=== PATIENT | female | born 1995 | race Caucasian/White ===

== ENCOUNTER 2016-02-29 08:28 | Emergency (ER) | payer OTHER ==
--- NOTE | 2016-02-29 08:56 | UC ---
Respiratory Complaint HPI - HPI Summary HPI Summary: cough and cold sx, nasal and chest congestion no fevers that she is aware of - History of Current Complaint Chief Complaint: UCRespiratory Stated Complaint: RESP COMPLAINT Time Seen by Provider: 02/29/16 08:44 Hx Obtained From: Patient Hx Last Menstrual Period: "it's been a while, Im not regular." ?: No Onset/Duration: Gradual Onset, Lasting Days - 7, Still Present Timing: Constant Severity Initially: Mild Severity Currently: Mild Character: Cough: Nonproductive Aggravating Factors: Nothing Alleviating Factors: Nothing Associated Signs And Symptoms: Positive: Chills, URI, Nasal Congestion, Sinus Discomfort - Allergies/Home Medications Allergies/Adverse Reactions: Allergies Allergy/AdvReac Type Severity Reaction Status Date / Time No Known Allergies Allergy Verified 02/29/16 09:00 PMH/Surg Hx/FS Hx/Imm Hx Previously Healthy: No Endocrine History Of: Denies: Diabetes, Thyroid Disease Cardiovascular History Of: Denies: Cardiac Disorders, Hypertension, Pacemaker/ICD, Congestive Heart Failure Respiratory History Of: Reports: Asthma - ACUTE ASTHMA SINCE AGE 12, Bronchitis Denies: COPD GI/ History Of: Denies: Ulcer, Renal Disease Neurological History Of: Reports: Migraine - HX OF 2 MONTHS AGO Psychological History Of: Reports: Anxiety, Depression - Surgical History Surgical History: Yes Surgery Procedure, Year, and Place: wisdom teeth extraction, tonsillectomy, LT THUMB LIGAMENT REPAIR 06/23/15-OK'D WITH DR CHEUNG TO SCAN BEFORE 6 WEEKS - Family History Known Family History: Positive: Cardiac Disease, Hypertension - Social History 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 Lives: With Family Alcohol Use: Occasionally Alcohol Amount: 1 DRINK 2 WEEKS Substance Use Type: None Smoking Status (MU): Light Every Day Tobacco Smoker Type: Cigarettes Amount Used/How Often: 10 PER DAY Length of Time of Smoking/Using Tobacco: 8 YRS Have You Smoked in the Last Year: Yes Household Exposure Type: Cigarettes Review of Systems Constitutional: Chills, Fatigue Skin: Negative Eyes: Negative ENT: Negative, Nasal Discharge Respiratory: Cough Cardiovascular: Negative Gastrointestinal: Negative Genitourinary: Negative Motor: Negative Neurovascular: Negative Musculoskeletal: Negative Neurological: Negative Psychological: Negative All Other Systems Reviewed And Are Negative: Yes Physical Exam Triage Information Reviewed: Yes Appearance: Well-Nourished, Ill-Appearing, Pain Distress Vital Signs Reviewed: Yes Eye Exam: Normal Eyes: Positive: Conjunctiva Clear ENT Exam: Normal ENT: Positive: Normal ENT inspection, Hearing grossly normal, Pharynx normal, Nasal congestion, Nasal drainage, TMs normal. Negative: Tonsillar swelling, Tonsillar exudate, Trismus, Muffled/hoarse voice Dental Exam: Normal Neck exam: Normal Neck: Positive: Supple, Nontender Respiratory Exam: Normal Respiratory: Positive: Chest non-tender, Lungs clear, Normal breath sounds, No respiratory distress, No accessory muscle use Cardiovascular Exam: Normal Cardiovascular: Positive: RRR, No Murmur, Brisk Capillary Refill Musculoskeletal Exam: Normal Musculoskeletal: Positive: Strength Intact, ROM Intact Neurological Exam: Normal Neurological: Positive: Alert, Muscle Tone Normal Psychological Exam: Normal Skin Exam: Normal Re-Evaluation - Re-Evaluation First Eval Change: Unchanged - u preg (-) Respiratory Course/Dx - Course Course Of Treatment: flonase, albuterol, increase fluids, start antibiodics is not improving in 5 days or significantly worsens - Differential Dx/Diagnosis Differential Diagnosis/HQI/PQRI: Asthma, Bronchitis, Lower Resp Infection, Sinusitis Provider Diagnoses: Rhinosinusitis Discharge - Discharge Plan Condition: Stable Disposition: HOME Prescriptions: Albuterol HFA INHALER* [Ventolin HFA Inhaler*] 2 puff INH Q6H PRN #1 mdi PRN Reason: cough Amoxicillin (*) 875 mg PO BID #20 tab Fluticasone NASAL SPRAY 50MCG* [Flonase NASAL SPRAY 50MCG*] 2 spray BOTH NARES DAILY #1 btl Patient Education Materials: How to Use a Metered-Dose Inhaler (ED), Upper Respiratory Infection (ED), How to Use Nasal [place] (ED) Referrals: Angeles Stevens MD [Primary Care Provider] - If Needed
[2016-02-29 09:00] VITALS: BP 117/69
== END 2016-02-29 09:50 | disposition home or self-care (01) ==
LOC: UCEAST 08:28
DX: J01.90 Acute sinusitis, unspecified (principal); B96.89 Other specified bacterial agents as the cause of diseases classified elsewhere; F17.210 Nicotine dependence, cigarettes, uncomplicated; J45.909 Unspecified asthma, uncomplicated; Z32.02 Encounter for pregnancy test, result negative
CPT/HCPCS: 81025; 99212; G0463

== ENCOUNTER 2016-10-08 12:32 | Emergency (ER) | payer OTHER ==
[2016-10-08 14:52] LABS: Add Diff/Slide Review? Slide Review Added; Comments Flag Yes; Hematocrit 41 % (35-47); Mean Corpuscular HGB Conc 34 g/dl (31-36); Mean Corpuscular Hemoglobin 32 pg (27-31); Mean Corpuscular Volume 93 fL (80-97); Mean Platelet Volume 9 um3 (7.4-10.4); Red Blood Count 4.41 10^6/ul (4.0-5.4); Red Cell Distribution Width 14 % (10.5-15); White Blood Count 14.8 10^3/ul (3.5-10.8)
[2016-10-08] MEDS ORDERED: HYDROmorphone* 1 MG/ML 1 ML SYR IV ONE ×2 (15:01→17:22)
[2016-10-08] MEDS ORDERED: Ondansetron INJ* 2 MG/ML VIAL IV ONE ×2 (15:01→17:22)
[2016-10-08] MEDS ORDERED: NS 0.9% 1000 ML* 1,000 ML IV ONE ×2 (15:01→17:22)
[2016-10-08 15:08] LABS: ALT 13 U/L (7-52); AST 16 U/L (13-39); Albumin 4.4 g/dL (3.2-5.2); Alkaline Phosphatase 61 U/L (34-104); Anion Gap 6 mmol/L (2-11); BUN/Creatinine Ratio 14.9 (8-20); Blood Urea Nitrogen 11 mg/dL (6-24); C Reactive Protein 4.38 mg/L (< 5.00); CO2 Carbon Dioxide 27 mmol/L (22-32); Calcium 9.3 mg/dL (8.6-10.3); Chloride 103 mmol/L (101-111); EGFR African American 125.1 (>60); EGFR Non-African American 97.3 (>60); Globulin 2.6 g/dL (2-4); Glucose 81 mg/dL (70-100); Lipase < 10 U/L (11.0-82.0); Potassium 4.1 mmol/L (3.5-5.0); Sodium 136 mmol/L (133-145)
[2016-10-08 15:14] LABS: Urine Bacteria Absent (Absent); Urine Bilirubin Negative (Negative); Urine Glucose Negative (Negative); Urine Nitrite Negative (Negative)
--- NOTE | 2016-10-08 15:19 | RAD ---
HISTORY: Right lower quadrant pain COMPARISONS: None TECHNIQUE: Multiple transverse and longitudinal ultrasound images were obtained of the right lower quadrant using grayscale and color Doppler imaging. FINDINGS: The appendix is visualized. The caliber 0.6 cm. The wall thickness is 0.2 cm. The appendix is compressible. There is trace amount of free fluid. The tip is not well visualized. IMPRESSION: THE APPENDIX IS VISUALIZED. THE VISUALIZED PORTION OF THE APPENDIX IS COMPRESSIBLE AND IS NORMAL IN CALIBER IN THICKNESS. THERE IS TRACE AMOUNT OF FREE FLUID. WHILE THERE IS NO DEFINITE EVIDENCE OF ACUTE APPENDICITIS, EARLY APPENDICITIS IS WITHIN THE DIFFERENTIAL. RECOMMEND ATTENTION ON FOLLOW-UP IMAGING
--- NOTE | 2016-10-08 18:41 | RAD ---
CLINICAL HISTORY: Right flank pain COMPARISON: Ultrasound dated October 08, 2016, CT dated October 29, 2015 TECHNIQUE: Multiple contiguous axial CT scans were obtained of the abdomen and pelvis, without intravenous contrast enhancement. Coronal and sagittal multiplanar reformations are submitted for review. Oral contrast was not administered. FINDINGS: The study is limited by the lack of intravenous contrast. This limits evaluation of the solid organs and vasculature. LUNG BASES: The lung bases are clear. LIVER: The liver is normal in shape, size, contour, and attenuation. BILE DUCTS: There is no intrahepatic or extrahepatic biliary dilatation. GALLBLADDER: The gallbladder is normal, without pericholecystic inflammatory change. PANCREAS: The pancreas is normal, without mass or ductal dilatation. SPLEEN: Normal in size and appearance. UPPER GI TRACT: Evaluation of the gastrointestinal tract is limited by incomplete gastric distention. The upper GI tract is unremarkable. SMALL BOWEL AND MESENTERY: The small bowel is normal in contour, course, and caliber. There is no obstruction or dilatation. COLON: The colon is normal in contour, course, caliber. There is no pericolonic inflammatory change. There is a tubular, vermiform, hollow viscus that is blind ending, and originates from the cecum, consistent with a normal appendix. There is no periappendiceal inflammatory change. ADRENALS: Normal bilaterally. KIDNEYS: The kidneys are normal in shape, size, contour, and axis. There is no hydronephrosis or nephrolithiasis. BLADDER: The bladder is smooth in contour. PELVIC ORGANS: The uterus and adnexa are grossly normal for technique. AORTA: The aorta is normal. IVC: Unremarkable LYMPH NODES: There is no lymphadenopathy by size criteria. ABDOMINAL WALL: There is no evidence for abdominal wall hernia. BONES AND SOFT TISSUES: Unremarkable OTHER: None IMPRESSION: SIMPLE FLUID NOTED WITHIN THE PELVIS. THIS MAY BE PHYSIOLOGIC WITHIN A REPRODUCTIVE AGE FEMALE.
[2016-10-08] MEDS ORDERED: Phenazopyridine TAB* 100 MG PO ONE ×2 (18:58→19:02)
[2016-10-08] MEDS ORDERED: Ciprofloxacin TAB* 500 MG PO ONE ×2 (18:58→19:02)
[2016-10-08 20:31] VITALS: BP 123/61
--- NOTE | 2016-10-08 20:48 | ED ---
Meredith Ordoñez Thomas, scribed for Alexei Em MD on 10/08/16 at 1445 . Abdominal Pain/Female - HPI Summary HPI Summary: The pt is a 21 y/o F presenting to the ED c/o RLQ abd pain that began yesterday at 20:00. The pain is rated 8/10. The pain is aggravated and alleviated by nothing. 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 Pt additionally c/o nausea, vomiting (this AM), and dysuria. Pt denies hematuria, diarrhea, and constipation. She last ate a sandwich at 15:00 yesterday and has not eaten since. PMHx: ovarian cysts, anxiety. PSHx: tonsillectomy. SHx: smoking , occasional alcohol use, no illicit drug use. LNMP 6 weeks ago, which is somewhat typical for her. - History of Current Complaint Chief Complaint: EDAbdPain Stated Complaint: ABD PAIN-RT SIDE Time Seen by Provider: 10/08/16 14:00 Hx Obtained From: Patient, Family/Editor [employer] - family in room Hx Last Menstrual Period: "it's been a while, Im not regular." Onset/Duration: Sudden Onset, Lasting Days - onset yesterday at 20:00, Still Present Timing: Constant Pain Intensity: 8 Pain Scale Used: 0-10 Numeric Location: Discrete At: RLQ Aggravating Factor(s): Nothing Alleviating Factor(s): Nothing Associated Signs and Symptoms: Positive: Nausea, Vomiting, Other: - POS: dysuria ; NEG: hematuria. Negative: Constipation, Diarrhea Allergies/Adverse Reactions: Allergies Allergy/AdvReac Type Severity Reaction Status Date / Time No Known Allergies Allergy Verified 10/08/16 14:19 PMH/Surg Hx/FS Hx/Imm Hx Previously Healthy: No Endocrine/Hematology History: Denies: Hx Diabetes, Hx Thyroid Disease Cardiovascular History: Denies: Hx Congestive Heart Failure, Hx Hypertension, Hx Pacemaker/ICD Respiratory History: Reports: Hx Asthma - ACUTE ASTHMA SINCE AGE 12, Other Respiratory Problems/Disorders - TONSILLITIS Denies: Hx Chronic Obstructive Pulmonary Disease (COPD) GI History: Denies: Hx Ulcer History: Denies: Hx Dialysis, Hx Renal Disease Sensory History: Denies: Hx Contacts or Glasses, Hx Hearing Aid Opthamlomology History: Denies: Hx Contacts or Glasses Neurological History: Reports: Hx Migraine - HX OF 2 MONTHS AGO Denies: Other Neuro Impairments/Disorders Psychiatric History: Reports: Hx Anxiety, Hx Depression Denies: Hx Panic Disorder - Surgical History Surgery Procedure, Year, and Place: wisdom teeth extraction, tonsillectomy, LT THUMB LIGAMENT REPAIR 06/23/15-OK'D WITH DR CHEUNG TO SCAN BEFORE 6 WEEKS Hx Anesthesia Reactions: No Infectious Disease History: No Infectious Disease History: Denies: Hx Clostridium Difficile, Hx Hepatitis, Hx Human Immunodeficiency Virus (HIV), Hx of Known/Suspected MRSA, Hx Shingles, Hx Tuberculosis, History Other Infectious Disease, Traveled Outside the [place] in Last 30 Days - Family History Known Family History: Positive: Cardiac Disease, Hypertension - Social History Alcohol Use: Occasionally Alcohol Amount: 1 DRINK 2 WEEKS Substance Use Type: Reports: None Smoking Status (MU): Heavy Every Day Tobacco Smoker Type: Cigarettes Amount Used/How Often: 10 PER DAY Length of Time of Smoking/Using Tobacco: 8 YRS Have You Smoked in the Last Year: Yes Review of Systems Negative: Fever Positive: Abdominal Pain - RLQ, onset yesterday at 20:00, Vomiting - this AM, Nausea. Negative: Diarrhea, Other - NEG: constipation Positive: dysuria. Negative: hematuria All Other Systems Reviewed And Are Negative: Yes Physical Exam Triage Information Reviewed: Yes Vital Signs On Initial Exam: Initial Vitals Temp Pulse Resp BP Pulse Ox 98.5 F 80 18 121/56 97 10/08/16 12:45 10/08/16 12:45 10/08/16 12:45 10/08/16 12:45 10/08/16 12:45 Vital Signs Reviewed: Yes Appearance: Positive: Well-Appearing, Well-Nourished, Pain Distress Skin: Positive: Warm, Skin Color Reflects Adequate Perfusion, Dry Head/Face: Positive: Normal Head/Face Inspection Eyes: Positive: Normal ENT: Positive: Normal ENT inspection Neck: Positive: Supple, Nontender Respiratory/Lung Sounds: Positive: Clear to Auscultation, Breath Sounds Present Cardiovascular: Positive: RRR Abdomen Description: Positive: Soft, Other: - She is tender to the RLQ. She is mildly tender to the RUQ. Bowel Sounds: Positive: Present Musculoskeletal: Positive: Normal Neurological: Positive: Normal Psychiatric: Positive: Normal, Affect/Mood Appropriate - [place] Coma Scale Coma Scale Total: 15 Diagnostics - Vital Signs Vital Signs Temp Pulse Resp BP Pulse Ox 10/08/16 14:15 98.4 F 67 16 131/64 97 10/08/16 12:45 98.5 F 80 18 121/56 97 - Laboratory Lab Results: Lab Results 10/08/16 10/08/16 10/08/16 Range/Units 14:43 14:43 14:43 WBC 14.8 H (3.5-10.8) 10^3/ul RBC 4.41 (4.0-5.4) 10^6/ul Hgb 14.0 (12.0-16.0) g/dl Hct 41 (35-47) % MCV 93 (80-97) fL MCH 32 H (27-31) pg MCHC 34 (31-36) g/dl RDW 14 (10.5-15) % Plt Count 232 (150-450) 10^3/ul MPV 9 (7.4-10.4) um3 Neut % (Auto) 78.0 (38-83) % Lymph % (Auto) 16.6 L (25-47) % [place] % (Auto) 3.9 (1-9) % Eos % (Auto) 0.6 (0-6) % Baso % (Auto) 0.9 (0-2) % Absolute Neuts (auto) 11.5 H (1.5-7.7) 10^3/ul Absolute Lymphs (auto) 2.5 (1.0-4.8) 10^3/ul Absolute Monos (auto) 0.6 (0-0.8) 10^3/ul Absolute Eos (auto) 0.1 (0-0.6) 10^3/ul Absolute Basos (auto) 0.1 (0-0.2) 10^3/ul Absolute Nucleated RBC 0.01 10^3/ul Nucleated RBC % 0 Sodium 136 (133-145) mmol/L Potassium 4.1 (3.5-5.0) mmol/L Chloride 103 (101-111) mmol/L Carbon Dioxide 27 (22-32) mmol/L Anion Gap 6 (2-11) mmol/L BUN 11 (6-24) mg/dL Creatinine 0.74 (0.51-0.95) mg/dL Est GFR ( Amer) 125.1 (>60) Est GFR (Non-Af Amer) 97.3 (>60) BUN/Creatinine Ratio 14.9 (8-20) Glucose 81 (70-100) mg/dL Lactic Acid 0.7 (0.5-2.0) mmol/L Calcium 9.3 (8.6-10.3) mg/dL Total Bilirubin 0.50 (0.2-1.0) mg/dL AST 16 (13-39) U/L ALT 13 (7-52) U/L Alkaline Phosphatase 61 (34-104) U/L C-Reactive Protein 4.38 (< 5.00) mg/L Total Protein 7.0 (6.4-8.9) g/dL Albumin 4.4 (3.2-5.2) g/dL Globulin 2.6 (2-4) g/dL Albumin/Globulin Ratio 1.7 (1-3) Lipase < 10 L (11.0-82.0) U/L Beta HCG, Quant < 0.60 mIU/mL Urine Color Urine Appearance Urine pH (5-9) Ur Specific [place] (1.010-1.030) Urine Protein (Negative) Urine Ketones (Negative) Urine Blood (Negative) Urine Nitrate (Negative) Urine Bilirubin (Negative) Urine Urobilinogen (Negative) Ur Leukocyte Esterase (Negative) Urine WBC (Auto) (Absent) Urine RBC (Auto) (Absent) Ur Squamous Epith Cells (Absent) Urine Bacteria (Absent) Urine Glucose (Negative) 10/08/16 Range/Units 15:02 WBC (3.5-10.8) 10^3/ul RBC (4.0-5.4) 10^6/ul Hgb (12.0-16.0) g/dl Hct (35-47) % MCV (80-97) fL MCH (27-31) pg MCHC (31-36) g/dl RDW (10.5-15) % Plt Count (150-450) 10^3/ul MPV (7.4-10.4) um3 Neut % (Auto) (38-83) % Lymph % (Auto) (25-47) % [place] % (Auto) (1-9) % Eos % (Auto) (0-6) % Baso % (Auto) (0-2) % Absolute Neuts (auto) (1.5-7.7) 10^3/ul Absolute Lymphs (auto) (1.0-4.8) 10^3/ul Absolute Monos (auto) (0-0.8) 10^3/ul Absolute Eos (auto) (0-0.6) 10^3/ul Absolute Basos (auto) (0-0.2) 10^3/ul Absolute Nucleated RBC 10^3/ul Nucleated RBC % Sodium (133-145) mmol/L Potassium (3.5-5.0) mmol/L Chloride (101-111) mmol/L Carbon Dioxide (22-32) mmol/L Anion Gap (2-11) mmol/L BUN (6-24) mg/dL Creatinine (0.51-0.95) mg/dL Est GFR ( Amer) (>60) Est GFR (Non-Af Amer) (>60) BUN/Creatinine Ratio (8-20) Glucose (70-100) mg/dL Lactic Acid (0.5-2.0) mmol/L Calcium (8.6-10.3) mg/dL Total Bilirubin (0.2-1.0) mg/dL AST (13-39) U/L ALT (7-52) U/L Alkaline Phosphatase (34-104) U/L C-Reactive Protein (< 5.00) mg/L Total Protein (6.4-8.9) g/dL Albumin (3.2-5.2) g/dL Globulin (2-4) g/dL Albumin/Globulin Ratio (1-3) Lipase (11.0-82.0) U/L Beta HCG, Quant mIU/mL Urine Color Yellow Urine Appearance Cloudy Urine pH 5.0 (5-9) Ur Specific [place] 1.023 (1.010-1.030) Urine Protein 1+(30 mg/dl) H (Negative) Urine Ketones 1+ H (Negative) Urine Blood 2+ H (Negative) Urine Nitrate Negative (Negative) Urine Bilirubin Negative (Negative) Urine Urobilinogen Negative (Negative) Ur Leukocyte Esterase 2+ H (Negative) Urine WBC (Auto) 3+(>20/hpf) H (Absent) Urine RBC (Auto) 3+(>10/hpf) H (Absent) Ur Squamous Epith Cells Present H (Absent) Urine Bacteria Absent (Absent) Urine Glucose Negative (Negative) Result Diagrams: 10/08/16 14:43 10/08/16 14:43 Lab Statement: Any lab studies that have been ordered have been reviewed, and results considered in the medical decision making process. - CT CT Abd/Pel CT Interpretation: No Acute Changes - SIMPLE FLUID NOTED WITHIN THE PELVIS. THIS MAY BE PHYSIOLOGIC WITHIN A REPRODUCTIVE AGE FEMALE. CT Interpretation Completed By: Radiologist - Additional Comments Diagnostic Additional Comments: US Abdomen. Interpreted by radiologist. Impression: THE APPENDIX IS VISUALIZED. THE VISUALIZED PORTION OF THE APPENDIX IS COMPRESSIBLE AND IS NORMAL IN CALIBER IN THICKNESS. THERE IS TRACE AMOUNT OF FREE FLUID. WHILE THERE IS NO DEFINITE EVIDENCE OF ACUTE APPENDICITIS, EARLY APPENDICITIS IS WITHIN THE DIFFERENTIAL. RECOMMEND ATTENTION ON FOLLOW-UP IMAGING Abdominal Pain Fem Course/Dx - Course Course Of Treatment: presented with RLQ pain for about a day accompanied by dysuria. Her U/A was suggestive of an infection and she had a mild leukocytosis. Her pain worsened while she was here and I was concerned she may have a stone so I obtained a noncontrast CT which was negative. - Diagnoses Provider Diagnoses: Pyelonephritis Discharge - Discharge Plan Condition: Stable Disposition: HOME Prescriptions: Ciprofloxacin TAB* [Cipro Tab*] 500 mg PO BID #20 tab Phenazopyridine 200 mg (NF) [Pyridium 200 MG tab *] 200 mg PO TID #6 tab Patient Education Materials: Kidney Infection (ED) Referrals: Doris Briceño NP [Primary Care Provider] - 3 Days The documentation as recorded by the Meredith lomeli Thomas accurately reflects the service I personally performed and the decisions made by me, Alexei Em MD.
== END 2016-10-08 19:45 | disposition home or self-care (01) ==
LOC: ED 12:32
DX: N10 Acute pyelonephritis (principal); R11.2 Nausea with vomiting, unspecified; Z32.02 Encounter for pregnancy test, result negative; J45.909 Unspecified asthma, uncomplicated; F41.9 Anxiety disorder, unspecified; F32.9 Major depressive disorder, single episode, unspecified; F17.210 Nicotine dependence, cigarettes, uncomplicated
CPT/HCPCS: 36415; 74176; 76705; 80053; 81003; 81015; 83605; 83690; 84702; 85025; 86140; 87086; 96361; 96374; 96375; 96376; 99285; A9270-GY; J1170; J2405

== ENCOUNTER 2016-10-15 20:07 | Emergency (ER) | payer OTHER ==
[2016-10-15] MEDS ORDERED: NS 0.9% 1000 ML* 1,000 ML IV ONE (20:47)
[2016-10-15] MEDS ORDERED: Ketorolac INJ* 30 MG/ML 1 ML VIAL IV ONE (20:47)
[2016-10-15 21:06] LABS: Urine Bacteria Absent (Absent); Urine Bilirubin Negative (Negative); Urine Glucose Negative (Negative); Urine Nitrite Positive (Negative)
[2016-10-15 21:20] LABS: Hematocrit 38 % (35-47); Hemoglobin 13.3 g/dl (12.0-16.0); Mean Corpuscular HGB Conc 35 g/dl (31-36); Mean Corpuscular Hemoglobin 32 pg (27-31); Mean Corpuscular Volume 93 fL (80-97); Mean Platelet Volume 9 um3 (7.4-10.4); Red Blood Count 4.15 10^6/ul (4.0-5.4); Red Cell Distribution Width 14 % (10.5-15); White Blood Count 10.8 10^3/ul (3.5-10.8)
[2016-10-15 21:33] LABS: Albumin 4.3 g/dL (3.2-5.2); C Reactive Protein 1.98 mg/L (< 5.00); Calcium 9.1 mg/dL (8.6-10.3); EGFR African American 125.1 (>60); EGFR Non-African American 97.3 (>60); Globulin 2.1 g/dL (2-4); Magnesium 2.1 mg/dL (1.9-2.7); Total Bilirubin 0.3 mg/dL (0.2-1.0); Total Protein 6.4 g/dL (6.4-8.9)
--- NOTE | 2016-10-15 21:35 | ED ---
Emeka Ordoñez Rebecca, scribed for Kit Rodriguez MD on 10/15/16 at 205 . Abdominal Pain/Female - HPI Summary HPI Summary: Pt is a 21 y/o F who presents to ED c/o abdominal pain for 1 week, worse last night. Pain radiates to the flank, bilaterally and is currently severe, ranked 8 /10. Sx aggravated and alleviated by nothing. Additionally c/o subjective fever. Pt was evaluated by [facility] ED 1 week ago (10/08) for similar sx where she had a CT Abd/pel done and was D/C to home with a Dx of pyelonephritis and Rx for Cipro and Pyridium. Pt reports the medications are not improving sx. She has not followed up with her PCP. - History of Current Complaint Chief Complaint: EDFlankPain Stated Complaint: DX KIDNEY INFECTION, MEDS NOT WORKING Time Seen by Provider: 10/15/16 20:41 Hx Obtained From: Patient Hx Last Menstrual Period: "it's been a while, Im not regular." Onset/Duration: Lasting Weeks - 1 week, Still Present, Worse Since - Last night Severity Currently: Severe Pain Intensity: 8 Pain Scale Used: 0-10 Numeric Radiates: Yes Radiates to: Back - Bilateral Aggravating Factor(s): Nothing Alleviating Factor(s): Nothing Associated Signs and Symptoms: Positive: Fever Simlar Episode/Dx as:: Evaluated 1 week ago by [facility] ED for similar sx Allergies/Adverse Reactions: Allergies Allergy/AdvReac Type Severity Reaction Status Date / Time No Known Allergies Allergy Verified 10/15/16 20:12 PMH/Surg Hx/FS Hx/Imm Hx Endocrine/Hematology History: Denies: Hx Diabetes, Hx Thyroid Disease Cardiovascular History: Denies: Hx Congestive Heart Failure, Hx Hypertension, Hx Pacemaker/ICD Respiratory History: Reports: Hx Asthma - ACUTE ASTHMA SINCE AGE 12, Other Respiratory Problems/Disorders - TONSILLITIS Denies: Hx Chronic Obstructive Pulmonary Disease (COPD) GI History: Denies: Hx Ulcer History: Denies: Hx Dialysis, Hx Renal Disease Sensory History: Denies: Hx Contacts or Glasses, Hx Hearing Aid Opthamlomology History: Denies: Hx Contacts or Glasses Neurological History: Reports: Hx Migraine - HX OF 2 MONTHS AGO Denies: Other Neuro Impairments/Disorders Psychiatric History: Reports: Hx Anxiety, Hx Depression Denies: Hx Panic Disorder - Surgical History Surgery Procedure, Year, and Place: wisdom teeth extraction, tonsillectomy, LT THUMB LIGAMENT REPAIR 06/23/15-OK'D WITH DR CHEUNG TO SCAN BEFORE 6 WEEKS Hx Anesthesia Reactions: No Infectious Disease History: No Infectious Disease History: Denies: Hx Clostridium Difficile, Hx Hepatitis, Hx Human Immunodeficiency Virus (HIV), Hx of Known/Suspected MRSA, Hx Shingles, Hx Tuberculosis, History Other Infectious Disease, Traveled Outside the [place] in Last 30 Days - Family History Known Family History: Positive: Cardiac Disease, Hypertension - Social History Alcohol Use: Occasionally Alcohol Amount: 1 DRINK 2 WEEKS Substance Use Type: Reports: None Smoking Status (MU): Heavy Every Day Tobacco Smoker Type: Cigarettes Amount Used/How Often: 10 PER DAY Length of Time of Smoking/Using Tobacco: 8 YRS Have You Smoked in the Last Year: Yes Review of Systems Positive: Fever Positive: Abdominal Pain - Abdominal pain with bilateral flank radiation All Other Systems Reviewed And Are Negative: Yes Physical Exam Triage Information Reviewed: Yes Vital Signs On Initial Exam: Initial Vitals Temp Pulse Resp BP Pulse Ox 98.3 F 100 16 133/72 98 10/15/16 20:09 10/15/16 20:09 10/15/16 20:09 10/15/16 20:09 10/15/16 20:09 Vital Signs Reviewed: Yes Appearance: Positive: Well-Appearing, Pain Distress - mild discomfort Skin: Positive: Warm Head/Face: Positive: Normal Head/Face Inspection Eyes: Positive: THERESA ENT: Positive: Hearing grossly normal Neck: Positive: Supple, Nontender Respiratory/Lung Sounds: Positive: Clear to Auscultation, Breath Sounds Present Cardiovascular: Positive: RRR Abdomen Description: Positive: Nontender, No Organomegaly, Soft. Negative: CVA Tenderness (R), CVA Tenderness (L) Bowel Sounds: Positive: Present Musculoskeletal: Positive: Strength/ROM Intact Neurological: Positive: Alert, Oriented to Person Place, Time Psychiatric: Positive: Affect/Mood Appropriate - [place] Coma Scale Coma Scale Total: 15 Diagnostics - Vital Signs Vital Signs Temp Pulse Resp BP Pulse Ox 10/15/16 20:12 98.3 F 100 16 133/72 98 10/15/16 20:09 98.3 F 100 16 133/72 98 - Laboratory Result Diagrams: 10/15/16 21:10 10/15/16 21:10 Lab Statement: Any lab studies that have been ordered have been reviewed, and results considered in the medical decision making process. Re-Evaluation - Re-Evaluation First Eval Re-Evaluation Time: 22:40 Change: Improved - results d/w pt Abdominal Pain Fem Course/Dx - Course Course Of Treatment: Pt is a 21 y/o F who presents to ED c/o abdominal pain for 1 week, worse last night. Pain radiates to the flank, bilaterally and is currently severe, ranked 8/10. Sx aggravated and alleviated by nothing. Additionally c/o subjective fever. Pt was evaluated by [facility] ED 1 week ago (10/08) for similar sx where she had a CT Abd/Pel done and was D/C to home with a Dx of pyelonephritis and Rx for Cipro and Pyridium. Pt reports the medications are not improving sx. UA reveals: urine color: [place], appearance: clear, nitrate: positive, WBC: trace, RBC: 1+, squamous epithelial cells: present and negative for: protein, blood, ketones, bacteria and glucose. In the ED course, the pt was administered Toradol, Morphine and fluids. She will be D/C to home with Dx of flank pain, Rx for Flexeril and Motrin and a follow up with her PCP. She understands and agrees. Elevated BP noted and advised to f/u with PCP. - Diagnoses Provider Diagnoses: Flank pain Discharge - Discharge Plan Condition: Improved Disposition: HOME Prescriptions: Cyclobenzaprine TAB* [Flexeril 10 MG TAB*] 10 mg PO TID #20 tab Ibuprofen TAB* [Motrin TAB* 800 MG] 800 mg PO TID #30 tab Patient Education Materials: Flank Pain (ED) Referrals: Doris Briceño [employer] [Primary Care Provider] - 3 Days Additional Instructions: Return to the ED for any returning or worsening symptoms. The documentation as recorded by the Emeka lomeli Rebecca accurately reflects the service I personally performed and the decisions made by , Kit Rodriguez MD.
[2016-10-15] MEDS ORDERED: Morphine INJ* 2 MG/ML 1 ML SYRINGE IV ONE (22:48)
[2016-10-15 23:56] VITALS: BP 122/63
== END 2016-10-15 23:40 | disposition home or self-care (01) ==
LOC: ED 20:07
DX: R10.9 Unspecified abdominal pain (principal); J45.909 Unspecified asthma, uncomplicated; F41.8 Other specified anxiety disorders; N12 Tubulo-interstitial nephritis, not specified as acute or chronic; F17.210 Nicotine dependence, cigarettes, uncomplicated
CPT/HCPCS: 36415; 80053; 81003; 81015; 83605; 83690; 83735; 85025; 86140; 87086; 96360; 96374; 96375; 99283; J1885; J2270

== ENCOUNTER → 2016-11-25 07:52 | Emergency (ER) | payer OTHER ==
[~2016-11-25 07:52] MED LIST: Ketorolac INJ* 30 MG/ML 1 ML VIAL IV ONE; Morphine INJ* 2 MG/ML 1 ML CARPUJECT ONE; Morphine INJ* 2 MG/ML 1 ML SYRINGE (TWO MG - NEW SYRINGE VERSION) IV ONE; NS 0.9% 1000 ML* 1,000 ML IV ONE; Ondansetron INJ* 2 MG/ML VIAL IV ONE
--- NOTE | 2016-11-25 09:22 | ED ---
GI/ HPI - HPI Summary HPI Summary: 21 female presents to ED with complaints of lower abdominal cramping and pain that began last night and has worsened since. Patient states she was unable to sleep due to the pain. She tried taking an old hydrocodone without relief. Patient states she usually gets painful cramps with menstrual cycle however this feel like the last time she had a miscarriage because they are so painful. Denies taking any medication today. Admits to menstrual bleeding that began yesterday shortly before the cramps. Is passing clots. Denies any concern for STDs. Is sexually active, took two tests in the past week and they were negative. Does not take control. Menstrual cycle is not regular and comes randomly, per patient. Admits to nausea when the pain is at its worst. Denies fever/chills, vomiting, urinary symptoms and abnormal bowel movements. Described pain to be cramping and increases in intensity at times, over suprapubic abdomen. PMHx significant for asthma and tension headaches. No other complaints at this time. - History of Current Complaint Chief Complaint: EDAbdPain Time Seen by Provider: 11/25/16 09:03 Stated Complaint: VAG BLEEDING/CRAMPS Hx Obtained From: Patient Hx Last Menstrual Period: "it's been a while, Im not regular." Onset/Duration: Started Hours Ago, Still Present, Worse Since Timing: Constant Severity: Severe Current Severity: Severe Vaginal Bleeding Description: Bright Red, Dark Red Pain Intensity: 9 Location of Pain: Suprapubic Additional Location for Females: Ovaries Pain Characteristics: Cramping, Aching Additional Signs & Symptoms: Positive: Vaginal Bleeding, Menses Irregular Aggravating Factor(s): Nothing Alleviating Factor(s): Position - - Allergy/Home Medications Allergies/Adverse Reactions: Allergies Allergy/AdvReac Type Severity Reaction Status Date / Time No Known Allergies Allergy Verified 11/25/16 07:58 PMH/Surg Hx/FS Hx/Imm Hx Endocrine/Hematology History: Denies: Hx Diabetes, Hx Thyroid Disease Cardiovascular History: Denies: Hx Congestive Heart Failure, Hx Hypertension, Hx Pacemaker/ICD Respiratory History: Reports: Hx Asthma - ACUTE ASTHMA SINCE AGE 12, Other Respiratory Problems/Disorders - TONSILLITIS Denies: Hx Chronic Obstructive Pulmonary Disease (COPD) GI History: Denies: Hx Ulcer History: Denies: Hx Dialysis, Hx Renal Disease Sensory History: Denies: Hx Contacts or Glasses, Hx Hearing Aid Opthamlomology History: Denies: Hx Contacts or Glasses Neurological History: Reports: Hx Migraine - HX OF 2 MONTHS AGO Denies: Other Neuro Impairments/Disorders Psychiatric History: Reports: Hx Anxiety, Hx Depression Denies: Hx Panic Disorder - Surgical History Surgery Procedure, Year, and Place: wisdom teeth extraction, tonsillectomy, LT THUMB LIGAMENT REPAIR 06/23/15-[facility] WITH DR CHEUNG TO SCAN BEFORE 6 WEEKS Hx Anesthesia Reactions: No - Immunization History Immunizations Up to Date: Yes Infectious Disease History: No Infectious Disease History: Denies: Hx Clostridium Difficile, Hx Hepatitis, Hx Human Immunodeficiency Virus (HIV), Hx of Known/Suspected MRSA, Hx Shingles, Hx Tuberculosis, History Other Infectious Disease, Traveled Outside the [place] in Last 30 Days - Family History Known Family History: Positive: Cardiac Disease, Hypertension - Social History Alcohol Use: Occasionally Alcohol Amount: 1 DRINK 2 WEEKS Substance Use Type: Reports: None Smoking Status (MU): Heavy Every Day Tobacco Smoker Type: Cigarettes Amount Used/How Often: 10 PER DAY Length of Time of Smoking/Using Tobacco: 8 YRS Have You Smoked in the Last Year: Yes Review of Systems Constitutional: Negative Cardiovascular: Negative Respiratory: Negative Positive: Abdominal Pain Positive: other - vaginal bleeding Skin: Negative All Other Systems Reviewed And Are Negative: Yes Physical Exam Triage Information Reviewed: Yes Vital Signs On Initial Exam: Initial Vitals Temp Pulse Resp BP Pulse Ox 97.9 F 90 18 130/74 100 11/25/16 07:55 11/25/16 07:55 11/25/16 07:55 11/25/16 07:55 11/25/16 07:55 Vital Signs Reviewed: Yes Appearance: Positive: Well-Appearing, Well-Nourished, Pain Distress - moderate Skin: Positive: Warm, Skin Color Reflects Adequate Perfusion, Dry. Negative: Cold, Cyanosis @, Jaundiced, Pale Head/Face: Positive: Normal Head/Face Inspection Eyes: Positive: Conjunctiva Clear ENT: Positive: Hearing grossly normal, Pharynx normal Neck: Positive: Supple, Nontender Respiratory/Lung Sounds: Positive: Clear to Auscultation, Breath Sounds Present. Negative: Rales, Rhonchi, Wheezes Cardiovascular: Positive: Normal, RRR, Pulses are Symmetrical in both Upper and Lower Extremities. Negative: Murmur, Rub Abdomen Description: Positive: No Organomegaly, Soft, Guarding, Other: - discomfort with palpating lower abdomen, suprapubic area. Negative: Bruit, CVA Tenderness (R), CVA Tenderness (L), Distended, McBurney's Point Tenderness, Peritoneal Signs Bowel Sounds: Positive: Present Pelvic Exam: Positive: external exam normal - per patient, deferred exam due to menstrual cycle and discomfort Musculoskeletal: Positive: Normal, Strength/ROM Intact Neurological: Positive: Normal, Sensory/Motor Intact, Alert, Oriented to Person Place, Time - [place] Coma Scale Coma Scale Total: 15 Diagnostics - Vital Signs Vital Signs Temp Pulse Resp BP Pulse Ox 11/25/16 07:55 97.9 F 90 18 130/74 100 - Laboratory Result Diagrams: 11/25/16 09:24 11/25/16 09:24 Lab Statement: Any lab studies that have been ordered have been reviewed, and results considered in the medical decision making process. Re-Evaluation - Re-Evaluation First Eval Re-Evaluation Time: 10:15 Change: Improved - had some relief, still in some pain Second Eval Re-Evaluation Time: 10:40 Change: Unchanged - still in some pain however, feels better than when she first came in, heating pad and tylenol. deferred pelvic. ready to be d/c. requested work note GIGU Course/Dx - Course Course Of Treatment: labs obtained. fluids and toradol given. did not have relief, given 1mg of morphine and tylenol. had some relief. given zofran for nausea, which helped. appears to be suffering from menstrual cramps, no concern for other etiology. Labs unremarkable. HCG negative. pending STD results, no concern at this time. deferred pelvic exam, as asymptomatic other than menstrual cycle. no additional vaginal symptoms. no further imaging or evaluation required at this time. patient aware of worsening signs and symptoms to watch out for. continue pain management at home with ibuprofen for anti- inflammatory starting tomorrow and midol. educated on proper dosing. increase fluid intake. hot baths, rest. follow up and return if symptoms persist, worsen or new symptoms develop. recommended heating pad. - Diagnoses Differential Diagnoses - Female: Urinary Tract Infection, Vaginitis, Other - dysmenorrhea, miscarriage Provider Diagnoses: Dysmenorrhea Discharge - Discharge Plan Condition: Stable Disposition: HOME Patient Education Materials: Dysmenorrhea (ED) Forms: *Work Release Referrals: Doris Briceño NP [Primary Care Provider] - Additional Instructions: Take your already prescribed hydrocodone for pain. supplement with ibuprofen beginning tomorrow. you may also want to try midol. laying with knees to chest and applying heating pad may also give you some relief. take hot baths. rest. drink plenty of fluids. make an appointment with OBGYN to discuss option for painful menstrual cycles. any new or worsening symptoms please seek medical attention.
[2016-11-25 09:35] LABS: Hematocrit 40 % (35-47); Hemoglobin 13.8 g/dl (12.0-16.0); Mean Corpuscular HGB Conc 34 g/dl (31-36); Mean Corpuscular Hemoglobin 32 pg (27-31); Mean Corpuscular Volume 93 fL (80-97); Mean Platelet Volume 8 um3 (7.4-10.4); Red Blood Count 4.32 10^6/ul (4.0-5.4); Red Cell Distribution Width 14 % (10.5-15); White Blood Count 7.7 10^3/ul (3.5-10.8)
[2016-11-25 09:51] LABS: ALT 18 U/L (7-52); AST 18 U/L (13-39); Alkaline Phosphatase 59 U/L (34-104); Anion Gap 5 mmol/L (2-11); BUN/Creatinine Ratio 8.8 (8-20); Blood Urea Nitrogen 6 mg/dL (6-24); C Reactive Protein 1.51 mg/L (< 5.00); CO2 Carbon Dioxide 27 mmol/L (22-32); Calcium 8.8 mg/dL (8.6-10.3); Chloride 105 mmol/L (101-111); EGFR African American 137.9 (>60); EGFR Non-African American 107.2 (>60); Globulin 2.4 g/dL (2-4); Glucose 90 mg/dL (70-100); Potassium 4.2 mmol/L (3.5-5.0); Sodium 137 mmol/L (133-145); Total Protein 6.4 g/dL (6.4-8.9)
[2016-11-25 10:51] LABS: Urine Bacteria Absent (Absent); Urine Bilirubin Negative (Negative); Urine Glucose Negative (Negative); Urine Nitrite Negative (Negative)
[2016-11-25] MEDS: Acetaminophen TAB* 325 MG PO ONE ×2 (11:01→11:02)
[2016-11-25 11:17] VITALS: BP 123/79
== END | disposition home or self-care (01) ==
LOC: ED 07:52
DX: N94.6 Dysmenorrhea, unspecified (principal); R10.30 Lower abdominal pain, unspecified; F17.210 Nicotine dependence, cigarettes, uncomplicated
CPT/HCPCS: 36415; 80053; 81003; 81015; 83605; 84702; 85025; 86140; 87491; 87591; 99283; A9270-GY; J1885; J2270; J2405

== ENCOUNTER → 2017-01-15 23:25 | Emergency (ER) | payer OTHER ==
[2017-01-15 23:30] VITALS: BP 148/84
== END | disposition home or self-care (01) ==
LOC: ED 23:25
DX: R07.9 Chest pain, unspecified (principal)
CPT/HCPCS: 93005

== ENCOUNTER 2017-03-24 18:05 | Emergency (ER) | payer OTHER ==
[2017-03-24 21:21] LABS: ABS Basophils 0 10^3/ul (0-0.2); ABS Eosinophils 0 10^3/ul (0-0.6); ABS Lymphocytes 2.4 10^3/ul (1.0-4.8); ABS Monocytes 0.5 10^3/ul (0-0.8); ABS Neutrophils 1.5 10^3/ul (1.5-7.7); ABS Nucleated RBC 0 10^3/ul; Eosinophil % 0.6 % (0-6); Hematocrit 42 % (35-47); Hemoglobin 14.2 g/dl (12.0-16.0); Lymphocyte % 53.5 % (25-47); Mean Corpuscular HGB Conc 34 g/dl (31-36); Mean Corpuscular Hemoglobin 32 pg (27-31); Mean Corpuscular Volume 93 fL (80-97); Mean Platelet Volume 9 um3 (7.4-10.4); Nucleated Red Blood Cells % 0.1; Platelet Count 221 10^3/ul (150-450); Red Cell Distribution Width 13 % (10.5-15); White Blood Count 4.4 10^3/ul (3.5-10.8)
[2017-03-24 21:37] LABS: EGFR Non-African American 102.8 (>60)
[2017-03-24] MEDS ORDERED: Morphine INJ* 4 MG/ML 1 ML CARPUJECT IV ONE (21:49)
[2017-03-24] MEDS ORDERED: Ondansetron INJ* 2 MG/ML VIAL IV ONE (21:49)
[2017-03-24] MEDS ORDERED: Iohexol 300* (CONTRAST) 10 ML SDV IV ONE (22:42)
[2017-03-25 00:29] LABS: Urine Appearance Cloudy; Urine Blood Negative (Negative); Urine Color Yellow; Urine Ketones 2+ (Negative); Urine Protein Negative (Negative); Urine Specific Gravity 1.017 (1.010-1.030); Urine Urobilinogen Negative (Negative)
[2017-03-25] MEDS ORDERED: Ketorolac INJ* 30 MG/ML 1 ML VIAL IV PUSH ONE (00:45)
--- NOTE | 2017-03-25 00:50 | ED ---
Red Ordoñez Tecjoon, scribed for Felix Dale MD on 03/25/17 at 0043 . Progress - Progress Note Progress Note: US Pelvic reveals, per radiologist, IMPRESSION: No adnexal masses visualized. ED physician has reviewed this radiology report. CT Abd/Pel reveals, per radiologist, IMPRESSION: impression: No abnormalities found. ED physician has reviewed this radiology report. Course/Dx - Course Course Of Treatment: pt flu +. ct abd and us negative, given 1 dose of pain medication, instructed to fu with gi physician and procurement director. agrees to and udnerstands dc isntructions. - Diagnoses Provider Diagnoses: Abdominal pain The documentation as recorded by the Red lomeli Tecjoon accurately reflects the service I personally performed and the decisions made by Chito solomon Dong, MD.
[2017-03-25 01:52] VITALS: BP 143/100
--- NOTE | 2017-03-25 08:33 | RAD ---
INDICATION: Right adnexal pain COMPARISON: Similar examination October 20, 2016 TECHNIQUE: Real-time transabdominal only ultrasound examination of the female pelvis including grayscale and Doppler color flow imaging. FINDINGS: Uterus: The uterus is normal in size and echogenicity measuring 8.1 x 3.3 x 4.4 cm. The endometrial stripe is smooth and uniform measuring 5 mm in thickness. Ovaries: The right and left ovary measure 3.4 x 1.9 x 3.1 cm and 2.4 x 2.6 x 2.9 cm, respectively. Normal arterial and venous waveforms are identified. Appearance is within normal limits for the patient's age. There is no free fluid in the cul-de-sac. IMPRESSION: Normal and age-appropriate transabdominal only pelvic ultrasound.
--- NOTE | 2017-03-25 08:57 | RAD ---
CLINICAL HISTORY: Right lower quadrant pain COMPARISON: Most recent CT examination is dated October 29, 2015 TECHNIQUE: Contrast enhanced CT examination of the abdomen and pelvis from the lung bases through the initial tuberosities. The patient received 88 mL Omnipaque 300 intravenously prior to imaging.The patient received oral contrast as well prior to imaging. FINDINGS: VISUALIZED LUNG BASES: The visualized lung bases are grossly clear. There is no pleural effusion. ABDOMEN AND PELVIS: The liver is homogenously hypodense relative to the spleen. The spleen, pancreas and adrenal glands are grossly normal in appearance. The gallbladder is normal. The kidneys are normal in appearance without focal mass, calcification or signs of hydronephrosis. The oral contrast has progressed as far as the base of the cecum. The small and large bowel are not distended. The patient's normal appendix is identified in the right lower quadrant measuring 6 mm in diameter (coronal image 34). There is no gross retroperitoneal or mesenteric lymphadenopathy. The pelvic viscera is normal in appearance. The abdominal aorta and iliac arteries are normal in course and diameter. There are no sinister bone lesions. IMPRESSION: Possible hepatic steatosis in this otherwise normal CT of the abdomen and pelvis.
--- NOTE | 2017-03-26 12:37 | ED ---
Wen Ordoñez Julia, scribed for Can Robertson MD on 03/24/17 at 2203 . Abdominal Pain/Female - HPI Summary HPI Summary: This patient is a 22 year old F presenting to [facility] with a chief complaint of constant RLQ abdominal since last night. Patient reports n/v/d, sweats, chills, fatigue, pain with urination. Patient denies vaginal bleeding, and cough. The patient rates the pain 8/10 in severity. She states she has been unable to eat for a week. Pt has hx of ovarian cysts. - History of Current Complaint Chief Complaint: EDAbdPain Stated Complaint: ABD PAIN Time Seen by Provider: 03/24/17 21:00 Hx Obtained From: Patient Hx Last Menstrual Period: "it's been a while, Im not regular." Onset/Duration: Lasting Days Timing: Constant Pain Intensity: 8 Pain Scale Used: 0-10 Numeric Location: Discrete At: RLQ Aggravating Factor(s): Food Associated Signs and Symptoms: Positive: Other: - reports n/v/d, sweats, chills , fatigue, pain with urination Allergies/Adverse Reactions: Allergies Allergy/AdvReac Type Severity Reaction Status Date / Time No Known Allergies Allergy Verified 03/24/17 20:53 PMH/Surg Hx/FS Hx/Imm Hx Endocrine/Hematology History: Denies: Hx Diabetes, Hx Thyroid Disease Cardiovascular History: Denies: Hx Congestive Heart Failure, Hx Hypertension, Hx Pacemaker/ICD Respiratory History: Reports: Hx Asthma - ACUTE ASTHMA SINCE AGE 12, Other Respiratory Problems/Disorders - TONSILLITIS Denies: Hx Chronic Obstructive Pulmonary Disease (COPD) GI History: Denies: Hx Ulcer History: Reports: Other Problems/Disorders - ovarian cysts Denies: Hx Dialysis, Hx Renal Disease Musculoskeletal History: Reports: Hx Back Problems - Chronic low back pain with luis hip pain Sensory History: Denies: Hx Contacts or Glasses, Hx Hearing Aid Opthamlomology History: Denies: Hx Contacts or Glasses Neurological History: Reports: Hx Migraine - HX OF 2 MONTHS AGO, Other Neuro Impairments/Disorders - dizziness Psychiatric History: Reports: Hx Anxiety, Hx Depression Denies: Hx Panic Disorder - Surgical History Surgery Procedure, Year, and Place: wisdom teeth extraction, tonsillectomy, LT THUMB LIGAMENT REPAIR 06/23/15 Hx Anesthesia Reactions: No - Immunization History Date of Tetanus Vaccine: unk Date of Influenza Vaccine: none Infectious Disease History: No Infectious Disease History: Denies: Hx Clostridium Difficile, Hx Hepatitis, Hx Human Immunodeficiency Virus (HIV), Hx of Known/Suspected MRSA, Hx Shingles, Hx Tuberculosis, History Other Infectious Disease, Traveled Outside the [place] in Last 30 Days - Family History Known Family History: Positive: Cardiac Disease, Hypertension - Social History Alcohol Use: Occasionally Alcohol Amount: 1 DRINK 2 WEEKS Substance Use Type: Reports: None, Prescribed Smoking Status (MU): Light Every Day Tobacco Smoker Type: Cigarettes Amount Used/How Often: 10 PER DAY Length of Time of Smoking/Using Tobacco: 8 YRS Have You Smoked in the Last Year: Yes Review of Systems Positive: Chills, Fatigue, Skin Diaphoresis Negative: Erythema Negative: Sore Throat Negative: Chest Pain Negative: Shortness Of Breath, Cough Gastrointestinal: Other - decreased PO intake Positive: Abdominal Pain, Vomiting, Diarrhea, Nausea Genitourinary: Negative - vaginal bleeding Positive: pain Negative: Myalgia, Edema Negative: Rash Neurological: Negative - dizziness All Other Systems Reviewed And Are Negative: Yes Physical Exam - Summary Physical Exam Summary: Constitutional: Well-developed, Well-nourished, Alert. (-) Distressed Skin: Warm, Dry HENT: Normocephalic; Atraumatic Eyes: Conjunctiva normal Neck: Musculoskeletal ROM normal neck. (-) JVD, (-) Stridor, (-) Tracheal deviation Cardio: Rhythm regular, rate normal, Heart sounds normal; Intact distal pulses; The pedal pulses are 2+ and symmetric. Radial pulses are 2+ and symmetric. (-) Murmur Pulmonary/Chest wall: Effort normal. (-) Respiratory distress, (-) Wheezes, (-) Rales Abd: Soft, (+) Mild RLQ Tenderness, (-) Distension, (-) Guarding, (-) Rebound Musculoskeletal: (-) Edema Lymph: (-) Cervical adenopathy Neuro: Alert, Oriented x3 Psych: Mood and affect Normal Triage Information Reviewed: Yes Vital Signs On Initial Exam: Initial Vitals Temp Pulse Resp BP Pulse Ox 98.1 F 77 18 131/78 99 03/24/17 18:24 03/24/17 18:24 03/24/17 18:24 03/24/17 18:24 03/24/17 18:24 Vital Signs Reviewed: Yes Diagnostics - Vital Signs Vital Signs Temp Pulse Resp BP Pulse Ox 03/24/17 19:52 98 F 66 14 161/85 98 03/24/17 18:24 98.1 F 77 18 131/78 99 - Laboratory Lab Results: Lab Results 03/24/17 03/24/17 03/24/17 Range/Units 21:10 21:10 21:10 WBC 4.4 (3.5-10.8) 10^3/ul RBC 4.50 (4.0-5.4) 10^6/ul Hgb 14.2 (12.0-16.0) g/dl Hct 42 (35-47) % MCV 93 (80-97) fL MCH 32 H (27-31) pg MCHC 34 (31-36) g/dl RDW 13 (10.5-15) % Plt Count 221 (150-450) 10^3/ul MPV 9 (7.4-10.4) um3 Neut % (Auto) 33.7 L (38-83) % Lymph % (Auto) 53.5 H (25-47) % Whitman % (Auto) 11.3 H (1-9) % Eos % (Auto) 0.6 (0-6) % Baso % (Auto) 0.9 (0-2) % Absolute Neuts (auto) 1.5 (1.5-7.7) 10^3/ul Absolute Lymphs (auto) 2.4 (1.0-4.8) 10^3/ul Absolute Monos (auto) 0.5 (0-0.8) 10^3/ul Absolute Eos (auto) 0 (0-0.6) 10^3/ul Absolute Basos (auto) 0 (0-0.2) 10^3/ul Absolute Nucleated RBC 0 10^3/ul Nucleated RBC % 0.1 Sodium 137 (133-145) mmol/L Potassium 3.7 (3.5-5.0) mmol/L Chloride 104 (101-111) mmol/L Carbon Dioxide 25 (22-32) mmol/L Anion Gap 8 (2-11) mmol/L BUN 12 (6-24) mg/dL Creatinine 0.70 (0.51-0.95) mg/dL Est GFR ( Amer) 132.2 (>60) Est GFR (Non-Af Amer) 102.8 (>60) BUN/Creatinine Ratio 17.1 (8-20) Glucose 76 (70-100) mg/dL Lactic Acid 0.6 (0.5-2.0) mmol/L Calcium 9.2 (8.6-10.3) mg/dL Total Bilirubin 0.30 (0.2-1.0) mg/dL AST 21 (13-39) U/L ALT 17 (7-52) U/L Alkaline Phosphatase 57 (34-104) U/L C-Reactive Protein 3.36 (< 5.00) mg/L Total Protein 7.2 (6.4-8.9) g/dL Albumin 4.5 (3.2-5.2) g/dL Globulin 2.7 (2-4) g/dL Albumin/Globulin Ratio 1.7 (1-3) Lipase 15 (11.0-82.0) U/L Beta HCG, Quant < 0.60 mIU/mL Urine Color Urine Appearance Urine pH (5-9) Ur Specific [place] (1.010-1.030) Urine Protein (Negative) Urine Ketones (Negative) Urine Blood (Negative) Urine Nitrate (Negative) Urine Bilirubin (Negative) Urine Urobilinogen (Negative) Ur Leukocyte Esterase (Negative) Urine Glucose (Negative) Influenza A (Rapid) (Negative) Influenza B (Rapid) (Negative) 03/24/17 03/25/17 Range/Units 23:25 00:12 WBC (3.5-10.8) 10^3/ul RBC (4.0-5.4) 10^6/ul Hgb (12.0-16.0) g/dl Hct (35-47) % MCV (80-97) fL MCH (27-31) pg MCHC (31-36) g/dl RDW (10.5-15) % Plt Count (150-450) 10^3/ul MPV (7.4-10.4) um3 Neut % (Auto) (38-83) % Lymph % (Auto) (25-47) % Whitman % (Auto) (1-9) % Eos % (Auto) (0-6) % Baso % (Auto) (0-2) % Absolute Neuts (auto) (1.5-7.7) 10^3/ul Absolute Lymphs (auto) (1.0-4.8) 10^3/ul Absolute Monos (auto) (0-0.8) 10^3/ul Absolute Eos (auto) (0-0.6) 10^3/ul Absolute Basos (auto) (0-0.2) 10^3/ul Absolute Nucleated RBC 10^3/ul Nucleated RBC % Sodium (133-145) mmol/L Potassium (3.5-5.0) mmol/L Chloride (101-111) mmol/L Carbon Dioxide (22-32) mmol/L Anion Gap (2-11) mmol/L BUN (6-24) mg/dL Creatinine (0.51-0.95) mg/dL Est GFR ( Amer) (>60) Est GFR (Non-Af Amer) (>60) BUN/Creatinine Ratio (8-20) Glucose (70-100) mg/dL Lactic Acid (0.5-2.0) mmol/L Calcium (8.6-10.3) mg/dL Total Bilirubin (0.2-1.0) mg/dL AST (13-39) U/L ALT (7-52) U/L Alkaline Phosphatase (34-104) U/L C-Reactive Protein (< 5.00) mg/L Total Protein (6.4-8.9) g/dL Albumin (3.2-5.2) g/dL Globulin (2-4) g/dL Albumin/Globulin Ratio (1-3) Lipase (11.0-82.0) U/L Beta HCG, Quant mIU/mL Urine Color Yellow Urine Appearance Cloudy Urine pH 5.0 (5-9) Ur Specific [place] 1.017 (1.010-1.030) Urine Protein Negative (Negative) Urine Ketones 2+ H (Negative) Urine Blood Negative (Negative) Urine Nitrate Negative (Negative) Urine Bilirubin Negative (Negative) Urine Urobilinogen Negative (Negative) Ur Leukocyte Esterase Negative (Negative) Urine Glucose Negative (Negative) Influenza A (Rapid) Positive H (Negative) Influenza B (Rapid) Negative (Negative) Result Diagrams: 03/24/17 21:10 03/24/17 21:10 Lab Statement: Any lab studies that have been ordered have been reviewed, and results considered in the medical decision making process. Abdominal Pain Fem Course/Dx - Course Course Of Treatment: Pt presents with onstant RLQ abdominal since last night. Patient reports n/v/d, sweats, chills, fatigue, pain with urination. Patient denies vaginal bleeding, and cough. The patient rates the pain 8/10 in severity. She states she has been unable to eat for a week. Pt is given morphine and Zofran - Diagnoses Provider Diagnoses: Abdominal pain, Influenza Discharge - Discharge Plan Condition: Stable Disposition: HOME Discharge Disposition Comment: Pt is signed out at shift change to Dr. Dale awaiting CT A/P and US. Prescriptions: Ondansetron ODT TAB* [Zofran 4 MG Odt TAB*] 4 mg PO Q6H PRN #10 tab.odt PRN Reason: Nausea Patient Education Materials: Acute Abdominal Pain (ED) Referrals: Doris Briceño NP [Primary Care Provider] - Chris Stoner MD [Medical Doctor] - Fiorella Cook MD [Medical Doctor] - Additional Instructions: PLEASE MAKE AN APPOINTMENT FIRST THING IN THE MORNING TO BE SEEN BY A [employer] DEVELOPER AND GI DOCTOR PLEASE RETURN IMMEDIATELY TO THE ER IF YOU HAVE ANY WORSENING OR CONCERNING SYMPTOMS PLEASE MAKE AN APPOINTMENT TO BE SEEN BY YOUR PRIMARY CARE DOCTOR WITHIN 1 WEEK The documentation as recorded by the Wen lomeli Julia accurately reflects the service I personally performed and the decisions made by me, Can Robertson MD.
== END 2017-03-25 01:51 | disposition home or self-care (01) ==
LOC: ED 18:05
DX: R10.31 Right lower quadrant pain (principal); J11.1 Influenza due to unidentified influenza virus with other respiratory manifestations; F17.210 Nicotine dependence, cigarettes, uncomplicated
CPT/HCPCS: 36415; 74177; 76856; 80053; 81003; 83605; 83690; 84702; 85025; 86140; 87502; 96374; 96375; 99284; J1885; J2270; J2405; Q9967

== ENCOUNTER 2017-10-08 16:19 | Emergency (ER) | payer OTHER ==
--- OUTSIDE RECORDS SUMMARY | 2017-10-08 16:25 | XMS REPORT ---
:1995 External Reference #:[id number] Author Organization [employer] Address [address] [facility] [place] [address] [place] [address] Phone [phone] Care Team Providers Name Role Phone Shyanne Call MD Primary Care Physician Unavailable Payers Type Date Identification Numbers Payment Provider Subscriber Commercial Effective: Policy Number: [id number] Zack Chester 2015 Group Number: [id number] [address] PayID: [id number] [place] [address] Medigap Part B Effective: 2015 Policy Number: [id number] Medicaid Esvin Chester Expires: 2015 Group Name: 1 1 [address] PayID: [id number] [place] [address] Commercial Effective: 2014 Policy Number: [id number] Zack Chester Expires: 2015 Group Number: [id number] [address] PayID: [id number] [place] [address] Problems Date Description Provider Status Onset: 10/21/2014 Asthma Jenny RoachP. 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 twice a day as needed Tizanidine HCL 08/07 Active Tablets 4mg 30tab take 1 M54.2 s tablet by Varn, N.P. mouth every 8 hours as needed Nicotrol 08/07 Active Inhaler 10mg 168un 1 Inhaler F17.210 its as needed Varn, N.P. not to exceed 16 in a day Fluconazole 07/25 Active Tablets 150mg 2tabs one by mouth june Varn, N.P. repeat in 3 days as needed Hydrocortisone 05/02 Active Cream 2.5% 30gm apply to R21 Shyanne /2018 affected Cotton, area twice M.D. daily Ranitidine HCL 03/31 Active Tablets 150mg 60tab take one R10.84 s tablet by Varn, N.P. mouth twice a day Albuterol Sulfate 01/18 Active Nebulizer (2.5mg/3M 300un inhale L) 0.083% its contents Stevens, of 1 vial M.D. via nebulizer 4 times a day as needed Nebulizer 01/18 Active Device 1unit use for s albuterol Stevens, nebulized M.D. solution up to 4 times a day. Valtrex 07/26 Active Tablets 500mg 30tab 1 by mouth George s twice a MAICOL Wallace day x 5 days Ventolin HFA 08/15 Active Aerosol 108(90Bas 8.5gm 2 puffs by Doris /2015 e) mouth four Varn, N.P. mcg/Act times a day as needed Fluconazole 02/01 Hx Tablets 150mg 2tabs one by George mouth june MAICOL Wallace - repeat in 05/01 3 days needed Prednisone 01/18 Hx Tablets 10mg qs take 4 tab J45.901 daily x 3 Stevens, - days then M.D. 01/30 3 tab /2016 daily x 3 days and then 2 tab daily X 3 days 1 tab daily x 3 days Medrol 12/06 Hx TBPK 4mg 21uni 6 by mouth M54.5 ts day 1, 5 Varn, N.P. - by mouth 12/12 day 2, by mouth day 3, 3 by mouth day 4, 2 by mouth day 5, 1 by mouth day 6 Ibuprofen 11/17 Hx Tablets 800mg 90tab by mouth s three Varn, N.P. - times a 08/09 day needed Ahydrocodone-Acet 11/14 Hx Tablets 5-325mg 14tab one tablet aminophen s by mouth Varn, N.P. - every 8 12 hours needed for pain Fluconazole 10/13 Hx Tablets 150mg 2tabs one by Doris /2017 mouth june Varn, N.P. - repeat in 01/18 3 days needed Tizanidine HCL 08/31 Hx Tablets 4mg 30tab 1 tablet G44.201 Doris /2017 s every 4 Varn, N.P. - hours as 05/01 needed for muscle tension headache or muscle spasms. Meloxicam 07/27 Hx Tablets 15mg 60tab 1 by mouth s twice a Bennett, - day M.D. 10/18 Fluconazole 07/04 Hx Tablets 150mg 2tabs one by George gene june MAICOL Wallace repeat in 3 days as needed Tramadol HCL 06/22 Hx Tablets 50mg 60tab 1-2 M79.645 Shyanne s tablets Jakub, - every 6 M.D. 01/18 hours needed for pain. Ibuprofen 06/22 Hx Tablets 600mg 21tab take one M79.645 George s tablet by MAICOL Wallace - mouth 07/27 times a day as needed with food Diflucan 05/30 Hx Tablets 150mg 2tabs one by Doris /2017 mouthJune Varn, N.P. - repeat in 06/05 3 days Tizanidine HCL 11/24 Hx Tablets 4mg 60tab 1 tablet G44.201 Doris /2016 s every 4 Varn, N.P. hours as needed for muscle tension headache. Fluconazole 11/18 Hx Tablets 150mg 2tabs one by Doris mouth june Keyanna, N.P. - repeat in 01/27 3 days needed Azithromycin 11/04 Hx Tablets 250mg 6tabs 2 tabs by [place].Sera [place] mouth MAICOL Wallace - every day 11/09 x1 day, tab by mouth every day x 4 days Benzonatate 11/04 Hx Capsules 200mg 30cap one by J20Marquis George s mouth [place] DBAS - three 01/27 times daily as needed for cough Acetaminophen-Cod 10/19 Hx Tablets 300-30mg 30tab one by M54.5 Doris sowne #3 s mouth Keyanna, N.P. - every 6 01/27 hours needed cough Meloxicam 10/01 Hx Tablets 15mg 30tab once daily 4.5 George s with food MAICOL Wallace Tramadol HCL 10/01 Hx Tablets 50mg 42tab 1-2 4.5 George s tablets MAICOL Wallace - every 8 10/08 hours needed for pain. Fluconazole 09/26 Hx Tablets 150mg 2tabs one by Doris mouth june Keyanna, N.P. - repeat in 10/19 3 days needed Hydrocodone-Aceta 09/23 Hx Tablets 5-325mg 30tab 1-2 by George nugent s mouth MAICOL Wallace - every 8 08/12 hours prn. Methylprednisolon 09/23 Hx TBPK 4mg 21uni as M54.5 George ts directed MAICOL Wallace - on package 09/29 Methylprednisolon 08/11 Hx TBPK 4mg 21uni as M79.642 George ts directed MAICOL Wallace - on package 08/19 Oxycodone-Acetami 07/08 Hx Tablets 5-325mg 20tab 1 tab by M79.642 Karen jaime s mouth Bennett, - every 6 M.D. 08/11 hours needed for pain Do not refill until 06/26/15 Fluconazole 07/08 Hx Tablets 150mg 2tabs one by M79.642 Doris mouth june Keyanna, N.P. - repeat in 07/24 3 days needed Celebrex 07/06 Hx Capsules 100mg 30cap 1 by mouth K02.7 s bid prn Keyanna, N.P. - pain 08/11 Lidocaine-Priloca 07/05 Hx Cream 2.5-2.5% 25gm apply a L72.3 generous Keyanna, N.P. - amount to 07/06 affected area 30 minutes before appointmen t. Tramadol 07/01 Hx Tablets 37.5-325m 30tab 1-2 Karen Hydrochloride/Sukh g s tablets Bennett, taminophen - every 6 M.D. 08/11 hours needed pain Oxycodone-Acetami 06/24 Hx Tablets 5-325mg 40tab 1-2 tab by Karen nophen s mouth Bennett, - every 4-6 M.D. 07/03 hours needed for pain Do not refill until 06/26/15 Hydrocodone-Aceta 06/21 Hx Tablets 5-325mg 40tab 1-2 tabs Karen minophen s by mouth Bennett, - every 4- 6 M.D. 07/08 hours needed pain Fluconazole 06/21 Hx Tablets 150mg 2tabs one by mouth may Keyanna, N.P. - repeat in 06/27 3 days needed Percocet 06/17 Hx Tablets 5-325mg 60tab 1-2 by S53.32xA Zaneb s mouth MD Sana - every 4 to 06/20 6 hours needed pain Ciprofloxacin HCL 06/10 Hx Tablets 250mg 14tab take one N39.0 George s tablet MAICOL Wallace - twice a 06/17 day for days. Phenazopyridine 06/10 Hx Tablets 100mg 10tab 1 tablet N39.0 George HCL s by mouth MAICOL Wallace - three 06/13 times day as needed for [address] 05/[address] 500mg 60tab by mouth K02.7 George s twice a MAICOL Wallace - day with 05/10 Lidocaine Viscous 05/14 Hx Solution 2% 100un gargle K02.7 its with 15ml Madison, DBAS - every 4 06/10 hours needed for throat pain. Fluconazole 04/28 Hx Tablets 150mg 2tabs one by mouth june Varn, N.P. - repeat in 05/25 3 days needed Benzonatate 04/08 Hx Capsules 200mg 30cap one by J06.9 s mouth Varn, N.P. - three 04/21 daily as needed for cough Celebrex 04/08 Hx Capsules 200mg 30cap 1 by mouth K02.7 s every day Varn, N.P. - 04/08 Flovent HFA 04/08 Hx Aerosol 110mcg/Ac 12gm 2 puffs J06.9 t twice Varn, N.P. - daily 01/18 Meloxicam 04/08 Hx Tablets 15mg 30tab once daily s with food Varn, N.P. - 05/14 Tizanidine HCL 03/30 Hx Capsules 4mg 60cap one by G44.201 s mouth Varn, N.P. - every 4 11/24 hours needed for musle tension headache Ciprofloxacin HCL 02/11 Hx Tablets 500mg 20tab take one R30.0 s tablet Madison, DBAS - twice a 02/22 day for days Phenazopyridine 02/11 Hx Tablets 100mg 10tab 1 tablet R30.0 George s by mouth [place], DBAS - three 02/14 times day as needed for 3 days. Fluconazole 02/11 Hx Tablets 150mg 2tabs one by R30.0 George mouth june [place], DBAS - repeat in 02/17 3 days needed Fluconazole 01/27 Hx Tablets 150mg 2tabs one by B37.3 George mouth june [place], DBAS - repeat in 02/17 3 days needed Tramadol HCL 01/19 Hx Tablets 50mg 30tab 1 tablet s three to Varn, N.P. - four times 03/30 daily needed Valtrex 01/14 Hx Tablets 500mg 10tab 1 by mouth s twice a Varn, N.P. day x 5 days Tramadol HCL 01/05 Hx Tablets 50mg 15tab 1-2 K08.8 George s tablets MAICOL Wallace - every 4-6 01/08 hours needed for pain. Fluconazole 01/05 Hx Tablets 150mg 2tabs one by B37.3 George mouth june MAICOL Wallace - repeat in 01/08 3 days as needed Naproxen Sodium 12/24 Hx Tablets 550mg 60tab One po R10.11 s every 12 Varn, N.P. - hours 04/08 Ponstel 12/16 Hx Capsules 250mg 60cap two by R10.31 s mouth Varn, N.P. - initially 12/16 then 1 by mouth every 6 hours as needed Docusate Sodium & 12/16 Hx Tablets 8.6-50mg 30tab 2 tablets R10.31 Doris Senna Stimulant s po hs prn Varn, N.P. Laxative/Stool - constipati Softener 04/08 on Valacyclovir HCL 12/16 Hx Tablets 1gm 21tab 1 tbalet N77.1 s tid x 7 Varn, N.P. - days 01/04 Clindamycin 09/12 Hx Gel 1% 30gm apply once L70.8 daily to Varn, N.P. - affected 10/17 areas. Clindamycin 09/11 Hx Gel 1-5% 50gm Apply to 706.1 George Phos-Benzoyl /2014 afected MAICOL Wallace Perox - areas once 09/12 daily. Ortho-Cept (28) 08/15 Hx Tablets 0.15-30mg 3mont 1 by mouth George -mcg hs every day MAICOL Wallace - 09/11 Sumatriptan 08/15 Hx Tablets 25mg 9tabs take one George Succinate tablet at MAICOL Wallace - the first 08/15 signs of headache. if no improvemen t take a second tablet 2 hours after the first, Naproxen DR 08/[address] 500mg 60tab by mouth George /2014 s twice a MAICOL Wallace - day with 09/11 Cyclobenzaprine 08/15 Hx Tablets 5mg 30tab take one 784.0 George HCL /2014 s tablet by MAICOL Wallace - mouth 10/21 every hours as needed. Sumatriptan 08/15 Hx Tablets 50mg 9tabs take one 784.0 George Succinate tablet at MAICOL Wallace - onset of 08/18 headache. if no relief you can take a second tab 2 hours later. No more than 4 times a month Diazepam 00/ Hx Tablets 2mg 1 tablet George /0000 by mouth MAICOL Wallace - bid 09/11 Zoloft 00/00 Hx Tablets 100mg 1 by mouth Unknown /0000 every day - 04/08 Amoxicillin 00/00 Hx Capsules 500mg take 1 Unknown /0000 capsule by - mouth 02/11 hours until finished Sertraline HCL 00/00 Hx Tablets 100mg Unknown /0000 - 04/08 Gabapentin 00/00 Hx Capsules 300mg 1 by mouth Unknown /0000 three - times a Clonazepam 00/00 Hx Tablets 0.5mg once daily Unknown /0000 Dispers - 06/05 Rexulti 00/00 Hx Tablets 2mg 1 po daily Unknown /0000 - 11/04 Ativan 00/00 Hx Tablets 1mg 1 tab by Unknown /0000 mouth 3x a - day 06/22 Clonidine HCL 00/00 Hx Tablets 0.1mg 1 by mouth Unknown /0000 im Am and - 3 in the 06/22 Trazodone HCL 00/00 Hx Tablets 100mg 1 by mouth Unknown /0000 every - night at 01/27 bedtime Flexeril 00/00 Hx Tablets 5mg 1 tab by Unknown /0000 mouth - twice a 10/19 day needed spasm Nitrofurantoin 00/00 Hx Capsules 100mg take 1 Unknown Monohyd Macro /0000 capsule by - mouth 01/27 twice a day Rexulti 00/00 Hx Tablets 2mg 1 by mouth Unknown /0000 every day - 06/22 Trileptal 00/00 Hx Tablets 150mg Not Unknown /0000 taking---1 - tablet at 05/01 night a week then 1 twice a day Doxycycline Hx Capsules 50mg to start Unknown cl /0000 soon - 08/07 Vital Signs Date Vital Result Comment 09/13/2017 Height 65 inches 5'5" Weight 149.00 lb Heart Rate 68 /min BP Systolic 130 mmHg BP Diastolic 64 mmHg Body Temperature 96.0 F O2 % BldC Oximetry 97 % BMI (Body Mass Index) 24.8 kg/m2 08/07/2017 Weight 154.00 lb Heart Rate 77 /min BP Systolic 100 mmHg BP Diastolic 60 mmHg Body Temperature 97.9 F O2 % BldC Oximetry 98 % 05/02/2017 Weight 140.00 lb Heart Rate 87 /min BP Systolic Sitting 108 mmHg BP Diastolic Sitting 62 mmHg Body Temperature 96.1 F O2 % BldC Oximetry 99 % 03/31/2017 Weight 141.50 lb Heart Rate 91 /min BP Systolic 127 mmHg BP Diastolic 72 mmHg Body Temperature 97.0 F O2 % BldC Oximetry 98 % 01/18/2017 Weight 150.00 lb Heart Rate 81 /min BP Systolic Sitting 130 mmHg BP Diastolic Sitting 74 mmHg Body Temperature 96.8 F O2 % BldC Oximetry 98 % 12/06/2016 Weight 147.75 lb Heart Rate 105 /min BP Systolic 150 mmHg BP Diastolic 68 mmHg Body Temperature 97.2 F O2 % BldC Oximetry 97 % 11/04/2016 Weight 148.00 lb Heart Rate 82 /min BP Systolic 112 mmHg BP Diastolic 60 mmHg Body Temperature 97.4 F O2 % BldC Oximetry 98 % 10/18/2016 Height 65 inches 5'5" Weight 151.00 lb Heart Rate 95 /min BP Systolic 112 mmHg BP Diastolic 60 mmHg Body Temperature 97.3 F O2 % BldC Oximetry 99 % BMI (Body Mass Index) 25.1 kg/m2 08/12/2016 Heart Rate 78 /min BP Systolic Sitting 124 mmHg BP Diastolic Sitting 82 mmHg Respiratory Rate 18 /min Body Temperature 97.5 F 06/29/2016 Height 65 inches 5'5" Weight 152.00 lb Heart Rate 66 /min BP Systolic 109 mmHg BP Diastolic 69 mmHg Respiratory Rate 15 /min Body Temperature 97.7 F Pain Level 7 BMI (Body Mass Index) 25.3 kg/m2 06/22/2016 Weight 157.75 lb Heart Rate 69 /min BP Systolic 118 mmHg BP Diastolic 60 mmHg Body Temperature 97.3 F O2 % BldC Oximetry 99 % 02/03/2016 Height 65 inches 5'5" Weight 149.00 lb Heart Rate 72 /min BP Systolic 124 mmHg BP Diastolic 70 mmHg Respiratory Rate 18 /min Body Temperature 98.9 F BMI (Body Mass Index) 24.8 kg/m2 01/28/2016 Height 65 inches 5'5" Weight 149.00 lb Heart Rate 79 /min BP Systolic 100 mmHg BP Diastolic 70 mmHg Body Temperature 96.3 F O2 % BldC Oximetry 98 % BMI (Body Mass Index) 24.8 kg/m2 11/05/2015 Height 65 inches 5'5" Weight 148.50 lb Heart Rate 90 /min BP Systolic 111 mmHg BP Diastolic 75 mmHg Body Temperature 96.8 F O2 % BldC Oximetry 100 % BMI (Body Mass Index) 24.7 kg/m2 11/02/2015 Height 65 inches 5'5" Weight 150.00 lb Heart Rate 60 /min Respiratory Rate 16 /min Pain Level 6 BMI (Body Mass Index) 25.0 kg/m2 10/20/2015 Weight 141.00 lb Heart Rate 57 /min BP Systolic Sitting 88 mmHg BP Diastolic Sitting 57 mmHg Respiratory Rate 16 /min Body Temperature 98.4 F O2 % BldC Oximetry 98 % 10/02/2015 Weight 145.75 lb Heart Rate 68 /min BP Systolic Sitting 104 mmHg BP Diastolic Sitting 69 mmHg Pain Level 8 O2 % BldC Oximetry 99 % 09/24/2015 Weight 146.50 lb Heart Rate 97 /min BP Systolic Sitting 115 mmHg BP Diastolic Sitting 69 mmHg Pain Level 8 O2 % BldC Oximetry 99 % 08/17/2015 Height 65 inches 5'5" Weight 150.00 lb Pain Level 8 BMI (Body Mass Index) 25.0 kg/m2 08/12/2015 Weight 147.00 lb with shoes Heart Rate 80 /min BP Systolic Sitting 120 mmHg BP Diastolic Sitting 52 mmHg Body Temperature 96.5 F O2 % BldC Oximetry 99 % 07/29/2015 Height 65 inches 5'5" Weight 150.00 lb Pain Level 2 BMI (Body Mass Index) 25.0 kg/m2 07/17/2015 Weight 150.00 lb Heart Rate 66 /min BP Systolic Sitting 102 mmHg BP Diastolic Sitting 50 mmHg Body Temperature 96.0 F O2 % BldC Oximetry 99 % 07/10/2015 Weight 138.00 lb Heart Rate 76 /min BP Systolic Sitting 124 mmHg BP Diastolic Sitting 80 mmHg Respiratory Rate 16 /min Body Temperature 98.0 F O2 % BldC Oximetry 98 % 07/09/2015 Weight 136.00 lb Heart Rate 76 /min BP Systolic Sitting 118 mmHg BP Diastolic Sitting 70 mmHg Respiratory Rate 15 /min Body Temperature 98.7 F O2 % BldC Oximetry 98 % 07/06/2015 Weight 140.19 lb Heart Rate 76 /min BP Systolic Sitting 114 mmHg BP Diastolic Sitting 74 mmHg Body Temperature 97.2 F O2 % BldC Oximetry 98 % 07/02/2015 Height 65 inches 5'5" Weight 140.00 lb Heart Rate 60 /min BP Systolic Sitting 114 mmHg BP Diastolic Sitting 68 mmHg Respiratory Rate 16 /min Pain Level 10 BMI (Body Mass Index) 23.3 kg/m2 06/22/2015 Height 65 inches 5'5" Weight 140.00 lb Heart Rate 60 /min BP Systolic 111 mmHg BP Diastolic 71 mmHg Pain Level 10 BMI (Body Mass Index) 23.3 kg/m2 06/18/2015 Heart Rate 72 /min BP Systolic Sitting 119 mmHg BP Diastolic Sitting 72 mmHg Body Temperature 97.6 F Pain Level 10 O2 % BldC Oximetry 99 % 06/11/2015 Weight 141.00 lb Heart Rate 64 /min BP Systolic Sitting 122 mmHg BP Diastolic Sitting 72 mmHg Body Temperature 98.1 F O2 % BldC Oximetry 99 % 05/15/2015 Weight 142.00 lb Heart Rate 66 /min BP Systolic Sitting 122 mmHg BP Diastolic Sitting 80 mmHg Respiratory Rate 15 /min Body Temperature 96.0 F O2 % BldC Oximetry 98 % 04/08/2015 Weight 148.50 lb Heart Rate 87 /min BP Systolic Sitting 110 mmHg BP Diastolic Sitting 70 mmHg Respiratory Rate 18 /min Body Temperature 96.2 F Pain Level 8 O2 % BldC Oximetry 92 % 03/30/2015 Weight 144.00 lb Heart Rate 80 /min BP Systolic Sitting 98 mmHg BP Diastolic Sitting 60 mmHg Respiratory Rate 16 /min Body Temperature 98.3 F O2 % BldC Oximetry 99 % 02/17/2015 Weight 148.00 lb Heart Rate 78 /min BP Systolic Sitting 126 mmHg BP Diastolic Sitting 62 mmHg Body Temperature 97.3 F Pain Level 9 R lower abdominal O2 % BldC Oximetry 98 % 02/11/2015 Height 65 inches 5'5" Weight 150.00 lb Heart Rate 72 /min BP Systolic Sitting 110 mmHg BP Diastolic Sitting 60 mmHg Respiratory Rate 16 /min Body Temperature 98.2 F O2 % BldC Oximetry 97 % BMI (Body Mass Index) 25.0 kg/m2 01/05/2015 Weight 153.50 lb Heart Rate 67 /min BP Systolic Sitting 106 mmHg BP Diastolic Sitting 62 mmHg Body Temperature 96.5 F Pain Level 9 O2 % BldC Oximetry 98 % 12/24/2014 Weight 153.00 lb Heart Rate 60 /min BP Systolic Sitting 115 mmHg BP Diastolic Sitting 75 mmHg Body Temperature 97.1 F Pain Level 8 O2 % BldC Oximetry 98 % 12/16/2014 Height 65 inches 5'5" Weight 155.00 lb Heart Rate 78 /min BP Systolic Sitting 122 mmHg BP Diastolic Sitting 76 mmHg Respiratory Rate 14 /min Body Temperature 98.7 F O2 % BldC Oximetry 98 % BMI (Body Mass Index) 25.8 kg/m2 10/21/2014 Height 65 inches 5'5" Weight 152.50 lb Heart Rate 78 /min BP Systolic Sitting 139 mmHg BP Diastolic Sitting 92 mmHg Body Temperature 97.2 F O2 % BldC Oximetry 98 % BMI (Body Mass Index) 25.4 kg/m2 09/11/2014 Weight 161.00 lb Heart Rate 75 /min BP Systolic Sitting 114 mmHg BP Diastolic Sitting 65 mmHg Body Temperature 96.7 F 08/15/2014 Weight 154.00 lb Heart Rate 66 /min BP Systolic Sitting 138 mmHg BP Diastolic Sitting 83 mmHg Body Temperature 97.0 F Results Test Date Test Result H/L Range Note CBC Auto Diff 09/13/2017 White Blood Count 8.3 10^3/uL 3.5-10.8 Red Blood Count 4.45 10^6/uL 4.00-5.40 Hemoglobin 14.1 g/dL 12.0-16.0 Hematocrit 42 % 35-47 Mean Corpuscular Volume 95 fL 80-97 Mean Corpuscular Hemoglobin 32 pg High 27-31 Mean Corpuscular HGB Conc 34 g/dL 31-36 Red Cell Distribution Width 13 % 10.5-15 Platelet Count 267 10^3/uL 150-450 Mean Platelet Volume 8.9 um3 7.4-10.4 Abs Neutrophils 5.1 10^3/uL 1.5-7.7 Abs Lymphocytes 2.5 10^3/uL 1.0-4.8 Abs Monocytes 0.5 10^3/uL 0-0.8 Abs Eosinophils 0.1 10^3/uL 0-0.6 Abs Basophils 0 10^3/uL 0-0.2 Abs Nucleated RBC 0 10^3/uL Granulocyte % 61.8 % 38-83 Lymphocyte % 30.2 % 25-47 Monocyte % 5.9 % 0-7 Eosinophil % 1.8 % 0-6 Basophil % 0.3 % 0-2 Nucleated Red Blood Cells % 0.1 Comp Metabolic Panel 09/13/2017 Sodium 138 mmol/L 135-145 Potassium 4.1 mmol/L 3.5-5.0 Chloride 106 mmol/L 101-111 Co2 Carbon Dioxide 23 mmol/L 22-32 Anion Gap 9 mmol/L 2-11 Glucose 77 mg/dL 70-100 Blood Urea Nitrogen 8 mg/dL 6-24 Creatinine 0.64 mg/dL 0.51-0.95 BUN/Creatinine Ratio 12.5 8-20 Calcium 10.2 mg/dL 8.6-10.3 Total Protein 6.7 g/dL 6.4-8.9 Albumin 4.6 g/dL 3.2-5.2 Globulin 2.1 g/dL 2-4 Albumin/Globulin Ratio 2.2 1-3 Total Bilirubin 0.50 mg/dL 0.2-1.0 Alkaline Phosphatase 56 U/L 34-104 Alt 18 U/L 7-52 Ast 18 U/L 13-39 Egfr Non- 114.0 >60 Egfr 137.9 >60 1 Laboratory test finding 09/13/2017 Lipase 17 U/L 11.0-82.0 HCG < 0.60 mIU/mL 2 Laboratory test 05/02/2017 Gardnerella/Yeast: Vaginal SEE RESULT BELOW 3 finding Dna Rapid Influenza A & 03/25/2017 Influenza A Molecular POSITIVE Negative 4 B Molecular Influenza B Molecular NEGATIVE Negative Laboratory test finding 03/24/2017 Rapid Influenza A B SEE RESULT BELOW 5 Antigen Urinalysis Profile 03/24/2017 Urine Color Yellow Urine Appearance Cloudy Urine Specific [place] 1.017 1.010-1.030 Urine pH 5.0 5-9 Urine Urobilinogen Negative Negative Urine Ketones 2+ Negative Urine Protein Negative Negative Urine Leukocytes Negative Negative Urine Blood Negative Negative Urine Nitrite Negative Negative Urine Bilirubin Negative Negative Urine Glucose Negative Negative CBC Auto Diff 03/24/2017 White Blood Count 4.4 10^3/uL 3.5-10.8 Red Blood Count 4.50 10^6/uL 4.0-5.4 Hemoglobin 14.2 g/dL 12.0-16.0 Hematocrit 42 % 35-47 Mean Corpuscular Volume 93 fL 80-97 Mean Corpuscular Hemoglobin 32 pg High 27-31 Mean Corpuscular HGB Conc 34 g/dL 31-36 Red Cell Distribution Width 13 % 10.5-15 Platelet Count 221 10^3/uL 150-450 Mean Platelet Volume 9 um3 7.4-10.4 Abs Neutrophils 1.5 10^3/uL 1.5-7.7 Abs Lymphocytes 2.4 10^3/uL 1.0-4.8 Abs Monocytes 0.5 10^3/uL 0-0.8 Abs Eosinophils 0 10^3/uL 0-0.6 Abs Basophils 0 10^3/uL 0-0.2 Abs Nucleated RBC 0 10^3/uL Granulocyte % 33.7 % Low 38-83 Lymphocyte % 53.5 % High 25-47 Monocyte % 11.3 % High 1-9 Eosinophil % 0.6 % 0-6 Basophil % 0.9 % 0-2 Nucleated Red Blood Cells % 0.1 Comp Metabolic Panel 03/24/2017 Sodium 137 mmol/L 133-145 Potassium 3.7 mmol/L 3.5-5.0 Chloride 104 mmol/L 101-111 Co2 Carbon Dioxide 25 mmol/L 22-32 Anion Gap 8 mmol/L 2-11 Glucose 76 mg/dL 70-100 Blood Urea Nitrogen 12 mg/dL 6-24 Creatinine 0.70 mg/dL 0.51-0.95 BUN/Creatinine Ratio 17.1 8-20 Calcium 9.2 mg/dL 8.6-10.3 Total Protein 7.2 g/dL 6.4-8.9 Albumin 4.5 g/dL 3.2-5.2 Globulin 2.7 g/dL 2-4 Albumin/Globulin Ratio 1.7 1-3 Total Bilirubin 0.30 mg/dL 0.2-1.0 Alkaline Phosphatase 57 U/L 34-104 Alt 17 U/L 7-52 Ast 21 U/L 13-39 Egfr Non- 102.8 >60 Egfr 132.2 >60 6 Laboratory test finding 03/24/2017 Lipase 15 U/L 11.0-82.0 C Reactive Protein 3.36 mg/L < 5.00 7 HCG < 0.60 mIU/mL 8 Lactic Acid 0.6 mmol/L 0.5-2.0 9 Urinalysis Profile 11/25/2016 Urine Color Straw Urine Appearance Clear Urine Specific [place] 1.002 Low 1.010-1.030 Urine pH 6.0 5-9 Urine Urobilinogen Negative Negative Urine Ketones Negative Negative Urine Protein Negative Negative Urine Leukocytes Negative Negative Urine Blood 3+ Negative Urine Nitrite Negative Negative Urine Bilirubin Negative Negative Urine Glucose Negative Negative Urine White Blood Cell Absent Absent Urine Red Blood Cell Trace(0-2/hpf) Absent Urine Bacteria Absent Absent Urine Squamous Epithelial Cell Present Absent Laboratory test finding 11/25/2016 C Reactive Protein 1.51 mg/L < 5.00 10 HCG < 0.60 mIU/mL 11 Lactic Acid 1.0 mmol/L 0.5-2.0 12 GC/Chlamydia Amplified Rna 11/25/2016 Chlamydia trachomatis Rna Negative Negative Neisseria gonorrhoeae (GC) Rna Negative Negative CBC Auto Diff 11/25/2016 White Blood Count 7.7 10^3/uL 3.5-10.8 Red Blood Count 4.32 10^6/uL 4.0-5.4 Hemoglobin 13.8 g/dL 12.0-16.0 Hematocrit 40 % 35-47 Mean Corpuscular Volume 93 fL 80-97 Mean Corpuscular Hemoglobin 32 pg High 27-31 Mean Corpuscular HGB Conc 34 g/dL 31-36 Red Cell Distribution Width 14 % 10.5-15 Platelet Count 248 10^3/uL 150-450 Mean Platelet Volume 8 um3 7.4-10.4 Abs Neutrophils 4.6 10^3/uL 1.5-7.7 Abs Lymphocytes 2.2 10^3/uL 1.0-4.8 Abs Monocytes 0.6 10^3/uL 0-0.8 Abs Eosinophils 0.2 10^3/uL 0-0.6 Abs Basophils 0 10^3/uL 0-0.2 Abs Nucleated RBC 0 10^3/uL Granulocyte % 60.0 % 38-83 Lymphocyte % 28.9 % 25-47 Monocyte % 7.7 % 1-9 Eosinophil % 2.8 % 0-6 Basophil % 0.6 % 0-2 Nucleated Red Blood Cells % 0 Comp Metabolic Panel 11/25/2016 Sodium 137 mmol/L 133-145 Potassium 4.2 mmol/L 3.5-5.0 Chloride 105 mmol/L 101-111 Co2 Carbon Dioxide 27 mmol/L 22-32 Anion Gap 5 mmol/L 2-11 Glucose 90 mg/dL 70-100 Blood Urea Nitrogen 6 mg/dL 6-24 Creatinine 0.68 mg/dL 0.51-0.95 BUN/Creatinine Ratio 8.8 8-20 Calcium 8.8 mg/dL 8.6-10.3 Total Protein 6.4 g/dL 6.4-8.9 Albumin 4.0 g/dL 3.2-5.2 Globulin 2.4 g/dL 2-4 Albumin/Globulin Ratio 1.7 1-3 Total Bilirubin 0.30 mg/dL 0.2-1.0 Alkaline Phosphatase 59 U/L 34-104 Alt 18 U/L 7-52 Ast 18 U/L 13-39 Egfr Non- 107.2 >60 Egfr 137.9 >60 13 Laboratory test 11/04/2016 Cytology SEE RESULT BELOW 14 finding GC/Chlamydia 10/18/2016 Chlamydia trachomatis Negative Negative Amplified Rna Rna Neisseria gonorrhoeae (GC) Rna Negative Negative Laboratory test finding 10/18/2016 Test Urine negative Ua Routine 10/18/2016 Ua Specific [place] 1.015 Ua PH 5 Ua Color YELLOW Ua Appera CLEAR Ua WBC NEG Ua Protein NEG Ua Glucose NORM Ua Ketones NEG Ua Bilirubin SHAHRAM Ua Urobilinogen NEG Ua Nitrite NEG Ua Occult Blood TRACE Urine Culture And Sensitivities 10/15/2016 Urine Culture SEE RESULT BELOW 15 Urinalysis Profile 10/15/2016 Urine Color [place] Urine Appearance Clear Urine Specific [place] 1.025 1.010-1.030 Urine pH 5.0 5-9 Urine Urobilinogen Negative Negative Urine Ketones Negative Negative Urine Protein Negative Negative Urine Leukocytes Negative Negative Urine Blood Negative Negative Urine Nitrite Positive Negative Urine Bilirubin Negative Negative Urine Glucose Negative Negative Urine White Blood Cell Trace(0-5/hpf) Absent Urine Red Blood Cell 1+(3-5/hpf) Absent Urine Bacteria Absent Absent Urine Squamous Epithelial Cell Present Absent CBC Auto Diff 10/15/2016 White Blood Count 10.8 10^3/uL 3.5-10.8 Red Blood Count 4.15 10^6/uL 4.0-5.4 Hemoglobin 13.3 g/dL 12.0-16.0 Hematocrit 38 % 35-47 Mean Corpuscular Volume 93 fL 80-97 Mean Corpuscular Hemoglobin 32 pg High 27-31 Mean Corpuscular HGB Conc 35 g/dL 31-36 Red Cell Distribution Width 14 % 10.5-15 Platelet Count 230 10^3/uL 150-450 Mean Platelet Volume 9 um3 7.4-10.4 Abs Neutrophils 6.5 10^3/uL 1.5-7.7 Abs Lymphocytes 3.3 10^3/uL 1.0-4.8 Abs Monocytes 0.7 10^3/uL 0-0.8 Abs Eosinophils 0.3 10^3/uL 0-0.6 Abs Basophils 0.1 10^3/uL 0-0.2 Abs Nucleated RBC 0.01 10^3/uL Granulocyte % 60.0 % 38-83 Lymphocyte % 30.6 % 25-47 Monocyte % 6.2 % 1-9 Eosinophil % 2.5 % 0-6 Basophil % 0.7 % 0-2 Nucleated Red Blood Cells % 0.1 Comp Metabolic Panel 10/15/2016 Sodium 134 mmol/L 133-145 Potassium 4.0 mmol/L 3.5-5.0 Chloride 103 mmol/L 101-111 Co2 Carbon Dioxide 27 mmol/L 22-32 Anion Gap 4 mmol/L 2-11 Glucose 84 mg/dL 70-100 Blood Urea Nitrogen 17 mg/dL 6-24 Creatinine 0.74 mg/dL 0.51-0.95 BUN/Creatinine Ratio 23.0 High 8-20 Calcium 9.1 mg/dL 8.6-10.3 Total Protein 6.4 g/dL 6.4-8.9 Albumin 4.3 g/dL 3.2-5.2 Globulin 2.1 g/dL 2-4 Albumin/Globulin Ratio 2.0 1-3 Total Bilirubin 0.30 mg/dL 0.2-1.0 Alkaline Phosphatase 60 U/L 34-104 Alt 18 U/L 7-52 Ast 17 U/L 13-39 Egfr Non- 97.3 >60 Egfr 125.1 >60 16 Laboratory test finding 10/15/2016 Magnesium 2.1 mg/dL 1.9-2.7 Lipase 35 U/L 11.0-82.0 C Reactive Protein 1.98 mg/L < 5.00 17 Lactic Acid 0.5 mmol/L 0.5-2.0 18 Comp Metabolic Panel 10/08/2016 Sodium 136 mmol/L 133-145 Potassium 4.1 mmol/L 3.5-5.0 Chloride 103 mmol/L 101-111 Co2 Carbon Dioxide 27 mmol/L 22-32 Anion Gap 6 mmol/L 2-11 Glucose 81 mg/dL 70-100 Blood Urea Nitrogen 11 mg/dL 6-24 Creatinine 0.74 mg/dL 0.51-0.95 BUN/Creatinine Ratio 14.9 8-20 Calcium 9.3 mg/dL 8.6-10.3 Total Protein 7.0 g/dL 6.4-8.9 Albumin 4.4 g/dL 3.2-5.2 Globulin 2.6 g/dL 2-4 Albumin/Globulin Ratio 1.7 1-3 Total Bilirubin 0.50 mg/dL 0.2-1.0 Alkaline Phosphatase 61 U/L 34-104 Alt 13 U/L 7-52 Ast 16 U/L 13-39 Egfr Non- 97.3 >60 Egfr 125.1 >60 19 Laboratory test finding 10/08/2016 Lipase < 10 U/L Low 11.0-82.0 C Reactive Protein 4.38 mg/L < 5.00 20 HCG < 0.60 mIU/mL 21 Urine Culture And 10/08/2016 Urine Culture SEE RESULT BELOW 22 Sensitivities Laboratory test finding 10/08/2016 Lactic Acid 0.7 mmol/L 0.5-2.0 23 CBC Auto Diff 10/08/2016 White Blood Count 14.8 10^3/uL High 3.5-10.8 Red Blood Count 4.41 10^6/uL 4.0-5.4 Hemoglobin 14.0 g/dL 12.0-16.0 Hematocrit 41 % 35-47 Mean Corpuscular Volume 93 fL 80-97 Mean Corpuscular Hemoglobin 32 pg High 27-31 Mean Corpuscular HGB Conc 34 g/dL 31-36 Red Cell Distribution Width 14 % 10.5-15 Platelet Count 232 10^3/uL 150-450 Mean Platelet Volume 9 um3 7.4-10.4 Abs Neutrophils 11.5 10^3/uL High 1.5-7.7 Abs Lymphocytes 2.5 10^3/uL 1.0-4.8 Abs Monocytes 0.6 10^3/uL 0-0.8 Abs Eosinophils 0.1 10^3/uL 0-0.6 Abs Basophils 0.1 10^3/uL 0-0.2 Abs Nucleated RBC 0.01 10^3/uL Granulocyte % 78.0 % 38-83 Lymphocyte % 16.6 % Low 25-47 Monocyte % 3.9 % 1-9 Eosinophil % 0.6 % 0-6 Basophil % 0.9 % 0-2 Nucleated Red Blood Cells % 0 Urinalysis Profile 10/08/2016 Urine Color Yellow Urine Appearance Cloudy Urine Specific [place] 1.023 1.010-1.030 Urine pH 5.0 5-9 Urine Urobilinogen Negative Negative Urine Ketones 1+ Negative Urine Protein 1+(30 mg/dL) Negative Urine Leukocytes 2+ Negative Urine Blood 2+ Negative Urine Nitrite Negative Negative Urine Bilirubin Negative Negative Urine Glucose Negative Negative Urine White Blood Cell 3+(>20/hpf) Absent Urine Red Blood Cell 3+(>10/hpf) Absent Urine Bacteria Absent Absent Urine Squamous Epithelial Cell Present Absent CBC Auto Diff 10/29/2015 White Blood Count 9.8 10^3/uL 3.5-10.8 Red Blood Count 4.36 10^6/uL 4.0-5.4 Hemoglobin 13.6 g/dL 12.0-16.0 Hematocrit 41 % 35-47 Mean Corpuscular Volume 93 fL 80-97 Mean Corpuscular Hemoglobin 31 pg 27-31 Mean Corpuscular HGB Conc 34 g/dL 31-36 Red Cell Distribution Width 13 % 10.5-15 Platelet Count 243 10^3/uL 150-450 Mean Platelet Volume 9 um3 7.4-10.4 Abs Neutrophils 6.6 10^3/uL 1.5-7.7 Abs Lymphocytes 2.3 10^3/uL 1.0-4.8 Abs Monocytes 0.6 10^3/uL 0-0.8 Abs Eosinophils 0.2 10^3/uL 0-0.6 Abs Basophils 0.1 10^3/uL 0-0.2 Abs Nucleated RBC 0 10^3/uL Granulocyte % 67.4 % 38-83 Lymphocyte % 23.9 % Low 25-47 Monocyte % 6.6 % 1-9 Eosinophil % 1.6 % 0-6 Basophil % 0.5 % 0-2 Nucleated Red Blood Cells % 0 Comp Metabolic Panel 10/29/2015 Sodium 136 mmol/L 133-145 Potassium 4.0 mmol/L 3.5-5.0 Chloride 104 mmol/L 101-111 Co2 Carbon Dioxide 25 mmol/L 22-32 Anion Gap 7 mmol/L 2-11 Glucose 84 mg/dL 70-100 Blood Urea Nitrogen 9 mg/dL 6-24 Creatinine 0.75 mg/dL 0.51-0.95 BUN/Creatinine Ratio 12.0 8-20 Calcium 9.3 mg/dL 8.6-10.3 Total Protein 6.7 g/dL 6.4-8.9 Albumin 4.3 g/dL 3.2-5.2 Globulin 2.4 g/dL 2-4 Albumin/Globulin Ratio 1.8 1-3 Total Bilirubin 0.50 mg/dL 0.2-1.0 Alkaline Phosphatase 62 U/L 34-104 Alt 17 U/L 7-52 Ast 18 U/L 13-39 Egfr Non- 96.6 >60 Egfr 124.3 >60 24 Laboratory test finding 10/29/2015 Lipase 21 U/L 11.0-82.0 C Reactive Protein < 1.00 mg/L < 5.00 25 Urinalysis Profile 10/29/2015 Urine Color Yellow Urine Appearance Cloudy Urine Specific [place] 1.026 1.010-1.030 Urine pH 6.0 5-9 Urine Urobilinogen Negative Negative Urine Ketones 1+ Negative Urine Protein 1+(30 mg/dL) Negative Urine Leukocytes 2+ Negative Urine Blood Negative Negative Urine Nitrite Negative Negative Urine Bilirubin Negative Negative Urine Glucose Negative Negative Urine White Blood Cell 1+(6-10/hpf) Absent Urine Red Blood Cell 1+(3-5/hpf) Absent Urine Bacteria Absent Absent Urine Squamous Epithelial Cell Present Absent Urine Culture And 10/29/2015 Urine Culture SEE RESULT BELOW 26 Sensitivities Laboratory test finding 07/10/2015 Surgical Pathology SEE RESULT BELOW 27 Laboratory test finding 06/23/2015 (HCG) Negative Negative 28 Urine Laboratory test finding 06/11/2015 Test neg Urine Urine Culture And 06/11/2015 Urine Culture SEE RESULT BELOW 29 Sensitivities Ua Routine 06/11/2015 Ua Specific [place] 1.025 Ua PH 5 Ua Color yellow Ua Appera clear Ua WBC neg Ua Protein neg Ua Glucose neg Ua Ketones large Ua Bilirubin neg Ua Urobilinogen normal Ua Nitrite neg Ua Occult Blood neg CBC Auto Diff 04/08/2015 White Blood Count 8.8 10^3/uL 3.5-10.8 Red Blood Count 4.32 10^6/uL 4.0-5.4 Hemoglobin 13.5 g/dL 12.0-16.0 Hematocrit 40 % 35-47 Mean Corpuscular Volume 93 fL 80-97 Mean Corpuscular Hemoglobin 31 pg 27-31 Mean Corpuscular HGB Conc 34 g/dL 31-36 Red Cell Distribution Width 14 % 10.5-15 Platelet Count 297 10^3/uL 150-450 Mean Platelet Volume 9 um3 7.4-10.4 Abs Neutrophils 5.9 10^3/uL 1.5-7.7 Abs Lymphocytes 2.4 10^3/uL 1.0-4.8 Abs Monocytes 0.3 10^3/uL 0-0.8 Abs Eosinophils 0.2 10^3/uL 0-0.6 Abs Basophils 0.1 10^3/uL 0-0.2 Abs Nucleated RBC 0 10^3/uL Granulocyte % 67.1 % 38-83 Lymphocyte % 26.9 % 25-47 Monocyte % 3.6 % 1-9 Eosinophil % 1.8 % 0-6 Basophil % 0.6 % 0-2 Nucleated Red Blood Cells % 0 Comp Metabolic Panel 04/08/2015 Sodium 137 mmol/L 133-145 Potassium 3.9 mmol/L 3.5-5.0 Chloride 104 mmol/L 101-111 Co2 Carbon Dioxide 28 mmol/L 22-32 Anion Gap 5 mmol/L 2-11 Glucose 99 mg/dL 70-100 Blood Urea Nitrogen 13 mg/dL 6-24 Creatinine 0.65 mg/dL 0.51-0.95 BUN/Creatinine Ratio 20.0 8-20 Calcium 9.6 mg/dL 8.6-10.3 Total Protein 7.0 g/dL 6.4-8.9 Albumin 4.3 g/dL 3.2-5.2 Globulin 2.7 g/dL 2-4 Albumin/Globulin Ratio 1.6 1-3 Total Bilirubin 0.30 mg/dL 0.2-1.0 Alkaline Phosphatase 76 U/L 34-104 Alt 22 U/L 7-52 Ast 18 U/L 13-39 Egfr Non- 114.0 >60 Egfr 146.6 >60 30 Laboratory test finding 04/08/2015 Lipase 22 U/L 11.0-82.0 HCG < 0.60 mIU/mL 31 Laboratory test finding 03/20/2015 (HCG) Urine Negative Negative 32 CBC Auto Diff 02/16/2015 White Blood Count 8.2 10^3/uL 3.5-10.8 Red Blood Count 4.48 10^6/uL 4.0-5.4 Hemoglobin 13.9 g/dL 12.0-16.0 Hematocrit 43 % 35-47 Mean Corpuscular Volume 97 fL 80-97 Mean Corpuscular Hemoglobin 31 pg 27-31 Mean Corpuscular HGB Conc 32 g/dL 31-36 Red Cell Distribution Width 14 % 10.5-15 Platelet Count 288 10^3/uL 150-450 Mean Platelet Volume 9 um3 7.4-10.4 Abs Neutrophils 4.8 10^3/uL 1.5-7.7 Abs Lymphocytes 2.4 10^3/uL 1.0-4.8 Abs Monocytes 0.7 10^3/uL 0-0.8 Abs Eosinophils 0.2 10^3/uL 0-0.6 Abs Basophils 0 10^3/uL 0-0.2 Abs Nucleated RBC 0.01 10^3/uL Granulocyte % 58.8 % 38-83 Lymphocyte % 29.3 % 25-47 Monocyte % 9.0 % 1-9 Eosinophil % 2.5 % 0-6 Basophil % 0.4 % 0-2 Nucleated Red Blood Cells % 0.1 Urinalysis Profile 02/16/2015 Urine Color Yellow Urine Appearance Clear Urine Specific [place] 1.012 1.010-1.030 Urine pH 5.0 5-9 Urine Urobilinogen Negative Negative Urine Ketones Negative Negative Urine Protein Negative Negative Urine Leukocytes Negative Negative Urine Blood 2+ Negative Urine Nitrite Negative Negative Urine Bilirubin Negative Negative Urine Glucose Negative Negative Urine White Blood Cell Trace(0-5/hpf) Absent Urine Red Blood Cell Trace(0-2/hpf) Absent Urine Bacteria Absent Absent Urine Squamous Epithelial Cell Present Absent Comp Metabolic Panel 02/16/2015 Sodium 136 mmol/L 133-145 Potassium 4.1 mmol/L 3.5-5.0 Chloride 105 mmol/L 101-111 Co2 Carbon Dioxide 27 mmol/L 22-32 Anion Gap 4 mmol/L 2-11 Glucose 89 mg/dL 70-100 Blood Urea Nitrogen 13 mg/dL 6-24 Creatinine 0.91 mg/dL 0.51-0.95 BUN/Creatinine Ratio 14.3 8-20 Calcium 9.3 mg/dL 8.6-10.3 Total Protein 6.9 g/dL 6.4-8.9 Albumin 4.4 g/dL 3.2-5.2 Globulin 2.5 g/dL 2-4 Albumin/Globulin Ratio 1.8 1-3 Total Bilirubin 0.40 mg/dL 0.2-1.0 Alkaline Phosphatase 73 U/L 34-104 Alt 14 U/L 7-52 Ast 16 U/L 13-39 Egfr Non- 78.0 >60 Egfr 100.4 >60 33 Laboratory test finding 02/16/2015 Lipase 20 U/L 11.0-82.0 C Reactive Protein 9.66 mg/L High < 5.00 34 HCG Qualitative Negative Negative Laboratory test finding 02/11/2015 Urine Culture And SEE RESULT BELOW 35 Sensitivities Cytology Non-[employer] SEE RESULT BELOW 36 Laboratory test finding 02/11/2015 Test Urine negative Ua Routine 02/11/2015 Ua Specific [place] 1.020 Ua PH 7 Ua Color katie Ua Appera cloudy/chunks Ua WBC moderate Ua Protein trace Ua Glucose neg Ua Ketones neg Ua Bilirubin neg Ua Urobilinogen neg Ua Nitrite neg Ua Occult Blood Xlarge CBC Auto Diff 02/02/2015 White Blood Count 10.0 10^3/uL 3.5-10.8 Red Blood Count 4.78 10^6/uL 4.0-5.4 Hemoglobin 15.3 g/dL 12.0-16.0 Hematocrit 46 % 35-47 Mean Corpuscular Volume 97 fL 80-97 Mean Corpuscular Hemoglobin 32 pg High 27-31 Mean Corpuscular HGB Conc 33 g/dL 31-36 Red Cell Distribution Width 15 % 10.5-15 Platelet Count 260 10^3/uL 150-450 Mean Platelet Volume 9 um3 7.4-10.4 Abs Neutrophils 6.3 10^3/uL 1.5-7.7 Abs Lymphocytes 2.6 10^3/uL 1.0-4.8 Abs Monocytes 0.7 10^3/uL 0-0.8 Abs Eosinophils 0.3 10^3/uL 0-0.6 Abs Basophils 0 10^3/uL 0-0.2 Abs Nucleated RBC 0 10^3/uL Granulocyte % 63.3 % 38-83 Lymphocyte % 26.5 % 25-47 Monocyte % 7.1 % 1-9 Eosinophil % 2.6 % 0-6 Basophil % 0.5 % 0-2 Nucleated Red Blood Cells % 0 Comp Metabolic Panel 02/02/2015 Sodium 135 mmol/L 133-145 Potassium 4.1 mmol/L 3.5-5.0 Chloride 103 mmol/L 101-111 Co2 Carbon Dioxide 26 mmol/L 22-32 Anion Gap 6 mmol/L 2-11 Glucose 84 mg/dL 70-100 Blood Urea Nitrogen 9 mg/dL 6-24 Creatinine 0.74 mg/dL 0.51-0.95 BUN/Creatinine Ratio 12.2 8-20 Calcium 9.7 mg/dL 8.6-10.3 Total Protein 7.1 g/dL 6.4-8.9 Albumin 4.5 g/dL 3.2-5.2 Globulin 2.6 g/dL 2-4 Albumin/Globulin Ratio 1.7 1-3 Total Bilirubin 0.30 mg/dL 0.2-1.0 Alkaline Phosphatase 77 U/L 34-104 Alt 19 U/L 7-52 Ast 18 U/L 13-39 Egfr Non- 99.1 >60 Egfr 127.4 >60 37 Laboratory test 02/02/2015 Troponin-I (TnI) 0.00 ng/mL <0.03 38 finding Laboratory test 01/13/2015 Gardnerella/Yeast: SEE RESULT BELOW 39 finding Vaginal Dna GC/Chlamydia 01/13/2015 Chlamydia trachomatis Negative Negative Amplified Rna Rna Neisseria gonorrhoeae (GC) Rna Negative Negative 40 Laboratory test finding 01/13/2015 Trichomonas Vaginalis Negative Negative 41 Rna CBC Auto Diff 01/13/2015 White Blood Count 8.4 10^3/uL 4.8-10.8 Red Blood Count 4.39 10^6/uL 4.0-5.4 Hemoglobin 13.7 g/dL 12.0-16.0 Hematocrit 42 % 35-47 Mean Corpuscular Volume 95 fL 80-97 Mean Corpuscular Hemoglobin 31 pg 27-31 Mean Corpuscular HGB Conc 33 g/dL 31-36 Red Cell Distribution Width 15 % 10.5-15 Platelet Count 249 10^3/uL 150-450 Mean Platelet Volume 10 um3 7.4-10.4 Abs Neutrophils 4.8 10^3/uL 1.5-7.7 Abs Lymphocytes 2.8 10^3/uL 1.0-4.8 Abs Monocytes 0.5 10^3/uL 0-0.8 Abs Eosinophils 0.2 10^3/uL 0-0.6 Abs Basophils 0 10^3/uL 0-0.2 Abs Nucleated RBC 0 10^3/uL Granulocyte % 57.7 % 38-83 Lymphocyte % 33.2 % 25-47 Monocyte % 6.4 % 1-9 Eosinophil % 2.2 % 0-6 Basophil % 0.5 % 0-2 Nucleated Red Blood Cells % 0 Urinalysis Profile 01/13/2015 Urine Color Yellow Urine Appearance Cloudy Urine Specific [place] 1.015 1.010-1.030 Urine pH 7.0 5-9 Urine Urobilinogen Negative Negative Urine Ketones Negative Negative Urine Protein Negative Negative Urine Leukocytes Negative Negative Urine Blood Negative Negative Urine Nitrite Negative Negative Urine Bilirubin Negative Negative Urine Glucose Negative Negative Comp Metabolic Panel 01/13/2015 Sodium 135 mmol/L 133-145 Potassium 3.8 mmol/L 3.5-5.0 Chloride 104 mmol/L 101-111 Co2 Carbon Dioxide 26 mmol/L 22-32 Anion Gap 5 mmol/L 2-11 Glucose 92 mg/dL 70-100 Blood Urea Nitrogen 7 mg/dL 6-24 Creatinine 0.66 mg/dL 0.51-0.95 BUN/Creatinine Ratio 10.6 8-20 Calcium 9.7 mg/dL 8.6-10.3 Total Protein 6.7 g/dL 6.4-8.9 Albumin 4.2 g/dL 3.2-5.2 Globulin 2.5 g/dL 2-4 Albumin/Globulin Ratio 1.7 1-3 Total Bilirubin 0.30 mg/dL 0.2-1.0 Alkaline Phosphatase 76 U/L 34-104 Alt 15 U/L 7-52 Ast 17 U/L 13-39 Egfr Non- 113.1 >60 Egfr 145.4 >60 42 Laboratory test finding 01/13/2015 Lipase 22 U/L 11.0-82.0 C Reactive Protein 1.81 mg/L < 5.00 43 HCG Qualitative Negative Negative 44 CBC Auto Diff 12/26/2014 White Blood Count 10.2 10^3/uL 4.8-10.8 Red Blood Count 4.61 10^6/uL 4.0-5.4 Hemoglobin 14.8 g/dL 12.0-16.0 Hematocrit 44 % 35-47 Mean Corpuscular Volume 96 fL 80-97 Mean Corpuscular Hemoglobin 32 pg High 27-31 Mean Corpuscular HGB Conc 33 g/dL 31-36 Red Cell Distribution Width 14 % 10.5-15 Platelet Count 289 10^3/uL 150-450 Mean Platelet Volume 9 um3 7.4-10.4 Abs Neutrophils 6.2 10^3/uL 1.5-7.7 Abs Lymphocytes 3.0 10^3/uL 1.0-4.8 Abs Monocytes 0.6 10^3/uL 0-0.8 Abs Eosinophils 0.2 10^3/uL 0-0.6 Abs Basophils 0.1 10^3/uL 0-0.2 Abs Nucleated RBC 0 10^3/uL Granulocyte % 61.2 % 38-83 Lymphocyte % 29.6 % 25-47 Monocyte % 6.2 % 1-9 Eosinophil % 2.4 % 0-6 Basophil % 0.6 % 0-2 Nucleated Red Blood Cells % 0 Comp Metabolic Panel 12/26/2014 Sodium 136 mmol/L 133-145 Potassium 4.3 mmol/L 3.5-5.0 Chloride 101 mmol/L 101-111 Co2 Carbon Dioxide 28 mmol/L 22-32 Anion Gap 7 mmol/L 2-11 Glucose 86 mg/dL 70-100 Blood Urea Nitrogen 10 mg/dL 6-24 Creatinine 0.76 mg/dL 0.51-0.95 BUN/Creatinine Ratio 13.2 8-20 Calcium 10.0 mg/dL 8.6-10.3 Total Protein 7.1 g/dL 6.4-8.9 Albumin 4.7 g/dL 3.2-5.2 Globulin 2.4 g/dL 2-4 Albumin/Globulin Ratio 2.0 1-3 Total Bilirubin 0.40 mg/dL 0.2-1.0 Alkaline Phosphatase 97 U/L 34-104 Alt 19 U/L 7-52 Ast 18 U/L 13-39 Egfr Non- 96.1 >60 Egfr 123.5 >60 45 Herpes Simplex PCR 12/16/2014 Herpes Source [facility] HSV 1 PCR Negative Negative HSV 2 PCR Positive Negative 46 GC/Chlamydia Amplified Rna 12/16/2014 Chlamydia trachomatis Rna Negative Negative Neisseria gonorrhoeae (GC) Rna Negative Negative 47 Laboratory test finding 12/10/2014 HCG Qualitative Negative Negative Urinalysis Profile 12/10/2014 Urine Color Yellow Urine Appearance Clear Urine Specific [place] 1.014 1.010-1.030 Urine pH 6.0 5-9 Urine Urobilinogen Negative Negative Urine Ketones Negative Negative Urine Protein Negative Negative Urine Leukocytes Negative Negative Urine Blood Negative Negative Urine Nitrite Negative Negative Urine Bilirubin Negative Negative Urine Glucose Negative Negative CBC Auto Diff 12/10/2014 White Blood Count 10.9 10^3/uL High 4.8-10.8 Red Blood Count 4.16 10^6/uL 4.0-5.4 Hemoglobin 13.2 g/dL 12.0-16.0 Hematocrit 40 % 35-47 Mean Corpuscular Volume 95 fL 80-97 Mean Corpuscular Hemoglobin 32 pg High 27-31 Mean Corpuscular HGB Conc 33 g/dL 31-36 Red Cell Distribution Width 14 % 10.5-15 Platelet Count 236 10^3/uL 150-450 Mean Platelet Volume 9 um3 7.4-10.4 Abs Neutrophils 7.0 10^3/uL 1.5-7.7 Abs Lymphocytes 2.8 10^3/uL 1.0-4.8 Abs Monocytes 0.7 10^3/uL 0-0.8 Abs Eosinophils 0.3 10^3/uL 0-0.6 Abs Basophils 0.1 10^3/uL 0-0.2 Abs Nucleated RBC 0.01 10^3/uL Granulocyte % 64.6 % 38-83 Lymphocyte % 26.1 % 25-47 Monocyte % 6.1 % 1-9 Eosinophil % 2.5 % 0-6 Basophil % 0.7 % 0-2 Nucleated Red Blood Cells % 0.1 Laboratory test finding 12/10/2014 Lactic Acid 0.5 mmol/L 0.5-2.2 Comp Metabolic Panel 12/10/2014 Sodium 135 mmol/L 133-145 Potassium 3.9 mmol/L 3.5-5.0 Chloride 103 mmol/L 101-111 Co2 Carbon Dioxide 27 mmol/L 22-32 Anion Gap 5 mmol/L 2-11 Glucose 85 mg/dL 70-100 Blood Urea Nitrogen 11 mg/dL 6-24 Creatinine 0.58 mg/dL 0.51-0.95 BUN/Creatinine Ratio 19.0 8-20 Calcium 9.4 mg/dL 8.6-10.3 Total Protein 6.2 g/dL Low 6.4-8.9 Albumin 4.1 g/dL 3.2-5.2 Globulin 2.1 g/dL 2-4 Albumin/Globulin Ratio 2.0 1-3 Total Bilirubin 0.30 mg/dL 0.2-1.0 Alkaline Phosphatase 81 U/L 34-104 Alt 19 U/L 7-52 Ast 17 U/L 13-39 Egfr Non- 131.2 >60 Egfr 168.8 >60 48 Laboratory test finding 12/10/2014 Lipase 31 U/L 11.0-82.0 C Reactive Protein 3.26 mg/L < 5.00 49 Urinalysis Profile 12/10/2014 Urine Color Yellow Urine Appearance Clear Urine Specific [place] 1.014 1.010-1.030 Urine pH 6.0 5-9 Urine Urobilinogen Negative Negative Urine Ketones Negative Negative Urine Protein Negative Negative Urine Leukocytes Negative Negative Urine Blood Negative Negative Urine Nitrite Negative Negative Urine Bilirubin Negative Negative Urine Glucose Negative Negative CBC Auto Diff 12/10/2014 White Blood Count 10.9 10^3/uL High 4.8-10.8 Red Blood Count 4.16 10^6/uL 4.0-5.4 Hemoglobin 13.2 g/dL 12.0-16.0 Hematocrit 40 % 35-47 Mean Corpuscular Volume 95 fL 80-97 Mean Corpuscular Hemoglobin 32 pg High 27-31 Mean Corpuscular HGB Conc 33 g/dL 31-36 Red Cell Distribution Width 14 % 10.5-15 Platelet Count 236 10^3/uL 150-450 Mean Platelet Volume 9 um3 7.4-10.4 Abs Neutrophils 7.0 10^3/uL 1.5-7.7 Abs Lymphocytes 2.8 10^3/uL 1.0-4.8 Abs Monocytes 0.7 10^3/uL 0-0.8 Abs Eosinophils 0.3 10^3/uL 0-0.6 Abs Basophils 0.1 10^3/uL 0-0.2 Abs Nucleated RBC 0.01 10^3/uL Granulocyte % 64.6 % 38-83 Lymphocyte % 26.1 % 25-47 Monocyte % 6.1 % 1-9 Eosinophil % 2.5 % 0-6 Basophil % 0.7 % 0-2 Nucleated Red Blood Cells % 0.1 Laboratory test finding 12/10/2014 Lactic Acid 0.5 mmol/L 0.5-2.2 Comp Metabolic Panel 12/10/2014 Sodium 135 mmol/L 133-145 Potassium 3.9 mmol/L 3.5-5.0 Chloride 103 mmol/L 101-111 Co2 Carbon Dioxide 27 mmol/L 22-32 Anion Gap 5 mmol/L 2-11 Glucose 85 mg/dL 70-100 Blood Urea Nitrogen 11 mg/dL 6-24 Creatinine 0.58 mg/dL 0.51-0.95 BUN/Creatinine Ratio 19.0 8-20 Calcium 9.4 mg/dL 8.6-10.3 Total Protein 6.2 g/dL Low 6.4-8.9 Albumin 4.1 g/dL 3.2-5.2 Globulin 2.1 g/dL 2-4 Albumin/Globulin Ratio 2.0 1-3 Total Bilirubin 0.30 mg/dL 0.2-1.0 Alkaline Phosphatase 81 U/L 34-104 Alt 19 U/L 7-52 Ast 17 U/L 13-39 Egfr Non- 131.2 >60 Egfr 168.8 >60 50 Laboratory test finding 12/10/2014 Lipase 31 U/L 11.0-82.0 C Reactive Protein 3.26 mg/L < 5.00 51 Urine Culture And Sensitivities SEE RESULT BELOW 52 Laboratory test finding 10/21/2014 TSH (Thyroid Stim Horm) 1.04 ?IU/mL 0.34-5.60 Comp Metabolic Panel 10/21/2014 Sodium 137 mmol/L 133-145 Potassium 3.9 mmol/L 3.5-5.0 Chloride 104 mmol/L 101-111 Co2 Carbon Dioxide 25 mmol/L 22-32 Anion Gap 8 mmol/L 2-11 Glucose 98 mg/dL 70-100 Blood Urea Nitrogen 8 mg/dL 6-24 Creatinine 0.72 mg/dL 0.51-0.95 BUN/Creatinine Ratio 11.1 8-20 Calcium 10.0 mg/dL 8.6-10.3 Total Protein 7.2 g/dL 6.4-8.9 Albumin 4.8 g/dL 3.2-5.2 Globulin 2.4 g/dL 2-4 Albumin/Globulin Ratio 2.0 1-3 Total Bilirubin 0.50 mg/dL 0.2-1.0 Alkaline Phosphatase 70 U/L 34-104 Alt 54 U/L High 7-52 Ast 34 U/L 13-39 Egfr Non- 102.3 >60 Egfr 131.5 >60 53 Laboratory test finding 10/21/2014 HCG Qualitative Negative Negative Laboratory test finding 09/11/2014 Test Urine neg Ua Routine 09/11/2014 Ua Specific [place] 1.015 Ua PH 5 Ua Color yellow Ua Appera clear Ua WBC neg Ua Protein neg Ua Glucose neg Ua Ketones neg Ua Bilirubin neg Ua Urobilinogen 0.2 Ua Nitrite neg Ua Occult Blood neg Laboratory test finding 08/13/2014 CSF Glucose 61 mg/dL 40-70 54, 55 CSF Protein 36 mg/dL 15-45 54, 56 CSF Culture & Gram Stain SEE RESULT BELOW 54, 57 CSF Cell Count 08/13/2014 Body Fluid Appearance Clear 54 Body Fluid Color Colorless 54 CSF Tube # 1 54 Body Fluid Volume 1 mL 54 Body Fluid WBC 1 54 Body Fluid RBC 2 54 Body Fluid Polys 0 54 Body Fluid Lymph 10 54 Body Fluid [place] 2 54 Body Fluid Total Cells Counted 12 54 Body Fluid Comment (SEE NOTE) 54, 58 Fluid Reviewed By MD (SEE NOTE) 54, 59 CBC Auto Diff 08/13/2014 White Blood Count 14.1 10^3/uL High 4.8-10.8 Red Blood Count 4.73 10^6/uL 4.0-5.4 Hemoglobin 14.9 g/dL 12.0-16.0 Hematocrit 44 % 35-47 Mean Corpuscular Volume 94 fL 80-97 Mean Corpuscular Hemoglobin 32 pg High 27-31 Mean Corpuscular HGB Conc 34 g/dL 31-36 Red Cell Distribution Width 15 % 10.5-15 Platelet Count 298 10^3/uL 150-450 Mean Platelet Volume 10 um3 7.4-10.4 Abs Neutrophils 11.2 10^3/uL High 1.5-7.7 Abs Lymphocytes 2.2 10^3/uL 1.0-4.8 Abs Monocytes 0.7 10^3/uL 0-0.8 Abs Eosinophils 0 10^3/uL 0-0.6 Abs Basophils 0.1 10^3/uL 0-0.2 Abs Nucleated RBC 0.01 10^3/uL Granulocyte % 79.2 % 38-83 Lymphocyte % 15.2 % Low 25-47 Monocyte % 5.0 % 1-9 Eosinophil % 0.2 % 0-6 Basophil % 0.4 % 0-2 Nucleated Red Blood Cells % 0.1 Laboratory test finding 08/13/2014 Serum Negative Negative Comp Metabolic Panel 08/13/2014 Sodium 135 mmol/L 133-145 Chloride 104 mmol/L 101-111 Co2 Carbon Dioxide 20 mmol/L Low 22-32 Glucose 90 mg/dL 70-100 Blood Urea Nitrogen 7 mg/dL 6-24 Creatinine 0.65 mg/dL 0.51-0.95 BUN/Creatinine Ratio 10.8 8-20 Calcium 9.0 mg/dL 8.6-10.3 Total Protein 7.4 g/dL 6.4-8.9 Albumin 4.4 g/dL 3.2-5.2 Globulin 3.0 g/dL 2-4 Albumin/Globulin Ratio 1.5 1-3 Total Bilirubin 0.40 mg/dL 0.2-1.0 Alkaline Phosphatase 63 U/L 34-104 Alt 17 U/L 7-52 Egfr Non- 115.1 >60 Egfr 148.0 >60 60 Potassium TNP mmol/L 3.5-5.0 61 Anion Gap TNP mmol/L 2-11 Ast TNP U/L 13-39 62 Urine Culture And Sensitivities 06/14/2014 Urine Culture (SEE NOTE) 63 Throat-Beta Strept 04/03/2014 Throat Beta Strep (SEE NOTE) 64 Culture Throat-Beta Strept 04/22/2013 Throat Beta Strep (SEE NOTE) 65 Culture Throat-Beta Strept 10/21/2012 Throat Beta Strep (SEE NOTE) 66 Culture 1 Because ethnic data is not always readily available, this report includes an eGFR for both -Americans and non- Americans. The National Kidney Disease Education Program (NKDEP) does not endorse the use of the MDRD equation for patients that are not between the ages of 18 and 70, are , have extremes of body size, muscle mass, or nutritional status, or are non- or non-. According to the [employer], irrespective of diagnosis, the stage of the disease is based on the level of kidney function: Stage Description GFR(mL/min/1.73 m(2)) 1 Kidney damage with normal or decreased GFR 90 2 Kidney damage with mild decrease in GFR 60-89 3 Moderate decrease in GFR 30-59 4 Severe decrease in GFR 15-29 5 Kidney failure <15 (or dialysis) 2 <5.0 Negative 5.0 - 25.0 Indeterminate (Repeat testing recommended after 72 hours) >25.0 Positive Perimenopausal women can display HCG levels of up to 20 mIU/mL 3 SEE RESULT BELOW Name: ESVIN CHESTER : [address]: Shyanne Call MD Acct: [id number] Unit: [id number] AGE: 22 Location: [facility] Re05/02/17 SEX: F Status: REG REF SPEC: [id number] ROSARIO: 05/02/17-[address]: Shyanne Call MD REQ: [id number] RECD: 05/02/17 STATUS: COMP _ SOURCE: VAGINAL SPDESC: ORDERED: ForrestYeast DNA COMMENTS: [id number] Procedure Result Reported Site Gardnerella/Yeast: Vaginal DNA Final 05/03/17- 1129 ML Organism 1 Negative Gardnerella Organism 2 Negative Jillian The presence of G. vaginalis, although suggestive, is not diagnostic for bacterial vaginosis. Results should be interpreted in conjuction with other clinical and laboratory data available. Women with vaginal discharge should be evaluated for risk factors of cervicitis and pelvic inflammatory disease, toxic shock syndrome (S.aureus), and if present, evaluated for organisms not included in this assay such as N. gonorrhoeae, C. trachomatis, Mobiluncus, Mycoplasma and/or Prevotella. Mixed infections may occur. The performance of this test on patient specimens collected during or immediately after antimicrobial therapy is unknown. The presence or absence of Jillian species, or G. vaginalis cannot be used as a test for therapeutic success or failure. * ML - Main Lab . END OF REPORT DEPARTMENT OF PATHOLOGY, [address] [place] [address] Suraj Velasquez M.D. Director [facility] # [id number] 4 Turpentine Distiller: [id number] 5 SEE RESULT BELOW Name: ESVIN CHESTER : [address]: Felix Dale MD Acct: [id number] Unit: [id number] AGE: 22 Location: ED Re03/24/17 SEX: F Status: REG ER SPEC: [id number] ROSARIO: 03/24/17 [facility] DR: Can Robertson MD REQ: [id number] RECD: 03/25/17 STATUS: COMP MARANDA DR: Felix Briceño DBAS _ SOURCE: [facility]: ORDERED: Flu A B Request Procedure Result Reported Site Rapid Influenza A B Request Final 03/25/17- 0010 ML Specimen received for Influenza A/B Molecular testing * ML - MAIN LAB ([facility]) . END OF REPORT * ML=Testing performed at Main Lab DEPARTMENT OF PATHOLOGY, [address] [place] [address] Suraj Velasquez M.D. Director [facility] # [id number] 6 Because ethnic data is not always readily available, this report includes an eGFR for both -Americans and non- Americans. The National Kidney Disease Education Program (NKDEP) does not endorse the use of the MDRD equation for patients that are not between the ages of 18 and 70, are , have extremes of body size, muscle mass, or nutritional status, or are non- or non-. According to the National Kidney Foundation, irrespective of diagnosis, the stage of the disease is based on the level of kidney function: Stage Description GFR(mL/min/1.73 m(2)) 1 Kidney damage with normal or decreased GFR 90 2 Kidney damage with mild decrease in GFR 60-89 3 Moderate decrease in GFR 30-59 4 Severe decrease in GFR 15-29 5 Kidney failure <15 (or dialysis) 7 Acute inflammation: >10.00 8 <5.0 Negative 5.0 - 25.0 Indeterminate (Repeat testing recommended after 72 hours) >25.0 Positive Perimenopausal women can display HCG levels of up to 20 mIU/mL 9 [facility] Severe Sepsis and Septic Shock Management Bundle Measure requires all lactic acids initially measuring >2.0 mmol/L be repeated. 10 Acute inflammation: >10.00 11 <5.0 Negative 5.0 - 25.0 Indeterminate (Repeat testing recommended after 72 hours) >25.0 Positive Perimenopausal women can display HCG levels of up to 20 mIU/mL 12 [facility] Severe Sepsis and Septic Shock Management Bundle Measure requires all lactic acids initially measuring >2.0 mmol/L be repeated. 13 Because ethnic data is not always readily available, this report includes an eGFR for both -Americans and non- Americans. The National Kidney Disease Education Program (NKDEP) does not endorse the use of the MDRD equation for patients that are not between the ages of 18 and 70, are , have extremes of body size, muscle mass, or nutritional status, or are non- or non-. According to the National Kidney Foundation, irrespective of diagnosis, the stage of the disease is based on the level of kidney function: Stage Description GFR(mL/min/1.73 m(2)) 1 Kidney damage with normal or decreased GFR 90 2 Kidney damage with mild decrease in GFR 60-89 3 Moderate decrease in GFR 30-59 4 Severe decrease in GFR 15-29 5 Kidney failure <15 (or dialysis) 14 SEE RESULT BELOW Name: LAIESVIN : [address]: Doris Briceño NP Acct: [id number] Unit: [id number] AGE: 21 Location: [facility] Re11/04/16 SEX: F Status: REG REF SPEC: [id number] ROSARIO: 11/04/16-[address]: Doris Briceño NP REQ: [id number] RECD: 11/04/16 STATUS: SOUT _ ORDERED: TP IMAGE ANAL COMMENTS: [id number] FINAL DIAGNOSIS Negative for Intraepithelial lesion or Malignancy A. Ectocervical/Endocervical Specimen Adequacy: Satisfactory of evaluation Transformation zone component identified Patient Information: HPV: Thin Layer Pap Test w/reflex to high risk HPV RNA testing when ASCUS Actual Specimen Date: 11/04/16 Last Menstrual Date: 10/03/16 ?: N Post Menopausal?: N Hysterectomy?: N Previous Abnormal Pap Smears?:N Signed (signature on file) Tae AntunezBARRY (ASCP) 11/07 1317 This Pap test was evaluated with the assistance of the inZairp Test Imaging System. Due to cytologic findings at the solar sales rep microscope, comprehensive manual rescreening by a Resin Maker may be required. The Pap Smear is a screening test designed to aid in the detection of premalignant and malignant conditions of the uterine cervix. It is not a diagnostic procedure and should not be used as the sole means of detecting cervical cancer. Both false- positive and false- negative reports do occur. Depending on your risk status, a Pap smear should be obtained and evaluated every 1-3 years. END OF REPORT * ML=Testing performed at Main Lab DEPARTMENT OF PATHOLOGY, [address] [place] [address] Suraj Velasquez M.D. Director [facility] # [id number] 15 SEE RESULT BELOW Name: ESVIN CHESTER : [address]: Kit Rodriguez MD Acct: [id number] Unit: [id number] AGE: 21 Location: ED Re10/15/16 SEX: F Status: DEP ER SPEC: [id number] ROSARIO: 10/15/16-2044 [facility] [address]: Kit Rodriguez MD REQ: [id number] RECD: 10/15/16 STATUS: QASIM LOW DR: Doris Briceño DBAS _ SOURCE: URINE [facility]: ORDERED: Urine Culture Procedure Result Reported Site Urine Culture Final 10/17/16- 08 ML No Growth (<1,000 CFU/mL) * ML - MAIN LAB ([facility]) . END OF REPORT * ML=Testing performed at Main Lab DEPARTMENT OF PATHOLOGY, [address] [place] [address] Suraj Velasquez M.D. Director [facility] # [id number] 16 Because ethnic data is not always readily available, this report includes an eGFR for both -Americans and non- Americans. The National Kidney Disease Education Program (NKDEP) does not endorse the use of the MDRD equation for patients that are not between the ages of 18 and 70, are , have extremes of body size, muscle mass, or nutritional status, or are non- or non-. According to the National Kidney Foundation, irrespective of diagnosis, the stage of the disease is based on the level of kidney function: Stage Description GFR(mL/min/1.73 m(2)) 1 Kidney damage with normal or decreased GFR 90 2 Kidney damage with mild decrease in GFR 60-89 3 Moderate decrease in GFR 30-59 4 Severe decrease in GFR 15-29 5 Kidney failure <15 (or dialysis) 17 Acute inflammation: >10.00 18 [facility] Severe Sepsis and Septic Shock Management Bundle Measure requires all lactic acids initially measuring >2.0 mmol/L be repeated. 19 Because ethnic data is not always readily available, this report includes an eGFR for both -Americans and non- Americans. The National Kidney Disease Education Program (NKDEP) does not endorse the use of the MDRD equation for patients that are not between the ages of 18 and 70, are , have extremes of body size, muscle mass, or nutritional status, or are non- or non-. According to the National Kidney Foundation, irrespective of diagnosis, the stage of the disease is based on the level of kidney function: Stage Description GFR(mL/min/1.73 m(2)) 1 Kidney damage with normal or decreased GFR 90 2 Kidney damage with mild decrease in GFR 60-89 3 Moderate decrease in GFR 30-59 4 Severe decrease in GFR 15-29 5 Kidney failure <15 (or dialysis) 20 Acute inflammation: >10.00 21 <5.0 Negative 5.0 - 25.0 Indeterminate (Repeat testing recommended after 72 hours) >25.0 Positive Perimenopausal women can display HCG levels of up to 20 mIU/mL 22 SEE RESULT BELOW Name: ESVIN CHESTER : [address]: Alexei Em MD Acct: [id number] Unit: [id number] AGE: 21 Location: ED Re10/08/16 SEX: F Status: DEP ER SPEC: [id number] ROSARIO: 10/08/16 [facility] DR: Alexei Em MD REQ: [id number] RECD: 10/08/16 STATUS: QSAIM LOW DR: Doris Briceño DBAS _ SOURCE: URINE SPDESC: ORDERED: Urine Culture Procedure Result Reported Site Urine Culture Final 10/09/16- 1222 ML Mixed abdirashid; possible contamination. Suggest resubmission. * ML - MAIN LAB ([facility]) . END OF REPORT * ML=Testing performed at Main Lab DEPARTMENT OF PATHOLOGY, [address] [place] [address] Suraj Velasquez M.D. Director [facility] # [id number] 23 [facility] Severe Sepsis and Septic Shock Management Bundle Measure requires all lactic acids initially measuring >2.0 mmol/L be repeated. 24 Because ethnic data is not always readily available, this report includes an eGFR for both -Americans and non- Americans. The National Kidney Disease Education Program (NKDEP) does not endorse the use of the MDRD equation for patients that are not between the ages of 18 and 70, are , have extremes of body size, muscle mass, or nutritional status, or are non- or non-. According to the National Kidney Foundation, irrespective of diagnosis, the stage of the disease is based on the level of kidney function: Stage Description GFR(mL/min/1.73 m(2)) 1 Kidney damage with normal or decreased GFR 90 2 Kidney damage with mild decrease in GFR 60-89 3 Moderate decrease in GFR 30-59 4 Severe decrease in GFR 15-29 5 Kidney failure <15 (or dialysis) 25 Acute inflammation: >10.00 26 SEE RESULT BELOW Name: ESVIN CHESTER : [address]: Darwin Steel MD Acct: [id number] Unit: [id number] AGE: 20 Location: ED Re10/29/15 SEX: F Status: DEP ER SPEC: [id number] ROSARIO: 10/29/15-[address]: Darwin Steel MD REQ: [id number] RECD: 10/29/15 STATUS: QASIM LOW DR: Doris Briceño DBAS _ SOURCE: URINE SPDESC: ORDERED: Urine Culture Procedure Result Reported Site Urine Culture Final 10/30/15- 1214 ML No growth of clinically significant organisms * ML - MAIN LAB ([facility]) . END OF REPORT * ML=Testing performed at Main Lab DEPARTMENT OF PATHOLOGY, [address] [place] [address] Suraj Velasquez M.D. Director [facility] # [id number] 27 SEE RESULT BELOW Name: ESVIN CHESTER : [address]: Doris Briceño NP Acct: [id number] Unit: [id number] AGE: 20 Location: [facility] Re07/10/15 SEX: F Status: REG REF SPEC: [id number] ROSARIO: 07/10/15-1214 [facility] [address]: Doris Briceño NP REQ: [id number] RECD: 07/10/155042 STATUS: SOUT _ ORDERED: LEVEL III COMMENTS: [id number] FINAL DIAGNOSIS Cyst removal, site unspecified: -- Anucleate squamous debris compatible with epidermal inclusion cyst contents. PRE-OPERATIVE DIAGNOSIS Sebaceous cyst. GROSS DESCRIPTION The specimen is received in formalin labeled, Cyst Removal, and consists of a 1.2 x 0.9 x 0.4 cm aggregate of do-white irregular friable soft tissue fragments. The specimen is filtered and entirely submitted in one cassette. Signed (signature on file) Suraj Velasquez MD 1447 END OF REPORT * ML=Testing performed at Main Lab DEPARTMENT OF PATHOLOGY, [address] [place] [address] Suraj Velasquez M.D. Director [facility] # [id number] 28 If is still suspected, please repeat test after 48 to 72 hours. This test detects intact HCG only and is indicated for the early detection of . 29 SEE RESULT BELOW Name: ESVIN CHESTER : [address]: George Wallace NP Acct: [id number] Unit: [id number] AGE: 20 Location: [facility] Re06/11/15 SEX: F Status: REG REF SPEC: [id number] ROSARIO: 06/11/15-1620 [facility] [address]: George Wallace NP REQ: [id number] RECD: 06/11/15 STATUS: COMP _ [facility] ORDERED: Urine Culture Procedure Result Reported Site Urine Culture Final 06/12/15- 1634 ML No Growth (<1,000 CFU/mL) * ML - MAIN LAB ([facility]) . END OF REPORT * ML=Testing performed at Main Lab DEPARTMENT OF PATHOLOGY, [address] [place] [address] Suraj Velasquez M.D. Director [facility] # [id number] 30 Because ethnic data is not always readily available, this report includes an eGFR for both -Americans and non- Americans. The National Kidney Disease Education Program (NKDEP) does not endorse the use of the MDRD equation for patients that are not between the ages of 18 and 70, are , have extremes of body size, muscle mass, or nutritional status, or are non- or non-. According to the National Kidney Foundation, irrespective of diagnosis, the stage of the disease is based on the level of kidney function: Stage Description GFR(mL/min/1.73 m(2)) 1 Kidney damage with normal or decreased GFR 90 2 Kidney damage with mild decrease in GFR 60-89 3 Moderate decrease in GFR 30-59 4 Severe decrease in GFR 15-29 5 Kidney failure <15 (or dialysis) 31 <5.0 Negative 5.0 - 25.0 Indeterminate (Repeat testing recommended after 72 hours) >25.0 Positive Perimenopausal women can display HCG levels of up to 20 mIU/mL 32 If is still suspected, please repeat test after 48 to 72 hours. This test detects intact HCG only and is indicated for the early detection of . 33 Because ethnic data is not always readily available, this report includes an eGFR for both -Americans and non- Americans. The National Kidney Disease Education Program (NKDEP) does not endorse the use of the MDRD equation for patients that are not between the ages of 18 and 70, are , have extremes of body size, muscle mass, or nutritional status, or are non- or non-. According to the National Kidney Foundation, irrespective of diagnosis, the stage of the disease is based on the level of kidney function: Stage Description GFR(mL/min/1.73 m(2)) 1 Kidney damage with normal or decreased GFR 90 2 Kidney damage with mild decrease in GFR 60-89 3 Moderate decrease in GFR 30-59 4 Severe decrease in GFR 15-29 5 Kidney failure <15 (or dialysis) 34 Acute inflammation: >10.00 35 SEE RESULT BELOW Name: ESVIN CHESTER : [address]: George Wallace NP Acct: [id number] Unit: [id number] AGE: 19 Location: [facility] Re02/11/15 SEX: F Status: REG REF SPEC: [id number] ROSARIO: 02/11/15-[address]: George Wallace NP REQ: [id number] RECD: 02/11/15-1617 STATUS: COMP _ SOURCE: URINE SPDESC: ORDERED: Urine Culture Procedure Result Reported Site Urine Culture Final 02/16/15- 1456 ML No Growth (<1,000 CFU/mL) * ML - MAIN LAB ([facility]) . END OF REPORT * ML=Testing performed at Main Lab DEPARTMENT OF PATHOLOGY, [address] [place] [address] Suraj Velasquez M.D. Director [facility] # [id number] 36 SEE RESULT BELOW Name: ESVIN CHESTER : [address]: George Wallace NP Acct: [id number] Unit: [id number] AGE: 19 Location: [facility] Re02/11/15 SEX: F Status: REG REF SPEC: [id number] ROSARIO: 02/11/15-[address]: George Wallace NP REQ: [id number] RECD: 02/11/15 STATUS: SOUT _ ORDERED: THIN PREP NON G FINAL DIAGNOSIS Urine, voided: --Negative for malignant cells. --Inflammatory cells present. URINE VOID GROSS DESCRIPTION 20 mls of cloudy red voided urine. Signed (signature on file) Gema Moraes MD 1205 END OF REPORT * ML=Testing performed at Main Lab DEPARTMENT OF PATHOLOGY, [address] [place] [address] Suraj Velasquez M.D. Director [facility] # [id number] 37 Because ethnic data is not always readily available, this report includes an eGFR for both -Americans and non- Americans. The National Kidney Disease Education Program (NKDEP) does not endorse the use of the MDRD equation for patients that are not between the ages of 18 and 70, are , have extremes of body size, muscle mass, or nutritional status, or are non- or non-. According to the National Kidney Foundation, irrespective of diagnosis, the stage of the disease is based on the level of kidney function: Stage Description GFR(mL/min/1.73 m(2)) 1 Kidney damage with normal or decreased GFR 90 2 Kidney damage with mild decrease in GFR 60-89 3 Moderate decrease in GFR 30-59 4 Severe decrease in GFR 15-29 5 Kidney failure <15 (or dialysis) 38 Reference Range and Interpretation: TnI (ng/mL) Interpretation Less Than 0.03 ng/mL Not supportive of diagnosis of RI 0.03 - 0.50 ng/mL Indeterminate: suggest serial studies if clinically indicated. Greater than 0.5 ng/mL Consistent with diagnosis of RI 39 SEE RESULT BELOW Name: ESVIN CHESTER : [address]: Wilder Hernandez MD Acct: [id number] Unit: [id number] AGE: 19 Location: ED Re01/13/15 SEX: F Status: DEP ER SPEC: [id number] ROSARIO: 01/13/15-1499 [facility] [address]: Wilder Hernandez MD REQ: [id number] RECD: 01/13/15 STATUS: QASIM ADAMS DR: Angeles Stevens MD _ SOURCE: VAGINAL SPDESC: ORDERED: Forrest,Yeast DNA Procedure Result Reported Site Gardnerella/Yeast: Vaginal DNA Final 01/14/15- 1131 ML Organism 1 Negative Gardnerella Organism 2 Negative Jillian The presence of G. vaginalis, although suggestive, is not diagnostic for bacterial vaginosis. Results should be interpreted in conjuction with other clinical and laboratory data available. Women with vaginal discharge should be evaluated for risk factors of cervicitis and pelvic inflammatory disease, toxic shock syndrome (S.aureus), and if present, evaluated for organisms not included in this assay such as N. gonorrhoeae, C. trachomatis, Mobiluncus, Mycoplasma and/or Prevotella. Mixed infections may occur. The performance of this test on patient specimens collected during or immediately after antimicrobial therapy is unknown. The presence or absence of Jillian species, or G. vaginalis cannot be used as a test for therapeutic success or failure. * ML - MAIN LAB ([facility]) . END OF REPORT * ML=Testing performed at Main Lab DEPARTMENT OF PATHOLOGY, [address] [place] [address] Suraj Velasquez M.D. Director [facility] # [id number] 40 Female urine specimens have been self-validated by [facility] and have been granted conditional assay approval by [facility]. 41 GC/Chlamydia Source?: Endocervical Trichomonas Source: Endocervical 42 Because ethnic data is not always readily available, this report includes an eGFR for both -Americans and non- Americans. The National Kidney Disease Education Program (NKDEP) does not endorse the use of the MDRD equation for patients that are not between the ages of 18 and 70, are , have extremes of body size, muscle mass, or nutritional status, or are non- or non-. According to the National Kidney Foundation, irrespective of diagnosis, the stage of the disease is based on the level of kidney function: Stage Description GFR(mL/min/1.73 m(2)) 1 Kidney damage with normal or decreased GFR 90 2 Kidney damage with mild decrease in GFR 60-89 3 Moderate decrease in GFR 30-59 4 Severe decrease in GFR 15-29 5 Kidney failure <15 (or dialysis) 43 Acute inflammation: >10.00 44 Comment: f 45 Because ethnic data is not always readily available, this report includes an eGFR for both -Americans and non- Americans. The National Kidney Disease Education Program (NKDEP) does not endorse the use of the MDRD equation for patients that are not between the ages of 18 and 70, are , have extremes of body size, muscle mass, or nutritional status, or are non- or non-. According to the National Kidney Foundation, irrespective of diagnosis, the stage of the disease is based on the level of kidney function: Stage Description GFR(mL/min/1.73 m(2)) 1 Kidney damage with normal or decreased GFR 90 2 Kidney damage with mild decrease in GFR 60-89 3 Moderate decrease in GFR 30-59 4 Severe decrease in GFR 15-29 5 Kidney failure <15 (or dialysis) 46 ADDITIONAL INFORMATION Analyte Specific Reagent: This test was developed and its performance characteristics determined by [facility]. It has not been cleared or approved by the U.S. Food and Drug Administration. Test Performed by: [facility] [place] [address] Drawing Press Operator: Odilon Tejeda II, M.D., Ph.D. 47 Female urine specimens have been self-validated by [facility] and have been granted conditional assay approval by [facility]. 48 Because ethnic data is not always readily available, this report includes an eGFR for both -Americans and non- Americans. The National Kidney Disease Education Program (NKDEP) does not endorse the use of the MDRD equation for patients that are not between the ages of 18 and 70, are , have extremes of body size, muscle mass, or nutritional status, or are non- or non-. According to the National Kidney Foundation, irrespective of diagnosis, the stage of the disease is based on the level of kidney function: Stage Description GFR(mL/min/1.73 m(2)) 1 Kidney damage with normal or decreased GFR 90 2 Kidney damage with mild decrease in GFR 60-89 3 Moderate decrease in GFR 30-59 4 Severe decrease in GFR 15-29 5 Kidney failure <15 (or dialysis) 49 Acute inflammation: >10.00 50 Because ethnic data is not always readily available, this report includes an eGFR for both -Americans and non- Americans. The National Kidney Disease Education Program (NKDEP) does not endorse the use of the MDRD equation for patients that are not between the ages of 18 and 70, are , have extremes of body size, muscle mass, or nutritional status, or are non- or non-. According to the National Kidney Foundation, irrespective of diagnosis, the stage of the disease is based on the level of kidney function: Stage Description GFR(mL/min/1.73 m(2)) 1 Kidney damage with normal or decreased GFR 90 2 Kidney damage with mild decrease in GFR 60-89 3 Moderate decrease in GFR 30-59 4 Severe decrease in GFR 15-29 5 Kidney failure <15 (or dialysis) 51 Acute inflammation: >10.00 52 SEE RESULT BELOW Name: ESVIN CHESTER : [address]: Bubba Loco DO Acct: [id number] Unit: [id number] AGE: 19 Location: ED Re12/10/14 SEX: F Status: DEP ER SPEC: [id number] ROSARIO: 12/10/14-2019 [facility] [address]: Kit Goldman MD REQ: [id number] RECD: 12/10/14 STATUS: COMP ANGIE : Doris Briceño DBAS _ SOURCE: URINE SPDESC: ORDERED: Urine Culture Procedure Result Verified Site Urine Culture Final 12/12/14- 1149 ML No Growth Day 2 (<1,000 CFU/mL) * ML - MAIN LAB ([facility]) . END OF REPORT * ML=Testing performed at Main Lab DEPARTMENT OF PATHOLOGY, [address] [place] [address] Suraj Velasquez M.D. Director [facility] # [id number] 53 Because ethnic data is not always readily available, this report includes an eGFR for both -Americans and non- Americans. The National Kidney Disease Education Program (NKDEP) does not endorse the use of the MDRD equation for patients that are not between the ages of 18 and 70, are , have extremes of body size, muscle mass, or nutritional status, or are non- or non-. According to the National Kidney Foundation, irrespective of diagnosis, the stage of the disease is based on the level of kidney function: Stage Description GFR(mL/min/1.73 m(2)) 1 Kidney damage with normal or decreased GFR 90 2 Kidney damage with mild decrease in GFR 60-89 3 Moderate decrease in GFR 30-59 4 Severe decrease in GFR 15-29 5 Kidney failure <15 (or dialysis) 54 Comment: Tube 4 55 Comment: Tube 2 56 Comment: Tube 2 57 SEE RESULT BELOW Name: ESVIN CHESTER Mandeep : [address]: Kristian Torres MD Acct: [id number] Unit: [id number] AGE: 19 Location: ED Re08/13/14 SEX: F Status: DEP ER SPEC: [id number] ROSARIO: 08/13/14-1434 [facility] DR: Kristian Torres MD REQ: [id number] RECD: 08/13/14 STATUS: QASIM LOW DR: Luigi Bennett MD _ SOURCE: CSF SPDESC: ORDERED: CSF Cult/GS COMMENTS: Comment: Tube 3 Procedure Result Verified Site CSF Gram Stain Final 08/13/14- 1529 ML No Polys Observed No Organisms Seen Preparation By Cytospin Smear CSF Culture Final 08/17/14- 0828 ML No Growth Day 4 * ML - MAIN LAB (PSC1) . END OF REPORT * ML=Testing performed at Main Lab DEPARTMENT OF PATHOLOGY, [address] [place] [address] Suraj Velasquez M.D. Director [facility] # [id number] DIFF DONE ON CONCENTRATED SMEAR 59 No evidence of an acute inflammatory response. No evidence of malignancy. Reviewed by Gema Moraes MD 60 Because ethnic data is not always readily available, this report includes an eGFR for both -Americans and non- Americans. The National Kidney Disease Education Program (NKDEP) does not endorse the use of the MDRD equation for patients that are not between the ages of 18 and 70, are , have extremes of body size, muscle mass, or nutritional status, or are non- or non-. According to the National Kidney Foundation, irrespective of diagnosis, the stage of the disease is based on the level of kidney function: Stage Description GFR(mL/min/1.73 m(2)) 1 Kidney damage with normal or decreased GFR 90 2 Kidney damage with mild decrease in GFR 60-89 3 Moderate decrease in GFR 30-59 4 Severe decrease in GFR 15-29 5 Kidney failure <15 (or dialysis) 61 Unable to report test result due to hemolysis. 62 Unable to report test result due to hemolysis. 63 RUN DATE: 06/17/14 [facility] LAB LIVE PAGE 1 RUN TIME: [address] [place] [address] Specimen Inquiry Name: ESVIN CHESTER : [address]: Kit Goldman MD Acct: [id number] Unit: [id number] AGE: 19 Location: [facility] Re06/14/14 SEX: F Status: DEP ER SPEC: [id number] ROSARIO: 06/14/14-1757 [facility] DR: Mayra Goldman DBAS REQ: [id number] RECD: 06/15/14-1233 STATUS: QASIM LOW DR: [facility] Luigi Bennett MD _ SOURCE: URINE SPDESC: ORDERED: Urine Culture Procedure Result Verified Site Urine Culture Final 06/17/14- 09 ML Organism 1 NORMAL ABDIRASHID [place] Count 1-10,000 (Few) CFU/ML * ML - MAIN LAB ([facility]) . END OF REPORT * ML=Testing performed at Main Lab DEPARTMENT OF PATHOLOGY, [facility] [place] [address] Suraj Velasquez M.D. Director [facility] # [id number] 64 RUN DATE: 04/05/14 [facility] LAB LIVE PAGE 1 RUN TIME: 822 [facility] [place], [place] [address] Specimen Inquiry Name: ESVIN CHESTER : [address]: Trey Lew MD Acct: [id number] Unit: [id number] AGE: 19 Location: [facility] Re04/03/14 SEX: F Status: DEP ER SPEC: [id number] ROSARIO: 04/03/14-1245 [facility] [address]: Trey Lew MD REQ: [id number] RECD: 04/03/14 STATUS: QASIM LOW DR: Luigi Bennett MD _ SOURCE: THROAT SPDESC: ORDERED: Throat Beta Str Procedure Result Verified Site Throat Beta Strep Culture Final 04/05/14821 ML Negative For Group A Beta Streptococcus END OF REPORT * ML=Testing performed at Main Lab DEPARTMENT OF PATHOLOGY, [address] [place] [address] Suraj Velasquez M.D. Director [facility] # [id number] 65 RUN DATE: 04/24/13 [facility] LAB LIVE PAGE 1 RUN TIME: [address] [place] [address] Specimen Inquiry Name: ESVIN CHESTER : [address]: Kit Pires MD Acct: [id number] Unit: [id number] AGE: 18 Location: [facility] Re04/22/13 SEX: F Status: DEP ER SPEC: [id number] ROSARIO: 04/22/13-[address]: Kit Pires MD REQ: [id number] RECD: 04/22/13160 STATUS: QASIM LOW DR: Luigi Bennett MD _ SOURCE: THROAT SPDESC: ORDERED: Throat Beta Str QUERIES: Medent Number [id number] Procedure Result Verified Site Throat Beta Strep Culture Final 04/24/13- 08 ML Negative For Group A Beta Streptococcus END OF REPORT * ML=Testing performed at Main Lab DEPARTMENT OF PATHOLOGY, [facility] [place], [place] [address] Suraj Velasquez M.D. Director [facility] Permit #[id number] 66 RUN DATE: 10/24/12 [facility] LAB LIVE PAGE 1 RUN TIME: 0836 [facility] [place], [place] [address] Specimen Inquiry Name: ESVIN CHESTER : [address]: Kit Goldman MD Acct: [id number] Unit: [id number] AGE: 17 Location: [facility] Re10/21/12 SEX: F Status: DEP ER SPEC: [id number] ROSARIO: 10/21/12 [facility] DR: Mayra Goldman NP REQ: [id number] RECD: 10/22/12 STATUS: QASIM LOW DR: Kit Bennett MD _ SOURCE: THROAT SPDESC: ORDERED: Throat Beta Str Procedure Result Verified Site Throat Beta Strep Culture Final 10/24/12835 ML Organism 1 Negative Group A Strep END OF REPORT * ML=Testing performed at Main Lab DEPARTMENT OF PATHOLOGY, [address] [place] [address] Suraj Velasquez M.D. Director [facility] Permit #[id number] Procedures Date CPT Code Description Status 07/10/2015 17316 Acne Surgery Completed 07/02/2015 62858 Gauntlet Cast Application Completed 06/23/2015 46001 Repair Collateral Ligament MCP JT W/Local Tissue Completed 06/23/2015 32309 Repair Collateral Ligament MCP JT W/Local Tissue Completed Encounters Type Date Location Provider CPT E/M Dx Office Visit 08/07/2017 11:00a [facility] Internal Medicine Doris Briceño, N.P. 19203 M54.2 - [place] F17.210 Office Visit 05/02/2017 1:40p [facility] Internal Medicine Shyanne Call 84120 N77.1 - Tereso Atkins R21 Office Visit 04/19/2017 4:00p [facility] [place] [address] L70.0 Office Visit 03/31/2017 11:40a [facility] Internal Medicine Doris Briceño 03753 R10.84 - [place] N.P. Office Visit 01/18/2017 9:10a [facility] Internal Medicine Angeles Stevens 86787 J45.901 - India Atkins F17.210 Office Visit 12/06/2016 1:00p [facility] Internal Medicine Doris Briceño, N.P. 03649 M54.5 - [place] Office Visit 11/04/2016 3:00p [facility] Internal Medicine Doris Briceño, N.P. 70532 Z01.419 - Tereso M46.1 Office Visit 10/18/2016 11:00a [facility] Internal Medicine Shyanne Call 48154 M54.9 - Tereso Atkins R35.0 R10.2 Office Visit 08/12/2016 3:30p [facility] Sudheer Chaudhry 97032 R22.0 Of [facility] Office Visit 06/29/2016 10:45a [facility] Karen Bennett 03072 M79.645 Of [place] Atkins Office Visit 06/22/2016 4:20p [facility] [place] [address] M79.645 Medicine - [place] Office Visit 02/03/2016 2:30p [facility] Sudheer Chaudhry 04839 R22.0 Of [facility] Office Visit 01/28/2016 9:00a [facility] [place] [address] R22.9 Medicine - [place] Office Visit 11/05/2015 10:20a [facility] [place] [address] J45.20 Medicine - [place] J20.9 Office Visit 11/02/2015 10:40a [facility] Fide Avila, 60119 S53.32xD Of [place] RPA-C Office Visit 10/20/2015 2:40p [facility] Internal Medicine Doris Briceño 84396 M54.5 - [place] N.P. M54.6 Office Visit 10/02/2015 10:40a [facility] [place] [address] M54.5 Medicine - [place] Office Visit 09/24/2015 10:40a [facility] [place] [address] M54.5 Medicine - [place] Office Visit 08/12/2015 4:20p [facility] [place] [address] M79.642 Medicine - [place] Office Visit 07/09/2015 10:00a [facility] Internal Doris Briceño, N.P. 75391 M79.642 Medicine - [place] Office Visit 07/07/2015 3:55p [facility] Internal Doris Briceño, N.P. 05832 M79.642 Medicine - [place] Office Visit 07/06/2015 1:40p [facility] Internal Doris Briceño, N.P. 92784 L72.3 Medicine - [place] Office Visit 06/22/2015 11:00a [facility] Karen Bennett, 74304 S53.32xA Of [place] Atkins Office Visit 06/18/2015 11:00[place] [address] S62.512S Of [place] S53.32xA S62.512A Office Visit 06/18/2015 10:00a [facility] Internal Medicine Doris Briceño, N.P. 01693 M79.642 - [place] Office Visit 06/11/2015 4:00p [facility] [place] [address] R30.0 - [place] N91.1 N39.0 Office Visit 05/15/2015 2:20p [facility] [place] [address] K02.7 - [place] Office Visit 04/08/2015 11:40a [facility] Internal Medicine Doris Briceño N.P. 85425 F17.210 - [place] J06.9 K02.7 Office Visit 03/30/2015 2:40p [facility] Internal Medicine Doris Briceño, N.P. 96736 G44.201 - [place] Office Visit 02/17/2015 11:20a [facility] Internal Medicine Doris Briceño, N.P. 93167 D13.4 - [place] R10.31 J06.9 R93.2 Office Visit 02/11/2015 11:40a [facility] Internal [facility] [place] [address] R30.0 [place] R10.30 N39.0 Office Visit 01/05/2015 4:00p [facility] Internal [facility] [place] [address] J06.9 [place] K08.8 B37.3 Office Visit 12/24/2014 8:40a [facility] Internal Medicine Doris Briceño, N.P. 42250 R10.11 - [place] Office Visit 12/16/2014 1:20p [facility] Internal [facility] Doris Briceño, N.P. 80427 R10.31 - [place] N77.1 J06.9 F17.210 Office Visit 10/21/2014 1:40p [facility] Internal Medicine Doris Briceño, N.P. 80874 787.91 - [place] 787.01 Office Visit 09/11/2014 2:00p [facility] Internal [facility] [place] [address] 784.0 [place] 789.03 706.1 788.41 Office Visit 08/15/2014 3:20p [facility] Internal [facility] [place] [address] 784.0 [place] 847.0 Plan of Care 09/13/2017 - Fartun Solis, LESLIE-CR10.84 Generalized abdominal painComments:Go to emergency room if develop fever greater than 101.5F or if have uncontrolled vomiting or severeworsening of pain. Will follow up by phone with results.Follow up:By phone with lab results.R21 Rash and other nonspecific skin eruptionReferral:No Doctor Dipesh Tamez MD, Dermatology
--- NOTE | 2017-10-08 18:20 | UC ---
Ear Complaint HPI - HPI Summary HPI Summary: 22 y/o female present to the urgent care c/o B/L ear pain since yesterday. Pain is 8/10 associated w/ mild nasal congestion w/ clear nasal discharge and mild AN. Pt saw mild blood coming out her Rt ear. Pt took Ibuprofen PO this morning at 0900am to alleviate symptoms. Pt denies fever, recent swimming, dizziness, decrease hearing, SOB, chest pain, abdominal pain,N/V/D. - History of Current Complaint Chief Complaint: UCEar Stated Complaint: EAR ACHE Time Seen by Provider: 10/08/17 18:19 Hx Obtained From: Patient Hx Last Menstrual Period: [id number] ?: No Onset/Duration: Gradual Onset, Lasting Days - 1 day, Still Present, Worse Since - today Severity Initially: Moderate Severity Currently: Moderate Pain Intensity: 8 Pain Scale Used: 0-10 Numeric Aggravating Factors: Other - touch of Rt ear Alleviating Factors: OTC Meds Associated Signs/Symptoms: Positive: URI Symptoms - Allergies/Home Medications Allergies/Adverse Reactions: Allergies Allergy/AdvReac Type Severity Reaction Status Date / Time No Known Allergies Allergy Verified 10/08/17 16:58 PMH/Surg Hx/FS Hx/Imm Hx Previously Healthy: Yes Respiratory History: Asthma - Surgical History Surgical History: Yes Surgery Procedure, Year, and Place: wisdom teeth extraction, tonsillectomy, LT THUMB LIGAMENT REPAIR 06/23/15 - Family History Known Family History: Positive: Cardiac Disease, Hypertension - Social History Occupation: Employed Full-time Lives: With Family Alcohol Use: Rare Alcohol Amount: 1 DRINK 2 WEEKS Substance Use Type: None Smoking Status (MU): Light Every Day Tobacco Smoker Type: Cigarettes Amount Used/How Often: 10 PER DAY Length of Time of Smoking/Using Tobacco: 8 YRS Have You Smoked in the Last Year: Yes Household Exposure Type: Cigarettes Review of Systems Constitutional: Negative Skin: Negative Eyes: Negative ENT: Ear Ache - B/L ear pain, Nasal Discharge - clear, Sinus Congestion Respiratory: Negative Cardiovascular: Negative Gastrointestinal: Negative Genitourinary: Negative Motor: Negative Neurovascular: Negative Musculoskeletal: Negative Neurological: Headache Psychological: Negative Is Patient Immunocompromised?: No All Other Systems Reviewed And Are Negative: Yes Physical Exam - Summary Physical Exam Summary: Vital signs: reviewed General: well developed, well nourished female sitting in the examining table w/ o any apparent distress Skin: [place], warm and dry, no evidence of atopic dermatitis, psoriasis, seborrhea. HEENT: -Head: atraumatic, non tender; no scalp dermatitis. -Eyes: sclera and conjunctiva clear, PERRLA, EOMI -Ears: no pre- or postauricular lymphadenopathy or erythema; RT external ear canal with erythema and yellowish purulent discharge, pinna tenderness on palpation, Rt TM WNL, LF external ear canal clear and LF TM WNL. TMs normal w/ out bulging or retraction. Good light reflex. No fluid level, vesicles, or bullae. No perforation. -Nose/Face: erythematous and edematous nasal mucosa with clear rhinorrhea, no frontal or maxillary sinus tender to palpation. -Mouth/Throat: Mucous membrane moist, posterior pharynx clear, no erythema or exudates. Neck: supple, FROM, nontender, no lymphadenopathy, no meningismus. Chest: Clear to auscultation, normal breath sounds Abd: soft, Bowel sounds active, Nontender. Back: no spinal or CVAT Neuro: A&O x4, GCS 15, no focal neuro deficits, normal behavior for age. Triage Information Reviewed: Yes Vital Signs: Initial Vital Signs Temp 98.0 F 10/08/17 16:52 Pulse 72 10/08/17 16:52 Resp 16 10/08/17 16:52 BP 126/67 10/08/17 16:52 Pulse Ox 100 10/08/17 16:52 Ear Complaint Course/Dx - Course Course Of Treatment: 22 y/o female present to the urgent care c/o B/L ear pain since yesterday. Pain is 8/10 associated w/ mild nasal congestion w/ clear nasal discharge and mild AN. Pt saw mild blood coming out her Rt ear. Pt took Ibuprofen PO this morning at 0900am to alleviate symptoms. Pt denies fever, recent swimming, dizziness, decrease hearing, SOB, chest pain, abdominal pain,N/ V/D. Hx obtained. Pt with a RT otitis externa on examination. No ear bleeding observed. Pt Rx Cortisporin otic drops and Ibuprofen PO. First dose given at the clinic tonight. If symptoms do not improve or worsen to return to the urgent care or f/u with PCP for further management. Pt understood and agreed with D/C instructions. - Differential Dx/Diagnosis Differential Diagnosis/HQI/PQRI: Cerumen Impaction, Otitis Externa, Otitis Media , Perforated TM, URI Provider Diagnoses: 1- RT otitis externa. 2- Otalgia Discharge - Sign-Out/Discharge Documenting (check all that apply): Patient Departure - D/C home - Discharge Plan Condition: Stable Disposition: HOME Prescriptions: Ibuprofen TAB* [Motrin TAB* 800 MG] 800 mg PO Q6H PRN #30 tab PRN Reason: otalgia Neomyc/Polym/HC 1% OTIC SUSP* [Cortisporin Otic Susp 1%*] 4 drop RIGHT EAR TID # 1 btl Patient Education Materials: Otitis Externa (DC) Referrals: Doris Briceño NP [Primary Care Provider] - 2 Days Additional Instructions: 1-Please apply otic antibiotic on your Rt ear as directed. 2-Take ibuprofen PO after meals for pain. 3-If symptoms do not improve or worsen please f/u with your PCP 3 days or return to the urgent care for further evaluation and treatment. - Billing Disposition and Condition Condition: STABLE Disposition: Home
[2017-10-08] MEDS ORDERED: Neomyc/Polym/HC 1% OTIC SUSP* **OTIC RIGHT EAR ONE (18:44)
[2017-10-08] MEDS ORDERED: Ibuprofen TAB* 400 MG PO ONE (18:45)
[2017-10-08 19:08] VITALS: BP 128/69
== END 2017-10-08 19:00 | disposition home or self-care (01) ==
LOC: UCEAST 16:19
DX: F17.210 Nicotine dependence, cigarettes, uncomplicated (principal); H60.91 Unspecified otitis externa, right ear
CPT/HCPCS: 99212; A9270-GY; G0463

== ENCOUNTER 2017-12-14 07:25 | Emergency (ER) | payer OTHER ==
--- OUTSIDE RECORDS SUMMARY | 2017-12-14 07:35 | XMS REPORT ---
:1995 External Reference #:[id number] Author Organization [facility] Address [address] [facility] [address] [place] [address] [place] [address] Phone [phone] Care Team Providers Name Role Phone Shyanne Call MD Primary Care Physician Unavailable Payers Type Date Identification Numbers Payment Provider Subscriber Commercial Effective: Policy Number: [id number] Zack Chester 2015 Group Number: [id number] [address] PayID: [id number] [place] [address] Medigap Part B Effective: 2015 Policy Number: [id number] Medicaid Esvin Chester Expires: 2015 Group Name: 1 1 [address] PayID: [id number] [place] [address] Commercial Effective: 2014 Policy Number: [id number] Zack Chester Expires: 2015 Group Number: [id number] [address] PayID: [id number] [place] [address] Problems Date Description Provider Status Onset: 10/21/2014 Asthma Jenny RoachP. 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 pack Naproxen 08/09 Active Tablets 500mg 60tab take 1 s tablet Varn, N.P. twice a day as needed Fluconazole 07/25 Active Tablets 150mg 2tabs one by mouth june Varn, N.P. repeat in 3 days as needed Ranitidine HCL 03/31 Active Tablets 150mg 60tab take one R10.84 s tablet by Varn, N.P. mouth twice a day Albuterol Sulfate 01/18 Active Nebulizer (2.5mg/3M 300un inhale L) 0.083% its contents Stevens, of 1 vial M.D. via nebulizer 4 times a day as needed Nebulizer 01/18 Active Device 1unit use for albuterol Stevens, nebulized M.D. solution up to 4 times a day. Valtrex 07/26 Active Tablets 500mg 30tab 1 by mouth s twice a MAICOL Wallace day x 5 days Ventolin HFA 08/15 Active Aerosol 108(90Bas 8.5gm 2 puffs by e) mouth four Varn, N.P. mcg/Act times a day as needed Tizanidine HCL 08/07 Hx Tablets 4mg 30tab take 1 M54.2 s tablet by Varn, N.P. - mouth 11/30 every hours as needed Nicotrol 08/07 Hx Inhaler 10mg 168un 1 Inhaler F17.210 its as needed Varn, N.P. - not to 11/30 exceed in a day Hydrocortisone 05/02 Hx Cream 2.5% 30gm apply to R2 affected Cotton, - area twice M.D. 11/30 Fluconazole 02/01 Hx Tablets 150mg 2tabs one by June MAICOL Wallace - repeat in 05/01 3 days needed Prednisone 01/18 Hx Tablets 10mg qs take 4 tab J45.901 Angeles daily x 3 Stevens, - days then M.D. 01/30 3 tab daily x 3 days and then 2 [...] by mouth Varn, N.P. - every 8 / hours needed for pain Fluconazole 10/13 Hx Tablets 150mg 2tabs one by Dorisjune Varn, N.P. - repeat in 01/18 3 days needed Tizanidine HCL 08/31 Hx Tablets 4mg 30tab 1 tablet G44.201 s every 4 Varn, N.P. - hours as 05/01 needed for muscle tension headache or muscle spasms. Meloxicam 07/27 Hx Tablets 15mg 60tab 1 by mouth s twice a Bennett, - day M.D. 10/18 Fluconazole 07/04 Hx Tablets 150mg 2tabs one by George gene Wallace NP repeat in 3 days as needed Tramadol HCL 06/22 Hx Tablets 50mg 60tab 1-2 M79.645 Shyanne s tablets Jakub, - every 6 M.D. 01/18 hours needed for pain. Ibuprofen 06/22 Hx Tablets 600mg 21tab take one M79.645 George s tablet by MAICOL Wallace - mouth 07/27 times a day as needed with food Diflucan 05/30 Hx Tablets 150mg 2tabs one by Dorisjune Varn, N.P. - repeat in 06/05 3 days Tizanidine HCL 11/24 Hx Tablets 4mg 60tab 1 tablet G44.201 Doris /2016 s every 4 Varn, N.P. hours as needed for muscle tension headache. Fluconazole 11/18 Hx Tablets 150mg 2tabs one by Doris mouth june Varn, N.P. - repeat in 01/27 3 days needed Azithromycin 11/04 Hx Tablets 250mg 6tabs 2 tabs by Houston.9 George mouth MAICOL Wallace - every day 11/09 x1 day, tab by mouth every day x 4 days Benzonatate 11/04 Hx Capsules 200mg 30cap one by Romelia Vazquez s mouth MAICOL Wallace - three 01/27 times daily as needed for cough Acetaminophen-Cod 10/19 Hx Tablets 300-30mg 30tab one by M54.5 Doris ramey #3 s mouth Varn, N.P. - every 6 / hours needed cough Meloxicam 10/01 Hx Tablets 15mg 30tab once daily M54.5 George s with food MAICOL Wallace Tramadol HCL 10/01 Hx Tablets 50mg 42tab 1-2 M54. George s tablets Madison BREADMAN - every 8 / hours needed for pain. Fluconazole 09/26 Hx Tablets 150mg 2tabs one by Doris mouth june Varn, N.P. - repeat in 10/19 3 days needed Hydrocodone-Aceta 09/23 Hx Tablets 5-325mg 30tab 1-2 by George hong s mouth MAICOL Wallace - every 8 08/12 hours prn. /2015 Methylprednisolon 09/23 Hx TBPK 4mg 21uni as M54.5 George e ts directed MAICOL Wallace - on package 09/29 Methylprednisolon 08/11 Hx TBPK 4mg 21uni as M79.642 George e ts directed MAICOL Wallace - on package 08/19 Oxycodone-Acetami 07/08 Hx Tablets 5-325mg 20tab 1 tab by M79.642 Karen jaime s mouth Bennett, - every 6 M.D. 08/11 hours needed for pain Do not refill until 06/26/15 Fluconazole 07/08 Hx Tablets 150mg 2tabs one by M79.642 mouth june Varn, N.P. - repeat in 07/24 3 days needed Celebrex 07/06 Hx Capsules 100mg 30cap 1 by mouth K02.7 s bid prn Varn, N.P. - pain 08/11 Lidocaine-Priloca 07/05 Hx Cream 2.5-2.5% 25gm apply a L72.3 generous Varn, N.P. - amount to 07/06 area 30 minutes before appointmen t. Tramadol 07/01 Hx Tablets 37.5-325m 30tab 1-2 Karen Hydrochloride/Sukh g s tablets Bennett, taminophen - every 6 M.D. 08/11 hours needed pain Oxycodone-Acetami 06/24 Hx Tablets 5-325mg 40tab 1-2 tab by Karen oterohen s mouth Bennett, - every 4-6 M.D. 07/03 hours needed for pain Do not refill until 06/26/15 Hydrocodone-Aceta 06/21 Hx Tablets 5-325mg 40tab 1-2 tabs Karen minophen s by mouth Bennett, - every 4- 6 M.D. 07/08 hours needed pain Fluconazole 06/21 Hx Tablets 150mg 2tabs one by mouth june Keyanna, N.P. - repeat in 06/27 3 days needed Percocet 06/17 Hx Tablets 5-325mg 60tab 1-2 by S53.32xA Riteshb s mouth MD Sana - every 4 to 06/20 6 hours needed pain Ciprofloxacin HCL 06/10 Hx Tablets 250mg 14tab take one N39.0 George s tablet MAICOL Wallace - twice a 06/17 day for days. Phenazopyridine 06/10 Hx Tablets 100mg 10tab 1 tablet N39.0 George HCL s by mouth Madison, BREADMAN - three 06/13 times day as needed for [address] 05/[address] 500mg 60tab by mouth K02.7 s twice a Madison, BREADMAN - day with 05/10 Lidocaine Viscous 05/14 Hx Solution 2% 100un gargle K02.7 its with 15ml Madison, BREADMAN - every 4 06/10 hours needed for [...] Hx Tablets 500mg 20tab take one R30.0 George s tablet Madison, BREADMAN - twice a 02/22 day for days Phenazopyridine 02/11 Hx Tablets 100mg 10tab 1 tablet R30.0 George HCL s by mouth Madison, BREADMAN - three 02/14 times day as needed for 3 days. Fluconazole 02/11 Hx Tablets 150mg 2tabs one by R30.0 George mouth june Madison, BREADMAN - repeat in 02/17 3 days needed Fluconazole 01/27 Hx Tablets 150mg 2tabs one by B37.3 George mouth june MAICOL Wallace - repeat in 02/17 3 days as needed Tramadol HCL 01/19 Hx Tablets 50mg 30tab 1 tablet s three to Varn, N.P. - four times 03/30 daily needed Valtrex 01/14 Hx Tablets 500mg 10tab 1 by mouth s twice a Varn, N.P. day x 5 days Tramadol HCL 01/05 Hx Tablets 50mg 15tab 1-2 K08.8 s tablets MAICOL Wallace - every 4-6 01/08 hours needed for pain. Fluconazole 01/05 Hx Tablets 150mg 2tabs one by B37.3 mouth june MAICOL Wallace - repeat in [...] Varn, N.P. Laxative/Stool - constipati Softener 04/08 Valacyclovir HCL 12/16 Hx Tablets 1gm 21tab 1 tbalet N77.1 s tid x 7 Varn, N.P. - days 01/04 Clindamycin 09/12 Hx Gel 1% 30gm apply once L70.8 Doris Phosphate daily to Varn, N.P. - affected 10/17 areas. Clindamycin 09/11 Hx Gel 1-5% 50gm Apply to 706.1 George Phos-Benzoyl afected MAICOL Wallace Perox - areas once [...] Tablets DR 500mg 60tab by mouth George s twice a MAICOL Wallace - day with 09/11 Cyclobenzaprine 08/15 Hx Tablets 5mg 30tab take one 784.0 George HCL s tablet by MAICOL Wallace - mouth [...] Unknown /0000 every day - 04/08 Amoxicillin 00 Hx Capsules 500mg take 1 Unknown /0000 capsule by - mouth 02/11 hours until finished Sertraline HCL 00/00 Hx Tablets 100mg Unknown /0000 - 04/08 Gabapentin /00 Hx Capsules 300mg 1 by mouth Unknown [...] by Unknown /0000 mouth - twice a needed spasm Nitrofurantoin 00/00 Hx Capsules 100mg take 1 Unknown Monohyd Macro /0000 capsule by - mouth 01/27 twice a day Rexulti Hx Tablets 2mg 1 by mouth Unknown /0000 every day - 06/22 Trileptal Hx Tablets 150mg Not Unknown /0000 taking---1 - tablet at 05/01 night a week then 1 twice a day Doxycycline Hx Capsules 50mg to start Unknown Hyclate /0000 soon - 08/07 Vital Signs Date Vital Result Comment 11/30/2017 Height 65 inches 5'5" Weight 161.00 lb Heart Rate 87 /min BP Systolic Sitting 118 mmHg BP Diastolic Sitting 60 mmHg Pain Level 5 O2 % BldC Oximetry 98 % BMI (Body Mass Index) 26.8 kg/m2 09/13/2017 Height 65 inches 5'5" Weight 149.00 [...] 09/13/2017 White Blood Count 8.3 10^3/uL 3.5-10.8 1 Red Blood Count 4.45 10^6/uL 4.00-5.40 1 Hemoglobin 14.1 g/dL 12.0-16.0 1 Hematocrit 42 % 35-47 1 Mean Corpuscular Volume 95 fL 80-97 1 Mean Corpuscular Hemoglobin 32 pg High 27-31 1 Mean Corpuscular HGB Conc 34 g/dL 31-36 1 Red Cell Distribution Width 13 % 10.5-15 1 Platelet Count 267 10^3/uL 150-450 1 Mean Platelet Volume 8.9 um3 7.4-10.4 1 Abs Neutrophils 5.1 10^3/uL 1.5-7.7 1 Abs Lymphocytes 2.5 10^3/uL 1.0-4.8 1 Abs Monocytes 0.5 10^3/uL 0-0.8 1 Abs Eosinophils 0.1 10^3/uL 0-0.6 1 Abs Basophils 0 10^3/uL 0-0.2 1 Abs Nucleated RBC 0 10^3/uL 1 Granulocyte % 61.8 % 38-83 1 Lymphocyte % 30.2 % 25-47 1 Monocyte % 5.9 % 0-7 1 Eosinophil % 1.8 % 0-6 1 Basophil % 0.3 % 0-2 1 Nucleated Red Blood Cells % 0.1 1 Comp Metabolic Panel 09/13/2017 Sodium 138 mmol/L 135-145 1 Potassium 4.1 mmol/L 3.5-5.0 1 Chloride 106 mmol/L 101-111 1 Co2 Carbon Dioxide 23 mmol/L 22-32 1 Anion Gap 9 mmol/L 2-11 1 Glucose 77 mg/dL 70-100 1 Blood Urea Nitrogen 8 mg/dL 6-24 1 Creatinine 0.64 mg/dL 0.51-0.95 1 BUN/Creatinine Ratio 12.5 8-20 1 Calcium 10.2 mg/dL 8.6-10.3 1 Total Protein 6.7 g/dL 6.4-8.9 1 Albumin 4.6 g/dL 3.2-5.2 1 Globulin 2.1 g/dL 2-4 1 Albumin/Globulin Ratio 2.2 1-3 1 Total Bilirubin 0.50 mg/dL 0.2-1.0 1 Alkaline Phosphatase 56 U/L 34-104 1 Alt 18 U/L 7-52 1 Ast 18 U/L 13-39 1 Egfr Non- 114.0 >60 1 Egfr 137.9 >60 1, 2 Laboratory test finding 09/13/2017 Lipase 17 U/L 11.0-82.0 1 HCG < 0.60 mIU/mL 1, 3 Laboratory test 05/02/2017 Gardnerella/Yeast: Vaginal SEE RESULT BELOW 4 finding Dna Rapid Influenza A & 03/25/2017 Influenza A Molecular POSITIVE Negative 5 B Molecular Influenza B Molecular NEGATIVE Negative Laboratory test finding 03/24/2017 Rapid Influenza A B SEE RESULT BELOW 6 Antigen Urinalysis Profile 03/24/2017 Urine Color Yellow Urine Appearance Cloudy Urine Specific Snover 1.017 1.010-1.030 Urine pH 5.0 5-9 Urine [...] Egfr Non- 102.8 >60 Egfr 132.2 >60 7 Laboratory test finding 03/24/2017 Lipase 15 U/L 11.0-82.0 C Reactive Protein 3.36 mg/L < 5.00 8 HCG < 0.60 mIU/mL 9 Lactic Acid 0.6 mmol/L 0.5-2.0 10 Urinalysis Profile 11/25/2016 Urine Color Straw Urine Appearance Clear Urine Specific Snover 1.002 Low 1.010-1.030 Urine pH 6.0 5-9 [...] C Reactive Protein 1.51 mg/L < 5.00 11 HCG < 0.60 mIU/mL 12 Lactic Acid 1.0 mmol/L 0.5-2.0 13 GC/Chlamydia Amplified Rna 11/25/2016 Chlamydia trachomatis Rna [...] Egfr Non- 107.2 >60 Egfr 137.9 >60 14 Laboratory test 11/04/2016 Cytology SEE RESULT BELOW 15 finding GC/Chlamydia 10/18/2016 Chlamydia trachomatis Negative Negative Amplified Rna Rna Neisseria gonorrhoeae (GC) Rna Negative Negative Laboratory test finding 10/18/2016 Test Urine negative Ua Routine 10/18/2016 Ua Specific Snover 1.015 Ua PH 5 Ua Color YELLOW Ua Appera CLEAR Ua WBC NEG Ua Protein NEG Ua Glucose NORM Ua Ketones NEG Ua Bilirubin SHAHRAM Ua Urobilinogen NEG Ua Nitrite NEG Ua Occult Blood TRACE Urine Culture And Sensitivities 10/15/2016 Urine Culture SEE RESULT BELOW 16 Urinalysis Profile 10/15/2016 Urine Color Katie Urine Appearance Clear Urine Specific Snover 1.025 1.010-1.030 Urine pH 5.0 5-9 Urine [...] Egfr Non- 97.3 >60 Egfr 125.1 >60 17 Laboratory test finding 10/15/2016 Magnesium 2.1 mg/dL 1.9-2.7 Lipase 35 U/L 11.0-82.0 C Reactive Protein 1.98 mg/L < 5.00 18 Lactic Acid 0.5 mmol/L 0.5-2.0 19 Comp Metabolic Panel 10/08/2016 Sodium 136 mmol/L [...] Egfr Non- 97.3 >60 Egfr 125.1 >60 20 Laboratory test finding 10/08/2016 Lipase < 10 U/L Low 11.0-82.0 C Reactive Protein 4.38 mg/L < 5.00 21 HCG < 0.60 mIU/mL 22 Urine Culture And 10/08/2016 Urine Culture SEE RESULT BELOW 23 Sensitivities Laboratory test finding 10/08/2016 Lactic Acid 0.7 mmol/L 0.5-2.0 24 CBC Auto Diff 10/08/2016 White Blood Count [...] Color Yellow Urine Appearance Cloudy Urine Specific Snover 1.023 1.010-1.030 Urine pH 5.0 5-9 Urine [...] Egfr Non- 96.6 >60 Egfr 124.3 >60 25 Laboratory test finding 10/29/2015 Lipase 21 U/L 11.0-82.0 C Reactive Protein < 1.00 mg/L < 5.00 26 Urinalysis Profile 10/29/2015 Urine Color Yellow Urine Appearance Cloudy Urine Specific Snover 1.026 1.010-1.030 Urine pH 6.0 5-9 Urine [...] And 10/29/2015 Urine Culture SEE RESULT BELOW 27 Sensitivities Laboratory test finding 07/10/2015 Surgical Pathology SEE RESULT BELOW 28 Laboratory test finding 06/23/2015 (HCG) Negative Negative 29 Urine Laboratory test finding 06/11/2015 Test neg Urine Urine Culture And 06/11/2015 Urine Culture SEE RESULT BELOW 30 Sensitivities Ua Routine 06/11/2015 Ua Specific Snover 1.025 Ua PH 5 Ua Color yellow [...] Egfr Non- 114.0 >60 Egfr 146.6 >60 31 Laboratory test finding 04/08/2015 Lipase 22 U/L 11.0-82.0 HCG < 0.60 mIU/mL 32 Laboratory test finding 03/20/2015 (HCG) Urine Negative Negative 33 CBC Auto Diff 02/16/2015 White Blood Count [...] Color Yellow Urine Appearance Clear Urine Specific Snover 1.012 1.010-1.030 Urine pH 5.0 5-9 Urine [...] Egfr Non- 78.0 >60 Egfr 100.4 >60 34 Laboratory test finding 02/16/2015 Lipase 20 U/L 11.0-82.0 C Reactive Protein 9.66 mg/L High < 5.00 35 HCG Qualitative Negative Negative Laboratory test finding 02/11/2015 Urine Culture And SEE RESULT BELOW 36 Sensitivities Cytology Non-General Foreman SEE RESULT BELOW 37 Laboratory test finding 02/11/2015 Test Urine negative Ua Routine 02/11/2015 Ua Specific Snover 1.020 Ua PH 7 Ua Color katie [...] Egfr Non- 99.1 >60 Egfr 127.4 >60 38 Laboratory test 02/02/2015 Troponin-I (TnI) 0.00 ng/mL <0.03 39 finding Laboratory test 01/13/2015 Gardnerella/Yeast: SEE RESULT BELOW 40 finding Vaginal Dna GC/Chlamydia 01/13/2015 Chlamydia trachomatis Negative Negative Amplified Rna Rna Neisseria gonorrhoeae (GC) Rna Negative Negative 41 Laboratory test finding 01/13/2015 Trichomonas Vaginalis Negative Negative 42 Rna CBC Auto Diff 01/13/2015 White Blood [...] Color Yellow Urine Appearance Cloudy Urine Specific Snover 1.015 1.010-1.030 Urine pH 7.0 5-9 Urine [...] Egfr Non- 113.1 >60 Egfr 145.4 >60 43 Laboratory test finding 01/13/2015 Lipase 22 U/L 11.0-82.0 C Reactive Protein 1.81 mg/L < 5.00 44 HCG Qualitative Negative Negative 45 CBC Auto Diff 12/26/2014 White Blood Count [...] Egfr Non- 96.1 >60 Egfr 123.5 >60 46 Herpes Simplex PCR 12/16/2014 Herpes Source [facility] HSV 1 PCR Negative Negative HSV 2 PCR Positive Negative 47 GC/Chlamydia Amplified Rna 12/16/2014 Chlamydia trachomatis Rna Negative Negative Neisseria gonorrhoeae (GC) Rna Negative Negative 48 Laboratory test finding 12/10/2014 HCG Qualitative Negative Negative Urinalysis Profile 12/10/2014 Urine Color Yellow Urine Appearance Clear Urine Specific Snover 1.014 1.010-1.030 Urine pH 6.0 5-9 Urine [...] Egfr Non- 131.2 >60 Egfr 168.8 >60 49 Laboratory test finding 12/10/2014 Lipase 31 U/L 11.0-82.0 C Reactive Protein 3.26 mg/L < 5.00 50 Urinalysis Profile 12/10/2014 Urine Color Yellow Urine Appearance Clear Urine Specific Snover 1.014 1.010-1.030 Urine pH 6.0 5-9 Urine [...] Egfr Non- 131.2 >60 Egfr 168.8 >60 51 Laboratory test finding 12/10/2014 Lipase 31 U/L 11.0-82.0 C Reactive Protein 3.26 mg/L < 5.00 52 Urine Culture And Sensitivities SEE RESULT BELOW 53 Laboratory test finding 10/21/2014 TSH (Thyroid Stim [...] Egfr Non- 102.3 >60 Egfr 131.5 >60 54 Laboratory test finding 10/21/2014 HCG Qualitative Negative Negative Laboratory test finding 09/11/2014 Test Urine neg Ua Routine 09/11/2014 Ua Specific Snover 1.015 Ua PH 5 Ua Color yellow Ua Appera clear Ua WBC neg Ua Protein neg Ua Glucose neg Ua Ketones neg Ua Bilirubin neg Ua Urobilinogen 0.2 Ua Nitrite neg Ua Occult Blood neg Laboratory test finding 08/13/2014 CSF Glucose 61 mg/dL 40-70 55, 56 CSF Protein 36 mg/dL 15-45 55, 57 CSF Culture & Gram Stain SEE RESULT BELOW 55, 58 CSF Cell Count 08/13/2014 Body Fluid Appearance Clear 55 Body Fluid Color Colorless 55 CSF Tube # 1 55 Body Fluid Volume 1 mL 55 Body Fluid WBC 1 55 Body Fluid RBC 2 55 Body Fluid Polys 0 55 Body Fluid Lymph 10 55 Body Fluid Morrow 2 55 Body Fluid Total Cells Counted 12 55 Body Fluid Comment (SEE NOTE) 55, 59 Fluid Reviewed By MD (SEE NOTE) 55, 60 CBC Auto Diff 08/13/2014 White Blood Count [...] Egfr Non- 115.1 >60 Egfr 148.0 >60 61 Potassium TNP mmol/L 3.5-5.0 62 Anion Gap TNP mmol/L 2-11 Ast TNP U/L 13-39 63 Urine Culture And Sensitivities 06/14/2014 Urine Culture (SEE NOTE) 64 Throat-Beta Strept 04/03/2014 Throat Beta Strep (SEE NOTE) 65 Culture Throat-Beta Strept 04/22/2013 Throat Beta Strep (SEE NOTE) 66 Culture Throat-Beta Strept 10/21/2012 Throat Beta Strep (SEE NOTE) 67 Culture 1 LM for patient to call back to discuss results on 09/18/17. Discussed results with patient 09/19/17. 2 Because ethnic data is not always readily [...] 15-29 5 Kidney failure <15 (or dialysis) 3 <5.0 Negative 5.0 - 25.0 Indeterminate (Repeat testing recommended after 72 hours) >25.0 Positive Perimenopausal women can display HCG levels of up to 20 mIU/mL 4 SEE RESULT BELOW Name: ESVIN CHESTER : [address]: Shyanne Call MD Acct: [id number] Unit: [id number] AGE: 22 Location: [facility] Re05/02/17 SEX: F Status: REG REF SPEC: [id number] ROSARIO: 05/02/17-1406 [facility] DR: Shyanne Call MD REQ: [id number] RECD: 05/02/17 STATUS: COMP _ SOURCE: VAGINAL SPDESC: ORDERED: Forrest,Yeast DNA COMMENTS: [id number] Procedure Result Reported Site Gardnerella/Yeast: Vaginal DNA [...] test for therapeutic success or failure. * - [facility] . END OF REPORT DEPARTMENT OF PATHOLOGY, [address] [place] [address] Suraj Velasquez M.D. Director [facility] # [id number] 5 Hairspring Vibrator: [id number] 6 SEE RESULT BELOW Name: ESVIN CHESTER : [address]: Felix Dale MD Acct: [id number] Unit: [id number] AGE: 22 Location: ED Re03/24/17 SEX: F Status: REG ER SPEC: [id number] ROSARIO: 03/24/173877 [facility] DR: Can Robertson MD REQ: [id number] RECD: 03/25/176 STATUS: QASIM LOW DR: Felix Briceño BREADMAN _ SOURCE: YANIV [facility]: ORDERED: Flu A B Request Procedure Result Reported Site Rapid Influenza A B Request Final 03/25/17- 0010 ML Specimen received for Influenza A/B Molecular testing * ML - MAIN LAB ([facility]) . END OF REPORT * ML=Testing performed at Main Lab DEPARTMENT OF PATHOLOGY, [address] [place] [address] Suraj Velasquez M.D. Director [facility] # [id number] 7 Because ethnic data is not always readily [...] 15-29 5 Kidney failure <15 (or dialysis) 8 Acute inflammation: >10.00 9 <5.0 Negative 5.0 - 25.0 Indeterminate (Repeat testing recommended after 72 hours) >25.0 Positive Perimenopausal women can display HCG levels of up to 20 mIU/mL 10 [facility] Severe Sepsis and Septic Shock Management Bundle Measure requires all lactic acids initially measuring >2.0 mmol/L be repeated. 11 Acute inflammation: >10.00 12 <5.0 Negative 5.0 - 25.0 Indeterminate (Repeat testing recommended after 72 hours) >25.0 Positive Perimenopausal women can display HCG levels of up to 20 mIU/mL 13 [facility] Severe Sepsis and Septic Shock Management Bundle Measure requires all lactic acids initially measuring >2.0 mmol/L be repeated. 14 Because ethnic data is not always readily [...] 15-29 5 Kidney failure <15 (or dialysis) 15 SEE RESULT BELOW Name: ESVIN CHESTER : [address]: Doris Briceño NP Acct: [id number] Unit: [id number] AGE: 21 Location: [facility] Re11/04/16 SEX: F Status: REG REF SPEC: [id number] ROSARIO: 11/04/16-1616 [facility] [address]: Doris Briceño NP REQ: [id number] RECD: 11/04/16 STATUS: SOUT _ ORDERED: TP IMAGE ANAL COMMENTS: [id number] FINAL DIAGNOSIS Negative for Intraepithelial lesion or Malignancy A. Ectocervical/Endocervical Specimen Adequacy: Satisfactory of evaluation Transformation zone component identified Patient Information: HPV: Thin Layer Pap Test w/reflex to high risk HPV RNA testing when ASCUS Actual Specimen Date: 11/04/16 Last Menstrual Date: 10/03/16 ?: N Post Menopausal?: N Hysterectomy?: N Previous Abnormal Pap Smears?:N Signed (signature on file) BARRY Sandoval (ASCP) 11/07 1317 This Pap test was evaluated with the assistance of the Onovative Test Imaging System. Due to cytologic findings at the environmental systems coordinator microscope, comprehensive manual rescreening by a Gas Meter Mechanic may be required. The Pap Smear is [...] performed at Main Lab DEPARTMENT OF PATHOLOGY, [address] [place] [address] Suraj Velasquez M.D. Director [facility] # [id number] 16 SEE RESULT BELOW Name: ESVIN CHESTER : [address]: Kit Rodriguez MD Acct: [id number] Unit: [id number] AGE: 21 Location: ED Re10/15/16 SEX: F Status: DEP ER SPEC: [id number] ROSARIO: 10/15/16-2044 [facility] DR: Kit Rodriguez MD REQ: [id number] RECD: 10/15/16 STATUS: QASIM LOW DR: Doris Briceño BREADMAN _ SOURCE: URINE SPDESC: ORDERED: Urine Culture Procedure Result Reported Site Urine Culture Final 10/17/16- 08 ML No Growth (<1,000 CFU/mL) * ML - MAIN LAB ([facility]) . END OF REPORT * ML=Testing performed at Main Lab DEPARTMENT OF PATHOLOGY, [address] [place] [address] Suraj Velasquez M.D. Director [facility] # [id number] 17 Because ethnic data is not always readily [...] 15-29 5 Kidney failure <15 (or dialysis) 18 Acute inflammation: >10.00 19 [facility] Severe Sepsis and Septic Shock Management Bundle Measure requires all lactic acids initially measuring >2.0 mmol/L be repeated. 20 Because ethnic data is not always readily [...] 15-29 5 Kidney failure <15 (or dialysis) 21 Acute inflammation: >10.00 22 <5.0 Negative 5.0 - 25.0 Indeterminate (Repeat testing recommended after 72 hours) >25.0 Positive Perimenopausal women can display HCG levels of up to 20 mIU/mL 23 SEE RESULT BELOW Name: ESVIN CHESTER : [address]: Alexie Em MD Acct: [id number] Unit: [id number] AGE: 21 Location: ED Re10/08/16 SEX: F Status: DEP ER SPEC: [id number] ROSARIO: 10/08/16-150 [facility] [address]: Alexei Em MD REQ: [id number] RECD: 10/08/16 STATUS: QASIM LOW DR: Doris Briceño BREADMAN _ SOURCE: URINE [facility]: ORDERED: Urine Culture Procedure Result Reported Site Urine Culture Final 10/09/16- 1222 ML Mixed abdirashid; possible contamination. Suggest resubmission. * ML - MAIN LAB ([facility]) . END OF REPORT * ML=Testing performed at Main Lab DEPARTMENT OF PATHOLOGY, [address] [place] [address] Suraj Velasquez M.D. Director [facility] # [id number] [facility] Severe Sepsis and Septic Shock Management Bundle Measure requires all lactic acids initially measuring >2.0 mmol/L be repeated. 25 Because ethnic data is not always readily [...] 15-29 5 Kidney failure <15 (or dialysis) 26 Acute inflammation: >10.00 27 SEE RESULT BELOW Name: ESVIN CHESTER : [address]: Darwin Steel MD Acct: [id number] Unit: [id number] AGE: 20 Location: ED Re10/29/15 SEX: F Status: DEP ER SPEC: [id number] ROSARIO: 10/29/15-1252 [facility] DR: Darwin Steel MD REQ: [id number] RECD: 10/29/15 STATUS: QASIM LOW DR: Doris Briceño BREADMAN _ SOURCE: URINE SPDESC: ORDERED: Urine Culture Procedure Result Reported Site Urine Culture Final 10/30/15- 1214 ML No growth of clinically significant organisms * ML - MAIN LAB ([facility]) . END OF REPORT * ML=Testing performed at Main Lab DEPARTMENT OF PATHOLOGY, [address] [place] [address] Suraj Velasquez M.D. Director [facility] # [id number] 28 SEE RESULT BELOW Name: ESVIN CHESTER : [address]: Doris Briceño NP Acct: [id number] Unit: [id number] AGE: 20 Location: [facility] Re07/10/15 SEX: F Status: REG REF SPEC: [id number] ROSARIO: 07/10/15-1214 [facility] DR: Doris Briceño NP REQ: [id number] RECD: 07/10/15 STATUS: SOUT _ ORDERED: LEVEL III COMMENTS: [id number] FINAL DIAGNOSIS Cyst removal, site unspecified: -- [...] performed at Main Lab DEPARTMENT OF PATHOLOGY, [address] [place] [address] Suraj Velasquez M.D. Director [facility] # [id number] 29 If is still suspected, please repeat test after 48 to 72 hours. This test detects intact HCG only and is indicated for the early detection of . 30 SEE RESULT BELOW Name: ESVIN CHESTER : [address]: George Wallace NP Acct: [id number] Unit: [id number] AGE: 20 Location: [facility] Re06/11/15 SEX: F Status: REG REF SPEC: [id number] ROSARIO: 06/11/15-[address]: George Wallace NP REQ: [id number] RECD: 06/11/15 STATUS: COMP _ SOURCE: URINE SPDESC: ORDERED: Urine Culture Procedure Result Reported Site Urine Culture Final 06/12/15- 1634 ML No Growth (<1,000 CFU/mL) * ML - MAIN LAB ([facility]) . END OF REPORT * ML=Testing performed at Main Lab DEPARTMENT OF PATHOLOGY, [address] [place] [address] Suraj Velasquez M.D. Director [facility] # [id number] 31 Because ethnic data is not always readily [...] 15-29 5 Kidney failure <15 (or dialysis) 32 <5.0 Negative 5.0 - 25.0 Indeterminate (Repeat testing recommended after 72 hours) >25.0 Positive Perimenopausal women can display HCG levels of up to 20 mIU/mL 33 If is still suspected, please repeat test after 48 to 72 hours. This test detects intact HCG only and is indicated for the early detection of . 34 Because ethnic data is not always readily [...] 15-29 5 Kidney failure <15 (or dialysis) 35 Acute inflammation: >10.00 36 SEE RESULT BELOW Name: ESVIN CHESTER : [address]: George Wallace NP Acct: [id number] Unit: [id number] AGE: 19 Location: [facility] Re02/11/15 SEX: F Status: REG REF SPEC: [id number] ROSARIO: 02/11/15-1213 [facility] DR: George Wallace NP REQ: [id number] RECD: 02/11/15 STATUS: COMP _ SOURCE: URINE SPDESC: ORDERED: Urine Culture Procedure Result Reported Site Urine Culture Final 02/16/15- 1456 ML No Growth (<1,000 CFU/mL) * ML - MAIN LAB ([facility]) . END OF REPORT * ML=Testing performed at Main Lab DEPARTMENT OF PATHOLOGY, [address] [place] [address] Suraj Velasquez M.D. Director [facility] # [id number] 37 SEE RESULT BELOW Name: LAIESVIN : [address]: George Wallace NP Acct: [id number] Unit: [id number] AGE: 19 Location: [facility] Re02/11/15 SEX: F Status: REG REF SPEC: [id number] ROSARIO: 02/11/[address]: George Wallace NP REQ: [id number] RECD: 02/11/15 STATUS: SOUT _ ORDERED: THIN PREP NON G FINAL DIAGNOSIS Urine, voided: --Negative for malignant cells. --Inflammatory cells present. URINE VOID GROSS DESCRIPTION 20 mls of cloudy red voided urine. Signed (signature on file) Gema Moraes MD [id number] END OF REPORT * ML=Testing performed at Main Lab DEPARTMENT OF PATHOLOGY, [address] [place] [address] Suraj Velasquez M.D. Director [facility] # [id number] 38 Because ethnic data is not always readily [...] 15-29 5 Kidney failure <15 (or dialysis) 39 Reference Range and Interpretation: TnI (ng/mL) Interpretation Less Than 0.03 ng/mL Not supportive of diagnosis of NM 0.03 - 0.50 ng/mL Indeterminate: suggest serial studies if clinically indicated. Greater than 0.5 ng/mL Consistent with diagnosis of NM 40 SEE RESULT BELOW Name: ESVIN CHESTER : [address]: Wilder Hernandez MD Acct: [id number] Unit: [id number] AGE: 19 Location: ED Re01/13/15 SEX: F Status: DEP ER SPEC: [id number] ROSARIO: 01/13/15-1499 [facility] DR: Wilder Hernandez MD REQ: [id number] RECD: 01/13/15-160 STATUS: QASIM LOW DR: Angeles Stevens MD _ SOURCE: VAGINAL [facility]: ORDERED: Forrest,Yeast DNA Procedure Result Reported Site [...] therapeutic success or failure. * ML - [facility] ([facility]) . END OF REPORT * ML=Testing performed at Main Lab DEPARTMENT OF PATHOLOGY, [address] [place] [address] Suraj Velasquez M.D. Director [facility] # [id number] 41 Female urine specimens have been self-validated by [facility] and have been granted conditional assay approval by [facility]. 42 GC/Chlamydia Source?: Endocervical Trichomonas Source: Endocervical 43 Because ethnic data is not always readily [...] 15-29 5 Kidney failure <15 (or dialysis) 44 Acute inflammation: >10.00 45 Comment: f 46 Because ethnic data is not always readily [...] 15-29 5 Kidney failure <15 (or dialysis) 47 ADDITIONAL INFORMATION Analyte Specific Reagent: This test was developed and its performance characteristics determined by [facility]. It has not been cleared or approved by the U.S. Food and Drug Administration. Test Performed by: [facility] - [address] [address] Echocardiologist: Odilon Tejeda II, M.D., Ph.D. 48 Female urine specimens have been self-validated by [facility] and have been granted conditional assay approval by [employer]. 49 Because ethnic data is not always readily [...] 15-29 5 Kidney failure <15 (or dialysis) 50 Acute inflammation: >10.00 51 Because ethnic data is not always readily [...] 15-29 5 Kidney failure <15 (or dialysis) 52 Acute inflammation: >10.00 53 SEE RESULT BELOW Name: ESVIN CHESTER : [address]: Bubba Loco DO Acct: [id number] Unit: [id number] AGE: 19 Location: ED Re12/10/14 SEX: F Status: DEP ER SPEC: [id number] ROSARIO: 12/10/14 DR: Kit Goldman MD REQ: [id number] RECD: 12/10/14 STATUS: QASIM LOW DR: Doris Briceño BREADMAN _ SOURCE: URINE SPDESC: ORDERED: Urine Culture Procedure Result Verified Site Urine Culture Final 12/12/14- 1149 ML No Growth Day 2 (<1,000 CFU/mL) * ML - MAIN LAB ([facility]) . END OF REPORT * ML=Testing performed at Main Lab DEPARTMENT OF PATHOLOGY, [address] [place] [address] Suraj Velasquez M.D. Director [facility] # [id number] 54 Because ethnic data is not always readily [...] 15-29 5 Kidney failure <15 (or dialysis) 55 Comment: Tube 4 56 Comment: Tube 2 57 Comment: Tube 2 58 SEE RESULT BELOW Name: ESVIN CHESTER : [address]: Kristian Torres MD Acct: [id number] Unit: [id number] AGE: 19 Location: ED Re08/13/14 SEX: F Status: DEP ER SPEC: [id number] ROSARIO: 08/13/14 [facility] DR: Kristian Torres MD REQ: [id number] RECD: 08/13/14 STATUS: QASIM LOW DR: Luigi Bennett MD _ SOURCE: CSF SPDESC: ORDERED: CSF Cult/GS COMMENTS: Comment: Tube 3 Procedure Result Verified Site CSF Gram Stain Final 08/13/14- 1529 ML No Polys Observed No Organisms Seen Preparation By Cytospin Smear CSF Culture Final 08/17/14- 28 ML No Growth Day 4 * ML - MAIN LAB ([facility]) . END OF REPORT * ML=Testing performed at Main Lab DEPARTMENT OF PATHOLOGY, [address] [place] [address] Suraj Velasquez M.D. Director [facility] # [id number] 59 DIFF DONE ON CONCENTRATED SMEAR 60 No evidence of an acute inflammatory response. No evidence of malignancy. Reviewed by Gema Moraes MD 61 Because ethnic data is not always readily [...] 15-29 5 Kidney failure <15 (or dialysis) 62 Unable to report test result due to hemolysis. 63 Unable to report test result due to hemolysis. 64 RUN DATE: 06/17/14 [facility] LIVE PAGE 1 RUN TIME: [address] [place] [address] Specimen Inquiry Name: ESVIN CHESTER : [address]: Kit Goldman MD Acct: [id number] Unit: [id number] AGE: 19 Location: [facility] Re06/14/14 SEX: F Status: DEP ER SPEC: [id number] ROSARIO: 06/14/14-1757 [facility] DR: Mayra Goldman NP REQ: [id number] RECD: 06/15/14-1232 STATUS: QASIM LOW DR: [facility] Luigi Bennett MD _ SOURCE: URINE SPDESC: ORDERED: Urine Culture Procedure Result Verified Site Urine Culture Final 06/17/14- 0908 ML Organism 1 NORMAL ABDIRASHID Duncombe Count 1-10,000 (Few) CFU/ML * ML - MAIN LAB ([facility]) . END OF REPORT * ML=Testing performed at Main Lab DEPARTMENT OF PATHOLOGY, [address] [place] [address] Suraj Velasquez M.D. Director [facility] # [id number] 65 RUN DATE: 04/05/14 [facility] LIVE PAGE 1 RUN TIME: [address] [place] [address] Specimen Inquiry Name: ESVIN CHESTER : [address]: Trey Lew MD Acct: [id number] Unit: [id number] AGE: 19 Location: [facility] Re04/03/14 SEX: F Status: DEP ER SPEC: [id number] ROSARIO: 04/03/14-[address]: Trey Lew MD REQ: [id number] RECD: 04/03/14-152 STATUS: QASIM LOW DR: Luigi Bennett MD _ SOURCE: THROAT SPDESC: ORDERED: Throat Beta Str Procedure Result Verified Site Throat Beta Strep Culture Final 04/05/14- 08 ML Negative For Group A Beta Streptococcus END OF REPORT * ML=Testing performed at Main Lab DEPARTMENT OF PATHOLOGY, [facility] [employer] [place], [place] [address] Suraj Velasquez M.D. Director [facility] # [id number] 66 RUN DATE: 04/24/13 [facility] LIVE PAGE 1 RUN TIME: 818 [facility] [employer] [place], [place] [address] Specimen Inquiry Name: ESVIN CHESTER : [address]: Kit Pires MD Acct: [id number] Unit: [id number] AGE: 18 Location: [facility] Re04/22/13 SEX: F Status: DEP ER SPEC: [id number] ROSARIO: 04/22/13-[address]: Kit Pires MD REQ: [id number] RECD: 04/22/13160 STATUS: QASIM LOW DR: Luigi Bennett MD _ SOURCE: THROAT SPDESC: ORDERED: Throat Beta Str QUERIES: Medent Number [id number] Procedure Result Verified Site Throat Beta Strep Culture Final 04/24/13- 818 ML Negative For Group A Beta Streptococcus END OF REPORT * ML=Testing performed at Main Lab DEPARTMENT OF PATHOLOGY, [facility] [employer] [place], [place] [address] Suraj Velasquez M.D. Director [facility] Permit #[id number] 67 RUN DATE: 10/24/12 [facility] LIVE PAGE 1 RUN TIME: 08 [facility] [employer] [place], [place] [address] Specimen Inquiry Name: ESVIN CHESTER Mandeep : [address]: Kit Goldman MD Acct: [id number] Unit: [id number] AGE: 17 Location: [facility] Re10/21/12 SEX: F Status: DEP ER SPEC: [id number] ROSARIO: 10/21/[address]: Mayra Goldman NP REQ: [id number] RECD: 10/22/12 STATUS: QASIM LOW DR: Kit Bennett MD _ SOURCE: THROAT SPDESC: ORDERED: Throat Beta Str Procedure Result Verified Site Throat Beta Strep Culture Final 10/24/12- 0836 ML Organism 1 Negative Group A Strep END OF REPORT * ML=Testing performed at Main Lab DEPARTMENT OF PATHOLOGY, [address] [place] [address] Suraj Velasquez M.D. Director [facility] Permit #[id number] Procedures Date CPT Code Description Status 07/10/2015 41532 Acne Surgery Completed 07/02/2015 62118 Gauntlet Cast Application Completed 06/23/2015 51367 Repair Collateral Ligament MCP JT W/Local Tissue Completed 06/23/2015 65310 Repair Collateral Ligament MCP JT W/Local Tissue Completed Encounters Type Date Location Provider CPT E/M Dx Office Visit 09/13/2017 3:30p [facility] Internal Fartun Irma, [address]82 R10.84 Medicine - [address] RPA-C R21 Office Visit 08/07/2017 11:00a [facility] Internal Medicine Doris Briceño, N.P. 52304 M54.2 - [place] F17.210 Office Visit 05/02/2017 1:40p [facility] Internal Medicine Shyanne Call 50136 N77.1 - Tereso Atkins R21 Office Visit 04/19/2017 4:00p [facility] [place] [address] L70.0 Office Visit 03/31/2017 11:40a [facility] Internal Medicine Doris Briceño 44656 R10.84 - [place] N.P. Office Visit 01/18/2017 9:10a [facility] Internal Medicine Angeles Stevens 51138 J45.901 Neeta Osborne M.D. F17.210 Office Visit 12/06/2016 1:00p [facility] Internal Medicine Doris Briceño, N.P. 56032 M54.5 - [place] Office Visit 11/04/2016 3:00p [facility] Internal Medicine Doris Briceño, N.P. 49736 Z01.419 - [place] M46.1 Office Visit 10/18/2016 11:00a [facility] Internal Medicine Shyanne Call, 87933 M54.9 - [place] M.DGeneva R35.0 R10.2 Office Visit 08/12/2016 3:30p [facility] Sudheer Chaudhry, 37479 R22.0 Of [facility] Office Visit 06/29/2016 10:45a [facility] Karen Bennett, 44905 M79.645 Of Edilson Atkins Office Visit 06/22/2016 4:20p [facility] [place] [address] M79.645 Medicine - [place] Office Visit 02/03/2016 2:30p [facility] Sudheer Chaudrhy, 56094 R22.0 Of [facility] Office Visit 01/28/2016 9:00a [facility] [place] [address] R22.9 Medicine - [place] Office Visit 11/05/2015 10:20a [facility] [place] [address] J45.20 Medicine - [place] J20.9 Office Visit 11/02/2015 10:40a [facility] Fideeladio Avila, 99378 S53.32xD Of Edilson CUEVA Office Visit 10/20/2015 2:40p [facility] Internal Medicine Doris Briceño 82034 M54.5 - [place] N.P. M54.6 Office Visit 10/02/2015 10:40a [facility] [place] [address] M54.5 Medicine - [place] Office Visit 09/24/2015 10:40a [facility] [place] [address] M54.5 Medicine - [place] Office Visit 08/12/2015 4:20p [facility] [place] [address] M79.642 Medicine - [place] Office Visit 07/09/2015 10:00a [facility] Internal Doris Briceño, N.P. 70562 M79.642 Medicine - [place] Office Visit 07/07/2015 3:55p [facility] Internal Doris Briceño, N.P. 83375 M79.642 Medicine - [place] Office Visit 07/06/2015 1:40p [facility] Internal Doris Briceño, N.P. 81304 L72.3 Medicine - [place] Office Visit 06/22/2015 11:00a [facility] Karen Bennett, 93469 S53.32xA Of Mandeep.MPatrick Atkins Office Visit 06/18/2015 11:00[place] [address] S62.512S Of C.M.AGeneva S53.32xA S62.512A Office Visit 06/18/2015 10:00a [facility] Internal Medicine Doris Briceño, N.P. 17311 M79.642 - [place] Office Visit 06/11/2015 4:00p [facility] [place] [address] R30.0 - [place] N91.1 N39.0 Office Visit 05/15/2015 2:20p [facility] [place] [address] K02.7 - [place] Office Visit 04/08/2015 11:40a [facility] Internal Medicine Doris Briceño N.P. 55840 F17.210 - [place] J06.9 K02.7 Office Visit 03/30/2015 2:40p [facility] Internal Medicine Doris Briceño, N.P. 44968 G44.201 - [place] Office Visit 02/17/2015 11:20a [facility] Internal Medicine Doris Briceño, N.P. 40519 D13.4 - [place] R10.31 J06.9 R93.2 Office Visit 02/11/2015 11:40a [facility] [place] [address] R30.0 [place] R10.30 N39.0 Office Visit 01/05/2015 4:00p [facility] Internal [place] [address] J06.9 [place] K08.8 B37.3 Office Visit 12/24/2014 8:40a [facility] Internal Medicine Doris Briceño N.P. 41540 R10.11 - [place] Office Visit 12/16/2014 1:20p [facility] Internal Medicine Doris Briceño, N.P. 02861 R10.31 - [place] N77.1 J06.9 F17.210 Office Visit 10/21/2014 1:40p [facility] Internal Medicine Doris Briceño, N.P. 36286 787.91 - [place] 787.01 Office Visit 09/11/2014 2:00p [facility] [place] [address] 784.0 [place] 789.03 706.1 788.41 Office Visit 08/15/2014 3:20p [facility] [place] [address] 784.0 [place] 847.0 Plan of Care 11/30/2017 - Angeles Stevens M.D.S60.031A Contusion of right middle finger w/o damage to nail, initComments:use ibuprofen 3 times a day with meals , ice the areaF17.210 Nicotine dependence, cigarettes, uncomplicatedNew Medication: Chantix Starting Month Eric 0.5 mg X 11 & 1 mg X 42
--- NOTE | 2017-12-14 07:40 | ED ---
Abdominal Pain/Female - HPI Summary HPI Summary: Patient is a 22-year-old female who presents emergency department for right lower quadrant abdominal pain that started yesterday. Patient describes pain as sharp in nature without modifying factors. Patient states pain is progressively got more severe and constant since yesterday. Should symptoms of nausea without vomiting or diarrhea. Patient denies vaginal bleeding or discharge. She does note increased urinary frequency. She denies recent upper respiratory symptoms. Denies fever or chills. Denies history of STI's. Symptoms are moderate in severity. She denies past medical history. No current modifying factors. - History of Current Complaint Chief Complaint: EDAbdPain Stated Complaint: ABD PAIN Time Seen by Provider: 12/14/17 07:37 Hx Obtained From: Patient Hx Last Menstrual Period: [id number] Pain Intensity: 8 Allergies/Adverse Reactions: Allergies Allergy/AdvReac Type Severity Reaction Status Date / Time No Known Allergies Allergy Verified 12/14/17 07:30 PMH/Surg Hx/FS Hx/Imm Hx Previously Healthy: Yes Endocrine/Hematology History: Denies: Hx Diabetes, Hx Thyroid Disease Cardiovascular History: Denies: Hx Congestive Heart Failure, Hx Hypertension, Hx Pacemaker/ICD Respiratory History: Reports: Hx Asthma - ACUTE ASTHMA SINCE AGE 12, Other Respiratory Problems/Disorders - TONSILLITIS Denies: Hx Chronic Obstructive Pulmonary Disease (COPD) GI History: Denies: Hx Ulcer History: Reports: Other Problems/Disorders - ovarian cysts Denies: Hx Dialysis, Hx Renal Disease Musculoskeletal History: Reports: Hx Back Problems - Chronic low back pain with luis hip pain Sensory History: Denies: Hx Contacts or Glasses, Hx Hearing Aid Opthamlomology History: Denies: Hx Contacts or Glasses Neurological History: Reports: Hx Migraine - HX OF 2 MONTHS AGO, Other Neuro Impairments/Disorders - dizziness Psychiatric History: Reports: Hx Anxiety, Hx Depression Denies: Hx Panic Disorder - Surgical History Surgery Procedure, Year, and Place: wisdom teeth extraction, tonsillectomy, LT THUMB LIGAMENT REPAIR 06/23/15 Hx Anesthesia Reactions: No - Immunization History Date of Tetanus Vaccine: unk Date of Influenza Vaccine: none Infectious Disease History: No Infectious Disease History: Denies: Hx Clostridium Difficile, Hx Hepatitis, Hx Human Immunodeficiency Virus (HIV), Hx of Known/Suspected MRSA, Hx Shingles, Hx Tuberculosis, History Other Infectious Disease, Traveled Outside the [place] in Last 30 Days - Family History Known Family History: Positive: Cardiac Disease, Hypertension - Social History Occupation: Employed Full-time Lives: With Family Alcohol Use: Rare Alcohol Amount: 1 DRINK 2 WEEKS Substance Use Type: Reports: None Smoking Status (MU): Light Every Day Tobacco Smoker Type: Cigarettes Amount Used/How Often: 10 PER DAY Length of Time of Smoking/Using Tobacco: 8 YRS Have You Smoked in the Last Year: Yes Review of Systems Constitutional: Negative Negative: Fever, Chills Eyes: Negative ENT: Negative Cardiovascular: Negative Respiratory: Negative Positive: Abdominal Pain, Nausea. Negative: Vomiting, Diarrhea Genitourinary: Negative Negative: dysuria, discharge, frequency, flank pain Neurological: Negative All Other Systems Reviewed And Are Negative: Yes Physical Exam Triage Information Reviewed: Yes Vital Signs On Initial Exam: Initial Vitals Temp Pulse Resp BP Pulse Ox 97.2 F 92 16 135/88 98 12/14/17 07:26 12/14/17 07:26 12/14/17 07:26 12/14/17 07:26 12/14/17 07:26 Vital Signs Reviewed: Yes Appearance: Positive: Pain Distress - Patient lying in bed on her left side, appears uncomfortable but nontoxic. Significant other present. Skin: Positive: Warm, Dry Head/Face: Positive: Normal Head/Face Inspection Eyes: Positive: Normal, EOMI Respiratory/Lung Sounds: Positive: Clear to Auscultation, Breath Sounds Present Cardiovascular: Positive: Normal, RRR Abdomen Description: Positive: Other: - Abd. is soft with marked tenderness to the RLQ at mcburny's point. No rebound or guarding. Negative: CVA Tenderness (R ) Pelvic Exam: Positive: Other - Exam performed with KAYA Gomez. External genitalia is unremarkable. Speculum exam shows a small amount of thin whitish discharge from cervix. Bimanual exam revealed mild cervical motion tenderness and pain over the right adnexa. Neurological: Positive: Normal, CN Intact II-III Psychiatric: Positive: Affect/Mood Appropriate Diagnostics - Vital Signs Vital Signs Temp Pulse Resp BP Pulse Ox 12/14/17 07:26 97.2 F 92 16 135/88 98 - Laboratory Result Diagrams: 12/14/17 08:03 12/14/17 08:03 Lab Statement: Any lab studies that have been ordered have been reviewed, and results considered in the medical decision making process. Abdominal Pain Fem Course/Dx - Course Course Of Treatment: Patient with right lower quadrant abdominal pain. She is afebrile stable vital signs. We'll obtain labs and ultrasound to evaluate ovary flow. If ultrasound is negative will consider CAT scan to evaluate appendix. Patient was given IV fluids and Toradol. Blood work is unremarkable including negative and urinalysis. Ultrasound reading below. CT scan was obtained and is negative for acute findings. Patient does have some mild discharge and cervical motion tenderness on exam, we'll treat for cervicitis. Cultures obtained. Doxycycline and Rocephin ordered. Patient refused Rocephin stating she does not want an injection. Prescription patient for doxycycline symptoms pharmacy. To call her CONCESSION ATTENDANT today to schedule a follow- up appointment. Naproxen as directed for pain. Will call if cultures come back positive. Patient will return to the ER symptoms change or worsen. Patient understands and agrees with plan. Transvaginal U/S per radiology: IMPRESSION: #. Normal vascular flow documented to both normal size ovaries. # . Small minimally complex follicular or hemorrhagic cyst of the LEFT ovary. #. Physiologic small volume of free fluid. - Diagnoses Differential Diagnosis: Positive: Constipation, Ectopic , Ovarian Cyst , Pelvic Inflammatory Disease, , Renal Colic, Urinary Tract Infection Provider Diagnoses: Cervicitis, Pelvic pain Discharge - Sign-Out/Discharge Documenting (check all that apply): Patient Departure - Discharge Plan Condition: Good Disposition: HOME Prescriptions: DOXYcycline CAP(*) [DOXYcycline 100MG CAP(*)] 100 mg PO BID #20 cap Naproxen [Naprosyn 500 mg tab] 500 mg PO BID #20 tablet Patient Education Materials: Cervicitis (ED), Pelvic Pain in Women (ED) Referrals: Doris Briceño NP [Primary Care Provider] - Fiorella Cook MD [Medical Doctor] - Additional Instructions: Call your CONCESSION ATTENDANT today to schedule a follow up appointment Take medication as directed Can apply warm compress to help with pain Avoid sexual activity until symptoms resolve Will call if vaginal cultures come back positive Return to ER if symptoms change or worsen - Billing Disposition and Condition Condition: GOOD Disposition: Home
[2017-12-14] MEDS ORDERED: Ketorolac INJ* 30 MG/ML 1 ML VIAL IV PUSH ONE (07:55)
[2017-12-14] MEDS ORDERED: NS 0.9% 1000 ML* 1,000 ML IV ONE (07:55)
[2017-12-14] MEDS ORDERED: Ondansetron INJ* 2 MG/ML VIAL IV ONE (07:55)
[2017-12-14 08:09] LABS: ABS Basophils 0.1 10^3/ul (0-0.2); ABS Eosinophils 0.1 10^3/ul (0-0.6); ABS Lymphocytes 1.9 10^3/ul (1.0-4.8); ABS Monocytes 0.5 10^3/ul (0-0.8); ABS Nucleated RBC 0 10^3/ul; Eosinophil % 1.5 % (0-6); Hematocrit 43 % (35-47); Hemoglobin 14.7 g/dl (12.0-16.0); Lymphocyte % 19.8 % (25-47); Mean Corpuscular HGB Conc 35 g/dl (31-36); Mean Corpuscular Hemoglobin 33 pg (27-31); Mean Corpuscular Volume 94 fL (80-97); Mean Platelet Volume 8.3 um3 (7.4-10.4); Nucleated Red Blood Cells % 0.1; Platelet Count 241 10^3/ul (150-450); Red Blood Count 4.51 10^6/ul (4.00-5.40); Red Cell Distribution Width 13 % (10.5-15); White Blood Count 9.6 10^3/ul (3.5-10.8)
--- NOTE | 2017-12-14 08:55 | RAD ---
Indication: Bilateral pelvic pain. Concern for potential ovarian torsion or lesion. Comparison: March 24, 2017 ultrasound. Technique: Transvaginal technique pelvic ultrasound. Report: 8.5 x 3.5 x 5.0 cm anteverted uterus with normal-appearing 11.9 mm endometrium. Small volume of fluid present in the endocervical canal. Physiologic small volume of free fluid in the cul-de-sac and LEFT adnexal region. 4.0 x 2.0 x 2.1 cm RIGHT ovary with documented vascular flow is remarkable for multiple small follicles only. 4.7 x 2.1 x 3.7 cm LEFT ovary with documented vascular flow is remarkable for a unilocular 2.8 x 1.5 x 2.5 cm largely anechoic avascular lesion consistent with a cyst with some inward directed margins and minimal low-level internal echoes favoring a minimally complex follicular or hemorrhagic cyst. No extra ovarian adnexal region lesions evident. IMPRESSION: #. Normal vascular flow documented to both normal size ovaries. #. Small minimally complex follicular or hemorrhagic cyst of the LEFT ovary. #. Physiologic small volume of free fluid.
[2017-12-14 09:23] LABS: Urine Appearance Clear; Urine Blood Negative (Negative); Urine Color Straw; Urine Ketones Negative (Negative); Urine Protein Negative (Negative); Urine Specific Gravity 1.005 (1.010-1.030); Urine Urobilinogen Negative (Negative)
[2017-12-14] MEDS ORDERED: Morphine INJ* 4 MG/ML 1 ML SYRINGE (NEW SYRINGE VERSION) IV ONE (09:38)
[2017-12-14] MEDS ORDERED: Iohexol 300* (CONTRAST) 10 ML SDV IV ONE (11:20)
--- NOTE | 2017-12-14 11:49 | RAD ---
CLINICAL HISTORY: RLQ pain COMPARISON: March 24, 2017 TECHNIQUE: Multiple contiguous axial CT scans were obtained of the abdomen and pelvis after the administration of intravenous contrast. Coronal and sagittal multiplanar reformations are submitted for review. FINDINGS: LUNG BASES: The lung bases are clear. LIVER: The liver is diffusely low in attenuation compared to the spleen. There are no focal hepatic parenchymal masses. BILE DUCTS: There is no intrahepatic or extrahepatic biliary dilatation. GALLBLADDER: The gallbladder is normal, without pericholecystic inflammatory change. PANCREAS: The pancreas is normal, without mass or ductal dilatation. SPLEEN: Normal in size and appearance. UPPER GI TRACT: Evaluation of the gastrointestinal tract is limited by incomplete gastric distention. The upper GI tract is unremarkable. SMALL BOWEL AND MESENTERY: The small bowel is normal in contour, course, and caliber. There is no obstruction or dilatation. COLON: The colon is normal in contour, course, caliber. There is no pericolonic inflammatory change. There is a tubular, vermiform, hollow viscus that is blind ending, and originates from the cecum, consistent with a normal appendix. There is no periappendiceal inflammatory change. Is best seen on coronal images 40 through 54 ADRENALS: Normal bilaterally. KIDNEYS: The kidneys are normal in shape, size, contour, and axis. There is no hydronephrosis or nephrolithiasis. BLADDER: The bladder is smooth in contour. PELVIC ORGANS: The uterus and adnexa are grossly normal for technique. AORTA: The aorta is normal. IVC: Unremarkable LYMPH NODES: There is no lymphadenopathy by size criteria. ABDOMINAL WALL: There is no evidence for abdominal wall hernia. BONES AND SOFT TISSUES: The bones and soft tissues are unremarkable. OTHER: None IMPRESSION: 1. NORMAL APPENDIX. 2. FATTY INFILTRATION OF THE LIVER.
[2017-12-14] MEDS ORDERED: cefTRIAXone VIAL(*) 250 MG VIAL IM ONE (12:17)
[2017-12-14] MEDS ORDERED: Azithromycin TAB* 250 MG PO ONE (12:17)
[2017-12-14] MEDS ORDERED: DOXYcycline CAP(*) 100 MG PO ONE (12:20)
[2017-12-14] MEDS ORDERED: Lidocaine 1%* 5 ML VIAL ONE (12:50)
[2017-12-14 13:08] VITALS: BP 124/65
--- NOTE | 2017-12-15 17:58 | PN ---
Progress Note - Progress Note Date of Service: 12/14/17 Note: Patient seen in the ER yesterday by myself for pelvic pain. Vaginal cultures today are negative for gonorrhea, chlamydia, Trichomonas. Gardnerella did come back positive. I called and spoke with patient today at 1755 and discuss results. Patient states she is still having pain but is feeling slightly better. She did call her dials inspector today and they are not able to see her to the but they told her to call back on Monday if she was still having pain and they would get her in sooner. Advised her to continue doxycycline as directed. Will send a prescription for Flagyl. Patient states she is also concerned with antibiotic given her yeast infection for which is had before. Patient for Diflucan also sent to pharmacy. Also advised probiotic and yogurt. Patient understands and agrees with plan.
== END 2017-12-14 13:09 | disposition home or self-care (01) ==
LOC: ED 07:25
DX: R10.2 Pelvic and perineal pain (principal); B96.89 Other specified bacterial agents as the cause of diseases classified elsewhere
CPT/HCPCS: 36415; 74177; 76830; 80053; 81003; 84702; 85025; 87480; 87491; 87510; 87591; 87661; 96361; 96374; 96375; 99283; A9270-GY; J0696; J1885; J2270; J2405; Q9967

== ENCOUNTER 2018-01-19 09:38 | Emergency (ER) | payer OTHER ==
--- OUTSIDE RECORDS SUMMARY | 2018-01-19 09:57 | XMS REPORT | Continuity of Care Document ---
:1995 External Reference #:[id number] Author Name Brenda Ramirez MD Address [address] [place] [address] Care Team Providers Name Role Phone Doris Briceño Primary Care Physician Unavailable Payers Type Date Identification Numbers Payment Provider Subscriber Effective: 2014 Policy Number: [id number] [facility] Esvin Hoyt PayID: [id number] [address] [place] [address] Policy Number: [id number] Medicaid [place] Esvin Hoyt PayID: [id number] [address] [place] [address] Advance Directives Description No Information Available Problems Date Description Provider Status Onset: 04/29/2016 Bipolar disorder Margie Benites NP Active Onset: 04/29/2016 Primigravida Margie Benites NP Resolved Resolved: 05/09/2016 Family History Date Family Member(s) Problem(s) Comments Father Unknown Mother Skin Cancer Children None Paternal Grandfather due to [place] () Paternal Grandmother Unknown Maternal Grandmother due to [place] () Social History Type Date Description Comments Sex Unknown Education Ged Marital Status Engaged Lives With Mother Lives With Stepfather Lives With Step Brother Lives With Niece Pets 1 cat Pets 1 dog 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 Cigarette Use Current Cigarette Smoker 5-10 Cigarettes Daily ETOH Use Occasionally consumes alcohol Recreational Drug Use Does Not Use Drugs Tobacco Use Start: Unknown Patient is a current smoker, smokes every day Smoking Status Reviewed: 01/08/18 Patient is a current smoker, smokes every day Exercise Type/Frequency Does not exercise Seat Belt/Car Seat Always uses seat belt Currently Active Patient is currently sexually active Contraceptive Methods None STD's Chlamydia STD's Herpes ABDULLAHI: 12/14/2016 Estimated Date of Based on 1st Delivery Ultrasound Allergies, Adverse Reactions, Alerts Description No Known Drug Allergies Medications Medication Date Status Form Strength Qnty SIG Indications Ordering Provider Ventolin HFA 02/28/ Active Aerosol 108(90Bas 1unit Q6H Unknown 2016 e) s mcg/Act Ibuprofen / Active Unknown 0000 Zofran Odt 03/25/ Hx Tablets 4mg 10tab Q6H Unknown 2018 - Dispers s 2017 No Active 12/13/ Hx Unknown Medications 2016 - 2016 Motrin 10/15/ Hx Tablets 800mg 30tab Three Times Unknown Repack 2016 - Daily 2017 Oxycodone-Acetami 05/06/ Hx Tablets 5-325mg 10tab 2 tablets Wilder jaime 2016 - by mouth Gelber, 05/11/ every 4 M.D. 2017 hours as needed pain No Active 04/29/ Hx Unknown Medications 2016 - 2016 Vitamins 04/29/ Hx Tablets 28-0.8mg 90tab 1 by mouth Phaelon 2016 - s every day. MD Joyce 12/13/ please 2016 substitute any vitamin with 100-300 mcg dha covered by insurance Vitamins 04/06/ Hx Tablets 28-0.8mg 90tab 1 by mouth Phaelon 2016 - s every day. MD Joyce 04/29/ please 2016 substitute any vitamin with 100-300 mcg dha covered by insurance Amoxicillin 02/28/ Hx Tablets 875mg 20tab Twice Daily Unknown 2016 - s 2017 Zanaflex 04/08/ Hx Capsules 2mg Three Times Unknown 2016 - Daily 2017 No Active 03/04/ Hx Unknown Medications 2015 - 2015 Clindamycin 09/12/ Hx Gel 1% 30uni Apply once 706.1 Unknown Phosphate 2014 - ts daily to 03/03/ affected 2016 areas. Ventolin HFA 08/15/ Hx Aerosol 108(90Bas 8.5un 2 puffs by Unknown 2014 - ) its mouth four 03/03/ mcg/Act times a day 2016 as needed Cyclobenzaprine 08/15/ Hx Tablets 5mg 30tab take one 784.0 Unknown HCL 2015 - s tablet by every 2015 12 hours as needed. Gabapentin 00/00/ Hx Unknown 2016 Tizanidine HCL 00/ Hx Unknown 2016 Trazodone HCL 00/ Hx Unknown 2016 Venlafaxine HCL 00/ Hx Unknown ER 2016 Rexulti / Hx Tablets 0.25mg Unknown 2016 Lorazepam / Hx Tablets 0.5mg Unknown 2016 Clonidine HCL / Hx Tablets 0.1mg Unknown 2016 Hydrocortisone / Hx Unknown 2016 Tizanidine HCL / Hx Unknown 2017 Hydrocodone-Aceta / Hx Tablets 5-325mg Unknown minophen 2017 Medications Administered in Office Medication Date Status Form Strength Qnty SIG Indications Ordering Provider No PT Tbco Administered Injection RON Ramirez RNG 018 MD Brenda Immunizations Description No Information Available Vital Signs Date Vital Result Comment 01/08/2018 10:22am BP Systolic 142 mmHg BP Diastolic 76 mmHg Height 65 inches 5'5" Weight 163.00 lb BMI (Body Mass Index) 27.1 kg/m2 Last Menstrual Period 8208877 1 Parity 0 12/14/2017 12:00am BP Systolic 124 mmHg BP Diastolic 65 mmHg Body Temperature 97.5 F Heart Rate 80 /min Respiratory Rate 20 /min Height 65 inches Weight 160.00 lb BMI (Body Mass Index) 26.6 kg/m2 03/25/2017 12:00am BP Systolic 143 mmHg BP Diastolic 100 mmHg Body Temperature 98.1 F Heart Rate 0 /min Respiratory Rate 18 /min 03/24/2017 12:00am Height 65 inches Weight 145.00 lb BMI (Body Mass Index) 24.1 kg/m2 12/13/2016 8:29am BP Systolic 130 mmHg BP Diastolic 70 mmHg Height 64.75 inches 5'4.75" Weight 150.00 lb BMI (Body Mass Index) 25.2 kg/m2 Last Menstrual Period 5365665 1 Parity 1 05/09/2016 11:10am BP Systolic 130 mmHg BP Diastolic 64 mmHg Height 64.75 inches 5'4.75" Weight 159.00 lb BMI (Body Mass Index) 26.7 kg/m2 1 04/29/2016 1:12pm BP Systolic 110 mmHg BP Diastolic 60 mmHg Height 64.75 inches 5'4.75" Weight 159.00 lb BMI (Body Mass Index) 26.7 kg/m2 Last Menstrual Period 3580069 1 Parity 0 04/06/2016 10:25am BP Systolic 108 mmHg BP Diastolic 62 mmHg Height 64.75 inches 5'4.75" Weight 157.00 lb BMI (Body Mass Index) 26.3 kg/m2 Last Menstrual Period 8474572 0 Parity 0 05/01/2015 10:34am BP Systolic 126 mmHg BP Diastolic 84 mmHg Height 64.75 inches 5'4.75" Weight 146.00 lb BMI (Body Mass Index) 24.5 kg/m2 0 Parity 0 04/08/2015 12:52pm BP Systolic 124 mmHg BP Diastolic 76 mmHg Height 64.75 inches 5'4.75" Weight 146.00 lb BMI (Body Mass Index) 24.5 kg/m2 Last Menstrual Period 4407159 0 Parity 0 03/04/2015 9:32am BP Systolic 104 mmHg BP Diastolic 62 mmHg Height 64.75 inches 5'4.75" Weight 143.00 lb BMI (Body Mass Index) 24.0 kg/m2 09/11/2014 1:58pm BP Systolic 114 mmHg BP Diastolic 65 mmHg Body Temperature 96.7 F Heart Rate 75 /min Weight 161.00 lb 08/15/2014 2:57pm BP Systolic 138 mmHg BP Diastolic 83 mmHg Body Temperature 97.0 F Heart Rate 66 /min Weight 154.00 lb Results Test Date Facility Test Result H/L Range Note Laboratory 03/24/2017 N2N/CCD Import Urine Specific 1.017 1.010-1.030 Studies [facility] Urine pH 5.0 5-9 Laboratory Studies 03/24/2017 N2N/CCD Import Absolute Basophils 0 10^3/ul 0-0.2 (auto) Absolute Eosinophils (auto) 0 10^3/ul 0-0.6 Absolute Lymphocytes (auto) 2.4 10^3/ul 1.0-4.8 Absolute Monocytes (auto) 0.5 10^3/ul 0-0.8 Absolute Neutrophils (auto) 1.5 10^3/ul 1.5-7.7 Alanine Aminotransferase (Alt/SGPT) 17 U/L 7-52 Albumin 4.5 g/dL 3.2-5.2 Albumin/Globulin Ratio 1.7 1-3 Alkaline Phosphatase 57 U/L 34-104 Anion Gap 8 mmol/L 2-11 Aspartate Amino Transf (Ast/Sgot) 21 U/L 13-39 BUN/Creatinine Ratio 17.1 8-20 Basophils (%) (Auto) 0.9 % 0-2 Blood Urea Nitrogen 12 mg/dL 6-24 C-Reactive Protein 3.36 mg/L 0-5.00 Calcium Level 9.2 mg/dL 8.6-10.3 Carbon Dioxide Level 25 mmol/L 22-32 Chloride Level 104 mmol/L 101-111 Creatinine 0.70 mg/dL 0.51-0.95 Eosinophils (%) (Auto) 0.6 % 0-6 Estimated GFR () 132.2 Estimated GFR (Non- 102.8 Globulin 2.7 g/dL 2-4 Glucose Level 76 mg/dL 70-100 Hematocrit 42 % 35-47 Hemoglobin 14.2 g/dL 12.0-16.0 Lactic Acid Level 0.6 mmol/L 0.5-2.0 Lipase 15 U/L 11.0-82.0 Lymphocytes (%) (Auto) 53.5 % High 25-47 Mean Corpuscular Hemoglobin 32 pg High 27-31 Mean Corpuscular Hemoglobin Concent 34 g/dL 31-36 Mean Corpuscular Volume 93 fL 80-97 Mean Platelet Volume 9 um3 7.4-10.4 Monocytes (%) (Auto) 11.3 % High 1-9 Neutrophils (%) (Auto) 33.7 % Low 38-83 Nucleated RBC Absolute Count (auto) 0 10^3/ul Nucleated Red Blood Cells % 0.1 Platelet Count 221 10^3/ul 150-450 Potassium Level 3.7 mmol/L 3.5-5.0 Red Blood Count 4.50 10^6/ul 4.0-5.4 Red Cell Distribution Width 13 % 10.5-15 Sodium Level 137 mmol/L 133-145 Total Bilirubin 0.30 mg/dL 0.2-1.0 Total Protein 7.2 g/dL 6.4-8.9 White Blood Count 4.4 10^3/ul 3.5-10.8 Laboratory test 05/24/2016 [facility] HCG 4.06 mIU/mL 1 [place] [address] [phone] Laboratory test 05/09/2016 [facility] HCG 635.54 mIU/mL 2 [place] [address] [phone] Laboratory test 05/06/2016 [facility] HCG 36070.00 3 [place] [address] mIU/mL [phone] Urine Culture 04/29/2016 [facility] Urine SEE RESULT 4 [place] [address] Culture BELOW Sensitivities [phone] Lead 04/29/2016 [facility] Lead <1.0 g/dL 0.0-4.9 5 [place] [address] [phone] HIV 1/2 AB 04/29/2016 [facility] HIV 1 2 Nonreactive Nonreactive 6 [place] [address] Antibody [phone] Type And Screen 04/29/2016 [facility] [place] [address] Blood Type [phone] Antibody Screen NEGATIVE CBC With No 04/29/2016 [facility] White Blood 8.8 10^3/uL 3.5 -10.8 [place] [address] Count [phone] Red Blood Count 4.19 10^6/uL 4.0-5.4 Hemoglobin 13.3 g/dL 12.0-16.0 Hematocrit 40 % 35-47 Mean Corpuscular Volume 95 fL 80-97 Mean Corpuscular Hemoglobin 32 pg High 27-31 Mean Corpuscular HGB Conc 34 g/dL 31-36 Red Cell Distribution Width 14 % 10.5-15 Platelet Count 270 10^3/uL 150-450 Mean Platelet Volume 9 um3 7.4-10.4 PNL No 04/29/2016 [facility] Rubella Equivocal IU/mL Immune 7 [place] [address] Screen [phone] Hemoglobin A1c 5.4 % Less than 6.0 8 Hepatitis B Surface Ag Nonreactive Nonreactive 9 Syphillis Igg W/Reflex RPR Nonreactive Nonreactive 10 Cfvantage Cystic Fibrosis Expanded SCRN 04/29/2016 [facility] CF Result SEE BELOW 11 Interpretation SEE BELOW 12 Additional Information SEE BELOW 13 Mutations Analyzed SEE BELOW 14 Laboratory test 04/06/2016 [facility] Cytology SEE RESULT 15 finding [place]GEILO Omer [address] BELOW [phone] Laboratory test 08/13/2014 N2N/CCD Import CSF Culture & See Result 16 , 17 finding Gram Stain Below CSF Glucose 61 mg/dL 40-70 18 CSF Protein 36 mg/dL 15-45 19 CSF Cell Count 08/13/2014 N2N/CCD Import Body Fluid Appearance Clear Body Fluid Color Colorless Body Fluid Comment (See Note) 20 Body Fluid Lymph 10 Body Fluid [place] 2 Body Fluid Polys 0 Body Fluid RBC 2 Body Fluid Total Cells Counted 12 Body Fluid Volume 1 mL Body Fluid WBC 1 CSF Tube # 1 Fluid Reviewed By MD (See Note) 21 Laboratory test finding 08/13/2014 N2N/CCD Import Albumin 4.4 g/dL 3.2- 5.2 Albumin/Globulin Ratio 1.5 1-3 Alkaline Phosphatase 63 U/L 34-104 Alt 17 U/L 7-52 Anion Gap TNP mmol/L 2-11 Ast TNP U/L 13-39 22 BUN/Creatinine Ratio 10.8 8-20 Blood Urea Nitrogen 7 mg/dL 6-24 Calcium 9.0 mg/dL 8.6-10.3 Chloride 104 mmol/L 101-111 Co2 Carbon Dioxide 20 mmol/L Low 22-32 Creatinine 0.65 mg/dL 0.51-0.95 Egfr 148.0 >60 23 Egfr Non- 115.1 >60 Globulin 3.0 g/dL 2-4 Glucose 90 mg/dL 70-100 Potassium TNP mmol/L 3.5-5.0 24 Serum Negative Negative Sodium 135 mmol/L 133-145 Total Bilirubin 0.40 mg/dL 0.2-1.0 Total Protein 7.4 g/dL 6.4-8.9 CBC Auto Diff 08/13/2014 N2N/CCD Import Abs Basophils 0.1 10^3/uL 0-0.2 Abs Eosinophils 0 10^3/uL 0-0.6 Abs Lymphocytes 2.2 10^3/uL 1.0-4.8 Abs Monocytes 0.7 10^3/uL 0-0.8 Abs Neutrophils 11.2 10^3/uL High 1.5-7.7 Abs Nucleated RBC 0.01 10^3/uL Basophil % 0.4 % 0-2 Eosinophil % 0.2 % 0-6 Granulocyte % 79.2 % 38-83 Hematocrit 44 % 35-47 Hemoglobin 14.9 g/dL 12.0-16.0 Lymphocyte % 15.2 % Low 25-47 Mean Corpuscular HGB Conc 34 g/dL 31-36 Mean Corpuscular Hemoglobin 32 pg High 27-31 Mean Corpuscular Volume 94 fL 80-97 Mean Platelet Volume 10 um3 7.4-10.4 Monocyte % 5.0 % 1-9 Nucleated Red Blood Cells % 0.1 Platelet Count 298 10^3/uL 150-450 Red Blood Count 4.73 10^6/uL 4.0-5.4 Red Cell Distribution Width 15 % 10.5-15 White Blood Count 14.1 10^3/uL High 4.8-10.8 Urine Culture And 06/14/2014 N2N/CCD Import Urine Culture (See Note) 25 Sensitivities 1 <5.0 Negative 5.0 - 25.0 Indeterminate (Repeat testing recommended after 72 hours) >25.0 Positive Perimenopausal women can display HCG levels of up to 20 mIU/mL 2 <5.0 Negative 5.0 - 25.0 Indeterminate (Repeat testing recommended after 72 hours) >25.0 Positive Perimenopausal women can display HCG levels of up to 20 mIU/mL 3 <5.0 Negative 5.0 - 25.0 Indeterminate (Repeat testing recommended after 72 hours) >25.0 Positive Perimenopausal women can display HCG levels of up to 20 mIU/mL 4 SEE RESULT BELOW Name: ESVIN HOYT : [address]: Margie Benites NP Acct: [id number] Unit: [id number] AGE: 21 Location: LABRSP Re04/29/16 SEX: F Status: REG REF SPEC: [id number] ROSARIO: 04/29/16-[address] [facility] [address]: Margie Benites NP REQ: [id number] RECD: 04/29/16 STATUS: COMP _ SOURCE: URINE SPDESC: ORDERED: Urine Culture COMMENTS: [id number] Urine Source: Random Procedure Result Reported Site Urine Culture Final 05/01/16- 0918 ML No growth of clinically significant organisms * ML - MAIN LAB ([facility]) . END OF REPORT * ML=Testing performed at Main Lab DEPARTMENT OF PATHOLOGY, [address] [place] [address] Suraj Velasquez M.D. Director [facility] # [id number] 5 ADDITIONAL INFORMATION Testing performed by Inductively Coupled Plasma-Mass Spectrometry (ICP-MS). This test was developed and its performance characteristics determined by [facility] in a manner consistent with CLIA requirements. This test has not been cleared or approved by the U.S. Food and Drug Administration. 6 It is recognized that currently available assays for the detection of antibodies to HIV-1 and/or HIV-2 may not detect all infected individuals. HIV antibodies may be undetectable in some stages of the infection and in some clinical conditions. The performance of this assay has not been established for populations of infants or children. Assayed by Chemiluminescence Microparticle Immunoassay on the Siemens Advia Centaur CP. Values obtained with different methods or kits cannot be used interchangeably.The diagnostic specificity of the ADVIA Centaur 1/O/2 Enhanced assay in the low risk population was 99.90% (6052/6058) with a 95% confidence interval of 99.78 to 99.96%. 7 [id number] Therapeutic target for the treatment of diabetes Mellitus patients is <7% HBA1C, and in selective patients <6.0%.Please refer to [place] [employer] Diabetic care guidelines for further information. 9 [id number] Warning: A positive result is not useful for establishing a diagnosis of syphilis. In most situations, such a result may reflect a prior treated infection; a negative result can exclude a diagnosis of syphilis except for incubating or early primary disease. 11 NEGATIVE; NONE OF THE MUTATIONS LISTED BELOW WERE DETECTED 12 This result does not rule out the presence of a mutation or a diagnosis of cystic fibrosis disease (CF). The risk for mutations that cause CF other than the ones tested depends greatly on family history, clinical presentation, and ethnicity. Detection rates and residual risk estimates are based on a subset of 78 mutations from the panel, which includes the 23 ACMG/ACOG-recommended mutations. Exact figures are currently unavailable for all 155 mutations on the CFvantage(TM) Cystic Fibrosis Expanded Screen. Detection rates may be slightly higher and residual risk rates may be slightly lower than the figures in this table since the estimates are based on a subset of mutations. Racial/Ethnic Detection Carrier Carrier Group Rate, % Rate Risk Before After Testing Negative Test Result Ashkenazi Uatsdin 95 03/15461 Non- 90 03/16 1241 [place] 88 78 [place] 53 199 Laboratory results and submitted clinical information reviewed by Karely Woodruff, Ph.D., ABMG, CGMB, HCLD. 13 This assay detects 155 CF mutations, including the twenty-three core mutations recommended by the [place] [employer] (ACMG) and the [place] [employer] of Obstetricians and Gynecologists (ACOG) for population-based CF carrier screening. While the additional mutations detected in this assay are rare in the general [place] population, the scientific and medical literature indicates that these mutations are associated with CF (Wendi Dasha, 2013, 45:1160-7) and may have increased prevalence in some ethnic groups (Clin Chem, 57:841-8). The status of the intron 8 polyT tract is reported only when the R117H mutation is detected. The mutations are detected by multiplex-polymerase chain reaction (PCR) amplification of specific CF gene regions, followed by nucleotide sequence analysis on a massively parallel sequencing platform. Although rare, false positive or false negative results may occur. All results should be interpreted in the context of clinical findings, relevant history, and other laboratory data. Health care providers, please contact your local [facility] genetic counselor or call [employer] ([phone]) for assistance with interpretation of these results. 14 M1V (c.1A>G), CFTRdele2,3, Q39X (c.115C>T), 296+2T>A (c.164+2T>A), E60X (c.178G>T), P67L (c.200C>T), R75X (c.223C>T), G85E (c.254G>A), 394delTT (c.262delTT), G91R (c.271G>A), 405+1G>A (c.273+1G>A), 406-1G>A (c.274-1G>A), E92K (c.274G>A), E92X (c.274G>T), Q98X (c.292C>T), 444delA (c.313delA), 457TAT>G (c.325delTATinsG), D110H (c.328G>C), R117C (c.349C>T), R117H (c.350G>A), Y122X (c.366T>A), 574delA (c.442delA), 621+1G>T (c.489+1G>T), 663delT (c.531delT), G178R (c.532G>A), 711+1G>T (c.579+1G>T), 712-1G>T (c.580-1G>T), L206W (c.617T>G), Q220X (c.658C>T), 020dyj79 (c.007lkb40), 935delA (c.803delA), 936delTA (c.805delAT), U898uwj (c.933delCTT), 1078delT (c.948delT), G330X (c.988G>T), R334W (c.1000C>T), I336K (c.1007T>A), T338I (c.1013C>T), S341P (c.1021T>C), 1154insTC (c.1022insTC), 1161delC (c.1029delC), R347P (c.1040G>C), R352Q (c.1055G>A), 1213delT (c.1081delT), S364P (c.1090T>C), 1248+1G>A (c.1116+1G>A), 1259insA (c.1127insA), 1288insTA (c.1153insAT), W401X (c.1202G>A or c.1203G>A), 1341+1G>A (c.1209+1G>A), 9521hjw8 (c.1329insAGAT), A455E (c.1364C>A), 1525-1G>A (c.1393-1G>A), S466X (c.1397C>A or c.1397C>G), L467P (c.1400T>C), 1548delG (c.1418delG), G480C (c.1438G>T), S489X (c.1466C>A), S492F (c.1475C>T), 1609delCA (c.1477delCA), Q493X (c.1477C>T), D678iap (c.1519delATC), U200vwo (c.1521delCTT), 1677delTA (c.1545delTA), V520F (c.1558G>T), C524X (c.1572C>A), Q525X (c.1573C>T), 1717-1G>A (c.1585-1G>A), 1717-8G>A (c.1585-8G>A), G542X (c.1624G>T), S549R (c.1645A>C or c.1647T>G), S549N (c.1646G>A), G551D (c.1652G>A), Q552X (c.1654C>T), R553X (c.1657C>T), A559T (c.1675G>A), R560K (c.1679G>A), R560T (c.1679G>C), 1811+1.6kbA>G (c.1679+1.6kbA>G), 1812-1G>A (c.1680-1G>A), P574H (c.1721C>A), D579G (c.1736A>G), E585X (c.1753G>T), 1898+1G>T (c.1766+1G>T), 1898+1G>A (c.1766+1G>A), 1898+5G>T (c.1766+5G>T), 2043delG (c.1911delG), 6097zpk9>A (c.0116lwt7hujL), 5577lbu65hbq7 (c.4077kny48jlfZKGQE), 2108delA (c.1975delA), 2143delT (c.2011delT), 2183AA>G (c.2051delAAinsG), 2184insA (c.2052insA), 2184delA (c.2052delA), R709X (c.2125C>T), K710X (c.2128A>T), 2307insA (c.2175insA), L732X (c.2195T>G), 2347delG (c.2215delG), R764X (c.2290C>T), 2585delT (c.2453delT), E822X (c.2464G>T), 2622+1G>A (c.2490+1G>A), E831X (c.2491G>T), W846X (c.2537G>A), R851X (c.2551C>T), 2711delT (c.2583delT), 2789+5G>A (c.2657+5G>A), Q890X (c.2668C>T), 2869insG (c.2737insG), L927P (c.2780T>C), S945L (c.2834C>T), 3007delG (c.2875delG), G970R (c.2908G>C), 3120+1G>A (c.2988+1G>A), 3121-1G>A (c.2989-1G>A), 3171delC (c.3039delC), 4847onw2 (c.3067delATAGTG), 3272-26A>G (c.3140-26A>G), O5592B (c.3194T>C), P3590H (c.3196C>T), Q2060U (c.3197G>A), J9116S (c.3230T>C), L1423K (c.3266G>A), Q7712J (c.3276C>A or c.3276C>G), H3789B (c.3278T>C), M5619U (c.3302T>A), L6112A (c.3310G>T), Q4458O (c.3382A>T), O6479M (c.3435G>A), N6388D (c.3472C>T), T3976V (c.3484C>T), 3659delC (c.3528delC), 4014nni9 (c.3535delACCA), J9004F (c.3587C>G), D1310C (c.3611G>A or c.3612G>A), 3791delC (c.3659delC), 3821delT (c.3691delT), N1383U (c.3700A>G), Z7954P (c.3712C>T), 3849+10kbC>T (c.3717+74258T>T), C5367P (c.3731G>A), 3876delA (c.3744delA), Y7554O (c.3752G>A), Y9993L (c.3764C>A), 3905insT (c.3773insT), R9776P (c.3846G>A), B7588L (c.3848G>T), 4005+1G>A (c.3873+1G>A), 4016insT (c.3884insT), N4569Z (c.3909C>G), M3910E (c.3937C>T), WBQGhwzi51,23, 4209TGTT>AA (c.4077delTGTTinsAA), 4382delA (c.4251delA) This test was developed and its analytical performance characteristics have been determined by [facility]. It has not been cleared or approved by FDA. This assay has been validated pursuant to the CLIA regulations and is used for clinical purposes. For additional information, please refer to http://education.Zookal/faq/CZA023 (This link is being provided for information/educational purposes only.) 15 SEE RESULT BELOW Name: ESVIN HOYT : [address]: Margie Benites NP Acct: [id number] Unit: [id number] AGE: 21 Location: [facility] Re04/06/16 SEX: F Status: REG REF SPEC: [id number] ROSARIO: 04/06/16-[address] [facility] [address]: Margie Benites NP REQ: [id number] RECD: 04/06/16-1617 STATUS: SOUT _ ORDERED: IMAGE ANALYSIS COMMENTS: [id number] FINAL DIAGNOSIS Negative for Intraepithelial lesion or Malignancy Fungal organisms morphologically consistent with Jillian species A. Ectocervical/Endocervical Specimen Adequacy: Satisfactory of evaluation Transformation zone component identified Patient Information: HPV: Thin Layer Pap Test w/reflex to high risk HPV RNA testing when ASCUS Actual Specimen Date: 04/06/16 Last Menstrual Date: 02/21/16 ?: N Signed (signature on file) BARRY Sandoval (ASCP) 04/07 1417 This Pap test was evaluated with the assistance of the Chroma EnergyPrep Test Imaging System. Due to cytologic findings at the dairy laboratory technician microscope, comprehensive manual rescreening by a Roving Department End Finder may be required. The Pap Smear is [...] performed at Main Lab DEPARTMENT OF PATHOLOGY, [address] [place] [address] Suraj Velasquez M.D. Director [facility] # [id number] 16 Comment: Tube 4 17 SEE RESULT BELOW ----- Name: ESVIN HOYT : [address]: Kristian Torres MD Acct: [id number] Unit: [id number] AGE: 19 Location: ED Re08/13/14 SEX: F Status: DEP ER ----- SPEC: [id number] ROSARIO: 08/13/[address]: Kristian Torres MD REQ: [id number] RECD: 08/13/14 STATUS: QASIM LOW DR: Luigi Bennett MD _ SOURCE: CSF SPDESC: ORDERED: CSF Cult/GS COMMENTS: Comment: Tube 3 ----- Procedure Result Verified Site ----- CSF Gram Stain Final 08/13/14-1529 ML No Polys Observed No Organisms Seen Preparation By Cytospin Smear CSF Culture Final 08/17/14-0828 ML No Growth Day 4 ----- * ML - MAIN LAB ([facility]) . END OF REPORT * ML=Testing performed at Main Lab DEPARTMENT OF PATHOLOGY, [address] [place] [address] Suraj Velasquez M.D. Director [facility] # [id number] 18 Comment: Tube 2 19 Comment: Tube 2 20 DIFF DONE ON CONCENTRATED SMEAR 21 No evidence of an acute inflammatory response. No evidence of malignancy. Reviewed by Gema Moraes MD 22 Unable to report test result due to hemolysis. 23 Because ethnic data is not always readily [...] Kidney damage with mild decrease in GFR 60- 89 3 Moderate decrease in GFR 30-59 4 Severe decrease in GFR 15-29 5 Kidney failure <15 (or dialysis) 24 Unable to report test result due to hemolysis. 25 RUN DATE: 06/17/14 [facility] LAB LIVE PAGE 1 RUN TIME: [address] [place] [address] Specimen Inquiry ----- Name: ESVIN HOYT : [address]: Kit Goldman MD Acct: [id number] Unit: [id number] AGE: 19 Location: [facility] Re06/14/14 SEX: F Status: DEP ER ----- SPEC: [id number] ROSARIO: 06/14/[address]: Mayra Goldman NP REQ: [id number] RECD: 06/15/14 STATUS: QASIM LOW DR: [facility] Luigi Bennett MD _ SOURCE: URINE SPDESC: ORDERED: Urine Culture ----- Procedure Result Verified Site ----- Urine Culture Final 06/17/14-0908 ML Organism [address] Count 1-10,000 (Few) CFU/ML ----- * ML - MAIN LAB ([facility]) . END OF REPORT * ML=Testing performed at Main Lab DEPARTMENT OF PATHOLOGY, [address] [place], [place] [id number] Suraj Velasquez M.D. Director [facility] # [id number] Procedures Date Code Description Status 05/01/2015 48404 Remove Intrauterine Device Completed 04/08/2015 16826 Insert Intrauterine Device Completed Encounters Type Date Location Provider Dx Diagnosis Office Visit 01/08/2018 [facility] Office Brenda Ramirez, R10.31 Right lower quadrant 10:30a MD pain Office Visit 12/13/2016 [facility] Office Jie Riggs, N94.5 Secondary 8:30a M.[place] dysmenorrhea Office Visit 05/09/2016 [facility] Office Margie Benites, FITNESS/WELLNESS DIRECTOR O02.1 Missed 11:30a Office Visit 04/06/2016 [facility] Office Margie Benites, FITNESS/WELLNESS DIRECTOR Z01.419 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 11:30a (general) (routine) w/o abn findings N92.6 Irregular menstruation, unspecified Office Visit 05/01/2015 11:00a [facility] Brenda Ramirez, Z30.432 Encounter for MD removal of intrauterine contraceptive device Office Visit 04/08/2015 1:00p [facility] Office Brenda Ramirez, Z01.812 Encounter for preprocedural laboratory examination Z30.431 Encounter for routine checking of intrauterine contracep dev Z30.430 Encounter for insertion of intrauterine contraceptive device Office Visit 03/04/2015 10:00a [facility] Office Margie Benites, 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 Would recommend pelvic PT for current pain as it involves the whole abdomen/pelvis and is likely musculoskeletal to some extent. Pt toschedule another appt to discuss infertility.
--- OUTSIDE RECORDS SUMMARY | 2018-01-19 09:58 | XMS REPORT ---
:1995 External Reference #:[id number] Author Organization [facility] Address [address] [place] [place] [address] Phone [phone] Care Team Providers Name Role Phone Shyanne Call MD Primary Care Physician Unavailable Payers Type Date Identification Numbers Payment Provider Subscriber Commercial Effective: Policy Number: [id number] Zack Chester 2015 Group Number: [id number] [address] PayID: [id number] [place] [address] Medigap Part B Effective: 2015 Policy Number: [id number] Medicaid Esvin Chester Expires: 2015 Group Name: 1 1 [address] PayID: [id number] [place] [address] Commercial Effective: 2014 Policy Number: [id number] Zack Chester Expires: 2015 Group Number: [id number] [address] PayID: [id number] [place] [address] Problems Date Description Provider Status Onset: 10/21/2014 Asthma Jenny RoachP. 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 - for 4 days 01/10 3 tablets /2017 by mouth for 4 days 2 tablets by mouth for 4 days 1 tablet by mouth for 4 days Azithromycin 12/25 Hx Tablets 250mg 6tabs two tabs J45.21 day one, Varn, N.P. - one daily 01/04 till Benzonatate 12/25 Hx Capsules 200mg 30cap one by J45.21 s mouth Varn, N.P. - three 01/08 daily as needed for cough Chantix Starting 11/30 Active Tablets 0.5mg X 53tab as F17.210 [place] Month 11 & 1 mg s directed Rodney, [...] (2.5mg/3M 300un inhale L) 0.083% its contents Varn, N.P. of 1 vial via nebulizer 4 times a day as needed Nebulizer 01/18 Active Device 1unit use for s albuterol Stevens, nebulized M.D. solution up to 4 times a day. Valtrex 07/26 Active Tablets 500mg 30tab 1 by mouth George s twice a Madison, MEDIA MANAGER day x 5 days Ventolin HFA 08/15 [...] 05/02 Hx Cream 2.5% 30gm apply to R21 Shyanne /2018 affected Cotton, - area twice M.D. 11/30 [...] by mouth Varn, N.P. - every 8 05/01 hours needed for pain Fluconazole 10/13 Hx Tablets 150mg 2tabs one by mouth june Varn, N.P. - repeat in 01/18 3 days needed Tizanidine HCL 08/31 Hx Tablets 4mg 30tab 1 tablet G44.201 s every 4 Varn, N.P. - hours as 05/01 needed for muscle tension headache or muscle spasms. Meloxicam 07/27 Hx Tablets 15mg 60tab 1 by mouth s twice a Donald, - day M.D. 10/18 Fluconazole 07/04 Hx Tablets 150mg 2tabs one by George mouth june MAICOL Wallace repeat in 3 days as needed Tramadol HCL 06/22 Hx Tablets 50mg 60tab 1-2 M79.645 Shyanne /2017 s tablets Cotton, - every 6 M.D. 01/18 hours needed for pain. Ibuprofen 06/22 Hx Tablets 600mg 21tab take one M79.645 s tablet by MAICOL Wallace - mouth 07/27 times a day as needed with food Diflucan 05/30 Hx Tablets 150mg 2tabs one by Doris /2017 mouth, june Varn, N.P. - repeat in 06/05 3 days Tizanidine HCL 11/24 Hx Tablets 4mg 60tab 1 tablet G44.201 Doris /2016 s every 4 Varn, N.P. hours as needed for muscle tension headache. Fluconazole 11/18 Hx Tablets 150mg 2tabs one by Doris mouth june Varn, N.P. - repeat in 01/27 3 days as needed Azithromycin 11/04 Hx Tablets 250mg 6tabs 2 tabs by Prince.9 [place] mouth MAICOL Wallace - every day 11/09 x1 day, tab by mouth every day x 4 days Benzonatate 11/04 Hx Capsules 200mg 30cap one by J20.9 [place] s gene Wallace NP - three 01/27 times daily as needed for cough Acetaminophen-Cod 10/19 Hx Tablets 300-30mg 30tab one by 4.5 Doris ramey # s mouth Varn, N.P. - every 6 / hours needed cough Meloxicam 10/01 Hx Tablets 15mg 30tab once daily M54.5 George /2015 s with food MAICOL Wallace Tramadol HCL 10/01 Hx Tablets 50mg 42tab 1-2 4.5 [place] s tablets MAICOL Wallace - every 8 / hours needed for pain. Fluconazole 09/26 Hx Tablets 150mg 2tabs one by Doris mouth june Varn, N.P. - repeat in 10/19 3 days needed Hydrocodone-Aceta 09/23 Hx Tablets 5-325mg 30tab 1-2 by George minophen s mouth MAICOL Wallace - every 8 08/12 hours prn. /2015 Methylprednisolon 09/23 Hx TBPK 4mg 21uni as M54.5 ts directed MAICOL Wallace - on package [...] Tablets 5-325mg 40tab 1-2 tab by Karen jaime s mouth Bennett, - every 4-6 M.D. 07/03 hours needed for pain Do not refill until 06/26/15 Hydrocodone-Aceta 06/21 Hx Tablets 5-325mg 40tab 1-2 tabs Karen min s by mouth Bennett, - every 4- 6 M.D. 07/08 hours needed pain Fluconazole 06/21 Hx Tablets 150mg 2tabs one by mouth june Varn, N.P. - repeat in 06/27 3 days [...] 60tab by mouth K02.7 s twice a Madison MEDIA MANAGER - day with 05/10 Lidocaine Viscous 05/14 Hx Solution 2% 100un gargle K02.7 its with 15ml MAICOL Wallace - every 4 06/10 hours needed for [...] s mouth Varn, N.P. - every 4 10/05 hours as /2016 needed for musle tension headache Ciprofloxacin HCL 02/11 Hx Tablets 500mg 20tab take one R30.0 s tablet MAICOL Wallace - twice a 02/22 day for days Phenazopyridine 02/11 Hx Tablets 100mg 10tab 1 tablet R30.0 George s by mouth Madison, MAICOL - three 02/14 times day as needed for 3 days. Fluconazole 02/11 Hx Tablets 150mg 2tabs one by R30.0 George mouth june Madison, MAICOL - repeat in 02/17 3 days as needed Fluconazole 01/27 Hx Tablets 150mg 2tabs one by B37.3 George mouth june MAICOL Wallace - repeat in 02/17 3 days needed Tramadol HCL 01/19 Hx Tablets 50mg 30tab 1 tablet s three to Varn, N.P. - four times 03/30 daily needed Valtrex 01/14 Hx Tablets 500mg 10tab 1 by mouth Doris /2015 s twice a Varn, N.P. day x 5 days Tramadol HCL 01/05 Hx Tablets 50mg 15tab 1-2 K08.8 George s tablets MAICOL Wallace - every 4-6 01/08 hours needed for pain. Fluconazole 01/05 Hx Tablets 150mg 2tabs one by B37.3 George mouth june Madison, MAICOL - repeat in 01/08 3 days needed Naproxen Sodium 12/24 Hx Tablets 550mg 60tab One po R10.11 s every 12 Varn, N.P. - hours 04/08 Ponstel 12/16 Hx Capsules 250mg 60cap two by R10.31 Doris /2015 s mouth Varn, N.P. - initially 12/16 then 1 by mouth every 6 hours as needed Docusate Sodium & 12/16 Hx Tablets 8.6-50mg 30tab 2 tablets R10.31 Doris Senna s po hs prn Varn, N.P. Laxative/Stool - constipati Softener 04/08 Valacyclovir HCL 10/27 Hx Tablets 1gm 21tab 1 tbalet N77.1 Doris s tid x 7 Varn, N.P. - [...] more than 4 times a month Diazepam 00/00 Hx Tablets 2mg 1 tablet George /0000 by mouth MAICOL Wallace - bid 09/11 Zoloft 00/ Hx Tablets 100mg 1 by mouth Unknown /0000 every day - 04/08 Amoxicillin Hx Capsules 500mg take 1 Unknown /0000 capsule by - mouth 02/11 every hours until finished Sertraline HCL 00/00 Hx Tablets 100mg Unknown /0000 - 04/08 Gabapentin 00 Hx Capsules 300mg 1 by mouth Unknown /0000 three - times a Clonazepam Hx Tablets 0.5mg once daily Unknown /0000 Dispers - 06/05 Rexulti 00/00 Hx Tablets 2mg 1 po daily Unknown /0000 - 11/04 Ativan 00/00 Hx Tablets 1mg 1 tab by Unknown /0000 mouth 3x a - day 06/22 Clonidine HCL 00 Hx Tablets 0.1mg 1 by mouth Unknown /0000 im Am and - 3 in the 06/22 Trazodone HCL 00/00 Hx Tablets 100mg 1 by mouth Unknown /0000 every - night at 01/27 bedtime Flexeril Hx Tablets 5mg 1 tab by Unknown /0000 mouth - twice a 10/19 day needed spasm Nitrofurantoin Hx Capsules 100mg take 1 Unknown Monohyd Macro /0000 capsule by - mouth 01/27 twice a day Rexulti 00 Hx Tablets 2mg 1 by mouth Unknown /0000 every day - 06/22 Trileptal / Hx Tablets 150mg Not Unknown /0000 taking---1 - tablet at 05/01 night a week then 1 twice a day Doxycycline 00 Hx Capsules 50mg to start Unknown Hyclate /0000 soon - 08/07 Vital Signs Date Vital Result Comment 12/25/2017 Height 65 inches 5'5" Weight 160.00 lb Heart Rate 72 /min BP Systolic 107 mmHg BP Diastolic 71 mmHg Body Temperature 97.3 F O2 % BldC Oximetry 100 % BMI (Body Mass Index) 26.6 kg/m2 11/30/2017 Height 65 inches 5'5" Weight 161.00 [...] Test Date Test Result H/L Range Note Laboratory test 12/14/2017 Gardnerella/Yeast: SEE RESULT BELOW 1, 2 finding Vaginal Dna GC/Chlamydia 12/14/2017 Chlamydia Negative Negative 1 Amplified Rna trachomatis Rna Neisseria gonorrhoeae (GC) Rna Negative Negative 1 Laboratory test finding 12/14/2017 Trichomonas Vaginalis Negative Negative 1, 3 Rna CBC Auto Diff 12/14/2017 White Blood Count 9.6 10^3/uL 3.5-10.8 Red Blood Count 4.51 10^6/uL 4.00-5.40 Hemoglobin 14.7 g/dL 12.0-16.0 Hematocrit 43 % 35-47 Mean Corpuscular Volume 94 fL 80-97 Mean Corpuscular Hemoglobin 33 pg High 27-31 Mean Corpuscular HGB Conc 35 g/dL 31-36 Red Cell Distribution Width 13 % 10.5-15 Platelet Count 241 10^3/uL 150-450 Mean Platelet Volume 8.3 um3 7.4-10.4 Abs Neutrophils 7.0 10^3/uL 1.5-7.7 Abs Lymphocytes 1.9 10^3/uL 1.0-4.8 Abs Monocytes 0.5 10^3/uL 0-0.8 Abs Eosinophils 0.1 10^3/uL 0-0.6 Abs Basophils 0.1 10^3/uL 0-0.2 Abs Nucleated RBC 0 10^3/uL Granulocyte % 72.9 % 38-83 Lymphocyte % 19.8 % Low 25-47 Monocyte % 5.2 % 0-7 Eosinophil % 1.5 % 0-6 Basophil % 0.6 % 0-2 Nucleated Red Blood Cells % 0.1 Comp Metabolic Panel 12/14/2017 Sodium 136 mmol/L 135-145 Potassium 4.3 mmol/L 3.5-5.0 Chloride 106 mmol/L 101-111 Co2 Carbon Dioxide 24 mmol/L 22-32 Anion Gap 6 mmol/L 2-11 Glucose 104 mg/dL High 70-100 Blood Urea Nitrogen 10 mg/dL 6-24 Creatinine 0.66 mg/dL 0.51-0.95 BUN/Creatinine Ratio 15.2 8-20 Calcium 9.4 mg/dL 8.6-10.3 Total Protein 6.7 g/dL 6.4-8.9 Albumin 4.2 g/dL 3.2-5.2 Globulin 2.5 g/dL 2-4 Albumin/Globulin Ratio 1.7 1-3 Total Bilirubin 0.40 mg/dL 0.2-1.0 Alkaline Phosphatase 65 U/L 34-104 Alt 18 U/L 7-52 Ast 17 U/L 13-39 Egfr Non- 110.0 >60 Egfr 133.1 >60 4 Laboratory test finding 12/14/2017 HCG < 0.60 mIU/mL 5 Urinalysis Profile 12/14/2017 Urine Color Straw Urine Appearance Clear Urine Specific [place] 1.005 Low 1.010-1.030 Urine pH 6.0 5-9 Urine Urobilinogen Negative Negative Urine Ketones Negative Negative Urine Protein Negative Negative Urine Leukocytes Negative Negative Urine Blood Negative Negative Urine Nitrite Negative Negative Urine Bilirubin Negative Negative Urine Glucose Negative Negative Laboratory test finding 09/13/2017 Lipase 17 U/L 11.0-82.0 6 HCG < 0.60 mIU/mL 6, 7 Comp Metabolic Panel 09/13/2017 Sodium 138 mmol/L 135-145 6 Potassium 4.1 mmol/L 3.5-5.0 6 Chloride 106 mmol/L 101-111 6 Co2 Carbon Dioxide 23 mmol/L 22-32 6 Anion Gap 9 mmol/L 2-11 6 Glucose 77 mg/dL 70-100 6 Blood Urea Nitrogen 8 mg/dL 6-24 6 Creatinine 0.64 mg/dL 0.51-0.95 6 BUN/Creatinine Ratio 12.5 8-20 6 Calcium 10.2 mg/dL 8.6-10.3 6 Total Protein 6.7 g/dL 6.4-8.9 6 Albumin 4.6 g/dL 3.2-5.2 6 Globulin 2.1 g/dL 2-4 6 Albumin/Globulin Ratio 2.2 1-3 6 Total Bilirubin 0.50 mg/dL 0.2-1.0 6 Alkaline Phosphatase 56 U/L 34-104 6 Alt 18 U/L 7-52 6 Ast 18 U/L 13-39 6 Egfr Non- 114.0 >60 6 Egfr 137.9 >60 6, 8 CBC Auto Diff 09/13/2017 White Blood Count 8.3 10^3/uL 3.5-10.8 6 Red Blood Count 4.45 10^6/uL 4.00-5.40 6 Hemoglobin 14.1 g/dL 12.0-16.0 6 Hematocrit 42 % 35-47 6 Mean Corpuscular Volume 95 fL 80-97 6 Mean Corpuscular Hemoglobin 32 pg High 27-31 6 Mean Corpuscular HGB Conc 34 g/dL 31-36 6 Red Cell Distribution Width 13 % 10.5-15 6 Platelet Count 267 10^3/uL 150-450 6 Mean Platelet Volume 8.9 um3 7.4-10.4 6 Abs Neutrophils 5.1 10^3/uL 1.5-7.7 6 Abs Lymphocytes 2.5 10^3/uL 1.0-4.8 6 Abs Monocytes 0.5 10^3/uL 0-0.8 6 Abs Eosinophils 0.1 10^3/uL 0-0.6 6 Abs Basophils 0 10^3/uL 0-0.2 6 Abs Nucleated RBC 0 10^3/uL 6 Granulocyte % 61.8 % 38-83 6 Lymphocyte % 30.2 % 25-47 6 Monocyte % 5.9 % 0-7 6 Eosinophil % 1.8 % 0-6 6 Basophil % 0.3 % 0-2 6 Nucleated Red Blood Cells % 0.1 6 Laboratory test 05/02/2017 Gardnerella/Yeast: Vaginal SEE RESULT BELOW 9 finding Dna Rapid Influenza A 03/25/2017 Influenza A Molecular POSITIVE Negative 10 & B Molecular Influenza B Molecular NEGATIVE Negative Laboratory test finding 03/24/2017 Rapid Influenza A B SEE RESULT BELOW 11 Antigen Urinalysis Profile 03/24/2017 Urine Color Yellow Urine Appearance Cloudy Urine Specific [place] 1.017 1.010-1.030 Urine pH 5.0 5-9 Urine [...] Egfr Non- 102.8 >60 Egfr 132.2 >60 12 Laboratory test finding 03/24/2017 Lipase 15 U/L 11.0-82.0 C Reactive Protein 3.36 mg/L < 5.00 13 HCG < 0.60 mIU/mL 14 Lactic Acid 0.6 mmol/L 0.5-2.0 15 Urinalysis Profile 11/25/2016 Urine Color Straw Urine Appearance Clear Urine Specific [place] 1.002 Low 1.010-1.030 Urine pH 6.0 5-9 [...] C Reactive Protein 1.51 mg/L < 5.00 16 HCG < 0.60 mIU/mL 17 Lactic Acid 1.0 mmol/L 0.5-2.0 18 GC/Chlamydia Amplified Rna 11/25/2016 Chlamydia trachomatis Rna [...] Egfr Non- 107.2 >60 Egfr 137.9 >60 19 Laboratory test 11/04/2016 Cytology SEE RESULT BELOW 20 finding GC/Chlamydia 10/18/2016 Chlamydia trachomatis Negative Negative Amplified Rna Rna Neisseria gonorrhoeae (GC) Rna Negative Negative Laboratory test finding 10/18/2016 Test Urine negative Ua Routine 10/18/2016 Ua Specific [place] 1.015 Ua PH 5 Ua Color YELLOW Ua Appera CLEAR Ua WBC NEG Ua Protein NEG Ua Glucose NORM Ua Ketones NEG Ua Bilirubin SHAHRAM Ua Urobilinogen NEG Ua Nitrite NEG Ua Occult Blood TRACE Urine Culture And Sensitivities 10/15/2016 Urine Culture SEE RESULT BELOW 21 Urinalysis Profile 10/15/2016 Urine Color Katie Urine Appearance Clear Urine Specific [place] 1.025 1.010-1.030 Urine pH 5.0 5-9 Urine [...] Egfr Non- 97.3 >60 Egfr 125.1 >60 22 Laboratory test finding 10/15/2016 Magnesium 2.1 mg/dL 1.9-2.7 Lipase 35 U/L 11.0-82.0 C Reactive Protein 1.98 mg/L < 5.00 23 Lactic Acid 0.5 mmol/L 0.5-2.0 24 Comp Metabolic Panel 10/08/2016 Sodium 136 mmol/L [...] Egfr Non- 97.3 >60 Egfr 125.1 >60 25 Laboratory test finding 10/08/2016 Lipase < 10 U/L Low 11.0-82.0 C Reactive Protein 4.38 mg/L < 5.00 26 HCG < 0.60 mIU/mL 27 Urine Culture And 10/08/2016 Urine Culture SEE RESULT BELOW 28 Sensitivities Laboratory test finding 10/08/2016 Lactic Acid 0.7 mmol/L 0.5-2.0 29 CBC Auto Diff 10/08/2016 White Blood Count [...] Color Yellow Urine Appearance Cloudy Urine Specific [place] 1.023 1.010-1.030 Urine pH 5.0 5-9 Urine [...] Egfr Non- 96.6 >60 Egfr 124.3 >60 30 Laboratory test finding 10/29/2015 Lipase 21 U/L 11.0-82.0 C Reactive Protein < 1.00 mg/L < 5.00 31 Urinalysis Profile 10/29/2015 Urine Color Yellow Urine Appearance Cloudy Urine Specific [place] 1.026 1.010-1.030 Urine pH 6.0 5-9 Urine [...] And 10/29/2015 Urine Culture SEE RESULT BELOW 32 Sensitivities Laboratory test finding 07/10/2015 Surgical Pathology SEE RESULT BELOW 33 Laboratory test finding 06/23/2015 (HCG) Negative Negative 34 Urine Laboratory test finding 06/11/2015 Test neg Urine Urine Culture And 06/11/2015 Urine Culture SEE RESULT BELOW 35 Sensitivities Ua Routine 06/11/2015 Ua Specific [place] 1.025 Ua PH 5 Ua Color yellow [...] Egfr Non- 114.0 >60 Egfr 146.6 >60 36 Laboratory test finding 04/08/2015 Lipase 22 U/L 11.0-82.0 HCG < 0.60 mIU/mL 37 Laboratory test finding 03/20/2015 (HCG) Urine Negative Negative 38 CBC Auto Diff 02/16/2015 White Blood Count [...] Color Yellow Urine Appearance Clear Urine Specific [place] 1.012 1.010-1.030 Urine pH 5.0 5-9 Urine [...] Egfr Non- 78.0 >60 Egfr 100.4 >60 39 Laboratory test finding 02/16/2015 Lipase 20 U/L 11.0-82.0 C Reactive Protein 9.66 mg/L High < 5.00 40 HCG Qualitative Negative Negative Laboratory test finding 02/11/2015 Urine Culture And SEE RESULT BELOW 41 Sensitivities Cytology Non-Printer Assistant SEE RESULT BELOW 42 Laboratory test finding 02/11/2015 Test Urine negative Ua Routine 02/11/2015 Ua Specific [place] 1.020 Ua PH 7 Ua Color katie [...] Egfr Non- 99.1 >60 Egfr 127.4 >60 43 Laboratory test 02/02/2015 Troponin-I (TnI) 0.00 ng/mL <0.03 44 finding Laboratory test 01/13/2015 Gardnerella/Yeast: SEE RESULT BELOW 45 finding Vaginal Dna GC/Chlamydia 01/13/2015 Chlamydia trachomatis Negative Negative Amplified Rna Rna Neisseria gonorrhoeae (GC) Rna Negative Negative 46 Laboratory test finding 01/13/2015 Trichomonas Vaginalis Negative Negative 47 Rna CBC Auto Diff 01/13/2015 White Blood [...] Color Yellow Urine Appearance Cloudy Urine Specific [place] 1.015 1.010-1.030 Urine pH 7.0 5-9 Urine [...] Egfr Non- 113.1 >60 Egfr 145.4 >60 48 Laboratory test finding 01/13/2015 Lipase 22 U/L 11.0-82.0 C Reactive Protein 1.81 mg/L < 5.00 49 HCG Qualitative Negative Negative 50 CBC Auto Diff 12/26/2014 White Blood Count [...] Egfr Non- 96.1 >60 Egfr 123.5 >60 51 Herpes Simplex PCR 12/16/2014 Herpes Source [facility] HSV 1 PCR Negative Negative HSV 2 PCR Positive Negative 52 GC/Chlamydia Amplified Rna 12/16/2014 Chlamydia trachomatis Rna Negative Negative Neisseria gonorrhoeae (GC) Rna Negative Negative 53 Laboratory test finding 12/10/2014 HCG Qualitative Negative Negative Urinalysis Profile 12/10/2014 Urine Color Yellow Urine Appearance Clear Urine Specific [place] 1.014 1.010-1.030 Urine pH 6.0 5-9 Urine [...] Egfr Non- 131.2 >60 Egfr 168.8 >60 54 Laboratory test finding 12/10/2014 Lipase 31 U/L 11.0-82.0 C Reactive Protein 3.26 mg/L < 5.00 55 Urinalysis Profile 12/10/2014 Urine Color Yellow Urine Appearance Clear Urine Specific [place] 1.014 1.010-1.030 Urine pH 6.0 5-9 Urine [...] Egfr Non- 131.2 >60 Egfr 168.8 >60 56 Laboratory test finding 12/10/2014 Lipase 31 U/L 11.0-82.0 C Reactive Protein 3.26 mg/L < 5.00 57 Urine Culture And Sensitivities SEE RESULT BELOW 58 Laboratory test finding 10/21/2014 TSH (Thyroid Stim [...] Egfr Non- 102.3 >60 Egfr 131.5 >60 59 Laboratory test finding 10/21/2014 HCG Qualitative Negative Negative Laboratory test finding 09/11/2014 Test Urine neg Ua Routine 09/11/2014 Ua Specific [place] 1.015 Ua PH 5 Ua Color yellow Ua Appera clear Ua WBC neg Ua Protein neg Ua Glucose neg Ua Ketones neg Ua Bilirubin neg Ua Urobilinogen 0.2 Ua Nitrite neg Ua Occult Blood neg Laboratory test finding 08/13/2014 CSF Glucose 61 mg/dL 40-70 60, 61 CSF Protein 36 mg/dL 15-45 60, 62 CSF Culture & Gram Stain SEE RESULT BELOW 60, 63 CSF Cell Count 08/13/2014 Body Fluid Appearance Clear 60 Body Fluid Color Colorless 60 CSF Tube # 1 60 Body Fluid Volume 1 mL 60 Body Fluid WBC 1 60 Body Fluid RBC 2 60 Body Fluid Polys 0 60 Body Fluid Lymph 10 60 Body Fluid [place] 2 60 Body Fluid Total Cells Counted 12 60 Body Fluid Comment (SEE NOTE) 60, 64 Fluid Reviewed By MD (SEE NOTE) 60, 65 CBC Auto Diff 08/13/2014 White Blood Count [...] Egfr Non- 115.1 >60 Egfr 148.0 >60 66 Potassium TNP mmol/L 3.5-5.0 67 Anion Gap TNP mmol/L 2-11 Ast TNP U/L 13-39 68 Urine Culture And Sensitivities 06/14/2014 Urine Culture (SEE NOTE) 69 Throat-Beta Strept 04/03/2014 Throat Beta Strep (SEE NOTE) 70 Culture Throat-Beta Strept 04/22/2013 Throat Beta Strep (SEE NOTE) 71 Culture Throat-Beta Strept 10/21/2012 Throat Beta Strep (SEE NOTE) 72 Culture 1 Would you like to order Trichomonas Vaginalis RNA testing? Y 2 SEE RESULT BELOW Name: ESVIN CHESTER : [address]: Susan Rob MD Acct: [id number] Unit: [id number] AGE: 22 Location: ED Re12/14/17 SEX: F Status: DEP ER SPEC: [id number] ROSARIO: 12/14/[address] [facility] [address]: Peng FRANCO REQ: [id number] RECD: 12/14/17 STATUS: QASIM LOW DR: Doris Rob MD _ SOURCE: VAGINAL SPDESC: ORDERED: Forrest,Yeast DNA COMMENTS: Would you like to order Trichomonas Vaginalis RNA testing? Y QUERIES: Would you like to order Trichomonas Vaginalis testing? Y Procedure Result Reported Site Gardnerella/Yeast: Vaginal DNA Final 12/14/17- 1341 ML Organism 1 POSITIVE GARDNERELLA Organism 2 Negative Jillian The presence of [...] . END OF REPORT DEPARTMENT OF PATHOLOGY, [address] [place] [address] Suraj Velasquez M.D. Director [facility] # [id number] GC/Chlamydia Source?: Endocervical Trichomonas Source: Endocervical 4 Because ethnic data is not always readily [...] 15-29 5 Kidney failure <15 (or dialysis) 5 <5.0 Negative 5.0 - 25.0 Indeterminate (Repeat testing recommended after 72 hours) >25.0 Positive Perimenopausal women can display HCG levels of up to 20 mIU/mL 6 LM for patient to call back to discuss results on 09/18/17. Discussed results with patient 09/19/17. 7 <5.0 Negative 5.0 - 25.0 Indeterminate (Repeat testing recommended after 72 hours) >25.0 Positive Perimenopausal women can display HCG levels of up to 20 mIU/mL 8 Because ethnic data is not always readily [...] 15-29 5 Kidney failure <15 (or dialysis) 9 SEE RESULT BELOW Name: ESVIN CHESTER : [address]: Shyanne Call MD Acct: [id number] Unit: [id number] AGE: 22 Location: [facility] Re05/02/17 SEX: F Status: REG REF SPEC: [id number] ROSARIO: 05/02/17-[address] [facility] [address]: Shyanne Call MD REQ: [id number] RECD: 05/02/17 STATUS: COMP _ SOURCE: VAGINAL SPDESC: ORDERED: Forrest,Yeast DNA COMMENTS: [id number] Procedure Result Reported Site Gardnerella/Yeast: Vaginal DNA [...] . END OF REPORT DEPARTMENT OF PATHOLOGY, [address] [place] [address] Suraj Velasquez M.D. Director [facility] # [id number] 10 [facility] Coordinator: [id number] SEE RESULT BELOW Name: ESVIN CHESTER : [address]: Felix Dale MD Acct: [id number] Unit: [id number] AGE: 22 Location: ED Re03/24/17 SEX: F Status: REG ER SPEC: [id number] ROSARIO: 03/24/[address] [facility] [address]: Can Robertson MD REQ: [id number] RECD: 03/25/17000 STATUS: QASIM LOW DR: Felix Briceño MEDIA MANAGER _ SOURCE: [facility]: ORDERED: Flu A B Request Procedure Result Reported Site Rapid Influenza A B Request Final 03/25/17- 0010 ML Specimen received for Influenza A/B Molecular testing * ML - MAIN LAB ([facility]) . END OF REPORT * ML=Testing performed at Main Lab DEPARTMENT OF PATHOLOGY, [address] [place] [address] Suraj Velasquez M.D. Director [facility] # [id number] 12 Because ethnic data is not always readily [...] 15-29 5 Kidney failure <15 (or dialysis) 13 Acute inflammation: >10.00 14 <5.0 Negative 5.0 - 25.0 Indeterminate (Repeat testing recommended after 72 hours) >25.0 Positive Perimenopausal women can display HCG levels of up to 20 mIU/mL 15 [facility] Severe Sepsis and Septic Shock Management Bundle Measure requires all lactic acids initially measuring >2.0 mmol/L be repeated. 16 Acute inflammation: >10.00 17 <5.0 Negative 5.0 - 25.0 Indeterminate (Repeat testing recommended after 72 hours) >25.0 Positive Perimenopausal women can display HCG levels of up to 20 mIU/mL 18 [facility] Severe Sepsis and Septic Shock Management [...] 5 Kidney failure <15 (or dialysis) 20 SEE RESULT BELOW Name: ESVIN CHESTER : [address]: Doris Briceño NP Acct: [id number] Unit: [id number] AGE: 21 Location: [facility] Re11/04/16 SEX: F Status: REG REF SPEC: [id number] ROSARIO: 11/04/[address] [facility] [address]: Doris Briceño MEDIA MANAGER REQ: [id number] RECD: 11/04/16 STATUS: SOUT _ ORDERED: TP IMAGE ANAL COMMENTS: [id number] FINAL DIAGNOSIS Negative for Intraepithelial lesion or [...] was evaluated with the assistance of the [employer] Test Imaging System. Due to cytologic findings at the anesthesiology fellow microscope, comprehensive manual rescreening by a Manager Progressive Care may be required. The Pap Smear is [...] performed at Main Lab DEPARTMENT OF PATHOLOGY, [address] [place] [address] Suraj Velasquez M.D. Director [facility] # [id number] 21 SEE RESULT BELOW Name: ESVIN CHESTER : [address]: Kit Rodriguez MD Acct: [id number] Unit: [id number] AGE: 21 Location: ED Re10/15/16 SEX: F Status: DEP ER SPEC: [id number] ROSARIO: 10/15/16-[address] [facility] [address]: Kit Rodriguez MD REQ: [id number] RECD: 10/15/16 STATUS: QASIM LOW DR: Doris Briceño MEDIA MANAGER _ SOURCE: URINE SPDESC: ORDERED: Urine Culture Procedure Result Reported Site Urine Culture Final 10/17/16- 0855 ML No Growth (<1,000 CFU/mL) * ML - MAIN LAB ([facility]) . END OF REPORT * ML=Testing performed at Main Lab DEPARTMENT OF PATHOLOGY, [address] [place] [address] Suraj Velasquez M.D. Director [facility] # [id number] 22 Because ethnic data is not always readily [...] 15-29 5 Kidney failure <15 (or dialysis) 23 Acute inflammation: >10.00 24 [facility] Severe Sepsis and Septic Shock Management [...] (or dialysis) 26 Acute inflammation: >10.00 27 <5.0 Negative 5.0 - 25.0 Indeterminate (Repeat testing recommended after 72 hours) >25.0 Positive Perimenopausal women can display HCG levels of up to 20 mIU/mL 28 SEE RESULT BELOW Name: ESVIN CHESTER : [address]: Alexei Em MD Acct: [id number] Unit: [id number] AGE: 21 Location: ED Re10/08/16 SEX: F Status: DEP ER SPEC: [id number] ROSARIO: 10/08/16-[address]: Alexei Em MD REQ: [id number] RECD: 10/08/16-1505 STATUS: QASIM LOW DR: Doris Briceño MEDIA MANAGER _ SOURCE: URINE [facility]: ORDERED: Urine Culture Procedure Result Reported Site Urine Culture Final 10/09/16- 1222 ML Mixed abdirashid; possible contamination. Suggest resubmission. * ML - MAIN LAB ([facility]) . END OF REPORT * ML=Testing performed at Main Lab DEPARTMENT OF PATHOLOGY, [address] [place] [address] Suraj Velasquez M.D. Director [facility] # [id number] 29 [facility] Severe Sepsis and Septic Shock Management Bundle Measure requires all lactic acids initially measuring >2.0 mmol/L be repeated. 30 Because ethnic data is not always [...] 5 Kidney failure <15 (or dialysis) 31 Acute inflammation: >10.00 32 SEE RESULT BELOW Name: ESVIN CHESTER : [address]: Darwin Steel MD Acct: [id number] Unit: [id number] AGE: 20 Location: ED Re10/29/15 SEX: F Status: DEP ER SPEC: [id number] ROSARIO: 10/29/15-[address] [facility] [address]: Darwin Steel MD REQ: [id number] RECD: 10/29/15 STATUS: QASIM LOW DR: Doris Briceño MEDIA MANAGER _ SOURCE: URINE [facility]ES[facility]: ORDERED: Urine Culture Procedure Result Reported Site Urine Culture Final 10/30/15- 1214 ML No growth of clinically significant organisms * ML - MAIN LAB ([facility]) . END OF REPORT * ML=Testing performed at Main Lab DEPARTMENT OF PATHOLOGY, [address] [place] [address] Suraj Velasquez M.D. Director [facility] # [id number] 33 SEE RESULT BELOW Name: ESVIN CHESTER : [address]: Doris Briceño NP Acct: [id number] Unit: [id number] AGE: 20 Location: [facility] Re07/10/15 SEX: F Status: REG REF SPEC: [id number] ROSARIO: 07/10/15-[address] [facility] [address]: Doris Briceño NP REQ: [id number] RECD: 07/10/15 STATUS: SOUT _ ORDERED: LEVEL III COMMENTS: [id number] FINAL DIAGNOSIS Cyst removal, site unspecified: -- [...] performed at Main Lab DEPARTMENT OF PATHOLOGY, [address] [place] [address] Suraj Velasquez M.D. Director [facility] # [id number] 34 If is still suspected, please repeat test after 48 to 72 hours. This test detects intact HCG only and is indicated for the early detection of . 35 SEE RESULT BELOW Name: ESVIN CHESTER : [address]: George Wallace NP Acct: [id number] Unit: [id number] AGE: 20 Location: [facility] Re06/11/15 SEX: F Status: REG REF SPEC: [id number] ROSARIO: 06/11/15-[address] [facility] [address]: George Wallace NP REQ: [id number] RECD: 06/11/15 STATUS: COMP _ SOURCE: URINE SPDESC: ORDERED: Urine Culture Procedure Result Reported Site Urine Culture Final 06/12/15- 1634 ML No Growth (<1,000 CFU/mL) * ML - MAIN LAB ([facility]) . END OF REPORT * ML=Testing performed at Main Lab DEPARTMENT OF PATHOLOGY, [address] [place] [address] Suraj Velasquez M.D. Director [facility] # [id number] 36 Because ethnic data is not always readily [...] 15-29 5 Kidney failure <15 (or dialysis) 37 <5.0 Negative 5.0 - 25.0 Indeterminate (Repeat testing recommended after 72 hours) >25.0 Positive Perimenopausal women can display HCG levels of up to 20 mIU/mL 38 If is still suspected, please repeat test after 48 to 72 hours. This test detects intact HCG only and is indicated for the early detection of . 39 Because ethnic data is not always readily [...] 15-29 5 Kidney failure <15 (or dialysis) 40 Acute inflammation: >10.00 41 SEE RESULT BELOW Name: ESVIN CHESTER : [address]: George Wallace NP Acct: [id number] Unit: [id number] AGE: 19 Location: [facility] Re02/11/15 SEX: F Status: REG REF SPEC: [id number] ROSARIO: 02/11/15-[address] [facility] [address]: George Wallace NP REQ: [id number] RECD: 02/11/15 STATUS: COMP _ SOURCE: URINE [facility]: ORDERED: Urine Culture Procedure Result Reported Site Urine Culture Final 02/16/15- 1456 ML No Growth (<1,000 CFU/mL) * ML - MAIN LAB ([facility]) . END OF REPORT * ML=Testing performed at Main Lab DEPARTMENT OF PATHOLOGY, [address] [place] [address] Suraj Velasquez M.D. Director [facility] # [id number] 42 SEE RESULT BELOW Name: ESVIN CHESTER : [address]: George Wallace NP Acct: [id number] Unit: [id number] AGE: 19 Location: [facility] Re02/11/15 SEX: F Status: REG REF SPEC: [id number] ROSARIO: 02/11/[address]: George Wallace NP REQ: [id number] RECD: 02/11/15 STATUS: SOUT _ ORDERED: THIN PREP NON G FINAL DIAGNOSIS Urine, voided: --Negative for malignant cells. --Inflammatory cells present. URINE VOID GROSS DESCRIPTION 20 mls of cloudy red voided urine. Signed (signature on file) Gema Moraes MD 1204 END OF REPORT * ML=Testing performed at Main Lab DEPARTMENT OF PATHOLOGY, [address] [place] [address] Suraj Velasquez M.D. Director [facility] # [id number] 43 Because ethnic data is not always [...] 5 Kidney failure <15 (or dialysis) 44 Reference Range and Interpretation: TnI (ng/mL) Interpretation Less Than 0.03 ng/mL Not supportive of diagnosis of PR 0.03 - 0.50 ng/mL Indeterminate: suggest serial studies if clinically indicated. Greater than 0.5 ng/mL Consistent with diagnosis of PR 45 SEE RESULT BELOW Name: ESVIN CHESTER : [address]: Wilder Hernandez MD Acct: [id number] Unit: [id number] AGE: 19 Location: ED Re01/13/15 SEX: F Status: DEP ER SPEC: [id number] ROSARIO: 01/13/15-[address] [facility] [address]: Wilder Hernandez MD REQ: [id number] RECD: 01/13/15-1602 STATUS: QASIM LOW DR: Angeles Stevens MD _ SOURCE: STEPHANIE [facility]: ORDERED: Forrest,Yeast DNA Procedure Result [...] or failure. * ML - [facility] ([facility]) . END OF REPORT * ML=Testing performed at Main Lab DEPARTMENT OF PATHOLOGY, [address] [place] [address] Suraj Velasquez M.D. Director [facility] # [id number] 46 Female urine specimens have been self-validated by [facility] and have been granted conditional assay approval by [facility]. 47 GC/Chlamydia Source?: Endocervical Trichomonas Source: Endocervical 48 Because ethnic data is not always [...] (or dialysis) 49 Acute inflammation: >10.00 50 Comment: f 51 Because ethnic data is not always [...] 5 Kidney failure <15 (or dialysis) 52 ADDITIONAL INFORMATION Analyte Specific Reagent: This test was developed and its performance characteristics determined by [facility]. It has not been cleared or approved by the U.S. Food and Drug Administration. Test Performed by: [facility] - [address] [address] Grip Boss: Odilon Tejeda II, M.D., Ph.D. 53 Female urine specimens have been self-validated by [facility] and have been granted conditional assay approval by [facility]. 54 Because ethnic data is not always [...] 5 Kidney failure <15 (or dialysis) 55 Acute inflammation: >10.00 56 Because ethnic data is not always readily [...] 15-29 5 Kidney failure <15 (or dialysis) 57 Acute inflammation: >10.00 58 SEE RESULT BELOW Name: ESVIN CHESTER : [address]: Bubba Loco DO Acct: [id number] Unit: [id number] AGE: 19 Location: ED Re12/10/14 SEX: F Status: DEP ER SPEC: [id number] ROSARIO: 12/10/[address]: Kit Goldman MD REQ: [id number] RECD: 12/10/14 STATUS: QASIM LOW DR: Doris Briceño MEDIA MANAGER _ SOURCE: URINE [facility]: ORDERED: Urine Culture Procedure Result Verified Site Urine Culture Final 12/12/14- 1149 ML No Growth Day 2 (<1,000 CFU/mL) * ML - MAIN LAB ([facility]) . END OF REPORT * ML=Testing performed at Main Lab DEPARTMENT OF PATHOLOGY, [address] [place] [address] Suraj Velasquez M.D. Director [facility] # [id number] 59 Because ethnic data is not always readily [...] 15-29 5 Kidney failure <15 (or dialysis) 60 Comment: Tube 4 61 Comment: Tube 2 62 Comment: Tube 2 63 SEE RESULT BELOW Name: ESVIN CHESTER : [address]: Kristian Torres MD Acct: [id number] Unit: [id number] AGE: 19 Location: ED Re08/13/14 SEX: F Status: DEP ER SPEC: [id number] ROSARIO: 08/13/[address] [facility] [address]: Kristian Torres MD REQ: [id number] RECD: 08/13/14 STATUS: COMP HR DR: Luigi Benntet MD _ SOURCE: CSF SPD[facility]: ORDERED: CSF Cult/GS COMMENTS: Comment: Tube 3 Procedure Result Verified Site CSF Gram Stain Final 08/13/14- 1529 ML No Polys Observed No Organisms Seen Preparation By Cytospin Smear CSF Culture Final 08/17/14- 827 ML No Growth Day 4 * ML - MAIN LAB ([facility]) . END OF REPORT * ML=Testing performed at Main Lab DEPARTMENT OF PATHOLOGY, [address] [place] [address] Suraj Velasquez M.D. Director [facility] # [id number] 64 DIFF DONE ON CONCENTRATED SMEAR 65 No evidence of an acute inflammatory response. No evidence of malignancy. Reviewed by Gema Moraes MD 66 Because ethnic data is not always readily [...] 15-29 5 Kidney failure <15 (or dialysis) 67 Unable to report test result due to hemolysis. 68 Unable to report test result due to hemolysis. 69 RUN DATE: 06/17/14 [facility] LAB LIVE PAGE 1 RUN TIME: [address] [place] [address] Specimen Inquiry Name: LAIMELVIESVIN C : [address]: Kit Goldman MD Acct: [id number] Unit: [id number] AGE: 19 Location: [facility] Re06/14/14 SEX: F Status: DEP ER SPEC: [id number] ROSARIO: 06/14/14-[address] [facility] [address]: Mayra Goldman NP REQ: [id number] RECD: 06/15/14123 STATUS: QASIM LOW DR: [facility] Luigi Bennett MD _ SOURCE: URINE [facility]: ORDERED: Urine Culture Procedure Result Verified Site Urine Culture Final 06/17/14- 907 ML Organism 1 NORMAL ABDIRASHID [place] Count 1-10,000 (Few) CFU/ML * ML - MAIN LAB ([facility]) . END OF REPORT * ML=Testing performed at Main Lab DEPARTMENT OF PATHOLOGY, [address] [place] [address] Suraj Velasquez M.D. Director [facility] # [id number] 70 RUN DATE: 04/05/14 [facility] LAB LIVE PAGE 1 RUN TIME: [address] [place] [address] Specimen Inquiry Name: ESVIN CHESTER : [address]: Trey Lew MD Acct: [id number] Unit: [id number] AGE: 19 Location: [facility] Re04/03/14 SEX: F Status: DEP ER SPEC: [id number] ROSARIO: 04/03/14-[address] [facility] [address]: Trey Lew MD REQ: [id number] RECD: 04/03/14-152 STATUS: QASIM LOW DR: Luigi Bennett MD _ SOURCE: THROAT SPDESC: ORDERED: Throat Beta Str Procedure Result Verified Site Throat Beta Strep Culture Final 04/05/14- 0822 ML Negative For Group A Beta Streptococcus END OF REPORT * ML=Testing performed at Main Lab DEPARTMENT OF PATHOLOGY, [facility] [employer] [place], [place] [address] Suraj Velasquez M.D. Director [facility] # [id number] 71 RUN DATE: 04/24/13 [facility] LAB LIVE PAGE 1 RUN TIME: 818 [facility] [employer] [place], [place] [address] Specimen Inquiry Name: ESVIN CHESTER : [address]: Kit Pires MD Acct: [id number] Unit: [id number] AGE: 18 Location: [facility] Re04/22/13 SEX: F Status: DEP ER SPEC: [id number] ROSARIO: 04/22/13-[address]: Kit Pires MD REQ: [id number] RECD: 04/22/13 STATUS: QASIM LOW DR: Luigi Bennett MD _ SOURCE: THROAT SPDESC: ORDERED: Throat Beta Str QUERIES: [employer] Number [id number] Procedure Result Verified Site Throat Beta Strep Culture Final 04/24/13- 08 ML Negative For Group A Beta Streptococcus END OF REPORT * ML=Testing performed at Main Lab DEPARTMENT OF PATHOLOGY, [facility] [employer] [place], [place] [address] Suraj Velasquez M.D. Director [facility] Permit #[id number] 72 RUN DATE: 10/24/12 [facility] LAB LIVE PAGE 1 RUN TIME: 0898 [facility] [employer] [place], [place] [address] Specimen Inquiry Name: ESVIN CHESTER : [address]: Kit Goldman MD Acct: [id number] Unit: [id number] AGE: 17 Location: [facility] Re10/21/12 SEX: F Status: DEP ER SPEC: [id number] ROSARIO: 10/21/[address] [facility] [address]: Mayra Goldman MEDIA MANAGER REQ: [id number] RECD: 10/22/12 STATUS: QASIM LOW DR: Kit Bennett MD _ SOURCE: THROAT SPDESC: ORDERED: Throat Beta Str Procedure Result Verified Site Throat Beta Strep Culture Final 10/24/12- 0836 ML Organism 1 Negative Group A Strep END OF REPORT * ML=Testing performed at Main Lab DEPARTMENT OF PATHOLOGY, [address] [place] [address] Suraj Velasquez M.D. Director [facility] Permit #[id number] Procedures Date CPT Code Description Status 07/10/2015 52931 Acne Surgery Completed 07/02/2015 42136 Gauntlet Cast Application Completed 06/23/2015 63395 Repair Collateral Ligament MCP JT W/Local Tissue Completed 06/23/2015 16237 Repair Collateral Ligament MCP JT W/Local Tissue Completed Encounters Type Date Location Provider CPT E/M Dx Office Visit 11/30/2017 [facility] Internal Angeles Stevens, 67102 S60.031A 11:50a Medicine Neeta Osborne M.D. F17.210 Office Visit 09/13/2017 3:30p [facility] Internal Medicine Fartun Irma, [address] R10.84 - [address] RPA-C R21 Office Visit 08/07/2017 11:00a [facility] Internal Medicine Doris Briceño, N.P. 69357 M54.2 - [place] F17.210 Office Visit 05/02/2017 1:40p [facility] Internal Medicine Shyanne Call 90597 N77.1 - [place] Atkins R21 Office Visit 04/19/2017 4:00p [facility] [place] [address] L70.0 Office Visit 03/31/2017 11:40a [facility] Internal Medicine Doris Briceño [address]841 R10.84 - [place] Office Visit 01/18/2017 9:10a [facility] Internal Medicine Angeles Stevens [address] J45.901 - [place] Atkins F17.210 Office Visit 12/06/2016 1:00p [facility] Internal Medicine Doris Briceño, N.P. 01153 M54.5 - [place] Office Visit 11/04/2016 3:00p [facility] Internal Medicine Doris Briceño, N.P. 08814 Z01.419 - [place] M46.1 Office Visit 10/18/2016 11:00a [facility] Internal Medicine Shyanne Jakub, 98929 M54.9 - [place] Atkins R35.0 R10.2 Office Visit 08/12/2016 3:30p [facility] Sudheer Chaudhry, 42187 R22.0 Of [facility] Office Visit 06/29/2016 10:45a [facility] Karen Bennett, 11383 M79.645 Of [place] Atkins Office Visit 06/22/2016 4:20p [facility] [place] [address] M79.645 Medicine - [place] Office Visit 02/03/2016 2:30p [facility] Sudheer Chaudhry, 89095 R22.0 Of [facility] Office Visit 01/28/2016 9:00a [facility] [place] [address] R22.9 Medicine - [place] Office Visit 11/05/2015 10:20a [facility] [place] [address] J45.20 Medicine - [place] J20.9 Office Visit 11/02/2015 10:40a [facility] Fide Avila, 66906 S53.32xD Of [place] CUEVA Office Visit 10/20/2015 2:40p [facility] Internal Medicine Doris Briceño, 48562 M54.5 - [place] N.P. M54.6 Office Visit 10/02/2015 10:40a [facility] [place] [address] M54.5 Medicine - [place] Office Visit 09/24/2015 10:40a [facility] [place] [address] M54.5 Medicine - [place] Office Visit 08/12/2015 4:20p [facility] [place] [address] M79.642 Medicine - [place] Office Visit 07/09/2015 10:00a [facility] Internal Doris Briceño, N.P. 09013 M79.642 Medicine - [place] Office Visit 07/07/2015 3:55p [facility] Internal Doris Briceño N.P. 09197 M79.642 Medicine - [place] Office Visit 07/06/2015 1:40p [facility] Internal Doris Briceño, N.P. 33368 L72.3 Medicine - [place] Office Visit 06/22/2015 11:00a [facility] Karen Bennett 96253 S53.32xA Of [place] Atkins Office Visit 06/18/2015 11:00[place] [address] S62.512S Of [place] S53.32xA S62.512A Office Visit 06/18/2015 10:00a [facility] Internal Medicine Doris Briceño, N.P. 93873 M79.642 - [place] Office Visit 06/11/2015 4:00p [facility] [place] [address] R30.0 - [place] N91.1 N39.0 Office Visit 05/15/2015 2:20p [facility] [place] [address] K02.7 - [place] Office Visit 04/08/2015 11:40a [facility] Internal Medicine Doris Briceño, N.P. 94601 F17.210 - [place] J06.9 K02.7 Office Visit 03/30/2015 2:40p [facility] Internal Medicine Doris Briceño N.P. 88682 G44.201 - [place] Office Visit 02/17/2015 11:20a [facility] Internal Medicine Doris Briceño, N.P. 40502 D13.4 - [place] R10.31 J06.9 R93.2 Office Visit 02/11/2015 11:40a [facility] [place] [address] R30.0 [place] R10.30 N39.0 Office Visit 01/05/2015 4:00p [facility] [place] [address] J06.9 [place] K08.8 B37.3 Office Visit 12/24/2014 8:40a [facility] Internal Medicine Doris Briceño N.P. 83610 R10.11 - [place] Office Visit 12/16/2014 1:20p [facility] Internal Medicine Doris Briceño N.P. 14973 R10.31 - [place] N77.1 J06.9 F17.210 Office Visit 10/21/2014 1:40p [facility] Internal Medicine Doris Briceño N.P. 75711 787.91 - [place] 787.01 Office Visit 09/11/2014 2:00p [facility] [place] [address] 784.0 [place] 789.03 706.1 788.41 Office Visit 08/15/2014 3:20p [facility] Internal [place] [address] 784.0 [place] 847.0 Plan of Care 12/25/2017 - Doris Briceño, N.P.J45.21 Mild intermittent asthma with (acute) exacerbationNew Medication:Prednisone 10 mgAzithromycin 250 mgBenzonatate 200 mgComments:For your bronchitis:I sent in a prescription for Prednisone 10 mg. Take 4 tablets for 4 days, 3 tablets for 4 days, 2 tablets for 4 days, then 1 tablet for 4 days.I sent a prescription in for Azithromycin, be sure to take all of this.If you do not gradually improve, please contact the office.
[2018-01-19 10:36] LABS: ABS Basophils 0 10^3/ul (0-0.2); ABS Eosinophils 0.2 10^3/ul (0-0.6); ABS Monocytes 0.7 10^3/ul (0-0.8); ABS Neutrophils 8.3 10^3/ul (1.5-7.7); ABS Nucleated RBC 0 10^3/ul; Eosinophil % 2.2 %; Hematocrit 44 % (35-47); Lymphocyte % 17.5 %; Mean Corpuscular HGB Conc 34 g/dl (31-36); Mean Corpuscular Hemoglobin 32 pg (27-31); Mean Corpuscular Volume 95 fL (80-97); Mean Platelet Volume 8.7 fL (7.4-10.4); Nucleated Red Blood Cells % 0.1; Platelet Count 264 10^3/ul (150-450); Red Blood Count 4.69 10^6/ul (4.00-5.40); Red Cell Distribution Width 14 % (10.5-15); White Blood Count 11.3 10^3/ul (3.5-10.8)
[2018-01-19 10:42] LABS: EGFR Non-African American 104.5 (>60)
--- NOTE | 2018-01-19 11:49 | ED ---
HPI Chest Pain - HPI Summary HPI Summary: Patient is a 22 y/o F w/ c/o bilateral chest pain onsetting this morning upon waking up. Provider in room at 1135, patient's boyfriend and mother are present in the room. PMHx of asthma is noted, states that present Sx do not feel like an asthma attack, states she has never had a similar previous episode. Pain is described as "someone is sitting on me" and states that her chest feels like it was "about to explode". She states that initial onset of pain was 9/10, currently 8/10. Patient states she took naproxen 500 mg this morning. She reports intermittent wheezing this morning, states she took inhaler and nebulizer. PMHx of bronchitis diagnosed thirty days ago, patient states that she was placed on z-pack and prednisone for ten days by Doris Briceño. Patient denies fever in the room, oral temp measured at this time was 98.1 F. She notes that she has not received her flu shot. Rhinorrhea is reported. Bloodwork, EKG, and CXR had been gathered prior to provider arriving in room, no concerning results were found. Patient also reports that she had some bloodwork done two days ago for acne medication, patient was placed on spironolactone by Dr. Hernandez. She reports that she had an "abnormal value" but cannot recall which one. Upon reviewed of medical records in the room, patient was noted to have creatinine 1.57 01/17/18 and today 0.69. PMHx of GERD is denied, patient notes she smokes cigarettes, drink alcohol once every two weeks, denies substances usage. FMHx of [place] in grandmother. PSHx of wisdom teeth removal, tonsillectomy, and LT THUMB LIGAMENT REPAIR 06/23/15. On triage, nothing is noted to aggravate/ alleviate Sx. Home medications and allergies are reviewed. Allergies Allergy/AdvReac Type Severity Reaction Status Date / Time No Known Allergies Allergy Verified 01/19/18 09:43 - History of Current Complaint Chief Complaint: EDChestPainROMI Time Seen by Provider: 01/19/18 11:32 Hx Obtained From: Patient Onset/Duration: Started Hours Ago - this morning, Still Present Timing: Constant, Lasting Hours Initial Severity: Severe - 9/10 Current Severity: Severe - 8/10 Pain Intensity: 8 Pain Scale Used: 0-10 Numeric - 8/10 Chest Pain Location: Diffuse Chest Pain Radiates: No Character: Other: - Pain is described as "someone is sitting on me" and states that her chest feels like it was "about to explode". Aggravating Factor(s): Nothing Alleviating Factor(s): Nothing Associated Signs and Symptoms: Positive: Chest Pain, Wheezing, Other: - POSITIVE - RHINORRHEA. Negative: Fever - Allergy/Home Medications Allergies/Adverse Reactions: Allergies Allergy/AdvReac Type Severity Reaction Status Date / Time No Known Allergies Allergy Verified 01/19/18 09:43 PMH/Surg Hx/FS Hx/Imm Hx Previously Healthy: No Endocrine/Hematology History: Denies: Hx Diabetes, Hx Thyroid Disease Cardiovascular History: Denies: Hx Congestive Heart Failure, Hx Hypertension, Hx Pacemaker/ICD Respiratory History: Reports: Hx Asthma - ACUTE ASTHMA SINCE AGE 12, Other Respiratory Problems/Disorders - TONSILLITIS Denies: Hx Chronic Obstructive Pulmonary Disease (COPD) GI History: Denies: Hx Gastroesophageal Reflux Disease, Hx Ulcer History: Reports: Other Problems/Disorders - ovarian cysts Denies: Hx Dialysis, Hx Renal Disease Musculoskeletal History: Reports: Hx Back Problems - Chronic low back pain with luis hip pain Sensory History: Denies: Hx Contacts or Glasses, Hx Hearing Aid Opthamlomology History: Denies: Hx Contacts or Glasses Neurological History: Reports: Hx Migraine - HX OF 2 MONTHS AGO, Other Neuro Impairments/Disorders - dizziness Psychiatric History: Reports: Hx Anxiety, Hx Depression Denies: Hx Panic Disorder - Surgical History Surgery Procedure, Year, and Place: wisdom teeth extraction, tonsillectomy, LT THUMB LIGAMENT REPAIR 06/23/15 Hx Anesthesia Reactions: No - Immunization History Date of Tetanus Vaccine: unk Date of Influenza Vaccine: none Infectious Disease History: No Infectious Disease History: Denies: Hx Clostridium Difficile, Hx Hepatitis, Hx Human Immunodeficiency Virus (HIV), Hx of Known/Suspected MRSA, Hx Shingles, Hx Tuberculosis, History Other Infectious Disease, Traveled Outside the [place] in Last 30 Days - Family History Known Family History: Positive: Cardiac Disease - [place] in grandmother , Hypertension - Social History Alcohol Use: Rare Alcohol Amount: 1 DRINK 2 WEEKS Substance Use Type: Reports: None Smoking Status (MU): Light Every Day Tobacco Smoker Type: Cigarettes Amount Used/How Often: 10 PER DAY Length of Time of Smoking/Using Tobacco: 8 YRS Have You Smoked in the Last Year: Yes Review of Systems Negative: Fever Positive: Nasal Discharge - RHINORRHEA Positive: Chest Pain Positive: Other - POSITIVE - WHEEZING Gastrointestinal: Negative Positive: no symptoms reported Musculoskeletal: Negative Skin: Negative Neurological: Negative Psychological: Normal All Other Systems Reviewed And Are Negative: Yes Physical Exam - Summary Physical Exam Summary: Appearance: Well-appearing, mild pain distress, well-nourished Skin: Warm, color reflects adequate perfusion, dry Head: Normal Head/Face inspection, atraumatic Eyes: Conjunctiva clear ENT: Normal inspection Neck: Supple, no nodes, no JVD Respiratory: Lungs clear, normal breath sounds, no respiratory distress Cardio: RRR, No murmur, pulses normal, brisk capillary refill; reproducible chest pain Abdomen: Soft, nontender Bowel sounds: Present Musculoskeletal: Strength Intact/ROM intact, no calf tenderness, no edema. Psychological: Normal Neuro: Alert, muscle tone normal, no focal deficit Triage Information Reviewed: Yes Vital Signs On Initial Exam: Initial Vitals Temp Pulse Resp BP Pulse Ox 98.1 F 62 16 158/69 98 01/19/18 09:40 01/19/18 09:40 01/19/18 09:40 01/19/18 09:40 01/19/18 09:40 Vital Signs Reviewed: Yes Diagnostics - Vital Signs Vital Signs Temp Pulse Resp BP Pulse Ox 01/19/18 09:40 98.1 F 62 16 158/69 98 - Laboratory Lab Results: Lab Results 01/19/18 01/19/18 01/19/18 Range/Units 10:14 10:14 10:14 WBC 11.3 H (3.5-10.8) 10^3/ul RBC 4.69 (4.00-5.40) 10^6/ul Hgb 15.0 (12.0-16.0) g/dl Hct 44 (35-47) % MCV 95 (80-97) fL MCH 32 H (27-31) pg MCHC 34 (31-36) g/dl RDW 14 (10.5-15) % Plt Count 264 (150-450) 10^3/ul MPV 8.7 (7.4-10.4) fL Neut % (Auto) 73.8 % Lymph % (Auto) 17.5 % Dickinson % (Auto) 6.1 % Eos % (Auto) 2.2 % Baso % (Auto) 0.4 % Absolute Neuts (auto) 8.3 H (1.5-7.7) 10^3/ul Absolute Lymphs (auto) 2.0 (1.0-4.8) 10^3/ul Absolute Monos (auto) 0.7 (0-0.8) 10^3/ul Absolute Eos (auto) 0.2 (0-0.6) 10^3/ul Absolute Basos (auto) 0 (0-0.2) 10^3/ul Absolute Nucleated RBC 0 10^3/ul Nucleated RBC % 0.1 Sodium 135 (135-145) mmol/L Potassium 4.3 (3.5-5.0) mmol/L Chloride 108 (101-111) mmol/L Carbon Dioxide 21 L (22-32) mmol/L Anion Gap 6 (2-11) mmol/L BUN 11 (6-24) mg/dL Creatinine 0.69 (0.51-0.95) mg/dL Est GFR ( Amer) 126.5 (>60) Est GFR (Non-Af Amer) 104.5 (>60) BUN/Creatinine Ratio 15.9 (8-20) Glucose 109 H (70-100) mg/dL Lactic Acid 1.1 (0.5-2.0) mmol/L Calcium 9.5 (8.6-10.3) mg/dL Total Bilirubin 0.30 (0.2-1.0) mg/dL AST 16 (13-39) U/L ALT 20 (7-52) U/L Alkaline Phosphatase 60 (34-104) U/L Troponin I 0.00 (<0.04) ng/mL Total Protein 6.9 (6.4-8.9) g/dL Albumin 4.4 (3.2-5.2) g/dL Globulin 2.5 (2-4) g/dL Albumin/Globulin Ratio 1.8 (1-3) Result Diagrams: 01/19/18 10:14 01/19/18 10:14 Lab Statement: Any lab studies that have been ordered have been reviewed, and results considered in the medical decision making process. - Radiology CXR Radiology Interpretation Completed By: Radiologist Summary of Radiographic Findings: CXR IMPRESSION: NO ACTIVE CARDIOPULMONARY DISEASE. THIS REPORT WAS REVIEWED BY ED PHYSICIAN. - EKG 0946 Cardiac Rate: NL - RATE OF 61 BPM EKG Rhythm: Sinus Rhythm ST Segment: Non-Specific Ectopy: None EKG Comparison: No Significant Change - compared to 01/16/16 EKG Summary of EKG Findings: EKG showed normal sinus rhythm with rate of 61 bpm, nml AV/IV CT, nml QTc, and nml axis. No significant change compared to EKG from 01/16/16 EKG. Re-Evaluation - Re-Evaluation First Eval Re-Evaluation Time: 15:36 Change: Improved Comment: Pt called at her home phone and informed of negative influenza results. States that she did a nebulizer treatment and feels better. Advised no further treatment necessary. Chest Pain Course/Dx - Course Course Of Treatment: Patient is a 22 y/o F w/ c/o bilateral chest pain onsetting this morning upon waking up. PMHx of asthma is noted, states that present Sx do not feel like an asthma attack, states she has never had a similar previous episode. Pain is described as "someone is sitting on me" and states that her chest feels like it was "about to explode". She states that initial onset of pain was 9/10, currently 8/10. Patient states she took naproxen 500 mg this morning. She reports intermittent wheezing this morning, states she took inhaler and nebulizer. PMHx of bronchitis diagnosed thirty days ago, patient states that she was placed on z-pack and prednisone for ten days by Doris Briceño. Patient denies fever in the room, oral temp measured at this time was 98.1 F. She notes that she has not received her flu shot. Rhinorrhea is reported. Bloodwork, EKG, and CXR had been gathered prior to provider arriving in room, no concerning results were found. Patient also reports that she had some bloodwork done two days ago for acne medication, patient was placed on spironolactone by Dr. Hernandez. Upon reviewed of medical records in the room, patient was noted to have creatinine 1.57 01/17/18 and today 0.69. PMHx of GERD is denied, patient notes she smokes cigarettes, drink alcohol once every two weeks, denies substances usage. FMHx of [place] in grandmother. PSHx of wisdom teeth removal, tonsillectomy, and LT THUMB LIGAMENT REPAIR 06/23/15. On physical exam, mild pain distress is noted, patient has reproducible chest pain. Labs showed WBC 11.3, MCH 32, absolute neuts 8.3, carbon dioxide 21, glucose 109, lactic acid 1.1, trop 0. EKG showed normal sinus rhythm with rate of 61 bpm, nml AV/IV CT, nml QTc, and nml axis. No significant change compared to EKG from EKG. CXR IMPRESSION: NO ACTIVE CARDIOPULMONARY DISEASE. Patient was discharged to home, told that influenza results would be called into her. She is agreeable with this plan. Influenza A, B was negative. Results of negative influenza results were communicated to patient via home phone. Patient reports that she feels better after nebulizer treatment. Patient advised that no further treatment was necessary. - Chest Pain Differential Diagnosis/HQI/PQRI: Acute [place], ACS, Angina, CHF, Chest Wall, GI Disease, Lower Respiratory Infection, Pulmonary Embolism - Diagnoses Provider Diagnoses: Chest pain Discharge - Sign-Out/Discharge Documenting (check all that apply): Patient Departure - discharge - Discharge Plan Condition: Stable Disposition: HOME Patient Education Materials: Chest Pain (ED) Forms: *Work Release Referrals: Doris Briceño NP [Primary Care Provider] - 2 Days Additional Instructions: We did not find a serious cause for your chest discomfort today. You may continue your naproxen for pain. You should also continue your inhalers and nebulizer for your asthma. Your creatinine was 0.69 today and that is now normal. (kidney number that was abnormal with your previous labs). Return to the ER if you have any new or worsening symptoms. - Billing Disposition and Condition Condition: STABLE Disposition: Home - Attestation Statements Document Initiated by Jessicaibe: Yes Documenting Scribe: PASTOR MARROQUIN Provider For Whom Nova is Documenting (Include Credential): CHARO ARIAS MD Scribe Attestation: PASTOR Ordoñez , scribed for CHARO ARIAS MD on 01/24/18 at 0027. Scribe Documentation Reviewed: Yes Provider Attestation: The documentation as recorded by the PASTOR lomeli accurately reflects the service I personally performed and the decisions made by me, CHARO ARIAS MD Status of Scribe Document: Viewed
[2018-01-19 12:08] VITALS: BP 148/88
== END 2018-01-19 12:07 | disposition home or self-care (01) ==
LOC: ED 09:38
DX: R07.9 Chest pain, unspecified (principal); F17.210 Nicotine dependence, cigarettes, uncomplicated
CPT/HCPCS: 36415; 71045; 80053; 83605; 84484; 85025; 93005; 99282

== ENCOUNTER 2018-02-21 15:04 | Emergency (ER) | payer OTHER ==
[2018-02-21 15:35] VITALS: BP 116/62
[2018-02-21] MEDS ORDERED: HYDROcodone/ACETAMIN 5-325 MG* 1 TAB PO ONE (16:23)
--- NOTE | 2018-02-21 16:23 | UC ---
Hand/Wrist HPI - HPI Summary HPI Summary: 23-year-old woman comes to clinic today with a chief complaint of right thumb pain. She reports earlier today she tripped and fell and landed on her right hand that she's not exactly sure mechanism of the injury to the thumb. The pain is the worst at the thenar eminence. She has pain at the PIP and DIP but the majority of the pain is in between the 2. No complaint of any wrist pain. There is swelling and it hurts quite a bit to try to move the thumb. No complaint of any numbness. No complaint of any other pain. Pain is worse with palpation and attempted to remove. She tried ibuprofen 800 mg and it did not help. - History Of Current Complaint Chief Complaint: UCUpperExtremity Stated Complaint: THUMB INJURY Time Seen by Provider: 02/21/18 16:11 Hx Last Menstrual Period: Pain Intensity: 9 - Allergies/Home Medications Allergies/Adverse Reactions: Allergies Allergy/AdvReac Type Severity Reaction Status Date / Time No Known Allergies Allergy Verified 02/21/18 15:36 PMH/Surg Hx/FS Hx/Imm Hx Previously Healthy: Yes Respiratory History: Asthma - Surgical History Surgical History: Yes Surgery Procedure, Year, and Place: wisdom teeth extraction, tonsillectomy, LT THUMB LIGAMENT REPAIR 06/23/15 - Family History Known Family History: Positive: Cardiac Disease - [place] in grandmother , Hypertension - Social History Alcohol Use: Occasionally Alcohol Amount: 1 DRINK 2 WEEKS Substance Use Type: None Smoking Status (MU): Light Every Day Tobacco Smoker Type: Cigarettes Amount Used/How Often: 10 PER DAY Length of Time of Smoking/Using Tobacco: 8 YRS Have You Smoked in the Last Year: Yes Household Exposure Type: Cigarettes Review of Systems All Other Systems Reviewed And Are Negative: Yes Constitutional: Positive: Negative Skin: Positive: Negative Eyes: Positive: Negative ENT: Positive: Negative Respiratory: Positive: Negative Cardiovascular: Positive: Negative Gastrointestinal: Positive: Negative Motor: Positive: Decreased ROM - see hpi Neurovascular: Positive: Negative Musculoskeletal: Positive: Other: - see hpi Neurological: Positive: Negative Psychological: Positive: Negative Is Patient Immunocompromised?: No Physical Exam Triage Information Reviewed: Yes Appearance: Well-Appearing, Well-Nourished, Pain Distress - mild with any attempt at rom of rt thumb Vital Signs: Initial Vital Signs Temp 98.0 F 02/21/18 15:30 Pulse 92 02/21/18 15:30 Resp 16 02/21/18 15:30 BP 116/62 02/21/18 15:30 Pulse Ox 100 02/21/18 15:30 Vital Signs Reviewed: Yes Eye Exam: Normal Eyes: Positive: Conjunctiva Clear Neck exam: Normal Neck: Positive: Supple Respiratory: Positive: No respiratory distress Musculoskeletal: Positive: Other: - Right thumb is tender to palpation and is swollen on the thenar eminence. Normal capillary refill no sensation deficit no skin break. Decreased range of motion because of pain. No snuff box tenderness. The wrist is nontender and has full range of motion. The other fingers all have full range of motion and are nontender. Neurological Exam: Normal Neurological: Positive: Alert, Muscle Tone Normal Psychological Exam: Normal Psychological: Positive: Age Appropriate Behavior Skin Exam: Normal Hand/Wrist Course/Dx - Course Course Of Treatment: Thumb spica splint was placed by nursing and the patient was neurovascularly intact after the placement of the thumb spica splint. The plan is ice and rest and anti-inflammatories. If not improved patient will follow-up with orthopedics. - Differential Dx/Diagnosis Provider Diagnosis: Sprain of right thumb Discharge - Sign-Out/Discharge Documenting (check all that apply): Patient Departure All imaging exams completed and their final reports reviewed: Yes - Discharge Plan Condition: Stable Disposition: HOME Prescriptions: HYDROcodone/ACETAMIN 5-325 MG* [[place] 5-325 TAB*] 1 tab PO Q4H PRN #20 tab MDD 6 PRN Reason: Pain Patient Education Materials: Finger Sprain (ED), Hand Sprain (ED) Forms: *Work Release Referrals: Doris Briceño NP [Primary Care Provider] - Chio Hood MD [Medical Doctor] - Additional Instructions: FOLLOW UP WITH ORTHOPEDICS IF NOT COMPLETELY IMPROVED. GET RECHECKED FOR ANY WORSENING OF YOUR CONDITION OR QUESTIONS OR CONCERNS. - Billing Disposition and Condition Condition: STABLE Disposition: Home
== END 2018-02-21 16:32 | disposition home or self-care (01) ==
LOC: UCEAST 15:04
DX: S63.601A Unspecified sprain of right thumb, initial encounter (principal); W01.0XXA Fall on same level from slipping, tripping and stumbling without subsequent striking against object, initial encounter; Y92.9 Unspecified place or not applicable; F17.210 Nicotine dependence, cigarettes, uncomplicated
CPT/HCPCS: 99213; G0463

== ENCOUNTER 2018-04-01 13:55 | Emergency (ER) | payer OTHER ==
--- OUTSIDE RECORDS SUMMARY | 2018-04-01 13:59 | XMS REPORT | Continuity of Care Document ---
:1995 External Reference #:[id number] Author Name Cheri Morales Care Team Providers Name Role Phone Shyanne Call MD Primary Care Physician Unavailable Payers Type Date Identification Numbers Payment Provider Subscriber Effective: 2015 Policy Number: [id number] Zack Chester Group Number: [id number] [address] PayID: [id number] [place] [address] Effective: 2015 Policy Number: [id number] Medicaid Esvin Chester Expires: 2015 Group Name: 1 1 [address] PayID: [id number] [place] [address] Effective: 2014 Policy Number: [id number] Zack Chester Expires: 2015 Group Number: [id number] [address] PayID: [id number] [place] [address] Advance Directives Description No Information Available Problems Date Description Provider Status Onset: 10/21/2014 Asthma Nikita Roach.Neto. 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 hours as needed for pain Naproxen DR 03/[address] 500mg 60tab One po q s 12hours Varn, N.P. prn pain Chantix Starting 11/30 Active Tablets 0.5mg X [...] 30tab 1 by mouth s twice a [place], day x 5 days Ventolin HFA 08/15 Active Aerosol 108(90Bas 8.5gm 2 puffs by e) mouth four Varn, N.P. mcg/Act times a day as needed Prednisone 12/25 Hx Tablets 10mg 40tab 4 [...] s mouth Varn, N.P. - three 01/08 times daily as needed for cough Tizanidine HCL 08/07 Hx Tablets 4mg 30tab [...] Hx Tablets 150mg 2tabs one by Doris mouth, june Varn, N.P. - repeat in 06/05 3 days Tizanidine HCL 11/24 Hx Tablets 4mg 60tab 1 tablet G44.201 Doris s every 4 Varn, N.P. hours as needed for muscle tension headache. Fluconazole 11/18 Hx Tablets 150mg 2tabs one by Doris mouth june Varn, N.P. - repeat in 01/27 3 days as needed Azithromycin 11/04 Hx Tablets 250mg 6tabs 2 tabs by Romelia George mouth MAICOL Wallace - every day 11/09 x1 day, tab by mouth every day x 4 days Benzonatate 11/04 Hx Capsules 200mg 30cap one by Romelia Vazquez /2015 s mouth MAICOL Wallace - three 01/27 times daily as needed for cough Acetaminophen-Cod 10/19 Hx Tablets 300-30mg 30tab one by M54.5 Doris ramey #3 s mouth Varn, N.P. - every 6 /08 hours as needed cough Meloxicam 10/01 Hx Tablets 15mg 30tab once daily M54.5 George /2015 s with food MAICOL Wallace Tramadol HCL 10/01 Hx Tablets 50mg 42tab 1-2 M54.5 s tablets [place], [employer] - every 8 /19 hours needed for pain. Fluconazole 09/26 Hx Tablets 150mg 2tabs one by mouth june Varn, N.P. - repeat in 10/19 3 days needed Hydrocodone-Aceta 09/23 Hx Tablets 5-325mg 30tab 1-2 by George min s mouth [place], [employer] - every 8 08/12 hours prn. Methylprednisolon 09/23 Hx TBPK 4mg 21uni as M54.5 George ts directed MAICOL Wallace - on package 09/29 Methylprednisolon 08/11 Hx TBPK 4mg 21uni as M79.642 George ts directed [place], MAICOL - on package 08/19 Oxycodone-Acetami 07/08 Hx [...] 1-2 tabs Karen minophen s by mouth Donald, - every 4- 6 M.D. 07/08 hours [...] tablet N39.0 George HCL s by mouth [place] [employer] - three 06/13 times day as needed for [address]. [address] 05/[address] 500mg 60tab by mouth K02.7 George s twice a [place] [employer] - day with 05/10 food Lidocaine Viscous 05/14 Hx Solution 2% 100un gargle K02.7 its with 15ml [place] [employer] - every 4 06/10 hours needed for [...] 20tab take one R30.0 George s tablet MAICOL Wallace - twice a 02/22 day for days Phenazopyridine 02/11 Hx Tablets 100mg 10tab 1 tablet R30.0 George s by mouth MAICLO Wallace - three 02/14 times day as needed for 3 days. Fluconazole 02/11 Hx Tablets 150mg 2tabs one by R30.0 George mouth june MAICOL Wallace - repeat [...] 50mg 9tabs take one 784.0 George Succinate /2014 tablet at MAICOL Wallace - onset of 08/18 headache. if no relief you can take a second tab 2 hours later. No more than 4 times a month Diazepam 00/00 Hx Tablets 2mg 1 tablet George /0000 by mouth MAICOL Wallace - bid 09/11 Zoloft 00 Hx Tablets 100mg 1 by mouth Unknown [...] Unknown /0000 every - night at 01/27 bed Flexeril 00/00 Hx Tablets 5mg 1 tab by Unknown /0000 mouth - twice a 10/19 day needed spasm Nitrofurantoin 00 Hx Capsules 100mg take 1 Unknown Monohyd Macro /0000 capsule by - mouth 01/27 twice a day Rexulti 00/00 Hx Tablets 2mg 1 by mouth Unknown /0000 every day - 06/22 Trileptal 00/00 Hx Tablets 150mg Not Unknown /0000 taking---1 - tablet at 05/01 night for a week then 1 twice a day Doxycycline 00/00 Hx Capsules 50mg to start Unknown Hyclate /0000 soon - 08/07 Immunizations Description No Information Available Vital Signs Date Vital Result Comment 03/14/2018 9:40am Height 65 inches 5'5" Weight 152.00 lb Heart Rate 80 /min BP Systolic 118 mmHg BP Diastolic 72 mmHg BMI (Body Mass Index) 25.3 kg/m2 03/08/2018 10:43am Height 65 inches 5'5" Weight 155.00 lb Heart Rate 105 /min BP Systolic 127 mmHg BP Diastolic 78 mmHg Body Temperature 97.2 F O2 % BldC Oximetry 97 % BMI (Body Mass Index) 25.8 kg/m2 02/26/2018 10:17am Height 65 inches 5'5" Weight 155.00 lb Heart Rate 68 /min BP Systolic 118 mmHg BP Diastolic 64 mmHg Body Temperature 97.8 F Pain Level 8 BMI (Body Mass Index) 25.8 kg/m2 02/21/2018 2:52pm Height 65 inches 5'5" Weight 157.00 lb Heart Rate 90 /min BP Systolic Sitting 132 mmHg BP Diastolic Sitting 74 mmHg O2 % BldC Oximetry 97 % BMI (Body Mass Index) 26.1 kg/m2 12/25/2017 12:00pm Height 65 inches 5'5" Weight 160.00 lb Heart Rate 72 /min BP Systolic 107 mmHg BP Diastolic 71 mmHg Body Temperature 97.3 F O2 % BldC Oximetry 100 % BMI (Body Mass Index) 26.6 kg/m2 11/30/2017 11:58am Height 65 inches 5'5" Weight 161.00 lb Heart Rate 87 /min BP Systolic Sitting 118 mmHg BP Diastolic Sitting 60 mmHg Pain Level 5 O2 % BldC Oximetry 98 % BMI (Body Mass Index) 26.8 kg/m2 09/13/2017 3:34pm Height 65 inches 5'5" Weight 149.00 lb Heart Rate 68 /min BP Systolic 130 mmHg BP Diastolic 64 mmHg Body Temperature 96.0 F O2 % BldC Oximetry 97 % BMI (Body Mass Index) 24.8 kg/m2 08/07/2017 11:12am Weight 154.00 lb Heart Rate 77 /min BP Systolic 100 mmHg BP Diastolic 60 mmHg Body Temperature 97.9 F O2 % BldC Oximetry 98 % 05/02/2017 1:57pm Weight 140.00 lb Heart Rate 87 /min BP Systolic Sitting 108 mmHg BP Diastolic Sitting 62 mmHg Body Temperature 96.1 F O2 % BldC Oximetry 99 % 03/31/2017 11:45am Weight 141.50 lb Heart Rate 91 /min BP Systolic 127 mmHg BP Diastolic 72 mmHg Body Temperature 97.0 F O2 % BldC Oximetry 98 % 01/18/2017 9:25am Weight 150.00 lb Heart Rate 81 /min BP Systolic Sitting 130 mmHg BP Diastolic Sitting 74 mmHg Body Temperature 96.8 F O2 % BldC Oximetry 98 % 12/06/2016 1:05pm Weight 147.75 lb Heart Rate 105 /min BP Systolic 150 mmHg BP Diastolic 68 mmHg Body Temperature 97.2 F O2 % BldC Oximetry 97 % 11/04/2016 3:00pm Weight 148.00 lb Heart Rate 82 /min BP Systolic 112 mmHg BP Diastolic 60 mmHg Body Temperature 97.4 F O2 % BldC Oximetry 98 % 10/18/2016 11:07am Height 65 inches 5'5" Weight 151.00 lb Heart Rate 95 /min BP Systolic 112 mmHg BP Diastolic 60 mmHg Body Temperature 97.3 F O2 % BldC Oximetry 99 % BMI (Body Mass Index) 25.1 kg/m2 08/12/2016 3:37pm Heart Rate 78 /min BP Systolic Sitting 124 mmHg BP Diastolic Sitting 82 mmHg Respiratory Rate 18 /min Body Temperature 97.5 F 06/29/2016 10:39am Height 65 inches 5'5" Weight 152.00 lb Heart Rate 66 /min BP Systolic 109 mmHg BP Diastolic 69 mmHg Respiratory Rate 15 /min Body Temperature 97.7 F Pain Level 7 BMI (Body Mass Index) 25.3 kg/m2 06/22/2016 4:28pm Weight 157.75 lb Heart Rate 69 /min BP Systolic 118 mmHg BP Diastolic 60 mmHg Body Temperature 97.3 F O2 % BldC Oximetry 99 % 02/03/2016 2:35pm Height 65 inches 5'5" Weight 149.00 lb Heart Rate 72 /min BP Systolic 124 mmHg BP Diastolic 70 mmHg Respiratory Rate 18 /min Body Temperature 98.9 F BMI (Body Mass Index) 24.8 kg/m2 01/28/2016 8:46am Height 65 inches 5'5" Weight 149.00 lb Heart Rate 79 /min BP Systolic 100 mmHg BP Diastolic 70 mmHg Body Temperature 96.3 F O2 % BldC Oximetry 98 % BMI (Body Mass Index) 24.8 kg/m2 11/05/2015 10:33am Height 65 inches 5'5" Weight 148.50 lb Heart Rate 90 /min BP Systolic 111 mmHg BP Diastolic 75 mmHg Body Temperature 96.8 F O2 % BldC Oximetry 100 % BMI (Body Mass Index) 24.7 kg/m2 11/02/2015 11:00am Height 65 inches 5'5" Weight 150.00 lb Heart Rate 60 /min Respiratory Rate 16 /min Pain Level 6 BMI (Body Mass Index) 25.0 kg/m2 10/20/2015 2:32pm Weight 141.00 lb Heart Rate 57 /min BP Systolic Sitting 88 mmHg BP Diastolic Sitting 57 mmHg Respiratory Rate 16 /min Body Temperature 98.4 F O2 % BldC Oximetry 98 % 10/02/2015 11:00am Weight 145.75 lb Heart Rate 68 /min BP Systolic Sitting 104 mmHg BP Diastolic Sitting 69 mmHg Pain Level 8 O2 % BldC Oximetry 99 % 09/24/2015 10:41am Weight 146.50 lb Heart Rate 97 /min BP Systolic Sitting 115 mmHg BP Diastolic Sitting 69 mmHg Pain Level 8 O2 % BldC Oximetry 99 % 08/17/2015 11:28am Height 65 inches 5'5" Weight 150.00 lb Pain Level 8 BMI (Body Mass Index) 25.0 kg/m2 08/12/2015 4:36pm Weight 147.00 lb with shoes Heart Rate 80 /min BP Systolic Sitting 120 mmHg BP Diastolic Sitting 52 mmHg Body Temperature 96.5 F O2 % BldC Oximetry 99 % 07/29/2015 1:40pm Height 65 inches 5'5" Weight 150.00 lb Pain Level 2 BMI (Body Mass Index) 25.0 kg/m2 07/17/2015 1:07pm Weight 150.00 lb Heart Rate 66 /min BP Systolic Sitting 102 mmHg BP Diastolic Sitting 50 mmHg Body Temperature 96.0 F O2 % BldC Oximetry 99 % 07/10/2015 11:40am Weight 138.00 lb Heart Rate 76 /min BP Systolic Sitting 124 mmHg BP Diastolic Sitting 80 mmHg Respiratory Rate 16 /min Body Temperature 98.0 F O2 % BldC Oximetry 98 % 07/09/2015 9:46am Weight 136.00 lb Heart Rate 76 /min BP Systolic Sitting 118 mmHg BP Diastolic Sitting 70 mmHg Respiratory Rate 15 /min Body Temperature 98.7 F O2 % BldC Oximetry 98 % 07/06/2015 1:51pm Weight 140.19 lb Heart Rate 76 /min BP Systolic Sitting 114 mmHg BP Diastolic Sitting 74 mmHg Body Temperature 97.2 F O2 % BldC Oximetry 98 % 07/02/2015 1:22pm Height 65 inches 5'5" Weight 140.00 lb Heart Rate 60 /min BP Systolic Sitting 114 mmHg BP Diastolic Sitting 68 mmHg Respiratory Rate 16 /min Pain Level 10 BMI (Body Mass Index) 23.3 kg/m2 06/22/2015 11:43am Height 65 inches 5'5" Weight 140.00 lb Heart Rate 60 /min BP Systolic 111 mmHg BP Diastolic 71 mmHg Pain Level 10 BMI (Body Mass Index) 23.3 kg/m2 06/18/2015 10:08am Heart Rate 72 /min BP Systolic Sitting 119 mmHg BP Diastolic Sitting 72 mmHg Body Temperature 97.6 F Pain Level 10 O2 % BldC Oximetry 99 % 06/11/2015 4:04pm Weight 141.00 lb Heart Rate 64 /min BP Systolic Sitting 122 mmHg BP Diastolic Sitting 72 mmHg Body Temperature 98.1 F O2 % BldC Oximetry 99 % 05/15/2015 2:19pm Weight 142.00 lb Heart Rate 66 /min BP Systolic Sitting 122 mmHg BP Diastolic Sitting 80 mmHg Respiratory Rate 15 /min Body Temperature 96.0 F O2 % BldC Oximetry 98 % 04/08/2015 11:42am Weight 148.50 lb Heart Rate 87 /min BP Systolic Sitting 110 mmHg BP Diastolic Sitting 70 mmHg Respiratory Rate 18 /min Body Temperature 96.2 F Pain Level 8 O2 % BldC Oximetry 92 % 03/30/2015 2:50pm Weight 144.00 lb Heart Rate 80 /min BP Systolic Sitting 98 mmHg BP Diastolic Sitting 60 mmHg Respiratory Rate 16 /min Body Temperature 98.3 F O2 % BldC Oximetry 99 % 02/17/2015 11:29am Weight 148.00 lb Heart Rate 78 /min BP Systolic Sitting 126 mmHg BP Diastolic Sitting 62 mmHg Body Temperature 97.3 F Pain Level 9 R lower abdominal O2 % BldC Oximetry 98 % 02/11/2015 11:27am Height 65 inches 5'5" Weight 150.00 lb Heart Rate 72 /min BP Systolic Sitting 110 mmHg BP Diastolic Sitting 60 mmHg Respiratory Rate 16 /min Body Temperature 98.2 F O2 % BldC Oximetry 97 % BMI (Body Mass Index) 25.0 kg/m2 01/05/2015 3:50pm Weight 153.50 lb Heart Rate 67 /min BP Systolic Sitting 106 mmHg BP Diastolic Sitting 62 mmHg Body Temperature 96.5 F Pain Level 9 O2 % BldC Oximetry 98 % 12/24/2014 8:39am Weight 153.00 lb Heart Rate 60 /min BP Systolic Sitting 115 mmHg BP Diastolic Sitting 75 mmHg Body Temperature 97.1 F Pain Level 8 O2 % BldC Oximetry 98 % 12/16/2014 1:28pm Height 65 inches 5'5" Weight 155.00 lb Heart Rate 78 /min BP Systolic Sitting 122 mmHg BP Diastolic Sitting 76 mmHg Respiratory Rate 14 /min Body Temperature 98.7 F O2 % BldC Oximetry 98 % BMI (Body Mass Index) 25.8 kg/m2 10/21/2014 1:43pm Height 65 inches 5'5" Weight 152.50 lb Heart Rate 78 /min BP Systolic Sitting 139 mmHg BP Diastolic Sitting 92 mmHg Body Temperature 97.2 F O2 % BldC Oximetry 98 % BMI (Body Mass Index) 25.4 kg/m2 09/11/2014 1:58pm Weight 161.00 lb Heart Rate 75 /min BP Systolic Sitting 114 mmHg BP Diastolic Sitting 65 mmHg Body Temperature 96.7 F 08/15/2014 2:57pm Weight 154.00 lb Heart Rate 66 /min BP Systolic Sitting 138 mmHg BP Diastolic Sitting 83 mmHg Body Temperature 97.0 F Results Test Date Facility Test Result H/L Range Note Laboratory test 01/19/2018 [facility] Lactic Acid 1.1 mmol/L N 0.5-2.0 [address] [place] [address] [phone] CBC Auto Diff 01/19/2018 [facility] White Blood 11.3 10^3/uL High 3.5-10.[address] [place] [address] [phone] Red Blood Count 4.69 10^6/uL N 4.00-5.40 Hemoglobin 15.0 g/dL N 12.0-16.0 Hematocrit 44 % N 35-47 Mean Corpuscular Volume 95 fL N 80-97 Mean Corpuscular Hemoglobin 32 pg High 27-31 Mean Corpuscular HGB Conc 34 g/dL N 31-36 Red Cell Distribution Width 14 % N 10.5-15 Platelet Count 264 10^3/uL N 150-450 Mean Platelet Volume 8.7 fL N 7.4-10.4 Abs Neutrophils 8.3 10^3/uL High 1.5-7.7 Abs Lymphocytes 2.0 10^3/uL N 1.0-4.8 Abs Monocytes 0.7 10^3/uL N 0-0.8 Abs Eosinophils 0.2 10^3/uL N 0-0.6 Abs Basophils 0 10^3/uL N 0-0.2 Abs Nucleated RBC 0 10^3/uL Granulocyte % 73.8 % Lymphocyte % 17.5 % Monocyte % 6.1 % Eosinophil % 2.2 % Basophil % 0.4 % Nucleated Red Blood Cells % 0.1 Rapid Influenza 01/19/2018 [facility] Influenza A NEGATIVE Negative 2 A & B Molecular [address] [place] [address] [phone] Influenza B Molecular NEGATIVE Negative Laboratory test 01/19/2018 [facility] Rapid Influenza SEE RESULT [address] [place] [address] [phone] Laboratory test 01/19/2018 [facility] Troponin-I 0.00 ng/mL < 0.[address] (TnI) [place] [address] [phone] Comp Metabolic 01/19/2018 [facility] Sodium 135 mmol/L N 135- [address] [place] [address] [phone] Potassium 4.3 mmol/L N 3.5-5.0 Chloride 108 mmol/L N 101-111 Co2 Carbon Dioxide 21 mmol/L Low 22-32 Anion Gap 6 mmol/L N 2-11 Glucose 109 mg/dL High 70-100 Blood Urea Nitrogen 11 mg/dL N 6-24 Creatinine 0.69 mg/dL N 0.51-0.95 BUN/Creatinine Ratio 15.9 N 8-20 Calcium 9.5 mg/dL N 8.6-10.3 Total Protein 6.9 g/dL N 6.4-8.9 Albumin 4.4 g/dL N 3.2-5.2 Globulin 2.5 g/dL N 2-4 Albumin/Globulin Ratio 1.8 N 1-3 Total Bilirubin 0.30 mg/dL N 0.2-1.0 Alkaline Phosphatase 60 U/L N 34-104 Alt 20 U/L N 7-52 Ast 16 U/L N 13-39 Egfr Non- 104.5 >60 Egfr 126.5 >60 5 Urinalysis Profile 12/14/2017 [facility] Urine Color Straw [address] [place] [address] [phone] Urine Appearance Clear Urine Specific [place] 1.005 Low 1.010-1.030 Urine pH 6.0 N 5-9 Urine Urobilinogen Negative Negative Urine Ketones Negative Negative Urine Protein Negative Negative Urine Leukocytes Negative Negative Urine Blood Negative Negative Urine Nitrite Negative Negative Urine Bilirubin Negative Negative Urine Glucose Negative Negative Laboratory test 12/14/2017 [facility] HCG < 0.[address] mIU/[place] [address] [phone] Comp Metabolic 12/14/2017 [facility] Sodium 136 mmol/L N 135- [address] [place] [address] [phone] Potassium 4.3 mmol/L N 3.5-5.0 Chloride 106 mmol/L N 101-111 Co2 Carbon Dioxide 24 mmol/L N 22-32 Anion Gap 6 mmol/L N 2-11 Glucose 104 mg/dL High 70-100 Blood Urea Nitrogen 10 mg/dL N 6-24 Creatinine 0.66 mg/dL N 0.51-0.95 BUN/Creatinine Ratio 15.2 N 8-20 Calcium 9.4 mg/dL N 8.6-10.3 Total Protein 6.7 g/dL N 6.4-8.9 Albumin 4.2 g/dL N 3.2-5.2 Globulin 2.5 g/dL N 2-4 Albumin/Globulin Ratio 1.7 N 1-3 Total Bilirubin 0.40 mg/dL N 0.2-1.0 Alkaline Phosphatase 65 U/L N 34-104 Alt 18 U/L N 7-52 Ast 17 U/L N 13-39 Egfr Non- 110.0 >60 Egfr 133.1 >60 7 CBC Auto Diff 12/14/2017 [facility] White Blood 9.6 10^3/uL N 3.5-10.[address] [place] [address] [phone] Red Blood Count 4.51 10^6/uL N 4.00-5.40 Hemoglobin 14.7 g/dL N 12.0-16.0 Hematocrit 43 % N 35-47 Mean Corpuscular Volume 94 fL N 80-97 Mean Corpuscular Hemoglobin 33 pg High 27-31 Mean Corpuscular HGB Conc 35 g/dL N 31-36 Red Cell Distribution Width 13 % N 10.5-15 Platelet Count 241 10^3/uL N 150-450 Mean Platelet Volume 8.3 um3 N 7.4-10.4 Abs Neutrophils 7.0 10^3/uL N 1.5-7.7 Abs Lymphocytes 1.9 10^3/uL N 1.0-4.8 Abs Monocytes 0.5 10^3/uL N 0-0.8 Abs Eosinophils 0.1 10^3/uL N 0-0.6 Abs Basophils 0.1 10^3/uL N 0-0.2 Abs Nucleated RBC 0 10^3/uL Granulocyte % 72.9 % N 38-83 Lymphocyte % 19.8 % Low 25-47 Monocyte % 5.2 % N 0-7 Eosinophil % 1.5 % N 0-6 Basophil % 0.6 % N 0-2 Nucleated Red Blood Cells % 0.1 Laboratory test 12/14/2017 [facility] Trichomonas Negative Negative 8, [address] [place] [address] [phone] GC/Chlamydia 12/14/2017 [facility] Chlamydia Negative Negative Amplified Rna [address] [place] [address] [phone] Neisseria gonorrhoeae (GC) Rna Negative Negative Laboratory test 12/14/2017 [facility] Gardnerella/Yeast: SEE RESULT [address] [place] [address] [phone] CBC Auto Diff 09/13/2017 [facility] White Blood Count 8.3 N 3.5- [address] 10^3/uL 10.8 [place], [place] [id number] [phone] Red Blood Count 4.45 10^6/uL N 4.00-5.40 Hemoglobin 14.1 g/dL N 12.0-16.0 Hematocrit 42 % N 35-47 Mean Corpuscular Volume 95 fL N 80-97 Mean Corpuscular Hemoglobin 32 pg High 27-31 Mean Corpuscular HGB Conc 34 g/dL N 31-36 Red Cell Distribution Width 13 % N 10.5-15 Platelet Count 267 10^3/uL N 150-450 Mean Platelet Volume 8.9 um3 N 7.4-10.4 Abs Neutrophils 5.1 10^3/uL N 1.5-7.7 Abs Lymphocytes 2.5 10^3/uL N 1.0-4.8 Abs Monocytes 0.5 10^3/uL N 0-0.8 Abs Eosinophils 0.1 10^3/uL N 0-0.6 Abs Basophils 0 10^3/uL N 0-0.2 Abs Nucleated RBC 0 10^3/uL Granulocyte % 61.8 % N 38-83 Lymphocyte % 30.2 % N 25-47 Monocyte % 5.9 % N 0-7 Eosinophil % 1.8 % N 0-6 Basophil % 0.3 % N 0-2 Nucleated Red Blood Cells % 0.1 Comp Metabolic Panel 09/13/2017 [facility] Sodium 138 mmol/L N 135-[address] [place] [address] [phone] Potassium 4.1 mmol/L N 3.5-5.0 Chloride 106 mmol/L N 101-111 Co2 Carbon Dioxide 23 mmol/L N 22-32 Anion Gap 9 mmol/L N 2-11 Glucose 77 mg/dL N 70-100 Blood Urea Nitrogen 8 mg/dL N 6-24 Creatinine 0.64 mg/dL N 0.51-0.95 BUN/Creatinine Ratio 12.5 N 8-20 Calcium 10.2 mg/dL N 8.6-10.3 Total Protein 6.7 g/dL N 6.4-8.9 Albumin 4.6 g/dL N 3.2-5.2 Globulin 2.1 g/dL N 2-4 Albumin/Globulin Ratio 2.2 N 1-3 Total Bilirubin 0.50 mg/dL N 0.2-1.0 Alkaline Phosphatase 56 U/L N 34-104 Alt 18 U/L N 7-52 Ast 18 U/L N 13-39 Egfr Non- 114.0 >60 Egfr 137.9 >60 12 Laboratory test finding 09/13/2017 [facility] Lipase 17 U/L N 11.0-82.[address] [place] [address] [phone] HCG < 0.60 mIU/mL 13 Laboratory 05/02/2017 [facility] Gardnerella/Yeast: SEE [address] [place]ag[place] [address] BELOW [phone] Rapid 03/25/2017 [facility] Influenza A POSITIVE Abnormal Negative 15 Influenza A [address] Molecular & [place] [address] Molecular [phone] Influenza B Molecular NEGATIVE Negative Laboratory test 03/24/2017 [facility] Rapid Influenza SEE RESULT [address] [place] [address] [phone] Urinalysis 03/24/2017 [facility] Urine Color Yellow Profile [address] [place] [address] [phone] Urine Appearance Cloudy Urine Specific [place] 1.017 N 1.010-1.030 Urine pH 5.0 N 5-9 Urine Urobilinogen Negative Negative Urine Ketones 2+ Abnormal Negative Urine Protein Negative Negative Urine Leukocytes Negative Negative Urine Blood Negative Negative Urine Nitrite Negative Negative Urine Bilirubin Negative Negative Urine Glucose Negative Negative CBC Auto Diff 03/24/2017 [facility] White Blood 4.4 10^3/uL N 3.5-10.[address] [place] [address] [phone] Red Blood Count 4.50 10^6/uL N 4.0-5.4 Hemoglobin 14.2 g/dL N 12.0-16.0 Hematocrit 42 % N 35-47 Mean Corpuscular Volume 93 fL N 80-97 Mean Corpuscular Hemoglobin 32 pg High 27-31 Mean Corpuscular HGB Conc 34 g/dL N 31-36 Red Cell Distribution Width 13 % N 10.5-15 Platelet Count 221 10^3/uL N 150-450 Mean Platelet Volume 9 um3 N 7.4-10.4 Abs Neutrophils 1.5 10^3/uL N 1.5-7.7 Abs Lymphocytes 2.4 10^3/uL N 1.0-4.8 Abs Monocytes 0.5 10^3/uL N 0-0.8 Abs Eosinophils 0 10^3/uL N 0-0.6 Abs Basophils 0 10^3/uL N 0-0.2 Abs Nucleated RBC 0 10^3/uL Granulocyte % 33.7 % Low 38-83 Lymphocyte % 53.5 % High 25-47 Monocyte % 11.3 % High 1-9 Eosinophil % 0.6 % N 0-6 Basophil % 0.9 % N 0-2 Nucleated Red Blood Cells % 0.1 Comp Metabolic Panel 03/24/2017 [facility] Sodium 137 mmol/L N 133-[address] [place] [address] [phone] Potassium 3.7 mmol/L N 3.5-5.0 Chloride 104 mmol/L N 101-111 Co2 Carbon Dioxide 25 mmol/L N 22-32 Anion Gap 8 mmol/L N 2-11 Glucose 76 mg/dL N 70-100 Blood Urea Nitrogen 12 mg/dL N 6-24 Creatinine 0.70 mg/dL N 0.51-0.95 BUN/Creatinine Ratio 17.1 N 8-20 Calcium 9.2 mg/dL N 8.6-10.3 Total Protein 7.2 g/dL N 6.4-8.9 Albumin 4.5 g/dL N 3.2-5.2 Globulin 2.7 g/dL N 2-4 Albumin/Globulin Ratio 1.7 N 1-3 Total Bilirubin 0.30 mg/dL N 0.2-1.0 Alkaline Phosphatase 57 U/L N 34-104 Alt 17 U/L N 7-52 Ast 21 U/L N 13-39 Egfr Non- 102.8 >60 Egfr 132.2 >60 17 Laboratory test finding 03/24/2017 [facility] Lipase 15 U/L N 11.0-82.[address] [place] [address] [phone] C Reactive Protein 3.36 mg/L N < 5.00 18 HCG < 0.60 mIU/mL 19 Lactic Acid 0.6 mmol/L N 0.5-2.0 20 Urinalysis Profile 11/25/2016 [facility] Urine Color Straw N [address] [place] [address] [phone] Urine Appearance Clear N Urine Specific [place] 1.002 Low 1.010-1.030 Urine pH 6.0 N 5-9 Urine Urobilinogen Negative N Negative Urine Ketones Negative N Negative Urine Protein Negative N Negative Urine Leukocytes Negative N Negative Urine Blood 3+ Abnormal Negative Urine Nitrite Negative N Negative Urine Bilirubin Negative N Negative Urine Glucose Negative N Negative Urine White Blood Cell Absent N Absent Urine Red Blood Cell Trace(0-2/hpf) N Absent Urine Bacteria Absent N Absent Urine Squamous Epithelial Cell Present Abnormal Absent GC/Chlamydia 11/25/2016 [facility] Chlamydia Negative N Negative Amplified Rna [address] [place] [address] [phone] Neisseria gonorrhoeae (GC) Rna Negative N Negative CBC Auto Diff 11/25/2016 [facility] White Blood 7.7 10^3/uL N 3.5-10.[address] [place] [address] [phone] Red Blood Count 4.32 10^6/uL N 4.0-5.4 Hemoglobin 13.8 g/dL N 12.0-16.0 Hematocrit 40 % N 35-47 Mean Corpuscular Volume 93 fL N 80-97 Mean Corpuscular Hemoglobin 32 pg High 27-31 Mean Corpuscular HGB Conc 34 g/dL N 31-36 Red Cell Distribution Width 14 % N 10.5-15 Platelet Count 248 10^3/uL N 150-450 Mean Platelet Volume 8 um3 N 7.4-10.4 Abs Neutrophils 4.6 10^3/uL N 1.5-7.7 Abs Lymphocytes 2.2 10^3/uL N 1.0-4.8 Abs Monocytes 0.6 10^3/uL N 0-0.8 Abs Eosinophils 0.2 10^3/uL N 0-0.6 Abs Basophils 0 10^3/uL N 0-0.2 Abs Nucleated RBC 0 10^3/uL N Granulocyte % 60.0 % N 38-83 Lymphocyte % 28.9 % N 25-47 Monocyte % 7.7 % N 1-9 Eosinophil % 2.8 % N 0-6 Basophil % 0.6 % N 0-2 Nucleated Red Blood Cells % 0 N Comp Metabolic Panel 11/25/2016 [facility] Sodium 137 mmol/L N 133-[address] [place] [address] [phone] Potassium 4.2 mmol/L N 3.5-5.0 Chloride 105 mmol/L N 101-111 Co2 Carbon Dioxide 27 mmol/L N 22-32 Anion Gap 5 mmol/L N 2-11 Glucose 90 mg/dL N 70-100 Blood Urea Nitrogen 6 mg/dL N 6-24 Creatinine 0.68 mg/dL N 0.51-0.95 BUN/Creatinine Ratio 8.8 N 8-20 Calcium 8.8 mg/dL N 8.6-10.3 Total Protein 6.4 g/dL N 6.4-8.9 Albumin 4.0 g/dL N 3.2-5.2 Globulin 2.4 g/dL N 2-4 Albumin/Globulin Ratio 1.7 N 1-3 Total Bilirubin 0.30 mg/dL N 0.2-1.0 Alkaline Phosphatase 59 U/L N 34-104 Alt 18 U/L N 7-52 Ast 18 U/L N 13-39 Egfr Non- 107.2 N >60 Egfr 137.9 N >60 21 Laboratory test 11/25/2016 [facility] C Reactive 1.51 mg/L N < 5.00 [address] [place] [address] [phone] HCG < 0.60 mIU/mL N 23 Lactic Acid 1.0 mmol/L N 0.5-2.0 24 Laboratory test 11/04/2016 [facility] Cytology SEE RESULT [address] [place] [address] [phone] GC/Chlamydia 10/18/2016 [facility] Chlamydia Negative N Negative Amplified Rna [address] [place] [address] [phone] Neisseria gonorrhoeae (GC) Rna Negative N Negative Laboratory test finding 10/18/2016 [facility] Test Urine negative Ua Routine 10/18/2016 [facility] Ua Specific [place] 1.015 Ua PH 5 Ua Color YELLOW Ua Appera CLEAR Ua WBC NEG Ua Protein NEG Ua Glucose NORM Ua Ketones NEG Ua Bilirubin SHAHRAM Ua Urobilinogen NEG Ua Nitrite NEG Ua Occult Blood TRACE Urinalysis Profile 10/15/2016 [facility] Urine Color Katie N [address] [place] [address] [phone] Urine Appearance Clear N Urine Specific [place] 1.025 N 1.010-1.030 Urine pH 5.0 N 5-9 Urine Urobilinogen Negative N Negative Urine Ketones Negative N Negative Urine Protein Negative N Negative Urine Leukocytes Negative N Negative Urine Blood Negative N Negative Urine Nitrite Positive Abnormal Negative Urine Bilirubin Negative N Negative Urine Glucose Negative N Negative Urine White Blood Cell Trace(0-5/hpf) N Absent Urine Red Blood Cell 1+(3-5/hpf) Abnormal Absent Urine Bacteria Absent N Absent Urine Squamous Epithelial Cell Present Abnormal Absent CBC Auto Diff 10/15/2016 [facility] White Blood 10.8 10^3/uL N 3.5-10.[address] [place] [address] [phone] Red Blood Count 4.15 10^6/uL N 4.0-5.4 Hemoglobin 13.3 g/dL N 12.0-16.0 Hematocrit 38 % N 35-47 Mean Corpuscular Volume 93 fL N 80-97 Mean Corpuscular Hemoglobin 32 pg High 27-31 Mean Corpuscular HGB Conc 35 g/dL N 31-36 Red Cell Distribution Width 14 % N 10.5-15 Platelet Count 230 10^3/uL N 150-450 Mean Platelet Volume 9 um3 N 7.4-10.4 Abs Neutrophils 6.5 10^3/uL N 1.5-7.7 Abs Lymphocytes 3.3 10^3/uL N 1.0-4.8 Abs Monocytes 0.7 10^3/uL N 0-0.8 Abs Eosinophils 0.3 10^3/uL N 0-0.6 Abs Basophils 0.1 10^3/uL N 0-0.2 Abs Nucleated RBC 0.01 10^3/uL N Granulocyte % 60.0 % N 38-83 Lymphocyte % 30.6 % N 25-47 Monocyte % 6.2 % N 1-9 Eosinophil % 2.5 % N 0-6 Basophil % 0.7 % N 0-2 Nucleated Red Blood Cells % 0.1 N Comp Metabolic Panel 10/15/2016 [facility] Sodium 134 mmol/L N 133-145 [address] [place] [address] [phone] Potassium 4.0 mmol/L N 3.5-5.0 Chloride 103 mmol/L N 101-111 Co2 Carbon Dioxide 27 mmol/L N 22-32 Anion Gap 4 mmol/L N 2-11 Glucose 84 mg/dL N 70-100 Blood Urea Nitrogen 17 mg/dL N 6-24 Creatinine 0.74 mg/dL N 0.51-0.95 BUN/Creatinine Ratio 23.0 High 8-20 Calcium 9.1 mg/dL N 8.6-10.3 Total Protein 6.4 g/dL N 6.4-8.9 Albumin 4.3 g/dL N 3.2-5.2 Globulin 2.1 g/dL N 2-4 Albumin/Globulin Ratio 2.0 N 1-3 Total Bilirubin 0.30 mg/dL N 0.2-1.0 Alkaline Phosphatase 60 U/L N 34-104 Alt 18 U/L N 7-52 Ast 17 U/L N 13-39 Egfr Non- 97.3 N >60 Egfr 125.1 N >60 26 Laboratory test 10/15/2016 [facility] Magnesium 2.1 mg/dL N 1.9-2.7 finding [address] [place] [address] [phone] Lipase 35 U/L N 11.0-82.0 C Reactive Protein 1.98 mg/L N < 5.00 27 Lactic Acid 0.5 mmol/L N 0.5-2.0 28 Urine Culture And 10/15/2016 [facility] Urine Culture SEE RESULT [address] [place] [address] [phone] Comp Metabolic 10/08/2016 [facility] Sodium 136 mmol/L N 133- [address] [place] [address] [phone] Potassium 4.1 mmol/L N 3.5-5.0 Chloride 103 mmol/L N 101-111 Co2 Carbon Dioxide 27 mmol/L N 22-32 Anion Gap 6 mmol/L N 2-11 Glucose 81 mg/dL N 70-100 Blood Urea Nitrogen 11 mg/dL N 6-24 Creatinine 0.74 mg/dL N 0.51-0.95 BUN/Creatinine Ratio 14.9 N 8-20 Calcium 9.3 mg/dL N 8.6-10.3 Total Protein 7.0 g/dL N 6.4-8.9 Albumin 4.4 g/dL N 3.2-5.2 Globulin 2.6 g/dL N 2-4 Albumin/Globulin Ratio 1.7 N 1-3 Total Bilirubin 0.50 mg/dL N 0.2-1.0 Alkaline Phosphatase 61 U/L N 34-104 Alt 13 U/L N 7-52 Ast 16 U/L N 13-39 Egfr Non- 97.3 N >60 Egfr 125.1 N >60 30 Laboratory test 10/08/2016 [facility] Lipase < 10 U/L Low 11.0 -82.[address] [place] [address] [phone] C Reactive Protein 4.38 mg/L N < 5.00 31 HCG < 0.60 mIU/mL N 32 Urine Culture And 10/08/2016 [facility] Urine SEE RESULT [address] [place] [address] [phone] Laboratory test 10/08/2016 [facility] Lactic Acid 0.7 mmol/L N 0.5-2 [address]0 [place] [address] [phone] CBC Auto Diff 10/08/2016 [facility] White Blood 14.8 High 3.5- [address] Count 10^3/uL 0.8 [place] [address] [phone] Red Blood Count 4.41 10^6/uL N 4.0-5.4 Hemoglobin 14.0 g/dL N 12.0-16.0 Hematocrit 41 % N 35-47 Mean Corpuscular Volume 93 fL N 80-97 Mean Corpuscular Hemoglobin 32 pg High 27-31 Mean Corpuscular HGB Conc 34 g/dL N 31-36 Red Cell Distribution Width 14 % N 10.5-15 Platelet Count 232 10^3/uL N 150-450 Mean Platelet Volume 9 um3 N 7.4-10.4 Abs Neutrophils 11.5 10^3/uL High 1.5-7.7 Abs Lymphocytes 2.5 10^3/uL N 1.0-4.8 Abs Monocytes 0.6 10^3/uL N 0-0.8 Abs Eosinophils 0.1 10^3/uL N 0-0.6 Abs Basophils 0.1 10^3/uL N 0-0.2 Abs Nucleated RBC 0.01 10^3/uL N Granulocyte % 78.0 % N 38-83 Lymphocyte % 16.6 % Low 25-47 Monocyte % 3.9 % N 1-9 Eosinophil % 0.6 % N 0-6 Basophil % 0.9 % N 0-2 Nucleated Red Blood Cells % 0 N Urinalysis Profile 10/08/2016 [facility] Urine Color Yellow N [address] [place], [place] [id number] [phone] Urine Appearance Cloudy N Urine Specific [place] 1.023 N 1.010-1.030 Urine pH 5.0 N 5-9 Urine Urobilinogen Negative N Negative Urine Ketones 1+ Abnormal Negative Urine Protein 1+(30 mg/dL) Abnormal Negative Urine Leukocytes 2+ Abnormal Negative Urine Blood 2+ Abnormal Negative Urine Nitrite Negative N Negative Urine Bilirubin Negative N Negative Urine Glucose Negative N Negative Urine White Blood Cell 3+(>20/hpf) Abnormal Absent Urine Red Blood Cell 3+(>10/hpf) Abnormal Absent Urine Bacteria Absent N Absent Urine Squamous Epithelial Cell Present Abnormal Absent CBC Auto Diff 10/29/2015 [facility] White Blood 9.8 10^3/uL N 3.5-10.[address] [place] [address] [phone] Red Blood Count 4.36 10^6/uL N 4.0-5.4 Hemoglobin 13.6 g/dL N 12.0-16.0 Hematocrit 41 % N 35-47 Mean Corpuscular Volume 93 fL N 80-97 Mean Corpuscular Hemoglobin 31 pg N 27-31 Mean Corpuscular HGB Conc 34 g/dL N 31-36 Red Cell Distribution Width 13 % N 10.5-15 Platelet Count 243 10^3/uL N 150-450 Mean Platelet Volume 9 um3 N 7.4-10.4 Abs Neutrophils 6.6 10^3/uL N 1.5-7.7 Abs Lymphocytes 2.3 10^3/uL N 1.0-4.8 Abs Monocytes 0.6 10^3/uL N 0-0.8 Abs Eosinophils 0.2 10^3/uL N 0-0.6 Abs Basophils 0.1 10^3/uL N 0-0.2 Abs Nucleated RBC 0 10^3/uL N Granulocyte % 67.4 % N 38-83 Lymphocyte % 23.9 % Low 25-47 Monocyte % 6.6 % N 1-9 Eosinophil % 1.6 % N 0-6 Basophil % 0.5 % N 0-2 Nucleated Red Blood Cells % 0 N Comp Metabolic Panel 10/29/2015 [facility] Sodium 136 mmol/L N 133-[address] [place] [address] [phone] Potassium 4.0 mmol/L N 3.5-5.0 Chloride 104 mmol/L N 101-111 Co2 Carbon Dioxide 25 mmol/L N 22-32 Anion Gap 7 mmol/L N 2-11 Glucose 84 mg/dL N 70-100 Blood Urea Nitrogen 9 mg/dL N 6-24 Creatinine 0.75 mg/dL N 0.51-0.95 BUN/Creatinine Ratio 12.0 N 8-20 Calcium 9.3 mg/dL N 8.6-10.3 Total Protein 6.7 g/dL N 6.4-8.9 Albumin 4.3 g/dL N 3.2-5.2 Globulin 2.4 g/dL N 2-4 Albumin/Globulin Ratio 1.8 N 1-3 Total Bilirubin 0.50 mg/dL N 0.2-1.0 Alkaline Phosphatase 62 U/L N 34-104 Alt 17 U/L N 7-52 Ast 18 U/L N 13-39 Egfr Non- 96.6 N >60 Egfr 124.3 N >60 35 Laboratory test finding 10/29/2015 [facility] Lipase 21 U/L N 11.0-82.[address] [place] [address] [phone] C Reactive Protein < 1.00 mg/L N < 5.00 36 Urinalysis Profile 10/29/2015 [facility] Urine Color Yellow N [address] [place] [address] [phone] Urine Appearance Cloudy N Urine Specific [place] 1.026 N 1.010-1.030 Urine pH 6.0 N 5-9 Urine Urobilinogen Negative N Negative Urine Ketones 1+ Abnormal Negative Urine Protein 1+(30 mg/dL) Abnormal Negative Urine Leukocytes 2+ Abnormal Negative Urine Blood Negative N Negative Urine Nitrite Negative N Negative Urine Bilirubin Negative N Negative Urine Glucose Negative N Negative Urine White Blood Cell 1+(6-10/hpf) Abnormal Absent Urine Red Blood Cell 1+(3-5/hpf) Abnormal Absent Urine Bacteria Absent N Absent Urine Squamous Epithelial Cell Present Abnormal Absent Urine Culture And 10/29/2015 [facility] Urine Culture SEE RESULT [address] [place] [address] [phone] Laboratory test 07/10/2015 [facility] Surgical SEE RESULT [address] [place] [address] [phone] Laboratory test 06/23/2015 [facility] Negative N Negative [address] (HCG) [place] [address] [phone] Laboratory test 06/11/2015 [facility] neg finding Test Urine Urine Culture And 06/11/2015 [facility] Urine Culture SEE RESULT [address] [place] [address] [phone] Ua Routine 06/11/2015 [facility] Ua Specific 1.025 [place] Ua PH 5 Ua Color yellow Ua Appera clear Ua WBC neg Ua Protein neg Ua Glucose neg Ua Ketones large Ua Bilirubin neg Ua Urobilinogen normal Ua Nitrite neg Ua Occult Blood neg CBC Auto Diff 04/08/2015 [facility] White Blood 8.8 10^3/uL N 3.5-10.[address] [place] [address] [phone] Red Blood Count 4.32 10^6/uL N 4.0-5.4 Hemoglobin 13.5 g/dL N 12.0-16.0 Hematocrit 40 % N 35-47 Mean Corpuscular Volume 93 fL N 80-97 Mean Corpuscular Hemoglobin 31 pg N 27-31 Mean Corpuscular HGB Conc 34 g/dL N 31-36 Red Cell Distribution Width 14 % N 10.5-15 Platelet Count 297 10^3/uL N 150-450 Mean Platelet Volume 9 um3 N 7.4-10.4 Abs Neutrophils 5.9 10^3/uL N 1.5-7.7 Abs Lymphocytes 2.4 10^3/uL N 1.0-4.8 Abs Monocytes 0.3 10^3/uL N 0-0.8 Abs Eosinophils 0.2 10^3/uL N 0-0.6 Abs Basophils 0.1 10^3/uL N 0-0.2 Abs Nucleated RBC 0 10^3/uL N Granulocyte % 67.1 % N 38-83 Lymphocyte % 26.9 % N 25-47 Monocyte % 3.6 % N 1-9 Eosinophil % 1.8 % N 0-6 Basophil % 0.6 % N 0-2 Nucleated Red Blood Cells % 0 N Comp Metabolic Panel 04/08/2015 [facility] Sodium 137 mmol/L N 133-[address] [place] [address] [phone] Potassium 3.9 mmol/L N 3.5-5.0 Chloride 104 mmol/L N 101-111 Co2 Carbon Dioxide 28 mmol/L N 22-32 Anion Gap 5 mmol/L N 2-11 Glucose 99 mg/dL N 70-100 Blood Urea Nitrogen 13 mg/dL N 6-24 Creatinine 0.65 mg/dL N 0.51-0.95 BUN/Creatinine Ratio 20.0 N 8-20 Calcium 9.6 mg/dL N 8.6-10.3 Total Protein 7.0 g/dL N 6.4-8.9 Albumin 4.3 g/dL N 3.2-5.2 Globulin 2.7 g/dL N 2-4 Albumin/Globulin Ratio 1.6 N 1-3 Total Bilirubin 0.30 mg/dL N 0.2-1.0 Alkaline Phosphatase 76 U/L N 34-104 Alt 22 U/L N 7-52 Ast 18 U/L N 13-39 Egfr Non- 114.0 N >60 Egfr 146.6 N >60 41 Laboratory test finding 04/08/2015 [facility] Lipase 22 U/L N 11.0-82.[address] [place] [address] [phone] HCG < 0.60 mIU/mL N 42 Laboratory test 03/20/2015 [facility] Negative N Negative [address] (HCG) [place] [address] [phone] CBC Auto Diff 02/16/2015 [facility] White Blood 8.2 10^3/uL N 3.5-10.[address] [place] [address] [phone] Red Blood Count 4.48 10^6/uL N 4.0-5.4 Hemoglobin 13.9 g/dL N 12.0-16.0 Hematocrit 43 % N 35-47 Mean Corpuscular Volume 97 fL N 80-97 Mean Corpuscular Hemoglobin 31 pg N 27-31 Mean Corpuscular HGB Conc 32 g/dL N 31-36 Red Cell Distribution Width 14 % N 10.5-15 Platelet Count 288 10^3/uL N 150-450 Mean Platelet Volume 9 um3 N 7.4-10.4 Abs Neutrophils 4.8 10^3/uL N 1.5-7.7 Abs Lymphocytes 2.4 10^3/uL N 1.0-4.8 Abs Monocytes 0.7 10^3/uL N 0-0.8 Abs Eosinophils 0.2 10^3/uL N 0-0.6 Abs Basophils 0 10^3/uL N 0-0.2 Abs Nucleated RBC 0.01 10^3/uL N Granulocyte % 58.8 % N 38-83 Lymphocyte % 29.3 % N 25-47 Monocyte % 9.0 % N 1-9 Eosinophil % 2.5 % N 0-6 Basophil % 0.4 % N 0-2 Nucleated Red Blood Cells % 0.1 N Urinalysis Profile 02/16/2015 [facility] Urine Color Yellow N [address] [place] [address] [phone] Urine Appearance Clear N Urine Specific [place] 1.012 N 1.010-1.030 Urine pH 5.0 N 5-9 Urine Urobilinogen Negative N Negative Urine Ketones Negative N Negative Urine Protein Negative N Negative Urine Leukocytes Negative N Negative Urine Blood 2+ Abnormal Negative Urine Nitrite Negative N Negative Urine Bilirubin Negative N Negative Urine Glucose Negative N Negative Urine White Blood Cell Trace(0-5/hpf) N Absent Urine Red Blood Cell Trace(0-2/hpf) N Absent Urine Bacteria Absent N Absent Urine Squamous Epithelial Cell Present Abnormal Absent Comp Metabolic Panel 02/16/2015 [facility] Sodium 136 mmol/L N 133-[address] [place] [address] [phone] Potassium 4.1 mmol/L N 3.5-5.0 Chloride 105 mmol/L N 101-111 Co2 Carbon Dioxide 27 mmol/L N 22-32 Anion Gap 4 mmol/L N 2-11 Glucose 89 mg/dL N 70-100 Blood Urea Nitrogen 13 mg/dL N 6-24 Creatinine 0.91 mg/dL N 0.51-0.95 BUN/Creatinine Ratio 14.3 N 8-20 Calcium 9.3 mg/dL N 8.6-10.3 Total Protein 6.9 g/dL N 6.4-8.9 Albumin 4.4 g/dL N 3.2-5.2 Globulin 2.5 g/dL N 2-4 Albumin/Globulin Ratio 1.8 N 1-3 Total Bilirubin 0.40 mg/dL N 0.2-1.0 Alkaline Phosphatase 73 U/L N 34-104 Alt 14 U/L N 7-52 Ast 16 U/L N 13-39 Egfr Non- 78.0 N >60 Egfr 100.4 N >60 44 Laboratory test finding 02/16/2015 [facility] Lipase 20 U/L N 11.0-82.[address] [place] [address] [phone] C Reactive Protein 9.66 mg/L High < 5.00 45 HCG Qualitative Negative N Negative Laboratory test 02/11/2015 [facility] Urine Culture And SEE RESULT [address] [place] [address] [phone] Cytology Non-Dispenser Operator SEE RESULT BELOW 47 Laboratory test finding 02/11/2015 [facility] Test Urine negative Ua Routine 02/11/2015 [facility] Ua Specific [place] 1.020 Ua PH 7 Ua Color katie Ua Appera cloudy/chunks Ua WBC moderate Ua Protein trace Ua Glucose neg Ua Ketones neg Ua Bilirubin neg Ua Urobilinogen neg Ua Nitrite neg Ua Occult Blood Xlarge CBC Auto Diff 02/02/2015 [facility] White Blood 10.0 10^3/uL N 3.5-10.[address] [place] [address] [phone] Red Blood Count 4.78 10^6/uL N 4.0-5.4 Hemoglobin 15.3 g/dL N 12.0-16.0 Hematocrit 46 % N 35-47 Mean Corpuscular Volume 97 fL N 80-97 Mean Corpuscular Hemoglobin 32 pg High 27-31 Mean Corpuscular HGB Conc 33 g/dL N 31-36 Red Cell Distribution Width 15 % N 10.5-15 Platelet Count 260 10^3/uL N 150-450 Mean Platelet Volume 9 um3 N 7.4-10.4 Abs Neutrophils 6.3 10^3/uL N 1.5-7.7 Abs Lymphocytes 2.6 10^3/uL N 1.0-4.8 Abs Monocytes 0.7 10^3/uL N 0-0.8 Abs Eosinophils 0.3 10^3/uL N 0-0.6 Abs Basophils 0 10^3/uL N 0-0.2 Abs Nucleated RBC 0 10^3/uL N Granulocyte % 63.3 % N 38-83 Lymphocyte % 26.5 % N 25-47 Monocyte % 7.1 % N 1-9 Eosinophil % 2.6 % N 0-6 Basophil % 0.5 % N 0-2 Nucleated Red Blood Cells % 0 N Comp Metabolic Panel 02/02/2015 [facility] Sodium 135 mmol/L N 133-[address] [place] [address] [phone] Potassium 4.1 mmol/L N 3.5-5.0 Chloride 103 mmol/L N 101-111 Co2 Carbon Dioxide 26 mmol/L N 22-32 Anion Gap 6 mmol/L N 2-11 Glucose 84 mg/dL N 70-100 Blood Urea Nitrogen 9 mg/dL N 6-24 Creatinine 0.74 mg/dL N 0.51-0.95 BUN/Creatinine Ratio 12.2 N 8-20 Calcium 9.7 mg/dL N 8.6-10.3 Total Protein 7.1 g/dL N 6.4-8.9 Albumin 4.5 g/dL N 3.2-5.2 Globulin 2.6 g/dL N 2-4 Albumin/Globulin Ratio 1.7 N 1-3 Total Bilirubin 0.30 mg/dL N 0.2-1.0 Alkaline Phosphatase 77 U/L N 34-104 Alt 19 U/L N 7-52 Ast 18 U/L N 13-39 Egfr Non- 99.1 N >60 Egfr 127.4 N >60 48 Laboratory test 02/02/2015 [facility] Troponin-I 0.00 ng/mL N <0.03 [address] (TnI) [place] [address] [phone] Laboratory test 01/13/2015 [facility] Gardnerella/Yea SEE RESULT [address]: [place] [address] [phone] GC/Chlamydia 01/13/2015 [facility] Chlamydia Negative N Negative Amplified Rna [address] [place] [address] [phone] Neisseria gonorrhoeae (GC) Rna Negative N Negative 51 Laboratory test 01/13/2015 [facility] Trichomonas Negative N Negative [address] [place] [address] [phone] CBC Auto Diff 01/13/2015 [facility] White Blood 8.4 10^3/uL N 4.8-10.[address] [place] [address] [phone] Red Blood Count 4.39 10^6/uL N 4.0-5.4 Hemoglobin 13.7 g/dL N 12.0-16.0 Hematocrit 42 % N 35-47 Mean Corpuscular Volume 95 fL N 80-97 Mean Corpuscular Hemoglobin 31 pg N 27-31 Mean Corpuscular HGB Conc 33 g/dL N 31-36 Red Cell Distribution Width 15 % N 10.5-15 Platelet Count 249 10^3/uL N 150-450 Mean Platelet Volume 10 um3 N 7.4-10.4 Abs Neutrophils 4.8 10^3/uL N 1.5-7.7 Abs Lymphocytes 2.8 10^3/uL N 1.0-4.8 Abs Monocytes 0.5 10^3/uL N 0-0.8 Abs Eosinophils 0.2 10^3/uL N 0-0.6 Abs Basophils 0 10^3/uL N 0-0.2 Abs Nucleated RBC 0 10^3/uL N Granulocyte % 57.7 % N 38-83 Lymphocyte % 33.2 % N 25-47 Monocyte % 6.4 % N 1-9 Eosinophil % 2.2 % N 0-6 Basophil % 0.5 % N 0-2 Nucleated Red Blood Cells % 0 N Urinalysis Profile 01/13/2015 [facility] Urine Color Yellow N [address] [place] [address] [phone] Urine Appearance Cloudy N Urine Specific [place] 1.015 N 1.010-1.030 Urine pH 7.0 N 5-9 Urine Urobilinogen Negative N Negative Urine Ketones Negative N Negative Urine Protein Negative N Negative Urine Leukocytes Negative N Negative Urine Blood Negative N Negative Urine Nitrite Negative N Negative Urine Bilirubin Negative N Negative Urine Glucose Negative N Negative Comp Metabolic Panel 01/13/2015 [facility] Sodium 135 mmol/L N 133-145 [address] [place] [address] [phone] Potassium 3.8 mmol/L N 3.5-5.0 Chloride 104 mmol/L N 101-111 Co2 Carbon Dioxide 26 mmol/L N 22-32 Anion Gap 5 mmol/L N 2-11 Glucose 92 mg/dL N 70-100 Blood Urea Nitrogen 7 mg/dL N 6-24 Creatinine 0.66 mg/dL N 0.51-0.95 BUN/Creatinine Ratio 10.6 N 8-20 Calcium 9.7 mg/dL N 8.6-10.3 Total Protein 6.7 g/dL N 6.4-8.9 Albumin 4.2 g/dL N 3.2-5.2 Globulin 2.5 g/dL N 2-4 Albumin/Globulin Ratio 1.7 N 1-3 Total Bilirubin 0.30 mg/dL N 0.2-1.0 Alkaline Phosphatase 76 U/L N 34-104 Alt 15 U/L N 7-52 Ast 17 U/L N 13-39 Egfr Non- 113.1 N >60 Egfr 145.4 N >60 53 Laboratory test finding 01/13/2015 [facility] Lipase 22 U/L N 11.0-82.[address] [place] [address] [phone] C Reactive Protein 1.81 mg/L N < 5.00 54 HCG Qualitative Negative N Negative 55 CBC Auto Diff 12/26/2014 [facility] White Blood 10.2 10^3/uL N 4.8-10.[address] [place] [address] [phone] Red Blood Count 4.61 10^6/uL N 4.0-5.4 Hemoglobin 14.8 g/dL N 12.0-16.0 Hematocrit 44 % N 35-47 Mean Corpuscular Volume 96 fL N 80-97 Mean Corpuscular Hemoglobin 32 pg High 27-31 Mean Corpuscular HGB Conc 33 g/dL N 31-36 Red Cell Distribution Width 14 % N 10.5-15 Platelet Count 289 10^3/uL N 150-450 Mean Platelet Volume 9 um3 N 7.4-10.4 Abs Neutrophils 6.2 10^3/uL N 1.5-7.7 Abs Lymphocytes 3.0 10^3/uL N 1.0-4.8 Abs Monocytes 0.6 10^3/uL N 0-0.8 Abs Eosinophils 0.2 10^3/uL N 0-0.6 Abs Basophils 0.1 10^3/uL N 0-0.2 Abs Nucleated RBC 0 10^3/uL N Granulocyte % 61.2 % N 38-83 Lymphocyte % 29.6 % N 25-47 Monocyte % 6.2 % N 1-9 Eosinophil % 2.4 % N 0-6 Basophil % 0.6 % N 0-2 Nucleated Red Blood Cells % 0 N Comp Metabolic Panel 12/26/2014 [facility] Sodium 136 mmol/L N 133-[address] [place] [address] [phone] Potassium 4.3 mmol/L N 3.5-5.0 Chloride 101 mmol/L N 101-111 Co2 Carbon Dioxide 28 mmol/L N 22-32 Anion Gap 7 mmol/L N 2-11 Glucose 86 mg/dL N 70-100 Blood Urea Nitrogen 10 mg/dL N 6-24 Creatinine 0.76 mg/dL N 0.51-0.95 BUN/Creatinine Ratio 13.2 N 8-20 Calcium 10.0 mg/dL N 8.6-10.3 Total Protein 7.1 g/dL N 6.4-8.9 Albumin 4.7 g/dL N 3.2-5.2 Globulin 2.4 g/dL N 2-4 Albumin/Globulin Ratio 2.0 N 1-3 Total Bilirubin 0.40 mg/dL N 0.2-1.0 Alkaline Phosphatase 97 U/L N 34-104 Alt 19 U/L N 7-52 Ast 18 U/L N 13-39 Egfr Non- 96.1 N >60 Egfr 123.5 N >60 56 Herpes Simplex 12/16/2014 [facility] Herpes Source VULVAR LESIONS N PCR [address] [place] [address] [phone] HSV 1 PCR Negative N Negative HSV 2 PCR Positive N Negative 57 GC/Chlamydia 12/16/2014 [facility] Chlamydia Negative N Negative Amplified Rna [address] [facility] [place] [address] [phone] Neisseria gonorrhoeae (GC) Rna Negative N Negative 58 Laboratory test 12/10/2014 [facility] HCG Qualitative Negative N Negative finding [address] [place] [address] [phone] Urinalysis 12/10/2014 [facility] Urine Color Yellow N Profile [address] [place] [address] [phone] Urine Appearance Clear N Urine Specific [place] 1.014 N 1.010-1.030 Urine pH 6.0 N 5-9 Urine Urobilinogen Negative N Negative Urine Ketones Negative N Negative Urine Protein Negative N Negative Urine Leukocytes Negative N Negative Urine Blood Negative N Negative Urine Nitrite Negative N Negative Urine Bilirubin Negative N Negative Urine Glucose Negative N Negative CBC Auto 12/10/2014 [facility] White Blood 10.9 10^3/uL High 4.8-10.[address] [place] [address] [phone] Red Blood Count 4.16 10^6/uL N 4.0-5.4 Hemoglobin 13.2 g/dL N 12.0-16.0 Hematocrit 40 % N 35-47 Mean Corpuscular Volume 95 fL N 80-97 Mean Corpuscular Hemoglobin 32 pg High 27-31 Mean Corpuscular HGB Conc 33 g/dL N 31-36 Red Cell Distribution Width 14 % N 10.5-15 Platelet Count 236 10^3/uL N 150-450 Mean Platelet Volume 9 um3 N 7.4-10.4 Abs Neutrophils 7.0 10^3/uL N 1.5-7.7 Abs Lymphocytes 2.8 10^3/uL N 1.0-4.8 Abs Monocytes 0.7 10^3/uL N 0-0.8 Abs Eosinophils 0.3 10^3/uL N 0-0.6 Abs Basophils 0.1 10^3/uL N 0-0.2 Abs Nucleated RBC 0.01 10^3/uL N Granulocyte % 64.6 % N 38-83 Lymphocyte % 26.1 % N 25-47 Monocyte % 6.1 % N 1-9 Eosinophil % 2.5 % N 0-6 Basophil % 0.7 % N 0-2 Nucleated Red Blood Cells % 0.1 N Laboratory test 12/10/2014 [facility] Lactic Acid 0.5 mmol/L N 0.5-2.2 finding [address] [place] [address] [phone] Comp Metabolic 12/10/2014 [facility] Sodium 135 mmol/L N 133- [address] [place] [address] [phone] Potassium 3.9 mmol/L N 3.5-5.0 Chloride 103 mmol/L N 101-111 Co2 Carbon Dioxide 27 mmol/L N 22-32 Anion Gap 5 mmol/L N 2-11 Glucose 85 mg/dL N 70-100 Blood Urea Nitrogen 11 mg/dL N 6-24 Creatinine 0.58 mg/dL N 0.51-0.95 BUN/Creatinine Ratio 19.0 N 8-20 Calcium 9.4 mg/dL N 8.6-10.3 Total Protein 6.2 g/dL Low 6.4-8.9 Albumin 4.1 g/dL N 3.2-5.2 Globulin 2.1 g/dL N 2-4 Albumin/Globulin Ratio 2.0 N 1-3 Total Bilirubin 0.30 mg/dL N 0.2-1.0 Alkaline Phosphatase 81 U/L N 34-104 Alt 19 U/L N 7-52 Ast 17 U/L N 13-39 Egfr Non- 131.2 N >60 Egfr 168.8 N >60 59 Laboratory test finding 12/10/2014 [facility] Lipase 31 U/L N 11.0-82.[address] [place] [address] [phone] C Reactive Protein 3.26 mg/L N < 5.00 60 Urinalysis Profile 12/10/2014 [facility] Urine Color Yellow N [address] [place] [address] [phone] Urine Appearance Clear N Urine Specific [place] 1.014 N 1.010-1.030 Urine pH 6.0 N 5-9 Urine Urobilinogen Negative N Negative Urine Ketones Negative N Negative Urine Protein Negative N Negative Urine Leukocytes Negative N Negative Urine Blood Negative N Negative Urine Nitrite Negative N Negative Urine Bilirubin Negative N Negative Urine Glucose Negative N Negative CBC Auto 12/10/2014 [facility] White Blood 10.9 10^3/uL High 4.8-10.[address] [place] [address] [phone] Red Blood Count 4.16 10^6/uL N 4.0-5.4 Hemoglobin 13.2 g/dL N 12.0-16.0 Hematocrit 40 % N 35-47 Mean Corpuscular Volume 95 fL N 80-97 Mean Corpuscular Hemoglobin 32 pg High 27-31 Mean Corpuscular HGB Conc 33 g/dL N 31-36 Red Cell Distribution Width 14 % N 10.5-15 Platelet Count 236 10^3/uL N 150-450 Mean Platelet Volume 9 um3 N 7.4-10.4 Abs Neutrophils 7.0 10^3/uL N 1.5-7.7 Abs Lymphocytes 2.8 10^3/uL N 1.0-4.8 Abs Monocytes 0.7 10^3/uL N 0-0.8 Abs Eosinophils 0.3 10^3/uL N 0-0.6 Abs Basophils 0.1 10^3/uL N 0-0.2 Abs Nucleated RBC 0.01 10^3/uL N Granulocyte % 64.6 % N 38-83 Lymphocyte % 26.1 % N 25-47 Monocyte % 6.1 % N 1-9 Eosinophil % 2.5 % N 0-6 Basophil % 0.7 % N 0-2 Nucleated Red Blood Cells % 0.1 N Laboratory test 12/10/2014 [facility] Lactic Acid 0.5 mmol/L N 0.5-2.2 finding [address] [place] [address] [phone] Comp Metabolic 12/10/2014 [facility] Sodium 135 mmol/L N 133- [address] [place] [address] [phone] Potassium 3.9 mmol/L N 3.5-5.0 Chloride 103 mmol/L N 101-111 Co2 Carbon Dioxide 27 mmol/L N 22-32 Anion Gap 5 mmol/L N 2-11 Glucose 85 mg/dL N 70-100 Blood Urea Nitrogen 11 mg/dL N 6-24 Creatinine 0.58 mg/dL N 0.51-0.95 BUN/Creatinine Ratio 19.0 N 8-20 Calcium 9.4 mg/dL N 8.6-10.3 Total Protein 6.2 g/dL Low 6.4-8.9 Albumin 4.1 g/dL N 3.2-5.2 Globulin 2.1 g/dL N 2-4 Albumin/Globulin Ratio 2.0 N 1-3 Total Bilirubin 0.30 mg/dL N 0.2-1.0 Alkaline Phosphatase 81 U/L N 34-104 Alt 19 U/L N 7-52 Ast 17 U/L N 13-39 Egfr Non- 131.2 N >60 Egfr 168.8 N >60 61 Laboratory test finding 12/10/2014 [facility] Lipase 31 U/L N 11.0-82.0 [address] [place] [address] [phone] C Reactive Protein 3.26 mg/L N < 5.00 62 Urine Culture And Sensitivities SEE RESULT BELOW 63 Laboratory test 10/21/2014 [facility] TSH (Thyroid 1.04 ?IU/mL N 0.34-5.[address] Stim Horm) [place] [address] [phone] Comp Metabolic 10/21/2014 [facility] Sodium 137 mmol/L N 133- [address] [place] [address] [phone] Potassium 3.9 mmol/L N 3.5-5.0 Chloride 104 mmol/L N 101-111 Co2 Carbon Dioxide 25 mmol/L N 22-32 Anion Gap 8 mmol/L N 2-11 Glucose 98 mg/dL N 70-100 Blood Urea Nitrogen 8 mg/dL N 6-24 Creatinine 0.72 mg/dL N 0.51-0.95 BUN/Creatinine Ratio 11.1 N 8-20 Calcium 10.0 mg/dL N 8.6-10.3 Total Protein 7.2 g/dL N 6.4-8.9 Albumin 4.8 g/dL N 3.2-5.2 Globulin 2.4 g/dL N 2-4 Albumin/Globulin Ratio 2.0 N 1-3 Total Bilirubin 0.50 mg/dL N 0.2-1.0 Alkaline Phosphatase 70 U/L N 34-104 Alt 54 U/L High 7-52 Ast 34 U/L N 13-39 Egfr Non- 102.3 N >60 Egfr 131.5 N >60 64 Laboratory test 10/21/2014 [facility] HCG Qualitative Negative N Negative finding [address] [place] [address] [phone] Laboratory test 09/11/2014 [facility] Test neg finding Urine Ua Routine 09/11/2014 [facility] Ua Specific 1.015 [place] Ua PH 5 Ua Color yellow Ua Appera clear Ua WBC neg Ua Protein neg Ua Glucose neg Ua Ketones neg Ua Bilirubin neg Ua Urobilinogen 0.2 Ua Nitrite neg Ua Occult Blood neg Laboratory test 08/13/2014 [facility] CSF Glucose 61 mg/dL N 40-70 65, 66 finding [address] [place] [address] [phone] CSF Protein 36 mg/dL N 15-45 67 CSF Culture & Gram Stain SEE RESULT BELOW 68 CSF Cell Count 08/13/2014 [facility] Body Fluid Appearance Clear N [address] [place] [address] [phone] Body Fluid Color Colorless N CSF Tube # 1 N Body Fluid Volume 1 mL N Body Fluid WBC 1 N Body Fluid RBC 2 N Body Fluid Polys 0 N Body Fluid Lymph 10 N Body Fluid Clare 2 N Body Fluid Total Cells Counted 12 N Body Fluid Comment (SEE NOTE) N 69 Fluid Reviewed By (SEE NOTE) N 70 CBC Auto 08/13/2014 [facility] White Blood 14.1 10^3/uL High 4.8-10.[address] [place] [address] [phone] Red Blood Count 4.73 10^6/uL N 4.0-5.4 Hemoglobin 14.9 g/dL N 12.0-16.0 Hematocrit 44 % N 35-47 Mean Corpuscular Volume 94 fL N 80-97 Mean Corpuscular Hemoglobin 32 pg High 27-31 Mean Corpuscular HGB Conc 34 g/dL N 31-36 Red Cell Distribution Width 15 % N 10.5-15 Platelet Count 298 10^3/uL N 150-450 Mean Platelet Volume 10 um3 N 7.4-10.4 Abs Neutrophils 11.2 10^3/uL High 1.5-7.7 Abs Lymphocytes 2.2 10^3/uL N 1.0-4.8 Abs Monocytes 0.7 10^3/uL N 0-0.8 Abs Eosinophils 0 10^3/uL N 0-0.6 Abs Basophils 0.1 10^3/uL N 0-0.2 Abs Nucleated RBC 0.01 10^3/uL N Granulocyte % 79.2 % N 38-83 Lymphocyte % 15.2 % Low 25-47 Monocyte % 5.0 % N 1-9 Eosinophil % 0.2 % N 0-6 Basophil % 0.4 % N 0-2 Nucleated Red Blood Cells % 0.1 N Laboratory test 08/13/2014 [facility] Serum Negative N Negative finding [address] [place] [address] [phone] Comp Metabolic 08/13/2014 [facility] Sodium 135 mmol/L N 133- [address] [place] [address] [phone] Chloride 104 mmol/L N 101-111 Co2 Carbon Dioxide 20 mmol/L Low 22-32 Glucose 90 mg/dL N 70-100 Blood Urea Nitrogen 7 mg/dL N 6-24 Creatinine 0.65 mg/dL N 0.51-0.95 BUN/Creatinine Ratio 10.8 N 8-20 Calcium 9.0 mg/dL N 8.6-10.3 Total Protein 7.4 g/dL N 6.4-8.9 Albumin 4.4 g/dL N 3.2-5.2 Globulin 3.0 g/dL N 2-4 Albumin/Globulin Ratio 1.5 N 1-3 Total Bilirubin 0.40 mg/dL N 0.2-1.0 Alkaline Phosphatase 63 U/L N 34-104 Alt 17 U/L N 7-52 Egfr Non- 115.1 N >60 Egfr 148.0 N >60 71 Potassium TNP mmol/L N 3.5-5.0 72 Anion Gap TNP mmol/L N 2-11 Ast TNP U/L N 13-39 73 Urine Culture And 06/14/2014 [facility] Urine Culture (SEE NOTE ) [address] [place] [address] [phone] Throat-Beta Strept 04/03/2014 [facility] Throat Beta (SEE NOTE) [address] [place] [address] [phone] Throat-Beta Strept 04/22/2013 [facility] Throat Beta (SEE NOTE) [address] [place] [address] [phone] Throat-Beta Strept 10/21/2012 [facility] Throat Beta (SEE NOTE) [address] [place] [address] [phone] 1 [facility] Severe Sepsis and Septic Shock Management Bundle Measure requires all lactic acids initially measuring >2.0 mmol/L be repeated. 2 Deck Lid Fitter: [id number] 3 SEE RESULT BELOW Name: ESVIN CHESTER : [address]: Sandra Swan MD Acct: [id number] Unit: [id number] AGE: 22 Location: ED Re01/19/18 SEX: F Status: REG ER SPEC: [id number] ROSARIO: 01/19/18 [facility] DR: Sandra Swan MD REQ: [id number] RECD: 01/19/18 STATUS: COMP ANGIEHR DR: Doris Briceño [employer] _ SOURCE: NASAL SPDESC: ORDERED: Flu A B Request Procedure Result Reported Site Rapid Influenza A B Request Final 01/19/181156 ML Specimen received for Influenza A/B Molecular testing * ML - Main Lab . END OF REPORT DEPARTMENT OF PATHOLOGY, [address] [place] [address] Suraj Velasquez M.D. Director [facility] # [id number] 4 Troponin-I testing on Plasma Separator Tubes (PST) has a known false positive rate of 0.20-0.40%. All positive troponins reflex immediate secondary confirmatory testing. 5 Because ethnic data is not always readily [...] 15-29 5 Kidney failure <15 (or dialysis) 6 <5.0 Negative 5.0 - 25.0 Indeterminate (Repeat testing recommended after 72 hours) >25.0 Positive Perimenopausal women can display HCG levels of up to 20 mIU/mL 7 Because ethnic data is not always [...] 5 Kidney failure <15 (or dialysis) 8 Would you like to order Trichomonas Vaginalis RNA testing? Y 9 GC/Chlamydia Source?: Endocervical Trichomonas Source: Endocervical 10 SEE RESULT BELOW Name: ESVIN CHESTER : [address]: Susan Rob MD Acct: [id number] Unit: [id number] AGE: 22 Location: ED Re12/14/17 SEX: F Status: DEP ER SPEC: [id number] ROSARIO: 12/14/[address]: Peng FRANCO REQ: [id number] RECD: 12/14/17 STATUS: QASIM LOW DR: Doris [...] . END OF REPORT DEPARTMENT OF PATHOLOGY, [address] [place] [address] Suraj Velasquez M.D. Director [facility] # [id number] 11 for patient to call back to discuss results on 09/18/17. Discussed results with patient 09/19/17. 12 Because ethnic data is not always [...] 5 Kidney failure <15 (or dialysis) 13 <5.0 Negative 5.0 - 25.0 Indeterminate (Repeat testing recommended after 72 hours) >25.0 Positive Perimenopausal women can display HCG levels of up to 20 mIU/mL 14 SEE RESULT BELOW Name: ESVIN CHESTER : [address]: Shyanne Call MD Acct: [id number] Unit: [id number] AGE: 22 Location: [facility] Re05/02/17 SEX: F Status: REG REF SPEC: [id number] ROSARIO: 05/02/17-140 [facility] DR: Shyanne Call MD REQ: [id number] RECD: 05/02/17 STATUS: COMP _ SOURCE: VAGINAL SPDESC: ORDERED: Preston Clayton COMMENTS: [id number] Procedure Result Reported Site Gardnerella/Yeast: Vaginal DNA [...] . END OF REPORT DEPARTMENT OF PATHOLOGY, [address] [place] [address] Suraj Velasquez M.D. Director [facility] # [id number] 15 Deck Lid Fitter: [id number] 16 SEE RESULT BELOW Name: ESVIN CHESTER : [address]: Felix Dale MD Acct: [id number] Unit: [id number] AGE: 22 Location: ED Re03/24/17 SEX: F Status: REG ER SPEC: [id number] ROSARIO: 03/24/17 [facility] [address]: Can Robertson MD REQ: [id number] RECD: 03/25/17 STATUS: QASIM LOW DR: Felix Briceño [employer] _ SOURCE: YANIV SPDES: ORDERED: Flu A B Request Procedure Result Reported Site Rapid Influenza A B Request Final 03/25/17- 0010 ML Specimen received for Influenza A/B Molecular testing * ML - MAIN LAB ([facility]) . END OF REPORT * ML=Testing performed at Main Lab DEPARTMENT OF PATHOLOGY, [address] [place] [address] Suraj Velasquez M.D. Director [facility] # [id number] 17 Because ethnic data is not always [...] (or dialysis) 18 Acute inflammation: >10.00 19 <5.0 Negative 5.0 - 25.0 Indeterminate (Repeat testing recommended after 72 hours) >25.0 Positive Perimenopausal women can display HCG levels of up to 20 mIU/mL 20 [facility] Severe Sepsis and Septic Shock Management Bundle Measure requires all lactic acids initially measuring >2.0 mmol/L be repeated. 21 Because ethnic data is not always readily [...] 15-29 5 Kidney failure <15 (or dialysis) 22 Acute inflammation: >10.00 23 <5.0 Negative 5.0 - 25.0 Indeterminate (Repeat testing recommended after 72 hours) >25.0 Positive Perimenopausal women can display HCG levels of up to 20 mIU/mL 24 [facility] Severe Sepsis and Septic Shock Management Bundle Measure requires all lactic acids initially measuring >2.0 mmol/L be repeated. 25 SEE RESULT BELOW Name: ESVIN CHESTER : [address]: Doris Briceño NP Acct: [id number] Unit: [id number] AGE: 21 Location: [facility] Re11/04/16 SEX: F Status: REG REF SPEC: [id number] ROSARIO: 11/04/16-[address]: Doris Briceño NP REQ: [id number] RECD: 11/04/16 STATUS: SOUT _ ORDERED: TP IMAGE ANAL COMMENTS: [id number] FINAL DIAGNOSIS Negative for Intraepithelial lesion or [...] was evaluated with the assistance of the Greasebook Test Imaging System. Due to cytologic findings at the child development specialist microscope, comprehensive manual rescreening by a Knockup Worker may be required. The Pap Smear is [...] performed at Main Lab DEPARTMENT OF PATHOLOGY, [address] [place] [address] Suraj Velasquez M.D. Director [facility] # [id number] 26 Because ethnic data is not always readily [...] 15-29 5 Kidney failure <15 (or dialysis) 27 Acute inflammation: >10.00 28 [facility] Severe Sepsis and Septic Shock Management Bundle Measure requires all lactic acids initially measuring >2.0 mmol/L be repeated. 29 SEE RESULT BELOW Name: ESVIN CHESTER : [address]: Kit Rodriguez MD Acct: [id number] Unit: [id number] AGE: 21 Location: ED Re10/15/16 SEX: F Status: DEP ER SPEC: [id number] ROSARIO: 10/15/16 [facility] [address]: Kit Rodriguez MD REQ: [id number] RECD: 10/15/16 STATUS: QASIM LOW DR: Doris Briceño [employer] _ SOURCE: URINE SPDESC: ORDERED: Urine Culture Procedure Result Reported Site Urine Culture Final 10/17/16- 08 ML No Growth (<1,000 CFU/mL) * ML - MAIN LAB ([facility]) . END OF REPORT * ML=Testing performed at Main Lab DEPARTMENT OF PATHOLOGY, [address] [place] [address] Suraj Velasquez M.D. Director [facility] # [id number] 30 Because ethnic data is not always [...] (or dialysis) 31 Acute inflammation: >10.00 32 <5.0 Negative 5.0 - 25.0 Indeterminate (Repeat testing recommended after 72 hours) >25.0 Positive Perimenopausal women can display HCG levels of up to 20 mIU/mL 33 SEE RESULT BELOW Name: MELVI CHESTEREDES : [address]: Alexei Em MD Acct: [id number] Unit: [id number] AGE: 21 Location: ED Re10/08/16 SEX: F Status: DEP ER SPEC: [id number] ROSARIO: 10/08/16 [facility] [address]: Alexei Em MD REQ: [id number] RECD: 10/08/16 STATUS: QASIM LOW DR: Doris Briceño [employer] _ SOURCE: URINE SPDESC: ORDERED: Urine Culture Procedure Result Reported Site Urine Culture Final 10/09/16- 1222 ML Mixed abdirashid; possible contamination. Suggest resubmission. * ML - MAIN LAB ([facility]) . END OF REPORT * ML=Testing performed at Main Lab DEPARTMENT OF PATHOLOGY, [address] [place] [address] Suraj Velasquez M.D. Director [facility] # [id number] 34 [facility] Severe Sepsis and Septic Shock Management Bundle Measure requires all lactic acids initially measuring >2.0 mmol/L be repeated. 35 Because ethnic data is not always readily [...] 15-29 5 Kidney failure <15 (or dialysis) 36 Acute inflammation: >10.00 37 SEE RESULT BELOW Name: ESVIN CHESTER : [address]: Darwin Steel MD Acct: [id number] Unit: [id number] AGE: 20 Location: ED Re10/29/15 SEX: F Status: DEP ER SPEC: [id number] ROSARIO: 10/29/15-[address]: Darwin Steel MD REQ: [id number] RECD: 10/29/15 STATUS: QASIM LOW DR: Doris Briceño [employer] _ SOURCE: URINE SPDC: ORDERED: Urine Culture Procedure Result Reported Site Urine Culture Final 10/30/15- 1214 ML No growth of clinically significant organisms * ML - MAIN LAB ([facility]) . END OF REPORT * ML=Testing performed at Main Lab DEPARTMENT OF PATHOLOGY, [address] [place] [address] Suraj Velasquez M.D. Director [facility] # [id number] 38 SEE RESULT BELOW Name: ESIVN CHESTER : [address]: Doris Briceño NP Acct: [id number] Unit: [id number] AGE: 20 Location: [facility] Re07/10/15 SEX: F Status: REG REF SPEC: [id number] ROSARIO: 07/10/15-[address]: Doris Briceño NP REQ: [id number] RECD: 07/10/15 STATUS: SOUT _ ORDERED: LEVEL III COMMENTS: [id number] FINAL DIAGNOSIS Cyst removal, site unspecified: -- [...] performed at Main Lab DEPARTMENT OF PATHOLOGY, [address] [place] [address] Suraj Velasquez M.D. Director [facility] # [id number] 39 If is still suspected, please repeat test after 48 to 72 hours. This test detects intact HCG only and is indicated for the early detection of . 40 SEE RESULT BELOW Name: ESVIN CHESTER : [address]: George Wallace NP Acct: [id number] Unit: [id number] AGE: 20 Location: [facility] Re06/11/15 SEX: F Status: REG REF SPEC: [id number] ROSARIO: 06/11/15-1620 [facility] [address]: George Wallace NP REQ: [id number] RECD: 06/11/15 STATUS: COMP _ SOURCE: URINE SPDESC: ORDERED: Urine Culture Procedure Result Reported Site Urine Culture Final 06/12/15- 1634 ML No Growth (<1,000 CFU/mL) * ML - MAIN LAB ([facility]) . END OF REPORT * ML=Testing performed at Main Lab DEPARTMENT OF PATHOLOGY, [address] [place] [address] Suraj Velasquez M.D. Director [facility] # [id number] 41 Because ethnic data is not always readily [...] 15-29 5 Kidney failure <15 (or dialysis) 42 <5.0 Negative 5.0 - 25.0 Indeterminate (Repeat testing recommended after 72 hours) >25.0 Positive Perimenopausal women can display HCG levels of up to 20 mIU/mL 43 If is still suspected, please repeat test after 48 to 72 hours. This test detects intact HCG only and is indicated for the early detection of . 44 Because ethnic data is not always readily [...] 15-29 5 Kidney failure <15 (or dialysis) 45 Acute inflammation: >10.00 46 SEE RESULT BELOW Name: ESVIN CHESTER : [address]: George Wallace NP Acct: [id number] Unit: [id number] AGE: 19 Location: [facility] Re02/11/15 SEX: F Status: REG REF SPEC: [id number] ROSARIO: 02/11/15-[address] [facility] [address]: George Wallace NP REQ: [id number] RECD: 02/11/15 STATUS: COMP _ SOURCE: URINE SPDESC: ORDERED: Urine Culture Procedure Result Reported Site Urine Culture Final 02/16/15- 1456 ML No Growth (<1,000 CFU/mL) * ML - MAIN LAB ([facility]) . END OF REPORT * ML=Testing performed at Main Lab DEPARTMENT OF PATHOLOGY, [address] [place] [address] Suraj Velasquez M.D. Director [facility] # [id number] 47 SEE RESULT BELOW Name: ESVIN CHESTER : [address]: George Wallace NP Acct: [id number] Unit: [id number] AGE: 19 Location: [facility] Re02/11/15 SEX: F Status: REG REF SPEC: [id number] ROSARIO: 02/11/15-[address]: George Wallace NP REQ: [id number] RECD: 02/11/15 STATUS: SOUT _ ORDERED: THIN PREP NON G FINAL DIAGNOSIS Urine, voided: --Negative for malignant cells. --Inflammatory cells present. URINE VOID GROSS DESCRIPTION 20 mls of cloudy red voided urine. Signed (signature on file) Gema Moraes MD 1205 END OF REPORT * ML=Testing performed at Main Lab DEPARTMENT OF PATHOLOGY, [address] [place] [address] Suraj Velasquez M.D. Director [facility] # [id number] 48 Because ethnic data is not always [...] 5 Kidney failure <15 (or dialysis) 49 Reference Range and Interpretation: TnI (ng/mL) Interpretation Less Than 0.03 ng/mL Not supportive of diagnosis of VT 0.03 - 0.50 ng/mL Indeterminate: suggest serial studies if clinically indicated. Greater than 0.5 ng/mL Consistent with diagnosis of VT 50 SEE RESULT BELOW Name: ESVIN CHESTER : [address]: Wilder Hernandez MD Acct: [id number] Unit: [id number] AGE: 19 Location: ED Re01/13/15 SEX: F Status: DEP ER SPEC: [id number] ROSARIO: 01/13/15-1499 [facility] [address]: Wilder Hernandez MD REQ: [id number] RECD: 01/13/15 STATUS: QASIM LOW DR: Angeles Stevens MD [...] or failure. * ML - MAIN LAB ([facility]) . END OF REPORT * ML=Testing performed at Main Lab DEPARTMENT OF PATHOLOGY, [address] [place] [address] Suraj Velasquez M.D. Director [facility] # [id number] 51 Female urine specimens have been self-validated by [facility] and have been granted conditional assay approval by [facility]. 52 GC/Chlamydia Source?: Endocervical Trichomonas Source: Endocervical 53 Because ethnic data is not always [...] 5 Kidney failure <15 (or dialysis) 54 Acute inflammation: >10.00 55 Comment: jaspal 56 Because ethnic data is not always [...] 5 Kidney failure <15 (or dialysis) 57 ADDITIONAL INFORMATION Analyte Specific Reagent: This test was developed and its performance characteristics determined by [facility]. It has not been cleared or approved by the U.S. Food and Drug Administration. Test Performed by: [facility] - [address] [address] Broaching Machine Repairer: Odilon Tejeda II, M.D., Ph.D. 58 Female urine specimens have been self-validated by [facility] and have been granted conditional assay approval by [facility]. 59 Because ethnic data is not always [...] 5 Kidney failure <15 (or dialysis) 60 Acute inflammation: >10.00 61 Because ethnic data is not always [...] 5 Kidney failure <15 (or dialysis) 62 Acute inflammation: >10.00 63 SEE RESULT BELOW Name: ESVIN CHESTER : [address]: Bubba Loco DO Acct: [id number] Unit: [id number] AGE: 19 Location: ED Re12/10/14 SEX: F Status: DEP ER SPEC: [id number] ROSARIO: 12/10/14 [facility] [address]: Kit Goldman MD REQ: [id number] RECD: 12/10/14 STATUS: QASIM LOW DR: Doris Briceño [employer]STATE _ SOURCE: URINE SPDESC: ORDERED: Urine Culture Procedure Result Verified Site Urine Culture Final 12/12/14- 1149 ML No Growth Day 2 (<1,000 CFU/mL) * ML - MAIN LAB ([facility]) . END OF REPORT * ML=Testing performed at Main Lab DEPARTMENT OF PATHOLOGY, [address] [place] [address] Suraj Velasquez M.D. Director [facility] # [id number] 64 Because ethnic data is not always readily [...] 15-29 5 Kidney failure <15 (or dialysis) 65 Comment: Tube 4 66 Comment: Tube 2 67 Comment: Tube 2 68 SEE RESULT BELOW Name: BRENNENJUVEESVIN C : [address]: Kristian Torres MD Acct: [id number] Unit: [id number] AGE: 19 Location: ED Re08/13/14 SEX: F Status: DEP ER SPEC: [id number] ROSARIO: 08/13/14-[address]: Kristian Torres MD REQ: [id number] RECD: 08/13/14 STATUS: QASIM LOW DR: Luigi [...] performed at Main Lab DEPARTMENT OF PATHOLOGY, [address] [place] [address] Suraj Velasquez M.D. Director [facility] # [id number] 69 DIFF DONE ON CONCENTRATED SMEAR 70 No evidence of an acute inflammatory response. No evidence of malignancy. Reviewed by Gema Moraes MD 71 Because ethnic data is not always readily [...] 15-29 5 Kidney failure <15 (or dialysis) 72 Unable to report test result due to hemolysis. 73 Unable to report test result due to hemolysis. 74 RUN DATE: 06/17/14 [facility] LIVE PAGE 1 RUN TIME: [address] [place] [address] Specimen Inquiry Name: ESVIN CHESTER : [address]: Kit Goldman MD Acct: [id number] Unit: [id number] AGE: 19 Location: [facility] Re06/14/14 SEX: F Status: DEP ER SPEC: [id number] ROSARIO: 06/14/14-[address] [facility] [address]: Mayra Goldman [employer]STATE REQ: [id number] RECD: 06/15/14-1233 STATUS: QASIM LOW DR: [facility] Luigi Bennett MD _ SOURCE: URINE SPDESC: ORDERED: Urine Culture Procedure Result Verified Site Urine Culture Final 06/17/14- 907 ML Organism 1 NORMAL ABDIRASHID [facility] Count 1-10,000 (Few) CFU/ML * ML - MAIN LAB ([facility]) . END OF REPORT * ML=Testing performed at Main Lab DEPARTMENT OF PATHOLOGY, [facility][note 3] [employer] [place], [place] [address] Suraj Velasquez M.D. Director [facility] # [id number] 75 RUN DATE: 04/05/14 [facility] LIVE PAGE 1 RUN TIME: 822 [facility][note 3] [employer] [place], [place] [address] Specimen Inquiry Name: ESVIN CHESTER : [address]: Trey Lew MD Acct: [id number] Unit: [id number] AGE: 19 Location: [facility] Re04/03/14 SEX: F Status: DEP ER SPEC: [id number] ROSARIO: 04/03/14-[address]: Trey Lew MD REQ: [id number] RECD: 04/03/14-1524 STATUS: QASIM LOW DR: Luigi Bennett MD _ SOURCE: THROAT SPDESC: ORDERED: Throat Beta Str Procedure Result Verified Site Throat Beta Strep Culture Final 04/05/14- 08 ML Negative For Group A Beta Streptococcus END OF REPORT * ML=Testing performed at Main Lab DEPARTMENT OF PATHOLOGY, [facility][note 3] [employer] [place], [place] [address] Suraj Velasquez M.D. Director MIKEY # [id number] RUN DATE: 04/24/13 [facility] LAB LIVE PAGE 1 RUN TIME: 818 [facility][note 3] [employer] [place], [place] [address] Specimen Inquiry Name: ESVIN CHESTER : [address]: Kit Pires MD Acct: [id number] Unit: [id number] AGE: 18 Location: [facility] Re04/22/13 SEX: F Status: DEP ER SPEC: [id number] ROSARIO: 04/22/13-[address] [facility] [address]: Kit Pires MD REQ: [id number] RECD: 04/22/13160 STATUS: QASIM LOW DR: Luigi Bennett MD _ SOURCE: THROAT SPDESC: ORDERED: Throat Beta Str QUERIES: Medent Number [id number] Procedure Result Verified Site Throat Beta Strep Culture Final 04/24/13- 08 ML Negative For Group A Beta Streptococcus END OF REPORT * ML=Testing performed at Main Lab DEPARTMENT OF PATHOLOGY, [facility][note 3] [employer] [place] [address] Suraj Velasquez M.D. Director [facility] Permit #[id number] RUN DATE: 10/24/12 [facility] LAB LIVE PAGE 1 RUN TIME: 835 [facility][note 3] [employer] [place], [place] [address] Specimen Inquiry Name: ESVIN CHESTER : [address]: Kit Goldman MD Acct: [id number] Unit: [id number] AGE: 17 Location: [facility] Re10/21/12 SEX: F Status: DEP ER SPEC: [id number] ROSARIO: 10/21/[address] [facility] [address]: Mayra Goldman NP REQ: [id number] RECD: 10/22/12 STATUS: COMP OTHR DR: Kit Bennett MD _ SOURCE: THROAT SPDESC: ORDERED: Throat Beta Str Procedure Result Verified Site Throat Beta Strep Culture Final 10/24/12835 ML Organism 1 Negative Group A Strep END OF REPORT * ML=Testing performed at Main Lab DEPARTMENT OF PATHOLOGY, [address] [place] [address] Suraj Velasquez M.D. Director [facility] Permit #[id number] Procedures Date Code Description Status 07/10/2015 98137 Acne Surgery Completed 07/02/2015 78118 Gauntlet Cast Application Completed 06/23/2015 98843 Repair Collateral Ligament MCP JT W/Local Tissue Completed 06/23/2015 52637 Repair Collateral Ligament MCP JT W/Local Tissue Completed Encounters Type Date Location Provider Dx Diagnosis Office Visit 03/14/2018 [facility] Karen S63.641A Sprain of 10:15a [facility] Mil[facility] Bennett metacarpophalangeal C.M.A. joint of right thumb, init Office Visit 03/08/2018 [facility] Internal Doris Briceño, S63.641A Sprain of 10:40a Medicine - N.P. metacarpophalangeal [place] joint of right thumb, init N77.1 Vaginitis, vulvitis and vulvovaginitis in dis classd elswhr Office 02/26/2018 [facility] Karen S63.641A Sprain of Visit 10:15a Services [facility] Milly Bennett metacarpophalangeal C.M.A. joint of right thumb, init Office 02/21/2018 [facility] Internal Savanna Mccarthy, S69.91xA Unsp injury of right Visit 2:40p Medicine - wrist, hand and [place] finger(s), init encntr Office 01/17/2018 [facility] Dermatology Dipesh Hernandez, L70.0 Acne vulgaris Visit 4:10p MD Office 12/25/2017 [facility] Doris F17.210 Nicotine dependence, Visit 11:40a Medicine - Varn, N.P. cigarettes, [place] uncomplicated J45.21 Mild intermittent asthma with (acute) exacerbation Office Visit 11/30/2017 11:50a [facility] Internal [place] S60.031A Contusion of Medicine Neeta Stevens M.D. right middle [place] finger w/o damage to nail, init F17.210 Nicotine dependence, cigarettes, uncomplicated Office Visit 09/13/2017 3:30p [facility] Internal Fartun R10.84 Generalized Medicine - Marker, RPA-C abdominal pain [address] R21 Rash and other nonspecific skin eruption Office Visit 08/07/2017 11:00a [facility] Internal Doris Briceño, M54.2 Cervicalgia Medicine - N.P. [place] F17.210 Nicotine dependence, cigarettes, uncomplicated Office Visit 05/02/2017 [facility] Internal Shyanne N77.1 Vaginitis, vulvitis 1:40p Sanjay Call M.D. and vulvovaginitis [place] in dis classd elswhr R21 Rash and other nonspecific skin eruption Office Visit 04/19/2017 [facility] Dermatology Dipesh Hernandez, L70.0 Acne vulgaris 4:00p MD Office Visit 03/31/2017 [facility] Internal Doris Briceño, R10.84 Generalized 11:40a Medicine - N.P. abdominal pain [place] Office Visit 01/18/2017 [facility] [place] J45.901 Unspecified asthma 9:10a Sanjay Stevens M.D. with (acute) [place] exacerbation F17.210 Nicotine dependence, cigarettes, uncomplicated Office Visit 12/06/2016 1:00p [facility] Doris Briceño, M54.5 Low back pain Medicine - N.P. 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 exam (general) [place] (routine) w/o abn findings M46.1 Sacroiliitis, not elsewhere classified Office Visit 10/18/2016 11:00a [facility] Shyanne M54.9 Dorsalgia, Sanjay Call M.D. unspecified [place] R35.0 Frequency of micturition R10.2 Pelvic and perineal pain Office Visit 08/12/2016 Surgical Sudheer S. R22.0 Localized 3:30p [facility] swelling, mass and [facility] lump, head Office Visit 06/29/2016 Orthopedic Karen M79.645 Pain in left 10:45a Services Of Milly Bennett finger(s) C.M.A. Office Visit 06/22/2016 [facility] Internal George Wallace NP M79.645 Pain in left 4:20p Medicine - finger(s) [place] Office Visit 02/03/2016 Surgical Sudheer S. R22.0 Localized 2:30p [facility] swelling, mass and [facility] lump, head Office Visit 01/28/2016 [facility] George Wallace NP R22.9 Localized 9:00a Medicine - swelling, mass and [place] lump, unspecified Office Visit 11/05/2015 [facility] George Wallace NP J45.20 Mild intermittent 10:20a Medicine - asthma, [place] uncomplicated J20.9 Acute bronchitis, unspecified Office Visit 11/02/2015 10:40a [facility]opedic Fide S53.32xD [facility] [place] rupture of left C.M.A. ulnar collateral ligament, subs Office Visit 10/20/2015 2:40p [facility] Doris Briceño M54.5 Low back pain Medicine - N.P. [place] M54.6 Pain in thoracic spine Office Visit 10/02/2015 [facility] George Wallace NP M54.5 Low back pain 10:40a Medicine - [place] Office Visit 09/24/2015 [facility] George Wallace NP M54.5 Low back pain 10:40a Medicine - [place] Office Visit 08/12/2015 [facility] George Wallace NP M79.642 Pain in left 4:20p Medicine - hand [place] Office Visit 07/09/2015 [facility] Doris Briceño M79.642 Pain in left 10:00a Medicine - N.P. hand [place] Office Visit 07/07/2015 [facility] Doris Briceño M79.642 Pain in left 3:55p Medicine - N.P. hand [place] Office Visit 07/06/2015 [facility] Doris Briceño L72.3 Sebaceous cyst 1:40p Medicine - N.P. [place] Office Visit 06/22/2015 Orthopedic Karen S53.32xA Traumatic 11:00a Services Of Milly Bennett rupture of left C.M.A. ulnar collateral ligament, init Office Visit 06/18/2015 Orthopedic Chio Hood, S62.512S Disp fx of 11:00a Services Of proximal phalanx C.M.A. of left thumb, sequela S53.32xA Traumatic rupture of left ulnar collateral ligament, init S62.512A Disp fx of proximal phalanx of left thumb, init for clos fx Office Visit 06/18/2015 10:00a [facility] Doris Briceño, M79.642 Pain in left Medicine - N.P. hand [place] Office Visit 06/11/2015 4:00p [facility] George Wallace NP R30.0 Dysuria Medicine - [place] N91.1 Secondary amenorrhea N39.0 Urinary tract infection, site not specified Office Visit 05/15/2015 [facility] George Wallace NP K02.7 Dental root caries 2:20p Medicine - [place] Office Visit 04/08/2015 [facility] Doris Briceño, F17.210 Nicotine 11:40a Medicine - N.P. dependence, [place] cigarettes, uncomplicated J06.9 Acute upper respiratory infection, unspecified K02.7 Dental root caries Office Visit 03/30/2015 2:40p [facility] Doris Briceño, G44.201 Tension -type Medicine - N.P. 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 [place] R10.31 Right lower quadrant pain J06.9 Acute upper respiratory infection, unspecified R93.2 Abnormal findings on dx imaging of liver and biliary tract Office Visit 02/11/2015 11:40a [facility] Internal Medicine Neeta Wallace NP R30.0 Dysuria [place] R10.30 Lower abdominal pain, unspecified N39.0 Urinary tract infection, site not specified Office Visit 01/05/2015 4:00p [facility] George Wallace, J06.9 Acute upper Medicine - [place] [employer] respiratory [place] infection, unspecified K08.8 Other specified disorders of teeth and supporting structures B37.3 Candidiasis of vulva and vagina Office Visit 12/24/2014 8:40a [facility] Doris Briceño, R10.11 Right upper Medicine - N.P. quadrant pain [place] Office Visit 12/16/2014 1:20p [facility] Doris Briceño, R10.31 Right lower Medicine - N.P. quadrant pain [place] N77.1 Vaginitis, vulvitis and vulvovaginitis in dis classd elswhr J06.9 Acute upper respiratory infection, unspecified F17.210 Nicotine dependence, cigarettes, uncomplicated Office Visit 10/21/2014 1:40p [facility] Doris Kervinn, 787.91 Diarrhea Medicine - [place] N.P. 787.01 Nausea W/ Vomiting Office Visit 09/11/2014 2:00p [facility] Internal Medicine - George Wallace NP 784.0 Headache [place] 789.03 Pain Abdominal Right Lower Quadrant 706.1 Acne Other 788.41 Urinary Frequency Office Visit 08/15/2014 3:20p [facility] Internal Medicine - George Wallace NP 784.0 Headache [place] 847.0 Sprains & Strains Neck Plan of Treatment Future Appointment(s):03/21/2018 4:30 pm - Dipesh Hernandez MD at [facility] [id number]/23/2019 - Karen Bennett M.D.S63.641A Sprain of metacarpophalangeal joint of right thumb, initialNew Xrays:MRI Upper Extremity Right Wo, Ordered: 03/14/18Follow up:Follow up: after testing is completed
--- OUTSIDE RECORDS SUMMARY | 2018-04-01 13:59 | XMS REPORT | Continuity of Care Document ---
:1995 External Reference #:[id number] Author Name Alysia Ng Care Team Providers Name Role Phone Shyanne Call MD Primary Care Physician Unavailable Payers Type Date Identification Numbers Payment Provider Subscriber Effective: 2015 Policy Number: [id number] Zack Chester Group Number: [id number] [address] PayID: [id number] [place] [address] Effective: 2015 Policy Number: [id number] Medicaid Esvin Chester Expires: 2015 Group Name: 1 1 [address] PayID: [id number] [place] [address] Effective: 2014 Policy Number: [id number] Zack Chester Expires: 2015 Group Number: [id number] [address] PayID: [id number] [place] [address] Advance Directives Description No Information Available Problems Date Description Provider Status Onset: 10/21/2014 Asthma Nikita Roach.Neto. 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 ETOH Use Occasionally consumes liquor once monthly Tobacco Use Start: Unknown Light tobacco smoker (10 or fewer cigarettes/day) Recreational Drug Use Denies Drug Use Smoking Status Reviewed: 03/08/18 Light tobacco smoker (10 or fewer cigarettes/day) [...] Tablets 250mg 6tabs 2 tabs by Prince.9 George mouth MAICOL Wallace - every day 11/09 x1 day, tab by mouth every day x 4 days Benzonatate 11/04 Hx Capsules 200mg 30cap one by J20.Sera Mendozaph s mouth MIACOL Wallace - three 01/27 times daily as needed for cough Acetaminophen-Cod 10/19 Hx Tablets 300-30mg 30tab one by M54.5 Doris ramey #3 s mouth Varn, N.P. - every 6 /08 hours as needed cough Meloxicam 10/01 Hx Tablets 15mg 30tab once daily M54.5 George /2015 s with food MAICOL Wallace Tramadol HCL 10/01 Hx Tablets 50mg 42tab 1-2 M54.5 s tablets Madison, SUPERVISOR TYPE DISK QUALITY CONTROL - every 8 /19 hours needed for pain. Fluconazole 09/26 Hx Tablets 150mg 2tabs one by mouth june Varn, N.P. - repeat in 10/19 3 days needed Hydrocodone-Aceta 09/23 Hx Tablets 5-325mg 30tab 1-2 by George minophen s mouth Madison SUPERVISOR TYPE DISK QUALITY CONTROL - every 8 08/12 hours prn. Methylprednisolon 09/23 Hx TBPK 4mg 21uni as M54.5 Dalton ts directed MAICOL Wallace - on package 09/29 Methylprednisolon 08/11 Hx TBPK 4mg 21uni as M79.642 Dalton ts directed MAICOL Wallace - on package [...] N39.0 George HCL s by mouth Madison SUPERVISOR TYPE DISK QUALITY CONTROL - three 06/13 times day as needed for [address] 05/[address] 500mg 60tab by mouth K02.7 George s twice a Madison SUPERVISOR TYPE DISK QUALITY CONTROL - day with 05/10 food Lidocaine Viscous 05/14 Hx Solution 2% 100un gargle K02.7 its with 15ml Madison SUPERVISOR TYPE DISK QUALITY CONTROL - every 4 06/10 hours needed for [...] tablet R30.0 George HCL s by mouth MAICOL Wallace - three 02/14 times day as [...] tablet by MAICOL Wallace - mouth 10/21 hours as needed. Sumatriptan 08/15 Hx Tablets [...] Unknown /0000 every day - 06/22 Trileptal 0000 Hx Tablets 150mg Not Unknown /0000 taking---1 - tablet at 05/01 night for a week then 1 twice a day Doxycycline 00/00 Hx Capsules 50mg to start Unknown Hyclate /0000 soon - 08/07 Immunizations Description No Information Available Vital Signs Date Vital Result Comment 03/08/2018 10:43am Height 65 inches 5'5" Weight [...] Date Facility Test Result H/L Range Note Rapid Influenza 01/19/2018 [facility] Influenza A NEGATIVE Negative 1 A & B Molecular [address] [place] [address] [phone] Influenza B Molecular NEGATIVE Negative Laboratory test 01/19/2018 [facility] Rapid Influenza SEE RESULT [address] A [place] [address] [phone] Comp Metabolic 01/19/2018 [facility] Sodium 135 mmol/L N 135- [address] 5 [place] [address] [phone] Potassium 4.3 mmol/L N 3.5-5.0 Chloride 108 [...] Egfr Non- 104.5 >60 Egfr 126.5 >60 3 Laboratory test 01/19/2018 [facility] Troponin-I 0.00 <0.04 [address] (TnI) ng/[place] [address] [phone] CBC Auto Diff 01/19/2018 [facility] White Blood 11.3 High 3.5- 10.[address] Count 10^3/[place] [address] [phone] Red Blood Count 4.69 10^6/uL N 4.00-5.40 [...] % Nucleated Red Blood Cells % 0.1 Laboratory test 01/19/2018 [facility] Lactic Acid 1.1 mmol/L N 0.5-2.0 5 finding [address] [place] [address] [phone] Urinalysis Profile 12/14/2017 [facility] Urine Color Straw [address] [place] [address] [phone] Urine Appearance Clear Urine Specific Granger 1.005 Low 1.010-1.030 Urine pH 6.0 N 5-9 Urine Urobilinogen Negative Negative Urine Ketones Negative Negative Urine Protein Negative Negative Urine Leukocytes Negative Negative Urine Blood Negative Negative Urine Nitrite Negative Negative Urine Bilirubin Negative Negative Urine Glucose Negative Negative Laboratory test 12/14/2017 [facility] HCG < 0.60 [address] mIU/[place] [address] [phone] Comp Metabolic 12/14/2017 [facility] Sodium 136 mmol/L N 135- [address] [place] [address] [phone] Potassium 4.3 mmol/L N 3.5-5.0 Chloride 106 [...] 133.1 >60 7 CBC Auto Diff 12/14/2017 [facility] White Blood 9.6 10^3/uL N 3.5-10.[address] [place] [address] [phone] Red Blood Count 4.51 10^6/uL N 4.00-5.40 [...] Blood Cells % 0.1 Laboratory test 12/14/2017 [facility] Trichomonas Negative Negative 8, [address] [place] [address] [phone] GC/Chlamydia 12/14/2017 [facility] Chlamydia Negative Negative Amplified Rna [address] [place] [address] [phone] Neisseria gonorrhoeae (GC) Rna Negative Negative Laboratory test 12/14/2017 [facility] Gardnerella/Yeast: SEE RESULT [address] [place]ag[place] [address] [phone] CBC Auto Diff 09/13/2017 [facility] White Blood Count 8.3 N 3.5- [address] 10^3/uL 10.8 [place] [address] [phone] Red Blood Count 4.45 10^6/uL N 4.00-5.40 [...] Cells % 0.1 Comp Metabolic Panel 09/13/2017 [facility] Sodium 138 mmol/L N 135-[address] [place] [address] [phone] Potassium 4.1 mmol/L N 3.5-5.0 Chloride 106 [...] 137.9 >60 12 Laboratory test finding 09/13/2017 [facility] Lipase 17 U/L N 11.0-82.[address] [place] [address] [phone] HCG < 0.60 mIU/mL 13 Laboratory 05/02/2017 [facility] Gardnerella/Yeast: SEE [address] Vaginal [place] [address] BELOW [phone] Rapid 03/25/2017 [facility] Influenza A POSITIVE Abnormal Negative 15 Influenza A [address] Molecular & [place] [address] Molecular [phone] Influenza B Molecular NEGATIVE Negative Laboratory test 03/24/2017 [facility] Rapid Influenza SEE RESULT [address] A [place] [address] [phone] Urinalysis 03/24/2017 [facility] Urine Color Yellow Profile [address] [place] [address] [phone] Urine Appearance Cloudy Urine Specific Granger 1.017 N 1.010-1.030 Urine pH 5.0 N 5-9 Urine Urobilinogen Negative Negative Urine Ketones 2+ Abnormal Negative Urine Protein Negative Negative Urine Leukocytes Negative Negative Urine Blood Negative Negative Urine Nitrite Negative Negative Urine Bilirubin Negative Negative Urine Glucose Negative Negative CBC Auto Diff 03/24/2017 [facility] White Blood 4.4 10^3/uL N 3.5-10.[address] [place] [place] [address] [phone] Red Blood Count 4.50 10^6/uL N 4.0-5.4 [...] Cells % 0.1 Comp Metabolic Panel 03/24/2017 [facility] Sodium 137 mmol/L N 133-[address] [place] [address] [phone] Potassium 3.7 mmol/L N 3.5-5.0 Chloride 104 [...] 132.2 >60 17 Laboratory test finding 03/24/2017 [facility] Lipase 15 U/L N 11.0-82.[address] [place] [address] [phone] C Reactive Protein 3.36 mg/L N < 5.00 18 HCG < 0.60 mIU/mL 19 Lactic Acid 0.6 mmol/L N 0.5-2.0 20 Urinalysis Profile 11/25/2016 [facility] Urine Color Straw N [address] [place] [address] [phone] Urine Appearance Clear N Urine Specific Granger 1.002 Low 1.010-1.030 Urine pH 6.0 N [...] Urine Squamous Epithelial Cell Present Abnormal Absent Laboratory test 11/25/2016 [facility] C Reactive 1.51 mg/L N < 5.00 [address] [place] [place] [address] [phone] HCG < 0.60 mIU/mL N 22 Lactic Acid 1.0 mmol/L N 0.5-2.0 23 GC/Chlamydia 11/25/2016 [facility] Chlamydia Negative N Negative Amplified Rna [address] [place] [address] [phone] Neisseria gonorrhoeae (GC) Rna Negative N Negative CBC Auto Diff 11/25/2016 [facility] White Blood 7.7 10^3/uL N 3.5-10.[address] [place] [place] [address] [phone] Red Blood Count 4.32 10^6/uL N 4.0-5.4 [...] % 0 N Comp Metabolic Panel 11/25/2016 [facility] Sodium 137 mmol/L N 133-145 [address] [place] [address] [phone] Potassium 4.2 mmol/L N 3.5-5.0 Chloride 105 [...] 107.2 N >60 Egfr 137.9 N >60 24 Laboratory test 11/04/2016 [facility] Cytology SEE RESULT [address] [place] [address] [phone] GC/Chlamydia 10/18/2016 [facility] Chlamydia Negative N Negative Amplified Rna [address] [place] [address] [phone] Neisseria gonorrhoeae (GC) Rna Negative N Negative Laboratory test finding 10/18/2016 [facility] Test Urine negative Ua Routine 10/18/2016 [facility] Ua Specific Granger 1.015 Ua PH 5 Ua Color YELLOW Ua Appera CLEAR Ua WBC NEG Ua Protein NEG Ua Glucose NORM Ua Ketones NEG Ua Bilirubin SHAHRAM Ua Urobilinogen NEG Ua Nitrite NEG Ua Occult Blood TRACE Urine Culture And 10/15/2016 [facility] Urine Culture SEE RESULT [address] [place] [address] [phone] Urinalysis Profile 10/15/2016 [facility] Urine Color Katie N [address] [place] [address] [phone] Urine Appearance Clear N Urine Specific Granger 1.025 N 1.010-1.030 Urine pH 5.0 N [...] Present Abnormal Absent CBC Auto Diff 10/15/2016 [facility] White Blood 10.8 10^3/uL N 3.5-10.[address] [place] [place] [address] [phone] Red Blood Count 4.15 10^6/uL N 4.0-5.4 [...] % 0.1 N Comp Metabolic Panel 10/15/2016 [facility] Sodium 134 mmol/L N 133-145 [address] [place] [address] [phone] Potassium 4.0 mmol/L N 3.5-5.0 Chloride 103 [...] 97.3 N >60 Egfr 125.1 N >60 27 Laboratory test 10/15/2016 [facility] Magnesium 2.1 mg/dL N 1.9-2.7 finding [address] [place] [address] [phone] Lipase 35 U/L N 11.0-82.0 C Reactive Protein 1.98 mg/L N < 5.00 28 Lactic Acid 0.5 mmol/L N 0.5-2.0 29 Comp Metabolic Panel 10/08/2016 [facility] Sodium 136 mmol/L N 133-[address] [place] [address] [phone] Potassium 4.1 mmol/L N 3.5-5.0 Chloride 103 [...] 125.1 N >60 30 Laboratory test 10/08/2016 [facility] Lipase < 10 U/L Low 11.0 -82.[address] [place] [address] [phone] C Reactive Protein 4.38 mg/L N < 5.00 31 HCG < 0.60 mIU/mL N 32 Urine Culture And 10/08/2016 [facility] Urine SEE RESULT [address] [place] [address] [phone] Laboratory test 10/08/2016 [facility] Lactic Acid 0.7 mmol/L N 0.5-2 [address]0 [place] [address] [phone] CBC Auto Diff 10/08/2016 [facility] White Blood 14.8 High 3.5- [address] Count 10^3/uL 0.8 [place] [address] [phone] Red Blood Count 4.41 10^6/uL N 4.0-5.4 [...] Cells % 0 N Urinalysis Profile 10/08/2016 [facility] Urine Color Yellow N [address] [place] [address] [phone] Urine Appearance Cloudy N Urine Specific Granger 1.023 N 1.010-1.030 Urine pH 5.0 N [...] Present Abnormal Absent CBC Auto Diff 10/29/2015 [facility] White Blood 9.8 10^3/uL N 3.5-10.[address] [place] [address] [phone] Red Blood Count 4.36 10^6/uL N 4.0-5.4 [...] % 0 N Comp Metabolic Panel 10/29/2015 [facility] Sodium 136 mmol/L N 133-[address] [place] [address] [phone] Potassium 4.0 mmol/L N 3.5-5.0 Chloride 104 [...] N >60 35 Laboratory test finding 10/29/2015 [facility] Lipase 21 U/L N 11.0-82.[address] [place] [address] [phone] C Reactive Protein < 1.00 mg/L N < 5.00 36 Urinalysis Profile 10/29/2015 [facility] Urine Color Yellow N [address] [place] [address] [phone] Urine Appearance Cloudy N Urine Specific Granger 1.026 N 1.010-1.030 Urine pH 6.0 N [...] Present Abnormal Absent Urine Culture And 10/29/2015 [facility] Urine Culture SEE RESULT [address] [place] [place] [address] [phone] Laboratory test 07/10/2015 [facility] Surgical SEE RESULT [address] [place] [address] [phone] Laboratory test 06/23/2015 [facility] Negative N Negative [address] (HCG) [place] [address] [phone] Laboratory test 06/11/2015 [facility] neg finding Test Urine Urine Culture And 06/11/2015 [facility] Urine Culture SEE RESULT [address] [place] [place] [address] [phone] Ua Routine 06/11/2015 [facility] Ua Specific 1.025 Granger Ua PH 5 Ua Color yellow Ua Appera clear Ua WBC neg Ua Protein neg Ua Glucose neg Ua Ketones large Ua Bilirubin neg Ua Urobilinogen normal Ua Nitrite neg Ua Occult Blood neg CBC Auto Diff 04/08/2015 [facility] White Blood 8.8 10^3/uL N 3.5-10.[address] [place] [place] [address] [phone] Red Blood Count 4.32 10^6/uL N 4.0-5.4 [...] % 0 N Comp Metabolic Panel 04/08/2015 [facility] Sodium 137 mmol/L N 133-145 [address] [place] [address] [phone] Potassium 3.9 mmol/L N 3.5-5.0 Chloride 104 [...] N >60 41 Laboratory test finding 04/08/2015 [facility] Lipase 22 U/L N 11.0-82.[address] [place] [address] [phone] HCG < 0.60 mIU/mL N 42 Laboratory test 03/20/2015 [facility] Negative N Negative [address] (HCG) [place] [address] [phone] CBC Auto Diff 02/16/2015 [facility] White Blood 8.2 10^3/uL N 3.5-10.[address] [place] [place] [address] [phone] Red Blood Count 4.48 10^6/uL N 4.0-5.4 [...] Cells % 0.1 N Urinalysis Profile 02/16/2015 [facility] Urine Color Yellow N [address] [place] [address] [phone] Urine Appearance Clear N Urine Specific Granger 1.012 N 1.010-1.030 Urine pH 5.0 N [...] Present Abnormal Absent Comp Metabolic Panel 02/16/2015 [facility] Sodium 136 mmol/L N 133-[address] [place] [address] [phone] Potassium 4.1 mmol/L N 3.5-5.0 Chloride 105 [...] N >60 44 Laboratory test finding 02/16/2015 [facility] Lipase 20 U/L N 11.0-82.[address] [place] [address] [phone] C Reactive Protein 9.66 mg/L High < 5.00 45 HCG Qualitative Negative N Negative Laboratory test 02/11/2015 [facility] Urine Culture And SEE RESULT [address] [place] [address] [phone] Cytology Non-Termination Clerk SEE RESULT BELOW 47 Laboratory test finding 02/11/2015 [facility] Test Urine negative Ua Routine 02/11/2015 [facility] Ua Specific [place]anger 1.020 Ua PH 7 Ua Color katie Ua Appera cloudy/chunks Ua WBC moderate Ua Protein trace Ua Glucose neg Ua Ketones neg Ua Bilirubin neg Ua Urobilinogen neg Ua Nitrite neg Ua Occult Blood Xlarge CBC Auto Diff 02/02/2015 [facility] White Blood 10.0 10^3/uL N 3.5-10.[address] [place] [address] [phone] Red Blood Count 4.78 10^6/uL N 4.0-5.4 [...] % 0 N Comp Metabolic Panel 02/02/2015 [facility] Sodium 135 mmol/L N 133-[address] [place] [address] [phone] Potassium 4.1 mmol/L N 3.5-5.0 Chloride 103 [...] 127.4 N >60 48 Laboratory test 02/02/2015 [facility] Troponin-I 0.00 ng/mL N <0.03 [address] (TnI) [place] [address] [phone] Laboratory test 01/13/2015 [facility] Gardnerella/Yea SEE RESULT [address]: [place]ag[place] [address] [phone] GC/Chlamydia 01/13/2015 [facility] Chlamydia Negative N Negative Amplified Rna [address] [place] [address] [phone] Neisseria gonorrhoeae (GC) Rna Negative N Negative 51 Laboratory test 01/13/2015 [facility] Trichomonas Negative N Negative [address] [place] [address] [phone] CBC Auto Diff 01/13/2015 [facility] White Blood 8.4 10^3/uL N 4.8-10.[address] [place] [place] [address] [phone] Red Blood Count 4.39 10^6/uL N 4.0-5.4 [...] Cells % 0 N Urinalysis Profile 01/13/2015 [facility] Urine Color Yellow N [address] [place] [address] [phone] Urine Appearance Cloudy N Urine Specific Granger 1.015 N 1.010-1.030 Urine pH 7.0 N 5-9 Urine Urobilinogen Negative N Negative Urine Ketones Negative N Negative Urine Protein Negative N Negative Urine Leukocytes Negative N Negative Urine Blood Negative N Negative Urine Nitrite Negative N Negative Urine Bilirubin Negative N Negative Urine Glucose Negative N Negative Comp Metabolic Panel 01/13/2015 [facility] Sodium 135 mmol/L N 133-145 [address] [place] [address] [phone] Potassium 3.8 mmol/L N 3.5-5.0 Chloride 104 [...] N >60 53 Laboratory test finding 01/13/2015 [facility] Lipase 22 U/L N 11.0-82.[address] [place] [address] [phone] C Reactive Protein 1.81 mg/L N < 5.00 54 HCG Qualitative Negative N Negative 55 CBC Auto Diff 12/26/2014 [facility] White Blood 10.2 10^3/uL N 4.8-10.[address] [place] [address] [phone] Red Blood Count 4.61 10^6/uL N 4.0-5.4 [...] % 0 N Comp Metabolic Panel 12/26/2014 [facility] Sodium 136 mmol/L N 133-[address] [place] [address] [phone] Potassium 4.3 mmol/L N 3.5-5.0 Chloride 101 [...] 123.5 N >60 56 Herpes Simplex 12/16/2014 [facility] Herpes Source VULVAR LESIONS N PCR [address] [place] [address] [phone] HSV 1 PCR Negative N Negative HSV 2 PCR Positive N Negative 57 GC/Chlamydia 12/16/2014 [facility] Chlamydia Negative N Negative Amplified Rna [address] [facility] [place] [address] [phone] Neisseria gonorrhoeae (GC) Rna Negative N Negative 58 Laboratory test 12/10/2014 [facility] HCG Qualitative Negative N Negative finding [address] [place] [address] [phone] Urinalysis 12/10/2014 [facility] Urine Color Yellow N Profile [address] [place] [address] [phone] Urine Appearance Clear N Urine Specific Granger 1.014 N 1.010-1.030 Urine pH 6.0 N 5-9 Urine Urobilinogen Negative N Negative Urine Ketones Negative N Negative Urine Protein Negative N Negative Urine Leukocytes Negative N Negative Urine Blood Negative N Negative Urine Nitrite Negative N Negative Urine Bilirubin Negative N Negative Urine Glucose Negative N Negative CBC Auto 12/10/2014 [facility] White Blood 10.9 10^3/uL High 4.8-10.8 Diff [address] [email or web address] [address] [phone] Red Blood Count 4.16 10^6/uL N 4.0-5.4 [...] Cells % 0.1 N Laboratory test 12/10/2014 [facility] Lactic Acid 0.5 mmol/L N 0.5-2.2 finding [address] [place] [address] [phone] Comp Metabolic 12/10/2014 [facility] Sodium 135 mmol/L N 133- 145 Panel [address] [place] [address] [phone] Potassium 3.9 mmol/L N 3.5-5.0 Chloride 103 [...] N >60 59 Laboratory test finding 12/10/2014 [facility] Lipase 31 U/L N 11.0-82.[address] [place] [address] [phone] C Reactive Protein 3.26 mg/L N < 5.00 60 Urinalysis Profile 12/10/2014 [facility] Urine Color Yellow N [address] [place] [address] [phone] Urine Appearance Clear N Urine Specific Granger 1.014 N 1.010-1.030 Urine pH 6.0 N 5-9 Urine Urobilinogen Negative N Negative Urine Ketones Negative N Negative Urine Protein Negative N Negative Urine Leukocytes Negative N Negative Urine Blood Negative N Negative Urine Nitrite Negative N Negative Urine Bilirubin Negative N Negative Urine Glucose Negative N Negative CBC Auto 12/10/2014 [facility] White Blood 10.9 10^3/uL High 4.8-10.[address] [place] [address] [phone] Red Blood Count 4.16 10^6/uL N 4.0-5.4 [...] Cells % 0.1 N Laboratory test 12/10/2014 [facility] Lactic Acid 0.5 mmol/L N 0.5-2.2 finding [address] [place] [address] [phone] Comp Metabolic 12/10/2014 [facility] Sodium 135 mmol/L N 133- 145 Panel [address] [place] [address] [phone] Potassium 3.9 mmol/L N 3.5-5.0 Chloride 103 [...] N >60 61 Laboratory test finding 12/10/2014 [facility] Lipase 31 U/L N 11.0-82.0 [address] [place] [address] [phone] C Reactive Protein 3.26 mg/L N < 5.00 62 Urine Culture And Sensitivities SEE RESULT BELOW 63 Laboratory test 10/21/2014 [facility] TSH (Thyroid 1.04 ?IU/mL N 0.34-5.60 finding [address] [facility]) [place] [address] [phone] Comp Metabolic 10/21/2014 [facility] Sodium 137 mmol/L N 133- 145 Panel [address] [place] [address] [phone] Potassium 3.9 mmol/L N 3.5-5.0 Chloride 104 [...] 131.5 N >60 64 Laboratory test 10/21/2014 [facility] HCG Qualitative Negative N Negative finding [address] [place] [address] [phone] Laboratory test 09/11/2014 [facility] Test neg finding Urine Ua Routine 09/11/2014 [facility] Ua Specific 1.015 Gr[place] Ua PH 5 Ua Color yellow Ua Appera clear Ua WBC neg Ua Protein neg Ua Glucose neg Ua Ketones neg Ua Bilirubin neg Ua Urobilinogen 0.2 Ua Nitrite neg Ua Occult Blood neg Laboratory test 08/13/2014 [facility] CSF Glucose 61 mg/dL N 40-70 65, 66 finding [address] [place] [address] [phone] CSF Protein 36 mg/dL N 15-45 67 CSF Culture & Gram Stain SEE RESULT BELOW 68 CSF Cell Count 08/13/2014 [facility] Body Fluid Appearance Clear N [address] [place] [address] [phone] Body Fluid Color Colorless N CSF Tube # 1 N Body Fluid Volume 1 mL N Body Fluid WBC 1 N Body Fluid RBC 2 N Body Fluid Polys 0 N Body Fluid Lymph 10 N Body Fluid Logan 2 N Body Fluid Total Cells Counted 12 N Body Fluid Comment (SEE NOTE) N 69 Fluid Reviewed By (SEE NOTE) N 70 CBC Auto 08/13/2014 [facility] White Blood 14.1 10^3/uL High 4.8-10.[address] [place] [address] [phone] Red Blood Count 4.73 10^6/uL N 4.0-5.4 [...] Cells % 0.1 N Laboratory test 08/13/2014 [facility] Serum Negative N Negative finding [address] [place] [address] [phone] Comp Metabolic 08/13/2014 [facility] Sodium 135 mmol/L N 133- [address] [place] [address] [phone] Chloride 104 mmol/L N 101-111 Co2 Carbon [...] N 13-39 73 Urine Culture And 06/14/2014 [facility] Urine Culture (SEE NOTE ) [address] [place] [address] [phone] Throat-Beta Strept 04/03/2014 [facility] Throat Beta (SEE NOTE) [address] [address] [phone] Throat-Beta Strept 04/22/2013 [facility] Throat Beta (SEE NOTE) [address] [address] [phone] Throat-Beta Strept 10/21/2012 [facility] Throat Beta (SEE NOTE) [address] [address] [phone] Test Engineering Intern: [id number] 2 SEE RESULT BELOW Name: LAIESVIN : [address]: Sandra Swan MD Acct: [id number] Unit: [id number] AGE: 22 Location: ED Re01/19/18 SEX: F Status: REG ER SPEC: [id number] ROSARIO: 11/30/18-[address]: Sandra Swan MD REQ: [id number] RECD: 01/19/18 STATUS: QASIM LOW DR: Doris Briceño SUPERVISOR TYPE DISK QUALITY CONTROL _ SOURCE: NASAL SPDESC: ORDERED: Flu A B Request Procedure Result Reported Site Rapid Influenza A B Request Final 01/19/181156 ML Specimen received for Influenza A/B Molecular testing * ML - Main Lab . END OF REPORT DEPARTMENT OF PATHOLOGY, [address] [place] [address] Suraj Velasquez M.D. Director [facility] # [id number] 3 Because ethnic data is not always readily [...] 15-29 5 Kidney failure <15 (or dialysis) 4 Troponin-I testing on Plasma Separator Tubes (PST) has a known false positive rate of 0.20-0.40%. All positive troponins reflex immediate secondary confirmatory testing. 5 [facility] Severe Sepsis and Septic Shock Management Bundle Measure requires all lactic acids initially measuring >2.0 mmol/L be repeated. 6 <5.0 Negative 5.0 - 25.0 Indeterminate [...] [address]: Susan Rob MD Acct: [id number] Unit: [id number] AGE: 22 Location: ED Re12/14/17 SEX: F Status: DEP ER SPEC: [id number] ROSARIO: 12/14/17 [facility] DR: Peng FRANCO REQ: [id number] RECD: 12/14/17 STATUS: QASIM LOW DR: Doris [...] . END OF REPORT DEPARTMENT OF PATHOLOGY, [address] [place] [address] Suraj Velasquez M.D. Director [facility] # [id number] 11 LM for patient to call back to [...] [address]: Shyanne Call MD Acct: [id number] Unit: [id number] AGE: 22 Location: [facility] Re05/02/17 SEX: F Status: REG REF SPEC: [id number] ROSARIO: 05/02/17-1406 [facility] DR: Shyanne Call MD REQ: [id number] RECD: 05/02/17 STATUS: COMP _ SOURCE: VAGINAL SPDESC: ORDERED: ForrestYeast DNA COMMENTS: [id number] Procedure Result Reported Site Gardnerella/Yeast: Vaginal DNA [...] . END OF REPORT DEPARTMENT OF PATHOLOGY, [address] [place] [address] Suraj Velasquez M.D. Director [facility] # [id number] Test Engineering Intern: [id number] 16 SEE RESULT BELOW Name: ESVIN CHESTER : [address]: Felix Dale MD Acct: [id number] Unit: [id number] AGE: 22 Location: ED Re03/24/17 SEX: F Status: REG ER SPEC: [id number] ROSARIO: 03/24/17 [facility] DR: Can Robertson MD REQ: [id number] RECD: 03/25/17 STATUS: QASIM LOW DR: Felix Briceño SUPERVISOR TYPE DISK QUALITY CONTROL _ SOURCE: YANIV [facility]: ORDERED: Flu A B Request Procedure Result Reported Site Rapid Influenza A B Request Final 03/25/17- 0010 ML Specimen received for Influenza A/B Molecular testing * ML - MAIN LAB ([facility]) . END OF REPORT * ML=Testing performed at Main Lab DEPARTMENT OF PATHOLOGY, [address] [place] [address] Suraj Velasquez M.D. Director [facility] # [id number] 17 Because ethnic data is not always [...] levels of up to 20 mIU/mL 20 [facility] Severe Sepsis and Septic Shock Management Bundle Measure requires all lactic acids initially measuring >2.0 mmol/L be repeated. 21 Acute inflammation: >10.00 22 <5.0 Negative 5.0 - 25.0 Indeterminate (Repeat testing recommended after 72 hours) >25.0 Positive Perimenopausal women can display HCG levels of up to 20 mIU/mL 23 [facility] Severe Sepsis and Septic Shock Management Bundle [...] 5 Kidney failure <15 (or dialysis) 25 SEE RESULT BELOW Name: ESVIN CHESTER : [address]: Doris Briceño NP Acct: [id number] Unit: [id number] AGE: 21 Location: [facility] Re11/04/16 SEX: F Status: REG REF SPEC: [id number] ROSARIO: 11/04/16-[address]: Doris Briceño NP REQ: [id number] RECD: 11/04/16 STATUS: SOUT _ ORDERED: TP IMAGE ANAL COMMENTS: [id number] FINAL DIAGNOSIS Negative for Intraepithelial lesion or Malignancy A. Ectocervical/Endocervical Specimen Adequacy: Satisfactory of evaluation Transformation zone component identified Patient Information: HPV: Thin Layer Pap Test w/reflex to high risk HPV RNA testing when ASCUS Actual Specimen Date: 11/04/16 Last Menstrual Date: 10/03/16 ?: N Post Menopausal?: N Hysterectomy?: N Previous Abnormal Pap Smears?:N Signed (signature on file) Tae Antunez BARRY (ASCP) 11/07 1315 This Pap test was evaluated with the assistance of the ThinPrep Test Imaging System. Due to cytologic findings at the jinrikisha driver microscope, comprehensive manual rescreening by a Kitchen Hand may be required. The Pap Smear is [...] performed at Main Lab DEPARTMENT OF PATHOLOGY, [address] [place] [address] Suraj Velasquez M.D. Director [facility] # [id number] 26 SEE RESULT BELOW Name: ESVIN CHESTER : [address]: Kit Rodriguez MD Acct: [id number] Unit: [id number] AGE: 21 Location: ED Re10/15/16 SEX: F Status: DEP ER SPEC: [id number] ROSARIO: 10/15/16-2044 [facility] DR: Kit Rodriguez MD REQ: [id number] RECD: 10/15/16 STATUS: QASIM LOW DR: Doris Briceño SUPERVISOR TYPE DISK QUALITY CONTROL _ SOURCE: URINE SPDESC: ORDERED: Urine Culture Procedure Result Reported Site Urine Culture Final 10/17/16- 0855 ML No Growth (<1,000 CFU/mL) * ML - MAIN LAB ([facility]) . END OF REPORT * ML=Testing performed at Main Lab DEPARTMENT OF PATHOLOGY, [address] [place] [address] Suraj Velasquez M.D. Director [facility] # [id number] 27 Because ethnic data is not always readily [...] 15-29 5 Kidney failure <15 (or dialysis) 28 Acute inflammation: >10.00 29 [facility] Severe Sepsis and Septic Shock Management [...] 20 mIU/mL 33 SEE RESULT BELOW Name: ESVIN CHESTER : [address]: Alexei Em MD Acct: [id number] Unit: [id number] AGE: 21 Location: ED Re10/08/16 SEX: F Status: DEP ER SPEC: [id number] ROSARIO: 10/08/16 [facility] DR: Alexei Em MD REQ: [id number] RECD: 10/08/16 STATUS: QASIM LOW DR: Doris Briceño SUPERVISOR TYPE DISK QUALITY CONTROL _ SOURCE: URINE SPDESC: ORDERED: Urine Culture Procedure Result Reported Site Urine Culture Final 10/09/16- 1222 ML Mixed abdirashid; possible contamination. Suggest resubmission. * ML - MAIN LAB ([facility]) . END OF REPORT * ML=Testing performed at Main Lab DEPARTMENT OF PATHOLOGY, [address] [place] [address] Suraj Velasquez M.D. Director [facility] # [id number] 34 [facility] Severe Sepsis and Septic Shock Management [...] [address]: Darwin Steel MD Acct: [id number] Unit: [id number] AGE: 20 Location: ED Re10/29/15 SEX: F Status: DEP ER SPEC: [id number] ROSARIO: 10/29/15-1252 [facility] DR: Darwin Steel MD REQ: [id number] RECD: 10/29/15-1317 STATUS: QASIM LOW DR: Doris Briceño SUPERVISOR TYPE DISK QUALITY CONTROL _ SOURCE: URINE SPDESC: ORDERED: Urine Culture Procedure Result Reported Site Urine Culture Final 10/30/15- 1214 ML No growth of clinically significant organisms * ML - MAIN LAB ([facility]) . END OF REPORT * ML=Testing performed at Main Lab DEPARTMENT OF PATHOLOGY, [address] [place] [address] Suraj Velasquez M.D. Director [facility] # [id number] 38 SEE RESULT BELOW Name: LAIESVIN : [address]: Doris Briceño NP Acct: [id number] Unit: [id number] AGE: 20 Location: [facility] Re07/10/15 SEX: F Status: REG REF SPEC: [id number] ROSARIO: 07/10/15-1214 [facility] DR: Doris Briceño NP REQ: [id number] RECD: 07/10/151 STATUS: SOUT _ ORDERED: LEVEL III COMMENTS: [id number] FINAL DIAGNOSIS Cyst removal, site unspecified: -- [...] performed at Main Lab DEPARTMENT OF PATHOLOGY, [address] [place] [address] Suraj Velasquez M.D. Director [facility] # [id number] 39 If is still suspected, please repeat test after 48 to 72 hours. This test detects intact HCG only and is indicated for the early detection of . 40 SEE RESULT BELOW Name: ESVIN CHESTER : [address]: George Wallace NP Acct: [id number] Unit: [id number] AGE: 20 Location: [facility] Re06/11/15 SEX: F Status: REG REF SPEC: [id number] ROSARIO: 06/11/15-[address]: George Wallace NP REQ: [id number] RECD: 06/11/15 STATUS: COMP _ SOURCE: URINE SPDESC: ORDERED: Urine Culture Procedure Result Reported Site Urine Culture Final 06/12/15- 1634 ML No Growth (<1,000 CFU/mL) * ML - MAIN LAB ([facility]) . END OF REPORT * ML=Testing performed at Main Lab DEPARTMENT OF PATHOLOGY, [address] [place] [address] Suraj Velasquez M.D. Director [facility] # [id number] 41 Because ethnic data is not always [...] [address]: George Wallace NP Acct: [id number] Unit: [id number] AGE: 19 Location: [facility] Re02/11/15 SEX: F Status: REG REF SPEC: [id number] ROSARIO: 02/11/15-[address]: George Wallace NP REQ: [id number] RECD: 02/11/15 STATUS: COMP _ SOURCE: URINE SPDESC: ORDERED: Urine Culture Procedure Result Reported Site Urine Culture Final 02/16/15- 1456 ML No Growth (<1,000 CFU/mL) * ML - MAIN LAB ([facility]) . END OF REPORT * ML=Testing performed at Main Lab DEPARTMENT OF PATHOLOGY, [address] [place] [address] Suraj Velasquez M.D. Director [facility] # [id number] 47 SEE RESULT BELOW Name: ESVIN CHESTER : [address]: George Wallace NP Acct: [id number] Unit: [id number] AGE: 19 Location: [facility] Re02/11/15 SEX: F Status: REG REF SPEC: [id number] ROSARIO: 02/11/15-1213 [facility] DR: George Wallace SUPERVISOR TYPE DISK QUALITY CONTROL REQ: [id number] RECD: 02/11/15 STATUS: SOUT _ ORDERED: THIN PREP NON G FINAL DIAGNOSIS Urine, voided: --Negative for malignant cells. --Inflammatory cells present. URINE VOID GROSS DESCRIPTION 20 mls of cloudy red voided urine. Signed (signature on file) Gema Moraes MD 1205 END OF REPORT * ML=Testing performed at Main Lab DEPARTMENT OF PATHOLOGY, [address] [place] [address] Suraj Velasquez M.D. Director [facility] # [id number] 48 Because ethnic data is not always [...] 0.03 ng/mL Not supportive of diagnosis of HI 0.03 - 0.50 ng/mL Indeterminate: suggest serial studies if clinically indicated. Greater than 0.5 ng/mL Consistent with diagnosis of HI 50 SEE RESULT BELOW Name: ESVIN CHESTER : [address]: Wilder Hernandez MD Acct: [id number] Unit: [id number] AGE: 19 Location: ED Re01/13/15 SEX: F Status: DEP ER SPEC: [id number] ROSARIO: 01/13/15-[address]: Wilder Hernandez MD REQ: [id number] RECD: 01/13/15-160 STATUS: QASIM ADAMS DR: Angeles Stevens MD [...] or failure. * ML - MAIN LAB ([facility]) . END OF REPORT * ML=Testing performed at Main Lab DEPARTMENT OF PATHOLOGY, [address] [place] [address] Suraj Velasquez M.D. Director [facility] # [id number] 51 Female urine specimens have been self-validated by [facility] and have been granted conditional assay approval by [facility]. 52 GC/Chlamydia Source?: Endocervical Trichomonas [...] dialysis) 54 Acute inflammation: >10.00 55 Comment: f 56 Because ethnic data is not always [...] developed and its performance characteristics determined by [facility]. It has not been cleared or approved by the U.S. Food and Drug Administration. Test Performed by: [facility] [place] [address] [employer] Prospect[employer] Observer: Odilon Tejeda II, M.D., Ph.D. 58 Female urine specimens have been self-validated by [facility] and have been granted conditional assay approval by [facility]. 59 Because ethnic data is [...] [address]: Bubba Loco DO Acct: [id number] Unit: [id number] AGE: 19 Location: ED Re12/10/14 SEX: F Status: DEP ER SPEC: [id number] ROSARIO: 12/10/14-2019 [facility] DR: Kit Goldman MD REQ: [id number] RECD: 12/10/14 STATUS: [facility] DR: Doris Briceño SUPERVISOR TYPE DISK QUALITY CONTROL _ SOURCE: URINE [facility]: ORDERED: Urine Culture Procedure Result Verified Site Urine Culture Final 12/12/14- 1149 ML No Growth Day 2 (<1,000 CFU/mL) * ML - MAIN LAB ([facility]) . END OF REPORT * ML=Testing performed at Main Lab DEPARTMENT OF PATHOLOGY, [address] [place] [address] Suraj Velasquez M.D. Director [facility] # [id number] 64 Because ethnic data is not always [...] Comment: Tube 4 66 Comment: Tube 2 Comment: Tube 2 68 SEE RESULT BELOW Name: ESVIN CHESTER : [address]: Kristian Torres MD Acct: [id number] Unit: [id number] AGE: 19 Location: ED Re08/13/14 SEX: F Status: DEP ER SPEC: [id number] ROSARIO: 08/13/14-8[address] [facility] DR: Kristian Torres MD REQ: [id number] RECD: 08/13/14 STATUS: COMP MARANDA DR: Luigi Bennett MD _ SOURCE: CSF [...] performed at Main Lab DEPARTMENT OF PATHOLOGY, [address] [place] [address] Suraj Velasquez M.D. Director [facility] # [id number] 69 DIFF DONE ON CONCENTRATED SMEAR 70 [...] due to hemolysis. 74 RUN DATE: 06/17/14 [facility] LIVE PAGE 1 RUN TIME: [address] [place] [address] Specimen Inquiry Name: ESVIN CHESTER : [address]: Kit Goldman MD Acct: [id number] Unit: [id number] AGE: 19 Location: [facility] Re06/14/14 SEX: F Status: DEP ER SPEC: [id number] ROSARIO: 06/14/14-8 [facility] DR: Mayra Goldman SUPERVISOR TYPE DISK QUALITY CONTROL REQ: [id number] RECD: 06/15/14-1233 STATUS: QASIM LOW DR: [facility] Luigi Bennett MD _ SOURCE: URINE SPDC: ORDERED: Urine Culture Procedure Result Verified Site Urine Culture Final 06/17/14- 09 ML Organism 1 NORMAL ABDIRASHID [place]ett Count 1-10,000 (Few) CFU/ML * ML - MAIN LAB ([facility]) . END OF REPORT * ML=Testing performed at Main Lab DEPARTMENT OF PATHOLOGY, [facility] [employer] [place] [address] Suraj Velasquez M.D. Director [place] # [id number] 75 RUN DATE: 04/05/14 [facility] LIVE PAGE 1 RUN TIME: 822 [facility] [employer] [place], [place] [address] Specimen Inquiry Name: ESVIN CHESTER : [address]: Trey Lew MD Acct: [id number] Unit: [id number] AGE: 19 Location: [facility] Re04/03/14 SEX: F Status: DEP ER SPEC: [id number] ROSARIO: 04/03/14-1244 [facility] DR: Trey Lew MD REQ: [id number] RECD: 04/03/14 STATUS: QASIM LOW DR: Luigi Bennett MD _ SOURCE: THROAT SPDESC: ORDERED: Throat Beta Str Procedure Result Verified Site Throat Beta Strep Culture Final 04/05/14821 ML Negative For Group A Beta Streptococcus END OF REPORT * ML=Testing performed at Main Lab DEPARTMENT OF PATHOLOGY, [address] [place] [address] Suraj Velasquez M.D. Director [facility] # [id number] 76 RUN DATE: 04/24/13 [facility] LIVE PAGE 1 RUN TIME: [address] [place] [address] Specimen Inquiry Name: ESVIN CHESTER : [address]: Kit Pires MD Acct: [id number] Unit: [id number] AGE: 18 Location: [facility] Re04/22/13 SEX: F Status: DEP ER SPEC: [id number] ROSARIO: 04/22/13-1200 [facility] DR: Kit Pires MD REQ: [id number] RECD: 04/22/13-1602 STATUS: QASIM LOW DR: Luigi Bennett MD _ SOURCE: THROAT SPDESC: ORDERED: Throat Beta Str QUERIES: Medent Number [id number] Procedure Result Verified Site Throat Beta Strep Culture Final 04/24/13- 818 ML Negative For Group A Beta Streptococcus END OF REPORT * ML=Testing performed at Main Lab DEPARTMENT OF PATHOLOGY, [facility] [employer] [place], [place] [address] Suraj Velasquez M.D. Director [facility] Permit #[id number] 77 RUN DATE: 10/24/12 [facility] LIVE PAGE 1 RUN TIME: 08 [facility] [employer] [place], [place] [address] Specimen Inquiry Name: ESVIN CHESTER : [address]: Kit Golmdan MD Acct: [id number] Unit: [id number] AGE: 17 Location: [facility] Re10/21/12 SEX: F Status: DEP ER SPEC: [id number] ROSARIO: 10/21/12 [facility] DR: Mayra Goldman NP REQ: [id number] RECD: 10/22/12 STATUS: QASIM LOW DR: Kit Bennett MD _ SOURCE: THROAT SPDESC: ORDERED: Throat Beta Str Procedure Result Verified Site Throat Beta Strep Culture Final 10/24/12835 ML Organism 1 Negative Group A Strep END OF REPORT * ML=Testing performed at Main Lab DEPARTMENT OF PATHOLOGY, [address] [place] [address] Suraj Velasquez M.D. Director [facility] Permit #[id number] Procedures Date Code Description Status 07/10/2015 96122 Acne Surgery Completed 07/02/2015 21278 Gauntlet Cast Application Completed 06/23/2015 31465 Repair Collateral Ligament MCP JT W/Local Tissue Completed 06/23/2015 01415 Repair Collateral Ligament MCP JT W/Local Tissue Completed Encounters Type Date Location Provider Dx Diagnosis Office Visit 02/26/2018 [facility] Karen S63.641 Sprain of 10:15a [facility] A metacarpophalangeal C.M.A. joint of right thumb, init Office Visit 02/21/2018 [facility] Internal Savanna Mccarthy MD S69.91x Unsp injury of right 2:40p Medicine - A wrist, hand and [place] finger(s), init encntr Office Visit 01/17/2018 [facility] D[facility] Dipesh Hernandez, L70.0 Acne vulgaris 4:10p MD Office Visit 12/25/2017 [facility] Doris Briceño, F17.210 Nicotine dependence, 11:40a Medicine - N.P. cigarettes, [place] uncomplicated J45.21 Mild intermittent asthma with (acute) exacerbation Office Visit 11/30/2017 11:50a [facility] Internal Angeles S60.031A Contusion of Medicine - Milly Stevens right middle [place] finger w/o damage to nail, init F17.210 Nicotine dependence, cigarettes, uncomplicated Office Visit 09/13/2017 3:30p [facility] Fartun R10.84 Generalized Medicine - Marker, RPA-C abdominal pain [address] R21 Rash and other nonspecific skin eruption Office Visit 08/07/2017 11:00a [facility] Doris Briceño, M54.2 Cervicalgia Medicine - N.P. [place] F17.210 Nicotine dependence, cigarettes, uncomplicated Office Visit 05/02/2017 [facility] Shyanne N77.1 Vaginitis, vulvitis 1:40p Sanjay - Milly Call and vulvovaginitis Tereso in dis classd elswhr R21 Rash and other nonspecific skin eruption Office Visit 04/19/2017 [facility] Dipesh Hernandez, L70.0 Acne vulgaris 4:00p MD Office Visit 03/31/2017 [facility] Doris Briceño, R10.84 Generalized 11:40a Medicine - N.P. abdominal pain [place] Office Visit 01/18/2017 [facility] Angeles J45.901 Unspecified asthma 9:10a Sanjay Stevens M.D. with (acute) [place] exacerbation F17.210 Nicotine dependence, cigarettes, uncomplicated Office Visit 12/06/2016 1:00p [facility] Doris Briceño, M54.5 Low back pain Medicine - N.P. 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 unspecified [place] R35.0 Frequency of micturition R10.2 Pelvic and perineal pain Office Visit 08/12/2016 Surgical Sudheer Sexton R22.0 Localized 3:30p [facility] swelling, mass and Abap Developer lump, head Office Visit 06/29/2016 Orthopedic Karen M79.645 Pain in left 10:45a [facility] finger(s) C.M.A. Office Visit 06/22/2016 [facility] George Wallace NP M79.645 Pain in left 4:20p Medicine - finger(s) [place] Office Visit 02/03/2016 Surgical Sudheer Sexton R22.0 Localized 2:30p [facility] swelling, mass and Abap Developer lump, head Office Visit 01/28/2016 [facility] George Wallace NP R22.9 Localized 9:00a Medicine - swelling, mass and [place] lump, unspecified Office Visit 11/05/2015 [facility] George Wallace NP J45.20 Mild intermittent 10:20a Medicine - asthma, [place] uncomplicated J20.9 Acute bronchitis, unspecified Office Visit 11/02/2015 10:40a Orthopedic Fide S53.32xD [facility], RPA-C rupture of left C.M.A. ulnar collateral ligament, subs Office Visit 10/20/2015 2:40p [facility] Doris Briceño M54.5 Low back pain Medicine - N.P. [place] M54.6 Pain in thoracic spine Office Visit 10/02/2015 [facility] George Wallace NP M54.5 Low back pain 10:40a Medicine - [place] Office Visit 09/24/2015 [facility] George Wallace NP M54.5 Low back pain 10:40a Medicine - [place] Office Visit 08/12/2015 [facility] George Wallace NP M79.642 Pain in left 4:20p Medicine - hand [place] Office Visit 07/09/2015 [facility] Doris Briceño M79.642 Pain in left 10:00a Medicine - N.P. hand [place] Office Visit 07/07/2015 [facility] Doris Briceño M79.642 Pain in left 3:55p Medicine - N.P. hand [place] Office Visit 07/06/2015 [facility] Doris Briceño, L72.3 Sebaceous cyst 1:40p Medicine - N.P. [place] Office Visit 06/22/2015 Orthopedic Karen S53.32xA Traumatic [...] for clos fx Office Visit 06/18/2015 10:00a [facility] Doris Briceño M79.642 Pain in left Medicine - N.P. hand [place] Office Visit 06/11/2015 4:00p [facility] George Walalce NP R30.0 Dysuria Medicine - [place] N91.1 Secondary amenorrhea N39.0 Urinary tract infection, site not specified Office Visit 05/15/2015 [facility] George Wallace NP K02.7 Dental root caries 2:20p Medicine - [place] Office Visit 04/08/2015 [facility] Doris Briceño, F17.210 Nicotine 11:40a Medicine - N.P. dependence, [place] cigarettes, uncomplicated J06.9 Acute upper respiratory infection, unspecified K02.7 Dental root caries Office Visit 03/30/2015 2:40p [facility] Doris Briceño, G44.201 Tension -type Medicine - N.P. 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8 Other specified disorders of teeth and supporting structures B37.3 Candidiasis of vulva and vagina Office Visit 12/24/2014 8:40a [facility] Doris Briceño, R10.11 Right upper Medicine - N.P. quadrant pain [place] Office Visit 12/16/2014 1:20p [facility] Doris Briceño, R10.31 Right lower Medicine - N.P. quadrant pain [place] N77.1 Vaginitis, vulvitis and vulvovaginitis in dis classd elswhr J06.9 Acute upper respiratory infection, unspecified F17.210 Nicotine dependence, cigarettes, uncomplicated Office Visit 10/21/2014 1:40p [facility] Doris Briceño, 787.91 Diarrhea Medicine - [place] N.P. 787.01 Nausea W/ Vomiting Office Visit 09/11/2014 2:00p [facility] - George Wallace NP 784.0 Headache [place] 789.03 Pain Abdominal Right Lower Quadrant 706.1 Acne Other 788.41 Urinary Frequency Office Visit 08/15/2014 3:20p [facility] - George Wallace NP 784.0 Headache [place] 847.0 Sprains & Strains Neck Plan of Treatment Future Appointment(s):03/14/2018 10:15 am - [facility] 4:30 pm - Dipesh Hernandez MD at [facility] Mlnkeoomxiy54/17 /2019 - Doris Briceño N.P.S63.641A Sprain of metacarpophalangeal joint of right thumb, initialNew Medication:Tramadol HCL 50 mg - 1 tablet every 8 hours as needed for painComments:For your pain I have prescribed Tramadol 50 mg. Take 1 tablet every 8 hours as needed for pain. It'sokay to take Ibuprofen along with this.N77.1 Vaginitis, vulvitis and vulvovaginitis in diseases classifieComments:For your yeast infection I have prescribed Fluconazole 150 mg for you. You may take a repeat in 3 days if needed.
--- OUTSIDE RECORDS SUMMARY | 2018-04-01 14:00 | XMS REPORT | Continuity of Care Document ---
:1995 External Reference #:[id number] Author Name Heron Richards Care Team Providers Name Role Phone Shyanne Call MD Primary Care Physician Unavailable Payers Type Date Identification Numbers Payment Provider Subscriber Effective: 2015 Policy Number: [id number] Zack Chester Group Number: [id number] [address] PayID: [id number] [place] [address] Effective: 2015 Policy Number: [id number] Medicaid Esvin Chester Expires: 2015 Group Name: 1 1 [address] PayID: [id number] [place] [address] Effective: 2014 Policy Number: [id number] Zack Chester Expires: 2015 Group Number: [id number] [address] PayID: [id number] [place] [address] Advance Directives Description No Information Available Problems Date Description Provider Status Onset: 10/21/2014 Asthma Nikita Roach.Neto. 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 Fluconazole 09/26 Hx Tablets 150mg 2tabs one by mouth june Varn, N.P. - repeat in 10/19 3 days needed Hydrocodone-Aceta 09/23 Hx Tablets 5-325mg 30tab 1-2 by George min s mouth [place], JUNIOR RECRUITER - every 8 08/12 hours prn. Methylprednisolon [...] N39.0 George HCL s by mouth Madison JUNIOR RECRUITER - three 06/13 times day as needed for [address]. [address] 05/[address] 500mg 60tab by mouth K02.7 George s twice a [place] JUNIOR RECRUITER - day with 05/10 food Lidocaine Viscous 05/14 Hx Solution 2% 100un gargle K02.7 its with 15ml [place] JUNIOR RECRUITER - every 4 06/10 hours needed for [...] 1 tablet R30.0 George s by mouth MAICOL Wallace - three [...] Result H/L Range Note Rapid Influenza 01/19/2018 [facility] Influenza A NEGATIVE Negative 1 A & B Molecular [address] [place] [address] [phone] Influenza B Molecular NEGATIVE Negative Laboratory test 01/19/2018 [facility] Rapid Influenza SEE RESULT [address] A [place] [address] [phone] Comp Metabolic 01/19/2018 [facility] Sodium 135 mmol/L N 135- [address] 5 [place] [address] [phone] Potassium 4.3 mmol/L N 3.5-5.0 Chloride 108 [...] Egfr 126.5 >60 3 Laboratory test 01/19/2018 [facility] Troponin-I 0.00 <0.04 [address] (TnI) ng/[place] [address] [phone] CBC Auto Diff 01/19/2018 [facility] White Blood 11.3 High 3.5- 10.[address] Count 10^3/[place] [address] [phone] Red Blood Count 4.69 10^6/uL N 4.00-5.40 [...] Blood Cells % 0.1 Laboratory test 01/19/2018 [facility] Lactic Acid 1.1 mmol/L N 0.5-2.0 5 finding [address] [place] [address] [phone] Urinalysis Profile 12/14/2017 [facility] Urine Color Straw [address] [place] [address] [phone] Urine Appearance Clear Urine Specific [place] 1.005 Low 1.010-1.030 Urine pH 6.0 N 5-9 Urine Urobilinogen Negative Negative Urine Ketones Negative Negative Urine Protein Negative Negative Urine Leukocytes Negative Negative Urine Blood Negative Negative Urine Nitrite Negative Negative Urine Bilirubin Negative Negative Urine Glucose Negative Negative Laboratory test 12/14/2017 [facility] HCG < 0.60 [address] mIU/[place] [address] [phone] Comp Metabolic 12/14/2017 [facility] Sodium 136 mmol/L N 135- [address] 5 [place] [address] [phone] Potassium 4.3 mmol/L N 3.5-5.0 Chloride 106 [...] 133.1 >60 7 CBC Auto Diff 12/14/2017 [facility] White Blood 9.6 10^3/uL N 3.5-10.[address] [place] [address] [phone] Red Blood Count 4.51 10^6/uL N 4.00-5.40 [...] Blood Cells % 0.1 Laboratory test 12/14/2017 [facility] Trichomonas Negative Negative 8, [address] [place] [address] [phone] GC/Chlamydia 12/14/2017 [facility] Chlamydia Negative Negative Amplified Rna [address] [place] [address] [phone] Neisseria gonorrhoeae (GC) Rna Negative Negative Laboratory test 12/14/2017 [facility] Gardnerella/Yeast: SEE RESULT [address] [place] [address] [phone] CBC Auto Diff 09/13/2017 [facility] White Blood Count 8.3 N 3.5- [address] 10^3/uL 10.8 [place] [address] [phone] Red Blood Count 4.45 10^6/uL N 4.00-5.40 [...] Cells % 0.1 Comp Metabolic Panel 09/13/2017 [facility] Sodium 138 mmol/L N 135-[address] [place] [address] [phone] Potassium 4.1 mmol/L N 3.5-5.0 Chloride 106 [...] 137.9 >60 12 Laboratory test finding 09/13/2017 [facility] Lipase 17 U/L N 11.0-82.[address] [place], [place] [phone] HCG < 0.60 mIU/mL 13 Laboratory 05/02/2017 [facility] Gardnerella/Yeast: SEE [address] Vaginal [place] [address] BELOW [phone] Rapid 03/25/2017 [facility] Influenza A POSITIVE Abnormal Negative 15 Influenza A [address] Molecular & [place] [address] Molecular [phone] Influenza B Molecular NEGATIVE Negative Laboratory test 03/24/2017 [facility] Rapid Influenza SEE RESULT [address] A [place] [address] [phone] Urinalysis 03/24/2017 [facility] Urine Color Yellow Profile [address] [place] [address] [phone] Urine Appearance Cloudy Urine Specific [place] 1.017 N 1.010-1.030 Urine pH 5.0 N 5-9 Urine Urobilinogen Negative Negative Urine Ketones 2+ Abnormal Negative Urine Protein Negative Negative Urine Leukocytes Negative Negative Urine Blood Negative Negative Urine Nitrite Negative Negative Urine Bilirubin Negative Negative Urine Glucose Negative Negative CBC Auto Diff 03/24/2017 [facility] White Blood 4.4 10^3/uL N 3.5-10.[address] [place] [address] [phone] Red Blood Count 4.50 10^6/uL N 4.0-5.4 [...] Cells % 0.1 Comp Metabolic Panel 03/24/2017 [facility] Sodium 137 mmol/L N 133-[address] [place] [address] [phone] Potassium 3.7 mmol/L N 3.5-5.0 Chloride 104 [...] 132.2 >60 17 Laboratory test finding 03/24/2017 [facility] Lipase 15 U/L N 11.0-82.[address] [place] [address] [phone] C Reactive Protein 3.36 mg/L N < 5.00 18 HCG < 0.60 mIU/mL 19 Lactic Acid 0.6 mmol/L N 0.5-2.0 20 Urinalysis Profile 11/25/2016 [facility] Urine Color Straw N [address] [place] [address] [phone] Urine Appearance Clear N Urine Specific [place] 1.002 Low 1.010-1.030 Urine pH 6.0 N [...] Cell Present Abnormal Absent Laboratory test 11/25/2016 [facility] C Reactive 1.51 mg/L N < 5.00 [address] [place] [address] [phone] HCG < 0.60 mIU/mL N 22 Lactic Acid 1.0 mmol/L N 0.5-2.0 23 GC/Chlamydia 11/25/2016 [facility] Chlamydia Negative N Negative Amplified Rna [address] [place] [address] [phone] Neisseria gonorrhoeae (GC) Rna Negative N Negative CBC Auto Diff 11/25/2016 [facility] White Blood 7.7 10^3/uL N 3.5-10.[address] [place] [address] [phone] Red Blood Count 4.32 10^6/uL N 4.0-5.4 [...] % 0 N Comp Metabolic Panel 11/25/2016 [facility] Sodium 137 mmol/L N 133-145 [address] [place] [address] [phone] Potassium 4.2 mmol/L N 3.5-5.0 Chloride 105 [...] 137.9 N >60 24 Laboratory test 11/04/2016 [facility] Cytology SEE RESULT [address] [place] [address] [phone] GC/Chlamydia 10/18/2016 [facility] Chlamydia Negative N Negative Amplified Rna [address] [place] [address] [phone] Neisseria gonorrhoeae (GC) Rna Negative N Negative Laboratory test finding 10/18/2016 [facility] Test Urine negative Ua Routine 10/18/2016 [facility] Ua Specific [place] 1.015 Ua PH 5 Ua Color YELLOW Ua Appera CLEAR Ua WBC NEG Ua Protein NEG Ua Glucose NORM Ua Ketones NEG Ua Bilirubin SHAHRAM Ua Urobilinogen NEG Ua Nitrite NEG Ua Occult Blood TRACE Urine Culture And 10/15/2016 [facility] Urine Culture SEE RESULT [address] [place] [address] [phone] Urinalysis Profile 10/15/2016 [facility] Urine Color Katie N [address] [place] [address] [phone] Urine Appearance Clear N Urine Specific [place] 1.025 N 1.010-1.030 Urine pH 5.0 N [...] Present Abnormal Absent CBC Auto Diff 10/15/2016 [facility] White Blood 10.8 10^3/uL N 3.5-10.[address] [place] [address] [phone] Red Blood Count 4.15 10^6/uL N 4.0-5.4 [...] % 0.1 N Comp Metabolic Panel 10/15/2016 [facility] Sodium 134 mmol/L N 133-145 [address] [place] [address] [phone] Potassium 4.0 mmol/L N 3.5-5.0 Chloride 103 [...] 125.1 N >60 27 Laboratory test 10/15/2016 [facility] Magnesium 2.1 mg/dL N 1.9-2.[address] [place] [address] [phone] Lipase 35 U/L N 11.0-82.0 C Reactive Protein 1.98 mg/L N < 5.00 28 Lactic Acid 0.5 mmol/L N 0.5-2.0 29 Comp Metabolic Panel 10/08/2016 [facility] Sodium 136 mmol/L N 133-[address] [place] [address] [phone] Potassium 4.1 mmol/L N 3.5-5.0 Chloride 103 [...] 125.1 N >60 30 Laboratory test 10/08/2016 [facility] Lipase < 10 U/L Low 11.0 -82.[address] [place] [address] [phone] C Reactive Protein 4.38 mg/L N < 5.00 31 HCG < 0.60 mIU/mL N 32 Urine Culture And 10/08/2016 [facility] Urine SEE RESULT [address] [place] [address] [phone] Laboratory test 10/08/2016 [facility] Lactic Acid 0.7 mmol/L N 0.5-2 [address]0 [place] [address] [phone] CBC Auto Diff 10/08/2016 [facility] White Blood 14.8 High 3.5- [address] Count 10^3/uL 0.8 [place] [address] [phone] Red Blood Count 4.41 10^6/uL N 4.0-5.4 [...] Cells % 0 N Urinalysis Profile 10/08/2016 [facility] Urine Color Yellow N [address] [place] [address] [phone] Urine Appearance Cloudy N Urine Specific [place] 1.023 N 1.010-1.030 Urine pH 5.0 N [...] Present Abnormal Absent CBC Auto Diff 10/29/2015 [facility] White Blood 9.8 10^3/uL N 3.5-10.[address] [place] [address] [phone] Red Blood Count 4.36 10^6/uL N 4.0-5.4 [...] % 0 N Comp Metabolic Panel 10/29/2015 [facility] Sodium 136 mmol/L N 133-[address] [place] [address] [phone] Potassium 4.0 mmol/L N 3.5-5.0 Chloride 104 [...] N >60 35 Laboratory test finding 10/29/2015 [facility] Lipase 21 U/L N 11.0-82.[address] [place] [address] [phone] C Reactive Protein < 1.00 mg/L N < 5.00 36 Urinalysis Profile 10/29/2015 [facility] Urine Color Yellow N [address] [place] [address] [phone] Urine Appearance Cloudy N Urine Specific [place] 1.026 N 1.010-1.030 Urine pH 6.0 N [...] Present Abnormal Absent Urine Culture And 10/29/2015 [facility] Urine Culture SEE RESULT [address] [place] [address] [phone] Laboratory test 07/10/2015 [facility] Surgical SEE RESULT [address] [place] [address] [phone] Laboratory test 06/23/2015 [facility] Negative N Negative [address] (HCG) [place] [address] [phone] Laboratory test 06/11/2015 [facility] neg finding Test Urine Urine Culture And 06/11/2015 [facility] Urine Culture SEE RESULT [address] [place] [address] [phone] Ua Routine 06/11/2015 [facility] Ua Specific 1.025 [place] Ua PH 5 Ua Color yellow Ua Appera clear Ua WBC neg Ua Protein neg Ua Glucose neg Ua Ketones large Ua Bilirubin neg Ua Urobilinogen normal Ua Nitrite neg Ua Occult Blood neg CBC Auto Diff 04/08/2015 [facility] White Blood 8.8 10^3/uL N 3.5-10.[address] [place] [address] [phone] Red Blood Count 4.32 10^6/uL N 4.0-5.4 [...] % 0 N Comp Metabolic Panel 04/08/2015 [facility] Sodium 137 mmol/L N 133-145 [address] [place] [address] [phone] Potassium 3.9 mmol/L N 3.5-5.0 Chloride 104 [...] N >60 41 Laboratory test finding 04/08/2015 [facility] Lipase 22 U/L N 11.0-82.[address] [place] [address] [phone] HCG < 0.60 mIU/mL N 42 Laboratory test 03/20/2015 [facility] Negative N Negative [address] (HCG) [place] [address] [phone] CBC Auto Diff 02/16/2015 [facility] White Blood 8.2 10^3/uL N 3.5-10.[address] [place] [address] [phone] Red Blood Count 4.48 10^6/uL N 4.0-5.4 [...] Cells % 0.1 N Urinalysis Profile 02/16/2015 [facility] Urine Color Yellow N [address] [place] [address] [phone] Urine Appearance Clear N Urine Specific [place] 1.012 N 1.010-1.030 Urine pH 5.0 N [...] Present Abnormal Absent Comp Metabolic Panel 02/16/2015 [facility] Sodium 136 mmol/L N 133-[address] [place] [address] [phone] Potassium 4.1 mmol/L N 3.5-5.0 Chloride 105 [...] N >60 44 Laboratory test finding 02/16/2015 [facility] Lipase 20 U/L N 11.0-82.[address] [place] [address] [phone] C Reactive Protein 9.66 mg/L High < 5.00 45 HCG Qualitative Negative N Negative Laboratory test 02/11/2015 [facility] Urine Culture And SEE RESULT [address] [place] [address] [phone] Cytology Non-Graining Press Operator SEE RESULT BELOW 47 Laboratory test finding 02/11/2015 [facility] Test Urine negative Ua Routine 02/11/2015 [facility] Ua Specific [place] 1.020 Ua PH 7 Ua Color katie Ua Appera cloudy/chunks Ua WBC moderate Ua Protein trace Ua Glucose neg Ua Ketones neg Ua Bilirubin neg Ua Urobilinogen neg Ua Nitrite neg Ua Occult Blood Xlarge CBC Auto Diff 02/02/2015 [facility] White Blood 10.0 10^3/uL N 3.5-10.[address] [place] [address] [phone] Red Blood Count 4.78 10^6/uL N 4.0-5.4 [...] % 0 N Comp Metabolic Panel 02/02/2015 [facility] Sodium 135 mmol/L N 133-[address] [place] [address] [phone] Potassium 4.1 mmol/L N 3.5-5.0 Chloride 103 [...] 127.4 N >60 48 Laboratory test 02/02/2015 [facility] Troponin-I 0.00 ng/mL N <0.03 [address] (TnI) [place] [address] [phone] Laboratory test 01/13/2015 [facility] Gardnerella/Yea SEE RESULT [address]: [place]ag[place] [address] [phone] GC/Chlamydia 01/13/2015 [facility] Chlamydia Negative N Negative Amplified Rna [address] [place] [address] [phone] Neisseria gonorrhoeae (GC) Rna Negative N Negative 51 Laboratory test 01/13/2015 [facility] Trichomonas Negative N Negative [address] [place] [address] [phone] CBC Auto Diff 01/13/2015 [facility] White Blood 8.4 10^3/uL N 4.8-10.[address] [place] [address] [phone] Red Blood Count 4.39 10^6/uL N 4.0-5.4 [...] Cells % 0 N Urinalysis Profile 01/13/2015 [facility] Urine Color Yellow N [address] [place] [address] [phone] Urine Appearance Cloudy N Urine Specific [place] 1.015 N 1.010-1.030 Urine pH 7.0 N 5-9 Urine Urobilinogen Negative N Negative Urine Ketones Negative N Negative Urine Protein Negative N Negative Urine Leukocytes Negative N Negative Urine Blood Negative N Negative Urine Nitrite Negative N Negative Urine Bilirubin Negative N Negative Urine Glucose Negative N Negative Comp Metabolic Panel 01/13/2015 [facility] Sodium 135 mmol/L N 133-145 [address] [place] [address] [phone] Potassium 3.8 mmol/L N 3.5-5.0 Chloride 104 [...] N >60 53 Laboratory test finding 01/13/2015 [facility] Lipase 22 U/L N 11.0-82.[address] [place] [address] [phone] C Reactive Protein 1.81 mg/L N < 5.00 54 HCG Qualitative Negative N Negative 55 CBC Auto Diff 12/26/2014 [facility] White Blood 10.2 10^3/uL N 4.8-10.[address] [place] [address] [phone] Red Blood Count 4.61 10^6/uL N 4.0-5.4 [...] % 0 N Comp Metabolic Panel 12/26/2014 [facility] Sodium 136 mmol/L N 133-[address] [place] [address] [phone] Potassium 4.3 mmol/L N 3.5-5.0 Chloride 101 [...] 123.5 N >60 56 Herpes Simplex 12/16/2014 [facility] Herpes Source VULVAR LESIONS N PCR [address] [place] [address] [phone] HSV 1 PCR Negative N Negative HSV 2 PCR Positive N Negative 57 GC/Chlamydia 12/16/2014 [facility] Chlamydia Negative N Negative Amplified Rna [address] [facility] [place] [address] [phone] Neisseria gonorrhoeae (GC) Rna Negative N Negative 58 Laboratory test 12/10/2014 [facility] HCG Qualitative Negative N Negative finding [address] [place] [address] [phone] Urinalysis 12/10/2014 [facility] Urine Color Yellow N Profile [address] [place] [address] [phone] Urine Appearance Clear N Urine Specific [place] 1.014 N 1.010-1.030 Urine pH 6.0 N 5-9 Urine Urobilinogen Negative N Negative Urine Ketones Negative N Negative Urine Protein Negative N Negative Urine Leukocytes Negative N Negative Urine Blood Negative N Negative Urine Nitrite Negative N Negative Urine Bilirubin Negative N Negative Urine Glucose Negative N Negative CBC Auto 12/10/2014 [facility] White Blood 10.9 10^3/uL High 4.8-10.[address] [place] [address] [phone] Red Blood Count 4.16 10^6/uL N 4.0-5.4 [...] Cells % 0.1 N Laboratory test 12/10/2014 [facility] Lactic Acid 0.5 mmol/L N 0.5-2.2 finding [address] [place] [address] [phone] Comp Metabolic 12/10/2014 [facility] Sodium 135 mmol/L N 133- 145 Panel [address] [place] [address] [phone] Potassium 3.9 mmol/L N 3.5-5.0 Chloride 103 [...] N >60 59 Laboratory test finding 12/10/2014 [facility] Lipase 31 U/L N 11.0-82.[address] [place] [address] [phone] C Reactive Protein 3.26 mg/L N < 5.00 60 Urinalysis Profile 12/10/2014 [facility] Urine Color Yellow N [address] [place] [address] [phone] Urine Appearance Clear N Urine Specific [place] 1.014 N 1.010-1.030 Urine pH 6.0 N 5-9 Urine Urobilinogen Negative N Negative Urine Ketones Negative N Negative Urine Protein Negative N Negative Urine Leukocytes Negative N Negative Urine Blood Negative N Negative Urine Nitrite Negative N Negative Urine Bilirubin Negative N Negative Urine Glucose Negative N Negative CBC Auto 12/10/2014 [facility] White Blood 10.9 10^3/uL High 4.8-10.[address] [place] [address] [phone] Red Blood Count 4.16 10^6/uL N 4.0-5.4 [...] Cells % 0.1 N Laboratory test 12/10/2014 [facility] Lactic Acid 0.5 mmol/L N 0.5-2.2 finding [address] [place] [address] [phone] Comp Metabolic 12/10/2014 [facility] Sodium 135 mmol/L N 133- 145 Panel [address] [place] [address] [phone] Potassium 3.9 mmol/L N 3.5-5.0 Chloride 103 [...] N >60 61 Laboratory test finding 12/10/2014 [facility] Lipase 31 U/L N 11.0-82.0 [address] [place] [address] [phone] C Reactive Protein 3.26 mg/L N < 5.00 62 Urine Culture And Sensitivities SEE RESULT BELOW 63 Laboratory test 10/21/2014 [facility] TSH (Thyroid 1.04 ?IU/mL N 0.34-5.60 finding [address] [facility] Stim Horm) [place] [address] [phone] Comp Metabolic 10/21/2014 [facility] Sodium 137 mmol/L N 133- 145 Panel [address] [place] [address] [phone] Potassium 3.9 mmol/L N 3.5-5.0 Chloride 104 [...] 131.5 N >60 64 Laboratory test 10/21/2014 [facility] HCG Qualitative Negative N Negative finding [address] [place] [address] [phone] Laboratory test 09/11/2014 [facility] Test neg finding Urine Ua Routine 09/11/2014 [facility] Ua Specific 1.015 [place] Ua PH 5 Ua Color yellow Ua Appera clear Ua WBC neg Ua Protein neg Ua Glucose neg Ua Ketones neg Ua Bilirubin neg Ua Urobilinogen 0.2 Ua Nitrite neg Ua Occult Blood neg Laboratory test 08/13/2014 [facility] CSF Glucose 61 mg/dL N 40-70 65, 66 finding [address] [place] [address] [phone] CSF Protein 36 mg/dL N 15-45 67 CSF Culture & Gram Stain SEE RESULT BELOW 68 CSF Cell Count 08/13/2014 [facility] Body Fluid Appearance Clear N [address] [place] [address] [phone] Body Fluid Color Colorless N CSF Tube # 1 N Body Fluid Volume 1 mL N Body Fluid WBC 1 N Body Fluid RBC 2 N Body Fluid Polys 0 N Body Fluid Lymph 10 N Body Fluid Hubbard 2 N Body Fluid Total Cells Counted 12 N Body Fluid Comment (SEE NOTE) N 69 Fluid Reviewed By (SEE NOTE) N 70 CBC Auto 08/13/2014 [facility] White Blood 14.1 10^3/uL High 4.8-10.[address] [place] [address] [phone] Red Blood Count 4.73 10^6/uL N 4.0-5.4 [...] Cells % 0.1 N Laboratory test 08/13/2014 [facility] Serum Negative N Negative finding [address] [place] [address] [phone] Comp Metabolic 08/13/2014 [facility] Sodium 135 mmol/L N 133- [address] [place] [address] [phone] Chloride 104 mmol/L N 101-111 Co2 Carbon [...] N 13-39 73 Urine Culture And 06/14/2014 [facility] Urine Culture (SEE NOTE ) [address] [place] [address] [phone] Throat-Beta Strept 04/03/2014 [facility] Throat Beta (SEE NOTE) [address] [address] [phone] Throat-Beta Strept 04/22/2013 [facility] Throat Beta (SEE NOTE) [address] [address] [phone] Throat-Beta Strept 10/21/2012 [facility] Throat Beta (SEE NOTE) [address] [place] [address] [phone] 1 Receiving Worker: [id number] 2 SEE RESULT BELOW Name: ESVIN CHESTER : [address]: Sandra Swan MD Acct: [id number] Unit: [id number] AGE: 22 Location: ED Re01/19/18 SEX: F Status: REG ER SPEC: [id number] ROSARIO: 01/19/18-[address]: Sandra Swan MD REQ: [id number] RECD: 01/19/18 STATUS: QASIM LOW DR: Doris Briceño JUNIOR RECRUITER _ SOURCE: NASAL SPDESC: ORDERED: Flu A B Request Procedure Result Reported Site Rapid Influenza A B Request Final 01/19/181156 ML Specimen received for Influenza A/B Molecular testing * ML - Main Lab . END OF REPORT DEPARTMENT OF PATHOLOGY, [address] [place] [address] Suraj Velasquez M.D. Director [facility] # [id number] 3 Because ethnic data is not always [...] troponins reflex immediate secondary confirmatory testing. 5 [facility] Severe Sepsis and Septic Shock Management [...] [address]: Susan Rob MD Acct: [id number] Unit: [id number] AGE: 22 Location: ED Re12/14/17 SEX: F Status: DEP ER SPEC: [id number] ROSARIO: 12/14/17 [facility] DR: Peng FRANCO REQ: [id number] RECD: 12/14/17 STATUS: QASIM LOW DR: Doris [...] . END OF REPORT DEPARTMENT OF PATHOLOGY, [address] [place] [address] Suraj Velasquez M.D. Director [facility] # [id number] 11 LM for patient to call back [...] [address]: Shyanne Call MD Acct: [id number] Unit: [id number] AGE: 22 Location: [facility] Re05/02/17 SEX: F Status: REG REF SPEC: [id number] ROSARIO: 05/02/17-1406 [facility] [address]: Shyanne Call MD REQ: [id number] RECD: 05/02/17 STATUS: COMP _ SOURCE: VAGINAL SPDESC: ORDERED: Preston Clayton DNA COMMENTS: [id number] Procedure Result Reported Site Gardnerella/Yeast: Vaginal DNA [...] . END OF REPORT DEPARTMENT OF PATHOLOGY, [address] [place] [address] Suraj Velasquez M.D. Director [facility] # [id number] Receiving Worker: [id number] 16 SEE RESULT BELOW Name: ESVIN CHESTER : [address]: Felix Dale MD Acct: [id number] Unit: [id number] AGE: 22 Location: ED Re03/24/17 SEX: F Status: REG ER SPEC: [id number] ROSARIO: 03/24/17 [facility] DR: Can Robertson MD REQ: [id number] RECD: 03/25/17 STATUS: COMP [facility] DR: Felix Briceño JUNIOR RECRUITER _ SOURCE: Y[facility]: ORDERED: Flu A B Request Procedure Result Reported Site Rapid Influenza A B Request Final 03/25/17- 0010 ML Specimen received for Influenza A/B Molecular testing * ML - MAIN LAB ([facility]) . END OF REPORT * ML=Testing performed at Main Lab DEPARTMENT OF PATHOLOGY, [address] [place] [address] Suraj Velasquez M.D. Director [facility] # [id number] 17 Because ethnic data is not always [...] levels of up to 20 mIU/mL 20 [facility] Severe Sepsis and Septic Shock Management Bundle Measure requires all lactic acids initially measuring >2.0 mmol/L be repeated. 21 Acute inflammation: >10.00 22 <5.0 Negative 5.0 - 25.0 Indeterminate (Repeat testing recommended after 72 hours) >25.0 Positive Perimenopausal women can display HCG levels of up to 20 mIU/mL 23 [facility] Severe Sepsis and Septic Shock Management Bundle [...] [address]: Doris Briceño NP Acct: [id number] Unit: [id number] AGE: 21 Location: [facility] Re11/04/16 SEX: F Status: REG REF SPEC: [id number] ROSARIO: 11/04/16-[address]: Doris Briceño NP REQ: [id number] RECD: 11/04/16 STATUS: SOUT _ ORDERED: TP IMAGE ANAL COMMENTS: [id number] FINAL DIAGNOSIS Negative for Intraepithelial lesion or Malignancy A. Ectocervical/Endocervical Specimen Adequacy: Satisfactory of evaluation Transformation zone component identified Patient Information: HPV: Thin Layer Pap Test w/reflex to high risk HPV RNA testing when ASCUS Actual Specimen Date: 11/04/16 Last Menstrual Date: 10/03/16 ?: N Post Menopausal?: N Hysterectomy?: N Previous Abnormal Pap Smears?:N Signed (signature on file) Tae Antunez BARRY (ASCP) 11/07 8766 This Pap test was evaluated with the assistance of the SpokenLayerp Test Imaging System. Due to cytologic findings at the internal review and audit compliance microscope, comprehensive manual rescreening by a Evaluator Transfer Students may be required. The Pap Smear is [...] performed at Main Lab DEPARTMENT OF PATHOLOGY, [address] [place] [address] Suraj Velasquez M.D. Director [facility] # [id number] 26 SEE RESULT BELOW Name: ESVIN CHESTER : [address]: Kit Rodriguez MD Acct: [id number] Unit: [id number] AGE: 21 Location: ED Re10/15/16 SEX: F Status: DEP ER SPEC: [id number] ROSARIO: 10/15/16-2044 [facility] [address]: Kit Rodriguez MD REQ: [id number] RECD: 10/15/16 STATUS: QASIM LOW DR: Doris Briceño JUNIOR RECRUITER _ SOURCE: URINE SPDESC: ORDERED: Urine Culture Procedure Result Reported Site Urine Culture Final 10/17/16- 0855 ML No Growth (<1,000 CFU/mL) * ML - MAIN LAB ([facility]) . END OF REPORT * ML=Testing performed at Main Lab DEPARTMENT OF PATHOLOGY, [address] [place] [address] Suraj Velasquez M.D. Director [facility] # [id number] 27 Because ethnic data is not always [...] (or dialysis) 28 Acute inflammation: >10.00 29 [facility] Severe Sepsis and Septic Shock Management [...] [address]: Alexei Em MD Acct: [id number] Unit: [id number] AGE: 21 Location: ED Re10/08/16 SEX: F Status: DEP ER SPEC: [id number] ROSARIO: 10/08/16 [facility] [address]: Alexei Em MD REQ: [id number] RECD: 10/08/16 STATUS: QASIM LOW DR: Doris Briceño JUNIOR RECRUITER _ SOURCE: URINE SPDESC: ORDERED: Urine Culture Procedure Result Reported Site Urine Culture Final 10/09/16- 1222 ML Mixed abdirashid; possible contamination. Suggest resubmission. * ML - MAIN LAB ([facility]) . END OF REPORT * ML=Testing performed at Main Lab DEPARTMENT OF PATHOLOGY, [address] [place] [address] Suraj Velasquez M.D. Director [facility] # [id number] 34 [facility] Severe Sepsis and Septic Shock Management [...] [address]: Darwin Steel MD Acct: [id number] Unit: [id number] AGE: 20 Location: ED Re10/29/15 SEX: F Status: DEP ER SPEC: [id number] ROSARIO: 10/29/15-1252 [facility] [address]: Darwin Steel MD REQ: [id number] RECD: 10/29/15 STATUS: QASIM LOW DR: Doris Briceño JUNIOR RECRUITER _ SOURCE: URINE SPDESC: ORDERED: Urine Culture Procedure Result Reported Site Urine Culture Final 10/30/15- 1214 ML No growth of clinically significant organisms * ML - MAIN LAB ([facility]) . END OF REPORT * ML=Testing performed at Main Lab DEPARTMENT OF PATHOLOGY, [address] [place] [address] Suraj Velasquez M.D. Director [facility] # [id number] 38 SEE RESULT BELOW Name: LAIESVIN : [address]: Doris Briceño NP Acct: [id number] Unit: [id number] AGE: 20 Location: [facility] Re07/10/15 SEX: F Status: REG REF SPEC: [id number] ROSARIO: 07/10/15-1214 [facility] [address]: Doris Briceño NP REQ: [id number] RECD: 07/10/155 STATUS: SOUT _ ORDERED: LEVEL III COMMENTS: [id number] FINAL DIAGNOSIS Cyst removal, site unspecified: -- [...] performed at Main Lab DEPARTMENT OF PATHOLOGY, [address] [place] [address] Suraj Velasquez M.D. Director [facility] # [id number] 39 If is still suspected, please repeat test after 48 to 72 hours. This test detects intact HCG only and is indicated for the early detection of . 40 SEE RESULT BELOW Name: ESVIN CHESTER : [address]: George Wallace NP Acct: [id number] Unit: [id number] AGE: 20 Location: [facility] Re06/11/15 SEX: F Status: REG REF SPEC: [id number] ROSARIO: 06/11/15-1620 [facility] [address]: George Wallace NP REQ: [id number] RECD: 06/11/15 STATUS: COMP _ SOURCE: URINE SPDESC: ORDERED: Urine Culture Procedure Result Reported Site Urine Culture Final 06/12/15- 1634 ML No Growth (<1,000 CFU/mL) * ML - MAIN LAB ([facility]) . END OF REPORT * ML=Testing performed at Main Lab DEPARTMENT OF PATHOLOGY, [address] [place] [address] Suraj Velasquez M.D. Director [facility] # [id number] 41 Because ethnic data is not always [...] [address]: George Wallace NP Acct: [id number] Unit: [id number] AGE: 19 Location: [facility] Re02/11/15 SEX: F Status: REG REF SPEC: [id number] ROSARIO: 02/11/15-[address]: George Wallace NP REQ: [id number] RECD: 02/11/15 STATUS: COMP _ SOURCE: URINE SPDESC: ORDERED: Urine Culture Procedure Result Reported Site Urine Culture Final 02/16/15- 1456 ML No Growth (<1,000 CFU/mL) * ML - MAIN LAB ([facility]) . END OF REPORT * ML=Testing performed at Main Lab DEPARTMENT OF PATHOLOGY, [address] [place] [address] Suraj Velasquez M.D. Director [facility] # [id number] 47 SEE RESULT BELOW Name: ESVIN CHESTER : [address]: George Wallace NP Acct: [id number] Unit: [id number] AGE: 19 Location: [facility] Re02/11/15 SEX: F Status: REG REF SPEC: [id number] ROSARIO: 02/11/15-[address]: George Wallace JUNIOR RECRUITER REQ: [id number] RECD: 02/11/15 STATUS: SOUT _ ORDERED: THIN PREP NON G FINAL DIAGNOSIS Urine, voided: --Negative for malignant cells. --Inflammatory cells present. URINE VOID GROSS DESCRIPTION 20 mls of cloudy red voided urine. Signed (signature on file) Gema Moraes MD 1205 END OF REPORT * ML=Testing performed at Main Lab DEPARTMENT OF PATHOLOGY, [address] [place] [address] Suraj Velasquez M.D. Director [facility] # [id number] 48 Because ethnic data is not always [...] 0.03 ng/mL Not supportive of diagnosis of CO 0.03 - 0.50 ng/mL Indeterminate: suggest serial studies if clinically indicated. Greater than 0.5 ng/mL Consistent with diagnosis of CO 50 SEE RESULT BELOW Name: ESVIN CHESTER : [address]: Wilder Hernandez MD Acct: [id number] Unit: [id number] AGE: 19 Location: ED Re01/13/15 SEX: F Status: DEP ER SPEC: [id number] ROSARIO: 01/13/15-[address]: Wilder Hernandez MD REQ: [id number] RECD: 01/13/15-160 STATUS: QASIM ADAMS DR: [place] [...] or failure. * ML - MAIN LAB ([facility]) . END OF REPORT * ML=Testing performed at Main Lab DEPARTMENT OF PATHOLOGY, [address] [place] [address] Suraj Velasquez M.D. Director [facility] # [id number] 51 Female urine specimens have been self-validated by [facility] and have been granted conditional assay approval by [facility]. 52 GC/Chlamydia Source?: Endocervical Trichomonas Source: Endocervical [...] and its performance characteristics determined by [facility]. It has not been cleared or approved by the U.S. Food and Drug Administration. Test Performed by: [facility] [place] [address] Lab Manager: Odilon Tejeda II, M.D., Ph.D. 58 Female urine specimens have been self-validated by [facility] and have been granted conditional assay approval by [facility]. 59 Because ethnic data is not always [...] [address]: Bubba Loco DO Acct: [id number] Unit: [id number] AGE: 19 Location: ED Re12/10/14 SEX: F Status: DEP ER SPEC: [id number] ROSARIO: 12/10/14-2019 [facility] [address]: Kit Goldman MD REQ: [id number] RECD: 12/10/14 STATUS: COMP ANGIE DR: Doris Briceño JUNIOR RECRUITER _ SOURCE: URINE [facility]: ORDERED: Urine Culture Procedure Result Verified Site Urine Culture Final 12/12/14- 1149 ML No Growth Day 2 (<1,000 CFU/mL) * ML - MAIN LAB ([facility]) . END OF REPORT * ML=Testing performed at Main Lab DEPARTMENT OF PATHOLOGY, [address] [place] [address] Suraj Velasquez M.D. Director [facility] # [id number] 64 Because ethnic data is not always [...] <15 (or dialysis) 65 Comment: Tube 4 Comment: Tube 2 Comment: Tube 2 68 SEE RESULT BELOW Name: ESVIN CHESTER : [address]: Kristian Torres MD Acct: [id number] Unit: [id number] AGE: 19 Location: ED Re08/13/14 SEX: F Status: DEP ER SPEC: [id number] ROSARIO: 08/13/14-0 [facility] DR: Kristian Torres MD REQ: [id number] RECD: 08/13/14 STATUS: COMP MARANDA DR: Luigi [...] performed at Main Lab DEPARTMENT OF PATHOLOGY, [address] [place] [address] Suraj Velasquez M.D. Director [facility] # [id number] 69 DIFF DONE ON CONCENTRATED SMEAR 70 [...] due to hemolysis. 74 RUN DATE: 06/17/14 [facility] LAB LIVE PAGE 1 RUN TIME: [address] [place] [address] Specimen Inquiry Name: ESVIN CHESTER : [address]: Kit Goldman MD Acct: [id number] Unit: [id number] AGE: 19 Location: [facility] Re06/14/14 SEX: F Status: DEP ER SPEC: [id number] ROSARIO: 06/14/14-1757 [facility] [address]: Mayra Goldman JUNIOR RECRUITER REQ: [id number] RECD: 06/15/14-1233 STATUS: QASIM LOW DR: [facility] Luigi Bennett MD _ SOURCE: URINE SPDESC: ORDERED: Urine Culture Procedure Result Verified Site Urine Culture Final 06/17/14- 09 ML Organism 1 NORMAL ABDIRASHID [place] Count 1-10,000 (Few) CFU/ML * ML - MAIN LAB ([facility]) . END OF REPORT * ML=Testing performed at Main Lab DEPARTMENT OF PATHOLOGY, [facility] [place] [address] Suraj Velasquez M.D. Director [facility] # [id number] 75 RUN DATE: 04/05/14 [facility] LAB LIVE PAGE 1 RUN TIME: [address] [place] [address] Specimen Inquiry Name: ESVIN CHESTER : [address]: Trey Lew MD Acct: [id number] Unit: [id number] AGE: 19 Location: [facility] Re04/03/14 SEX: F Status: DEP ER SPEC: [id number] ROSARIO: 04/03/14-124 [facility] [address]: Trey Lew MD REQ: [id number] RECD: 04/03/14 STATUS: QASIM LOW DR: Luigi Bennett MD _ SOURCE: THROAT SPDESC: ORDERED: Throat Beta Str Procedure Result Verified Site Throat Beta Strep Culture Final 04/05/14821 ML Negative For Group A Beta Streptococcus END OF REPORT * ML=Testing performed at Main Lab DEPARTMENT OF PATHOLOGY, [address] [place] [address] Suraj Velasquez M.D. Director [facility] # [id number] 76 RUN DATE: 04/24/13 [facility] LAB LIVE PAGE 1 RUN TIME: [address] [place] [address] Specimen Inquiry Name: ESVIN CHESTER : [address]: Kit Pires MD Acct: [id number] Unit: [id number] AGE: 18 Location: [facility] Re04/22/13 SEX: F Status: DEP ER SPEC: [id number] ROSARIO: 04/22/13-1200 [facility] [address]: Kit Pires MD REQ: [id number] RECD: 04/22/13-1602 STATUS: QASIM LOW DR: Luigi Bennett MD _ SOURCE: THROAT SPDESC: ORDERED: Throat Beta Str QUERIES: Medent Number [id number] Procedure Result Verified Site Throat Beta Strep Culture Final 04/24/13- 818 ML Negative For Group A Beta Streptococcus END OF REPORT * ML=Testing performed at Main Lab DEPARTMENT OF PATHOLOGY, [facility] [place], [place] [address] Suraj Velasquez M.D. Director [facility] Permit #[id number] 77 RUN DATE: 10/24/12 [facility] LAB LIVE PAGE 1 RUN TIME: 08 [facility] [employer] [employer] [place], [place] [address] Specimen Inquiry Name: ESVIN CHESTER : [address]: Kit Goldman MD Acct: [id number] Unit: [id number] AGE: 17 Location: [facility] Re10/21/12 SEX: F Status: DEP ER SPEC: [id number] ROSARIO: 10/21/12 [facility] [address]: Mayra Goldman NP REQ: [id number] RECD: 10/22/12 STATUS: QASIM LOW DR: Kit Bennett MD _ SOURCE: THROAT SPDESC: ORDERED: Throat Beta Str Procedure Result Verified Site Throat Beta Strep Culture Final 10/24/12835 ML Organism 1 Negative Group A Strep END OF REPORT * ML=Testing performed at Main Lab DEPARTMENT OF PATHOLOGY, [address] [place] [address] Suraj Velasquez M.D. Director [facility] Permit #[id number] Procedures Date Code Description Status 07/10/2015 77614 Acne Surgery Completed 07/02/2015 27374 Gauntlet Cast Application Completed 06/23/2015 96556 Repair Collateral Ligament MCP JT W/Local Tissue Completed 06/23/2015 32182 Repair Collateral Ligament MCP JT W/Local Tissue Completed Encounters Type Date Location Provider Dx Diagnosis Office Visit 02/26/2018 [facility] Karen S63.641 Sprain of 10:15a [facility] A metacarpophalangeal C.M.A. joint of right thumb, init Office Visit 02/21/2018 [facility] Internal Savanna Mccarthy MD S69.91x Unsp injury of right 2:40p Medicine - A wrist, hand and [place] finger(s), init encntr Office Visit 01/17/2018 [facility] Dermatology Dipesh Hernandez L70.0 Acne vulgaris 4:10p MD Office Visit 12/25/2017 [facility] Internal Doris Briceño, F17.210 Nicotine dependence, 11:40a Medicine - N.P. cigarettes, [place] uncomplicated J45.21 Mild intermittent asthma with (acute) exacerbation Office Visit 11/30/2017 11:50a [facility] Internal [place] S60.031A Contusion of Medicine Neeta Stevens M.D. right middle [place] finger w/o damage to nail, init F17.210 Nicotine dependence, cigarettes, uncomplicated Office Visit 09/13/2017 3:30p [facility] Fartun R10.84 Generalized Medicine - [place], RPA-C abdominal pain [address] R21 Rash and other nonspecific skin eruption Office Visit 08/07/2017 11:00a [facility] Internal Doris Briceño, M54.2 Cervicalgia Medicine - N.P. [place] F17.210 Nicotine dependence, cigarettes, uncomplicated Office Visit 05/02/2017 [facility] Shyanne N77.1 Vaginitis, vulvitis 1:40p Medicine - Milly Call and vulvovaginitis Tereso in dis classd elswhr R21 Rash and other nonspecific skin eruption Office Visit 04/19/2017 [facility] Dermatology Dipesh Hernandez, L70.0 Acne vulgaris 4:00p MD Office Visit 03/31/2017 [facility] Doris Briceño, R10.84 Generalized 11:40a Medicine - N.P. abdominal pain [place] Office Visit 01/18/2017 [facility] [place] J45.901 Unspecified asthma 9:10a Sanjay Stevens M.D. with (acute) [place] exacerbation F17.210 Nicotine dependence, cigarettes, uncomplicated Office Visit 12/06/2016 1:00p [facility] Doris Briceño, M54.5 Low back pain Medicine - N.P. [place] Office Visit 11/04/2016 3:00p [facility] Doris Briceño, Z01.419 Encntr for barrel leveler Medicine - N.P. exam (general) [place] (routine) w/o abn findings M46.1 Sacroiliitis, not elsewhere classified Office Visit 10/18/2016 11:00a [facility] Shyanne M54.9 Dorsalgia, Sanjay Call M.D. unspecified [place] R35.0 Frequency of micturition R10.2 Pelvic and perineal pain Office Visit 08/12/2016 Surgical Sudheer [place] R22.0 Localized 3:30p [facility] swelling, mass and Hospitality Recruiter lump, head Office Visit 06/29/2016 Orthopedic Karen M79.645 Pain in left 10:45a [facility] finger(s) C.M.A. Office Visit 06/22/2016 [facility] George Wallace NP M79.645 Pain in left 4:20p Medicine - finger(s) [place] Office Visit 02/03/2016 [facility] Sudheer S[place] R22.0 Localized 2:30p [facility] swelling, mass and Hospitality Recruiter lump, head Office Visit 01/28/2016 [facility] George Wallace NP R22.9 Localized 9:00a Medicine - swelling, mass and [place] lump, unspecified Office Visit 11/05/2015 [facility] George Wallace NP J45.20 Mild intermittent 10:20a Medicine - asthma, [place] uncomplicated J20.9 Acute bronchitis, unspecified Office Visit 11/02/2015 10:40a [facility]opedic Fide S53.32xD [facility], RPA-C rupture of left C.M.A. ulnar collateral ligament, subs Office Visit 10/20/2015 2:40p [facility] Doris Briceño M54.5 Low back pain Medicine - N.P. [place] M54.6 Pain in thoracic spine Office Visit 10/02/2015 [facility] George Wallace NP M54.5 Low back pain 10:40a Medicine - [place] Office Visit 09/24/2015 [facility] George Wallace NP M54.5 Low back pain 10:40a Medicine - [place] Office Visit 08/12/2015 [facility] George Wallace NP M79.642 Pain in left 4:20p Medicine - hand [place] Office Visit 07/09/2015 [facility] Doris Briceño M79.642 Pain in left 10:00a Medicine - N.P. hand [place] Office Visit 07/07/2015 [facility] Doris Briceño M79.642 Pain in left 3:55p Medicine - N.P. hand [place] Office Visit 07/06/2015 [facility] Doris Briceño, L72.3 Sebaceous cyst 1:40p Medicine - N.P. [place] Office Visit 06/22/2015 Orthopedic Karen S53.32xA Traumatic [...] for clos fx Office Visit 06/18/2015 10:00a [facility] Doris Briceño M79.642 Pain in left Medicine - N.P. hand [place] Office Visit 06/11/2015 4:00p [facility] George Wallace NP R30.0 Dysuria Medicine - [place] N91.1 Secondary amenorrhea N39.0 Urinary tract infection, site not specified Office Visit 05/15/2015 [facility] George Wallace NP K02.7 Dental root caries 2:20p Medicine - [place] Office Visit 04/08/2015 [facility] Doris Briceño, F17.210 Nicotine 11:40a Medicine - N.P. dependence, [place] cigarettes, uncomplicated J06.9 Acute upper respiratory infection, unspecified K02.7 Dental root caries Office Visit 03/30/2015 2:40p [facility] Doris Briceño, G44.201 Tension -type Medicine - N.P. 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 [place] R10.31 Right lower quadrant pain J06.9 Acute upper respiratory infection, unspecified R93.2 Abnormal findings on dx imaging of liver and biliary tract Office Visit 02/11/2015 11:40a [facility] Internal Medicine - George Wallace NP R30.0 Dysuria [place] R10.30 Lower abdominal pain, unspecified N39.0 Urinary tract infection, site not specified Office Visit 01/05/2015 4:00p [facility] George Wallace, J06.9 Acute upper Medicine - JUNIOR RECRUITER respiratory [place] infection, unspecified K08.8 Other specified disorders of teeth and supporting structures B37.3 Candidiasis of vulva and vagina Office Visit 12/24/2014 8:40a [facility] Doris Briceño, R10.11 Right upper Medicine - N.P. quadrant pain [place] Office Visit 12/16/2014 1:20p [facility] Doris Briceño, R10.31 Right lower Medicine - N.P. quadrant pain [place] N77.1 Vaginitis, vulvitis and vulvovaginitis in dis classd elswhr J06.9 Acute upper respiratory infection, unspecified F17.210 Nicotine dependence, cigarettes, uncomplicated Office Visit 10/21/2014 1:40p [facility] Doris Briceño, 787.91 Diarrhea Medicine - [place] N.P. 787.01 Nausea W/ Vomiting Office Visit 09/11/2014 2:00p [facility] Internal Medicine - George Wallace NP 784.0 Headache [place] 789.03 Pain Abdominal Right Lower Quadrant 706.1 Acne Other 788.41 Urinary Frequency Office Visit 08/15/2014 3:20p [facility] Internal Medicine - George Wallace NP 784.0 Headache [place] 847.0 Sprains & Strains Neck Plan of Treatment Future Appointment(s):03/14/2018 10:15 am - [facility]/21/2018 4:30 pm - Dipesh Hernandez MD at [facility] Xrijmrymrmp84/17 /2019 - Doris Briceño N.P.S63.641A Sprain of [...]
[2018-04-01 14:08] VITALS: BP 137/67
--- NOTE | 2018-04-01 14:17 | UC ---
Lower Extremity/Ankle HPI - HPI Summary HPI Summary: Patient is a 23 year old female , who present today to the urgent care with right foot pain for past 2 days. Pain is located on lateral aspect of her right foot and ankle. Denies any injury, pain with weigh bearing .denies any prior episodes. She was not able to go to work today . She denies any calf pain. No fever or chills - History of Current Complaint Chief Complaint: UCLowerExtremity Stated Complaint: R FOOT COMPLAINT Time Seen by Provider: 04/01/18 14:01 Hx Obtained From: Patient Hx Last Menstrual Period: 03/26/18 Pain Intensity: 7 - Allergies/Home Medications Allergies/Adverse Reactions: Allergies Allergy/AdvReac Type Severity Reaction Status Date / Time No Known Allergies Allergy Verified 04/01/18 14:09 Home Medications: Home Medications Ibuprofen TAB* [Motrin TAB* 800 MG] 800 mg PO Q8H 04/01/18 [History Confirmed ] traMADol TAB* [Ultram*] 50 mg PO Q8HR 04/01/18 [History Confirmed 04/01/18] PMH/Surg Hx/FS Hx/Imm Hx - Additional Past Medical History Additional PMH: Asthma. Previously Healthy: Yes - Surgical History Surgical History: Yes Surgery Procedure, Year, and Place: wisdom teeth extraction, tonsillectomy, LT THUMB LIGAMENT REPAIR 06/23/15 - Family History Known Family History: Positive: Cardiac Disease - [place] in grandmother , Hypertension - Social History Alcohol Use: Weekly Alcohol Amount: 1 DRINK 2 WEEKS Substance Use Type: None Smoking Status (MU): Heavy Every Day Tobacco Smoker Type: Cigarettes Amount Used/How Often: 10 PER DAY Length of Time of Smoking/Using Tobacco: 8 YRS Have You Smoked in the Last Year: Yes Household Exposure Type: Cigarettes Review of Systems All Other Systems Reviewed And Are Negative: Yes Constitutional: Positive: Negative Skin: Positive: Negative Eyes: Positive: Negative ENT: Positive: Negative Respiratory: Positive: Negative Cardiovascular: Positive: Negative Gastrointestinal: Positive: Negative Genitourinary: Positive: Negative Motor: Positive: Negative Neurovascular: Positive: Negative Musculoskeletal: Positive: Arthralgia - right ankle and lateral foot, Decreased ROM - right ankle Neurological: Positive: Negative Psychological: Positive: Negative Is Patient Immunocompromised?: No Physical Exam - Summary Physical Exam Summary: Physical Exam: Const: Appears well. No signs of apparent distress present. Alert and oriented x 3. Musculo: antalgic gait , using wheel chair. Head/Face: Atraumatic, normocephalic on inspection. Eyes: EOMI and PERRLA in both eyes. Conjunctivae clear. ENT: Hearing normal Respiratory: Respirations are unlabored. CVS: Regular rate and Rhythm Extremities: Peripheral circulation is grossly normal. Pulses 2+ Skin: No lesions or rash located on the upper extremities or on the lower extremities. Neuro: Cranial nerves II to XII intact, motor and sensory intact. DTR Intact bilaterally. Mood is normal. Affect is normal. right Ankle/Feet examination: Ankle: Inspection/palpation: No bruising, swelling or crepitus noted. There is tenderness to palpation in the area of ATFL, CFL and at the calcaneous . There is no tenderness to palpation of the medial malleolus or lateral malleolus. Ankle mortise appears intact. ROM: limited and painful Strength: 5/5 Special tests:Anterior drawer test is negative .Talar tilt test(inversion stress ) and the eversion stress test negative but painful Negative Squeeze and External Rotation tests. Feet: Insp/Palp: Feet normal to inspection bilaterally, tenderness noted on base of 5th metatarsal. Strength: 5/5 Skin: No scars, rashes, lesions or ecchymosis. 2+ posterior tibial and dorsalis pedis pulse bilaterally. Neuro: Sensation to light touch is intact in the lower extremities bilaterally. Coordination normal. Triage Information Reviewed: Yes Vital Signs: Initial Vital Signs Temp 97.5 F 04/01/18 14:04 Pulse 102 04/01/18 14:04 Resp 18 04/01/18 14:04 BP 137/67 04/01/18 14:04 Pulse Ox 100 04/01/18 14:04 Vital Signs Reviewed: Yes Diagnostics - Radiology No standard instances Radiology Interpretation Completed By: Radiologist - Xrays of right ankle and foot: IMPRESSION: NO EVIDENCE FOR FRACTURE. Lower Extremity Course/Dx - Course Course Of Treatment: During the visit today, we obtained Xrays of the right ankle and foot . We discussed the findings and her symptoms appear to be secondary to lateral ankle sprain/ soft tissue contusion. Start Using cam boot and follow up with ortho pedics. Patient expressed understanding . - Differential Dx/Diagnosis Provider Diagnosis: Right ankle sprain, Contusion Discharge - Sign-Out/Discharge Documenting (check all that apply): Patient Departure All imaging exams completed and their final reports reviewed: Yes - Discharge Plan Condition: Stable Disposition: HOME Patient Education Materials: Ankle Sprain (ED), Foot Contusion (ED) Forms: *Work Release Referrals: Doris Briceño NP [Primary Care Provider] - 1 Week Driss Thakkar MD [Medical Doctor] - 2 Days Additional Instructions: Follow up with orthopedics in 2 to 3 days. Continue using the CAM boot . Ice 15 min at a time, 3 to 4 times/ day . Take ibuprofen 600mg upto 3 times/ day with food as needed for pain. Patients blood pressure slightly high( pre-hypertensive range) in Urgent care today , plan follow up with PCP for better control Return to Urgent care / ER if symptoms get worse. - Billing Disposition and Condition Condition: STABLE Disposition: Home
== END 2018-04-01 15:07 | disposition home or self-care (01) ==
LOC: UCEAST 13:55
DX: S93.401A Sprain of unspecified ligament of right ankle, initial encounter (principal); S90.01XA Contusion of right ankle, initial encounter; F17.210 Nicotine dependence, cigarettes, uncomplicated; J45.909 Unspecified asthma, uncomplicated; X58.XXXA Exposure to other specified factors, initial encounter; Y92.9 Unspecified place or not applicable
CPT/HCPCS: 99212; G0463

== ENCOUNTER 2018-04-17 07:47 | Day surgery (SDC) | payer OTHER ==
--- NOTE | 2018-04-12 06:52 | HP ---
PREOPERATIVE HISTORY AND PHYSICAL: DATE OF ADMISSION: CHIEF COMPLAINT: Right thumb pain. HISTORY OF PRESENT ILLNESS: Regine is a 23-year-old female who injured her right thumb when she was running to the bus for work, she tripped and fell and landed on her right thumb. This occurred on 02/21/18. She was seen at the [facility], had some x-rays that were negative for fractures. She was splinted and she followed up. She has persistent pain now 7 weeks after the injury and MRI shows a radial collateral ligament tear from the origin of the metacarpal. She presents for right thumb radial collateral ligament repair. PAST MEDICAL HISTORY: 1. Asthma. 2. Acne. 3. Depression and anxiety. PAST SURGICAL HISTORY: 1. Tonsillectomy. 2. [place] teeth removal. 3. Left thumb ulnar collateral ligament repair. MEDICATIONS: 1. Chantix 0.5 mg daily. 2. Tramadol 50 mg 1 p.o. q.8 hours as needed for pain. She has not taken this recently. 3. Fluconazole 150 mg p.o. p.r.n. 4. Albuterol sulfate 2.5 mg per 3 mL inhale in a nebulizer 4 times a day as needed. 5. Ranitidine 150 mg p.o. b.i.d. 6. Ventolin 108 mcg 2 puffs by mouth 4 times a day as needed. 7. Spironolactone 50 mg p.o. b.i.d. DRUG ALLERGIES: None. FAMILY HISTORY: Heart disease, hypertension, cancer. SOCIAL HISTORY: She lives with her mother. 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 She occasionally consumes alcohol and is trying to quit smoking. REVIEW OF SYSTEMS: Positive for sore throat, runny nose, cough, these have resolved, but were from a recent upper respiratory illness. Also, positive for dizziness, lightheadedness, weakness, weight gain, depression, anxiety. Otherwise, negative for cephalic, cardiovascular, respiratory, gastrointestinal , genitourinary, other musculoskeletal, skin, neurologic, endocrine and hematologic symptoms. PHYSICAL EXAMINATION GENERAL: She is a healthy-appearing female, in minimal distress at rest. VITAL SIGNS: Height is 63 inches, weight 152 pounds, pulse 72, blood pressure 106/80, respirations 16. HEENT: Exam is unremarkable. Her eye movements are concentric. NECK: She has good range of motion of her neck without pain. No masses are palpated. LUNGS: Her lungs are clear to auscultation. Good inspiratory effort. No wheezing. CARDIAC: Regular rate and rhythm without murmur. PERIPHERAL VASCULAR: She has palpable pulses and no peripheral edema. NEUROLOGICAL: She is alert and oriented without focal deficit. EXTREMITIES: She has tenderness on the origin of the radial collateral ligament of her right thumb. Ulnar collateral ligament has good stability. Her thumb has restricted range of motion. Her skin is intact. Neurovascular function is intact. IMPRESSION: Right thumb radial collateral ligament tear. PLAN: The plan is for right thumb radial collateral ligament repair. The surgical procedure, risks and benefits were explained to the patient today and she agrees to proceed. I will see her back in followup in approximately 10 days postop. [id number]/CPS #: [id number] MTDD
[~2018-04-17 07:47] MED LIST changes: +Buffered Lidocaine 1% SYRIN* 1 ML/SYRINGE INTRADERM ONE; +Dexamethasone IV* 4 MG/ML 1 ML (4 MG) IV SLOW PU ONE; +Famotidine IV* 10 MG/ML 2 ML (20 mg) IV ONE; -Ketorolac INJ* 30 MG/ML 1 ML VIAL IV ONE; +Lactated Ringers 1000 ML Bag* 1,000 ML IV SCH; +Lidocaine 1% INJ* 10 MG/ML 30 ML SDV ONE; -Morphine INJ* 2 MG/ML 1 ML CARPUJECT ONE; -Morphine INJ* 2 MG/ML 1 ML SYRINGE (TWO MG - NEW SYRINGE VERSION) IV ONE; -NS 0.9% 1000 ML* 1,000 ML IV ONE; -Ondansetron INJ* 2 MG/ML VIAL IV ONE
[2018-04-17] MEDS ORDERED: Dexamethasone IV* 4 MG/ML 1 ML (4 MG) ONE (08:09)
[2018-04-17] MEDS ORDERED: Famotidine IV* 10 MG/ML 2 ML (20 mg) ONE (08:10)
[2018-04-17] MEDS ORDERED: fentaNYL* 50 MCG/ML 2 ML VIAL (100 MCG VIAL) ONE ×3 (08:37→10:56)
[2018-04-17] MEDS ORDERED: Midazolam* 1 MG/ML 2 ML VIAL (2 MG) ONE (08:38)
[2018-04-17] MEDS ORDERED: Propofol* 10 MG/ML 20 ML BTL ONE (09:13)
[2018-04-17] MEDS ORDERED: Lidocaine 2% PF * 5 ML VIAL ONE (09:13)
[2018-04-17] MEDS ORDERED: ceFAZolin 2 GM PREMIX in ORs 2 GM/50 ML BAG IVPB ONE (09:21)
[2018-04-17] MEDS ORDERED: Ketorolac INJ* 30 MG/ML 1 ML VIAL ONE ×2 (09:50→10:44)
[2018-04-17] MEDS ORDERED: Ondansetron INJ* 2 MG/ML VIAL ONE (09:50)
[2018-04-17] MEDS ORDERED: Naloxone* 0.4 MG/ML 1 ML VIAL IV PRN ×2 (09:54→10:55)
[2018-04-17] MEDS ORDERED: DiMENhydriNATE IV* 50 MG/ML VIAL IV PUSH PRN (09:54)
[2018-04-17] MEDS: fentaNYL* 50 MCG/ML 2 ML VIAL (100 MCG VIAL) IV PRN ×2 (10:57→11:07)
[2018-04-17] MEDS ORDERED: HYDROcodone/ACETAMIN 5-325 MG* 1 TAB ONE (11:39)
--- NOTE | 2018-04-17 11:56 | OP ---
DATE OF OPERATION: 04/17/18 [facility] DATE OF : 89 SURGEON: Dr. Bennett. [employer]PER[employer] MANAGER: SALVADOR Collins ANESTHESIA: General. PRE-OP DIAGNOSIS: Radial collateral ligament tear of the right thumb. POST-OP DIAGNOSIS: Radial collateral ligament tear of the right thumb. OPERATIVE PROCEDURE: Radial collateral ligament tear repair of the right thumb. ESTIMATED BLOOD LOSS: Zero. TOURNIQUET TIME: About 20 minutes. INDICATIONS FOR PROCEDURE: Regine is a 23-year-old female who tripped running for the bus and jammed her right thumb. She has been splinted for a few weeks and has persistent pain. MRI shows a tear of the origin of the radial collateral ligament of the MP joint. She presents for repair. DESCRIPTION OF PROCEDURE: The patient was brought to the operating room, was given a general anesthetic, and placed in supine position on the operating table with a tourniquet around her right upper arm. The skin of her right upper extremity was prepped and draped in the usual sterile fashion. The hand and forearm were exsanguinated, and the tourniquet elevated to 250 mmHg. A longitudinal incision was made centered on the radial aspect of the MP joint of the right thumb. We dissected bluntly through the subcutaneous tissue. Branches of the radial sensory nerve were located and retracted by the surgical coordinator, Fide Avila. The MP joint capsule was incised longitudinally and there was a near complete tear of the radial collateral ligament. The origin area of the ligament was debrided and roughened with a curette and then a single Mitek Mini suture anchor was placed and the sutures passed through the collateral ligament and then tied down. This gave very good stability to the joint. The joint capsule was repaired with the 2-0 Ethibond suture from the suture anchor. The wound was irrigated and the skin edges were reapproximated with 4-0 nylon suture. The wound was dressed with Xeroform, 4x4, Webril, and a thumb spica splint. The patient tolerated the procedure well and was brought to the recovery room in good condition. [id number]/CPS #: [id number] MTDD
[2018-04-17 12:04] VITALS: BP 117/69
== END 2018-04-17 11:59 | disposition home or self-care (01) ==
LOC: OREAST 07:47
PROVIDERS: ATTEND Orthopaedic Surgery
DX: S63.641A Sprain of metacarpophalangeal joint of right thumb, initial encounter (principal); Z72.0 Tobacco use; J45.909 Unspecified asthma, uncomplicated; W01.0XXA Fall on same level from slipping, tripping and stumbling without subsequent striking against object, initial encounter; Y92.480 Sidewalk as the place of occurrence of the external cause; K21.9 Gastro-esophageal reflux disease without esophagitis; F41.8 Other specified anxiety disorders
CPT/HCPCS: 81025; C1713; J0690; J1100; J1885; J2250; J2405; J2704; J3010

== ENCOUNTER 2018-05-12 15:26 | Emergency (ER) | payer OTHER ==
--- NOTE | 2018-05-12 15:32 | UC ---
Bite Injury/Animal HPI - HPI Summary HPI Summary: 23 yo female presents with cat bite to right hand. 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 Pt says that cat is UTD on all immunizations and just had it's rabies vaccine a little while ago. Pt is unsure the date of her own last tetanus. She has not washed her hand or cleansed the area at all. Has not taken anything OTC for her symptoms. - History of Current Complaint Stated Complaint: CAT BITE Time Seen by Provider: 05/12/18 15:30 Hx Obtained From: Patient Hx Last Menstrual Period: 03/26/18 Severity Currently: Moderate Severity Initially: Moderate Pain Intensity: 8 Pain Scale Used: 0-10 Numeric Onset/Duration: Sudden Onset Type of Bite: Animal Has Animal Been Immunized?: Yes Character: Puncture - Allergies/Home Medications Allergies/Adverse Reactions: Allergies Allergy/AdvReac Type Severity Reaction Status Date / Time No Known Allergies Allergy Verified 04/12/18 11:36 PMH/Surg Hx/FS Hx/Imm Hx Respiratory History: Asthma - Surgical History Surgical History: Yes Surgery Procedure, Year, and Place: wisdom teeth extraction, tonsillectomy, LT THUMB LIGAMENT REPAIR 06/23/15 - Family History Known Family History: Positive: Cardiac Disease - [place] in grandmother , Hypertension - Social History Lives: With Family Alcohol Use: Occasionally Alcohol Amount: 1 DRINK 2 WEEKS Substance Use Type: None Smoking Status (MU): Heavy Every Day Tobacco Smoker Type: Cigarettes Amount Used/How Often: 10 PER DAY Length of Time of Smoking/Using Tobacco: 8 YRS Have You Smoked in the Last Year: Yes Household Exposure Type: Cigarettes Review of Systems All Other Systems Reviewed And Are Negative: Yes Constitutional: Positive: Negative Skin: Positive: Other - Cat bite right hand Respiratory: Positive: Negative Cardiovascular: Positive: Negative Neurovascular: Positive: Negative Neurological: Positive: Negative Psychological: Positive: Negative Physical Exam - Summary Physical Exam Summary: GENERAL: NAD. WDWN. No pain distress. SKIN: RIGHT HAND: right index with 1mm puncture wound to dorsal aspect and 1mm puncture wound to volar aspect. Middle index with two 1mm puncture wounds to dorsal aspect and two 1mm puncture wounds to volar aspect. NECK: Supple. Nontender. No lymphadenopathy. CHEST: No accessory muscle use. Breathing comfortably and in no distress. CV: Pulses intact. Cap refill <2seconds MSK: FROM right index and middle fingers. Right thumb/wrist in a thumb spica cast for recent ligament surgery. NEURO: Alert. PSYCH: Age appropriate behavior. Triage Information Reviewed: Yes Vital Signs: Vital Signs: Temp Pulse Resp BP Pulse Ox 98.2 F 95 16 118/64 98 05/12/18 15:32 05/12/18 15:32 05/12/18 15:32 05/12/18 15:32 05/12/18 15:32 Vital Signs Reviewed: Yes Bite Injury Course/Dx - Course Course Of Treatment: Cat bite right hand. The wound was cleansed with NS. tdap updated today. Will start her on Augmentin and have her f/u in a few days if she develops redness, swelling, fever, or pain that does not improve. - Differential Dx/Diagnosis Provider Diagnosis: Cat bite of right hand Discharge - Sign-Out/Discharge Documenting (check all that apply): Patient Departure All imaging exams completed and their final reports reviewed: No Studies - Discharge Plan Condition: Stable Disposition: HOME Prescriptions: Amoxicillin/Clavulanate TAB* [Augmentin TAB 875*] 875 mg PO BID #14 tab Patient Education Materials: Animal Bite (ED) Forms: *Work Release Referrals: Doris Briceño NP [Primary Care Provider] - Additional Instructions: If you develop a fever, shortness of breath, chest pain, new or worsening symptoms - please call your PCP or go to the ED. Apply ice to your hand to reduce pain and swelling - Billing Disposition and Condition Condition: STABLE Disposition: Home
--- OUTSIDE RECORDS SUMMARY | 2018-05-12 15:33 | XMS REPORT | Continuity of Care Document ---
:1995 External Reference #:[id number] Author Name Niecy Andrade Care Team Providers Name Role Phone Shyanne Call MD Primary Care Physician Unavailable Payers Date Identification Numbers Payment Provider Subscriber Effective: 2015 Policy Number: [id number] Zack Chester Group Number: [id number] [address] PayID: [id number] [place] [address] Effective: 2015 Policy Number: [id number] Medicaid Esvin Chester Expires: 2015 Group Name: 1 1 [address] PayID: [id number] [place] [address] Effective: 2014 Policy Number: [id number] Zack Chester Expires: 2015 Group Number: [id number] [address] PayID: [id number] [place] [address] Advance Directives Description No Information Available Problems Date Description Provider Status Onset: 10/21/2014 Asthma Doris Briceño N.P. 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 needed for pain Hydrocodone-Acet 04/18/19 Active Tablets 5-325mg 12tab 1 tab by Karen aminophen 19 s mouth Bennett, every 8 M.D. hours as needed pain Chantix Starting 12/01/19 Active Tablets 0.5mg X 53tab as F17.210 [place] Month Eric 18 11 & 1 mg s directed Rodney, X 42 on the M.D. pack Fluconazole 07/26/19 Active Tablets 150mg 2tabs one by Doris 18 mouth Varn, N.P. may repeat in 3 days as needed Ranitidine HCL 03/31/19 Active Tablets 150mg 60tab take one R10.84 Doris 18 s tablet Varn, N.P. by mouth twice a day Albuterol 01/19/20 Active Nebulizer (2.5mg/3M 300un inhale Doris Sulfate 17 L) 0.083% its contents Varn, N.P. of 1 vial via nebulize r 4 times a day as needed Nebulizer 01/19/20 Active Device 1unit use for Angeles 17 s albutero Stevens, l M.D. nebulize d solution up to 4 times a day. Valtrex 07/27/19 Active Tablets 500mg 30tab 1 by George 17 s mouth [place], [employer] twice a day x 5 days Ventolin HFA 08/16/19 Active Aerosol 108(90Bas 8.5gm 2 puffs Doris 15 e) by mouth Varn, N.P. mcg/Act four times a day as needed Spironolactone Active Tablets 50mg take 1 Unknown 00 tablet by mouth twice a day Tramadol HCL 03/08/19 Hx Tablets 50mg 30tab 1 tablet S63.641A Doris 19 - s every 8 Varn, N.P. 04/26/19 hours as 19 needed for pain Naproxen DR 03/05/[address] 500mg 60tab One po q Doris 19 - s 12hours Varn, N.P. 04/10/19 prn pain 19 Prednisone 12/26/19 Hx Tablets 10mg 40tab 4 J45.21 Doris 18 - s tablets Varn, N.P. 01/11/20 by mouth 18 for 4 days 3 tablets by mouth for 4 days 2 tablets by mouth for 4 days 1 tablet by mouth for 4 days Azithromycin 12/26/19 Hx Tablets 250mg 6tabs two tabs J45.21 Doris 18 - day one, Varn, N.P. 01/05/20 one 18 daily till gone Benzonatate 12/26/19 Hx Capsules 200mg 30cap one by J45.21 Doris 18 - s mouth Varn, N.P. 01/09/20 three 18 times daily as needed for cough Naproxen 08/10/19 Hx Tablets 500mg 60tab take 1 Doris 18 - s tablet Varn, N.P. 04/10/19 twice a 19 day as needed Tizanidine HCL 08/08/19 Hx Tablets 4mg 30tab take 1 M54.2 Doris 18 - s tablet Varn, N.P. 12/01/19 by mouth 18 every 8 hours as needed Nicotrol 08/08/19 Hx Inhaler 10mg 168un 1 F17.210 Doris 18 - its Inhaler Varn, N.P. 12/01/19 as 18 needed not to exceed 16 in a day Hydrocortisone 05/03/19 Hx Cream 2.5% 30gm apply to R21 Shyanne 18 - affected Cotton, 12/01/19 area M.D. 18 twice daily Fluconazole 02/02/20 Hx Tablets 150mg 2tabs one by George 17 - mouth MAICOL Wallace 05/02/19 july 07 repeat in 3 days as needed Prednisone 01/19/20 Hx Tablets 10mg qs take 4 J45.901 [place] 17 - tab Stevens, 01/31/20 daily x M.D. 17 3 days then 3 tab daily x 3 days and then 2 tab daily X 3 days 1 tab daily x 3 days Medrol 12/07/19 Hx TBPK 4mg 21uni 6 by M54.5 Doris 17 - ts mouth Varn, N.P. 12/13/19 day 1, 5 17 by mouth day 2, 4 by mouth day 3, 3 by mouth day 4, 2 by mouth day 5, 1 by mouth day 6 Ibuprofen 11/18/19 Hx Tablets 800mg 90tab by mouth Doris 17 - s three Varn, N.P. 08/10/19 times a 18 day as needed Ahydrocodone-Sukh 11/15/19 Hx Tablets 5-325mg 14tab one Doris taminophen 17 - s tablet Varn, N.P. 05/02/19 by mouth 18 every 8 hours as needed for pain Fluconazole 10/14/19 Hx Tablets 150mg 2tabs one by Doris 17 - mouth Varn, N.P. 01/19/20 july 06 repeat in 3 days as needed Tizanidine HCL 09/01/19 Hx Tablets 4mg 30tab 1 tablet G44.201 Doris 17 - s every 4 Varn, N.P. 05/02/19 hours as 18 needed for muscle tension headache or muscle spasms. Meloxicam 07/28/19 Hx Tablets 15mg 60tab 1 by Karen 17 - s mouth Bennett, 10/19/19 twice a M.D. 17 day Fluconazole 07/05/19 Hx Tablets 150mg 2tabs one by George 17 - mouth MAICOL Wallace Unknown june repeat in 3 days as needed Tramadol HCL 06/23/19 Hx Tablets 50mg 60tab 1-2 M79.645 Shyanne 17 - s tablets Jakub, 01/19/20 every 6 M.D. 17 hours as needed for pain. Ibuprofen 06/23/19 Hx Tablets 600mg 21tab take one M79.645 George 17 - s tablet MAICOL Wallace 07/28/19 by mouth 17 three times a day as needed with food Diflucan 05/31/19 Hx Tablets 150mg 2tabs one by Doris 17 - mouth, Varn, N.P. 06/06/19 july 06 repeat in 3 days Tizanidine HCL 11/25/19 Hx Tablets 4mg 60tab 1 tablet G44.201 Doris 16 - s every 4 Varn, N.P. Unknown hours as needed for muscle tension headache . Fluconazole 11/19/19 Hx Tablets 150mg 2tabs one by Doris 16 - mouth Varn, N.P. 01/28/20 july 05 repeat in 3 days as needed Azithromycin 11/05/19 Hx Tablets 250mg 6tabs 2 tabs J20.9 George 16 - by mouth MAICOL Wallace 11/10/19 every 16 day x1 day, 1 tab by mouth every day x 4 days Benzonatate 11/05/19 Hx Capsules 200mg 30cap one by J20.9 George 16 - s mouth Mdaison, MAICOL 01/28/20 three 16 times daily as needed for cough Acetaminophen-Co 10/20/19 Hx Tablets 300-30mg 30tab one by M54.5 Doris velasco #3 16 - s mouth Varn, N.P. 01/28/20 every 6 16 hours as needed cough Meloxicam 10/02/19 Hx Tablets 15mg 30tab once M54.5 George 16 - s daily MAICOL Wallace Unknown with food Tramadol HCL 10/02/19 Hx Tablets 50mg 42tab 1-2 M54.5 George 16 - s tablets MAICOL Wallace 10/09/19 every 8 16 hours as needed for pain. Fluconazole 09/27/19 Hx Tablets 150mg 2tabs one by Doris 16 - mouth Varn, N.P. 10/20/19 july 05 repeat in 3 days as needed Hydrocodone-Acet 09/24/19 Hx Tablets 5-325mg 30tab 1-2 by George aminophen 16 - s mouth MAICOL Wallace 10/02/19 every 8 16 hours prn. Methylprednisolo 09/24/19 Hx TBPK 4mg 21uni as M54.5 George ne 16 - ts directed MAICOL Wallace 09/30/19 on 16 package Methylprednisolo 08/12/19 Hx TBPK 4mg 21uni as M79.642 George ne 16 - ts directed MAICOL Wallace 08/20/19 on 16 package Oxycodone-Acetam 07/09/19 Hx Tablets 5-325mg 20tab 1 tab by M79.642 Karen inophen 16 - s mouth Bennett, 08/12/19 every 6 M.D. 16 hours as needed for pain Do not refill until 06/26/15 Fluconazole 07/09/19 Hx Tablets 150mg 2tabs one by M79.642 Doris 16 - mouth Varn, N.P. 07/25/19 july 05 repeat in 3 days as needed Celebrex 07/07/19 Hx Capsules 100mg 30cap 1 by K02.7 Doris 16 - s mouth Varn, N.P. 08/12/19 bid prn 16 pain Lidocaine-Priloc 07/06/19 Hx Cream 2.5-2.5% 25gm apply a L72.3 Doris wilson 16 - generous Varn, N.P. 07/07/19 amount 16 to affected area 30 minutes before appointm ent. Tramadol 07/02/19 Hx Tablets 37.5-325m 30tab 1-2 Karen Hydrochloride/Ac 16 - g s tablets Bennett, etaminophen 08/12/19 every 6 M.D. 16 hours as needed pain Oxycodone-Acetam 06/25/19 Hx Tablets 5-325mg 40tab 1-2 tab Karen inophen 16 - s by mouth Bennett, 07/04/19 every M.D. 16 4-6 hours as needed for pain Do not refill until 06/26/15 Hydrocodone-Acet 06/22/19 Hx Tablets 5-325mg 40tab 1-2 tabs Karen aminophen 16 - s by mouth Bennett, 07/09/19 every 4- M.D. 16 6 hours as needed pain Fluconazole 06/22/19 Hx Tablets 150mg 2tabs one by Doris 16 - mouth Varmichael, N.P. 06/28/19 july 05 repeat in 3 days as needed Percocet 06/18/19 Hx Tablets 5-325mg 60tab 1-2 by S53.32xA Zaneb 16 - s mouth MD Sana 06/21/19 every 4 16 to 6 hours as needed pain Ciprofloxacin 06/11/19 Hx Tablets 250mg 14tab take one N39.0 George HCL 16 - s tablet MAICOL Wallace 06/18/19 twice a 16 day for 7 days. Phenazopyridine 06/11/19 Hx Tablets 100mg 10tab 1 tablet N39.0 George HCL 16 - s by mouth MAICOL Wallace 06/14/19 three 16 times a day as needed for [address] 05/15/[address] 500mg 60tab by mouth K02.7 George 16 - s twice a MAICOL Wallace 05/11/19 day with 16 food Lidocaine 05/15/19 Hx Solution 2% 100un gargle K02.7 George Viscous 16 - its with MAICOL Wallace 06/11/19 15ml 16 every 4 hours as needed for throat pain. Fluconazole 04/29/19 Hx Tablets 150mg 2tabs one by Doris 16 - mouth Varn, N.P. 05/26/19 july 05 repeat in 3 days as needed Benzonatate 04/08/19 Hx Capsules 200mg 30cap one by J06.9 Doris 16 - s mouth Varn, N.P. 04/22/19 three 16 times daily as needed for cough Celebrex 04/08/19 Hx Capsules 200mg 30cap 1 by K02.7 Doris 16 - s mouth Varn, N.P. 04/08/19 every 16 day Flovent HFA 04/08/19 Hx Aerosol 110mcg/Ac 12gm 2 puffs J06.9 Doris 16 - t twice Varn, N.P. 01/19/20 daily 17 Meloxicam 04/08/19 Hx Tablets 15mg 30tab once Doris 16 - s daily Varn, N.P. 05/15/19 with 16 food Tizanidine HCL 03/30/19 Hx Capsules 4mg 60cap one by G44.201 Doris 16 - s mouth Varn, N.P. 11/25/19 every 4 16 hours as needed for musle tension headache Ciprofloxacin 02/12/20 Hx Tablets 500mg 20tab take one R30.0 George HCL 15 - s tablet MAICOL Wallace 02/22/19 twice a 16 day for 10 days Phenazopyridine 02/12/20 Hx Tablets 100mg 10tab 1 tablet R30.0 George HCL 15 - s by mouth MAICOL Wallace 02/15/20 three 15 times a day as needed for 3 days. Fluconazole 02/12/20 Hx Tablets 150mg 2tabs one by R30.0 George 15 - mouth MAICOL Wallace 02/18/20 july 04 repeat in 3 days as needed Fluconazole 01/28/20 Hx Tablets 150mg 2tabs one by B37.3 George 15 - mouth MAICOL Wallace 02/18/20 july 04 repeat in 3 days as needed Tramadol HCL 01/20/20 Hx Tablets 50mg 30tab 1 tablet Doris 15 - s three to Varn, N.P. 03/30/19 four 16 times daily as needed Valtrex 01/15/20 Hx Tablets 500mg 10tab 1 by Doris 15 - s mouth Varn, N.P. Unknown twice a day x 5 days Tramadol HCL 01/06/20 Hx Tablets 50mg 15tab 1-2 K08.8 George 15 - s tablets MAICOL Wallace 01/09/20 every 15 4-6 hours as needed for pain. Fluconazole 01/06/20 Hx Tablets 150mg 2tabs one by B37.3 George 15 - mouth MAICOL Wallace 01/09/20 july 04 repeat in 3 days as needed Naproxen Sodium 12/25/19 Hx Tablets 550mg 60tab One po R10.11 Doris 15 - s every 12 Varn, N.P. 04/08/19 hours 16 Ponstel 12/17/19 Hx Capsules 250mg 60cap two by R10.31 Doris 15 - s mouth Varn, N.P. 12/17/19 initiall 15 y then 1 by mouth every 6 hours as needed Docusate Sodium 12/17/19 Hx Tablets 8.6-50mg 30tab 2 R10.31 Doris & Senna 15 - s tablets Varn, N.P. Stimulant 04/08/19 po hs Laxative/Stool 16 prn Softener constipa tion Valacyclovir HCL 12/17/19 Hx Tablets 1gm 21tab 1 tbalet N77.1 Doris 15 - s tid x 7 Varn, N.P. 01/05/20 days 15 Clindamycin 09/13/19 Hx Gel 1% 30gm apply L70.8 Doris Phosphate 15 - once Varn, N.P. 10/18/19 daily to 17 affected areas. Clindamycin 09/12/19 Hx Gel 1-5% 50gm Apply to 706.1 George Phos-Benzoyl 15 - afected MAICOL Wallace Perox 09/13/19 areas 15 once daily. Ortho-Cept (28) 08/16/19 Hx Tablets 0.15-30mg 3mont 1 by George 15 - -mcg hs mouth MAICOL Wallace 09/12/19 every 15 day Sumatriptan 08/16/19 Hx Tablets 25mg 9tabs take one George Succinate 15 - tablet MAICOL Wallace 08/16/19 at the 15 first signs of headache . if no improvem ent take a second tablet 2 hours after the first, Naproxen 08/16/[address] 500mg 60tab by mouth George 15 - s twice a MAICOL Wallace 09/12/19 day with 15 food Cyclobenzaprine 08/16/19 Hx Tablets 5mg 30tab take one 784.0 George HCL 15 - s tablet MAICOL Wallace 10/22/19 by mouth 15 every 12 hours as needed. Sumatriptan 08/16/19 Hx Tablets 50mg 9tabs take one 784.0 George Succinate 15 - tablet MAICOL Wallace 08/19/19 at onset 15 of headache . if no relief you can take a second tab 2 hours later. No more than 4 times a month Diazepam Hx Tablets 2mg 1 tablet George 00 - by mouth MAICOL Wallace 09/12/19 bid 15 Zoloft Hx Tablets 100mg 1 by Unknown 00 - mouth 04/08/19 every 16 day Amoxicillin Hx Capsules 500mg take 1 Unknown 00 - capsule 02/12/20 by mouth 15 every 8 hours until finished Sertraline HCL Hx Tablets 100mg Unknown 00 - 04/08/19 16 Gabapentin Hx Capsules 300mg 1 by Unknown 00 - mouth 05/28/19 three 16 times a day Clonazepam Hx Tablets 0.5mg once Unknown 00 - Dispers daily 06/06/19 16 Rexulti Hx Tablets 2mg 1 po Unknown 00 - daily 11/05/19 16 Ativan Hx Tablets 1mg 1 tab by Unknown 00 - mouth 3x 06/23/19 a day 17 Clonidine HCL Hx Tablets 0.1mg 1 by Unknown 00 - mouth im 06/23/19 Am and 3 17 in the PM Trazodone HCL Hx Tablets 100mg 1 by Unknown 00 - mouth 01/28/20 every 16 night at bedtime Flexeril Hx Tablets 5mg 1 tab by Unknown 00 - mouth 10/20/19 twice a 16 day as needed spasm Nitrofurantoin Hx Capsules 100mg take 1 Unknown Monohyd Macro 00 - capsule 01/28/20 by mouth 16 twice a day Rexulti Hx Tablets 2mg 1 by Unknown 00 - mouth 06/23/19 every 17 day Trileptal Hx Tablets 150mg Not Unknown 00 - taking-- 05/02/19 -1 18 tablet at night for a week then 1 twice a day Doxycycline Hx Capsules 50mg to start Unknown Hyclate 00 - soon 08/08/19 18 Immunizations Description No Information Available Vital Signs Date Vital Result Comment 04/30/2018 12:02pm Height 63 inches 5'3" Weight 152.00 lb Heart Rate 80 /min BP Systolic 104 mmHg BP Diastolic 72 mmHg Body Temperature 97.9 F Pain Level 8 BMI (Body Mass Index) 26.9 kg/m2 04/25/2018 3:19pm Height 63 inches 5'3" Weight 152.00 lb BP Systolic 126 mmHg BP Diastolic 78 mmHg Body Temperature 98.1 F Pain Level 10 BMI (Body Mass Index) 26.9 kg/m2 04/11/2018 8:26am Height 63 inches 5'3" Weight 152.00 lb Patient stated Heart Rate 72 /min BP Systolic 106 mmHg BP Diastolic 80 mmHg Respiratory Rate 16 /min Pain Level 7 BMI (Body Mass Index) 26.9 kg/m2 04/10/2018 2:54pm Height 63 inches 5'3" Weight 152.00 lb Heart Rate 78 /min Respiratory Rate 15 /min Body Temperature 97.1 F Pain Level 3 BMI (Body Mass Index) 26.9 kg/m2 03/14/2018 9:40am Height 65 inches 5'5" Weight [...] Result H/L Range Note Laboratory test 01/19/2018 [facility] Lactic Acid 1.1 mmol/L N 0.5-2.0 [address] [place] [address] [phone] CBC Auto Diff 01/19/2018 [facility] White Blood 11.3 10^3/uL High 3.5-10.[address] [place] [address] [phone] Red Blood Count 4.69 10^6/uL N 4.00-5.40 [...] Blood Cells % 0.1 Rapid Influenza 01/19/2018 [facility] Influenza A NEGATIVE Negative 2 A & B Molecular [address] [place] [address] [phone] Influenza B Molecular NEGATIVE Negative Laboratory test 01/19/2018 [facility] Rapid Influenza SEE RESULT [address] [place] [address] [phone] Laboratory test 01/19/2018 [facility] Troponin-I 0.00 ng/mL < 0.04 [address] (TnI) [place] [address] [phone] Comp Metabolic 01/19/2018 [facility] Sodium 135 mmol/L N 135- [address] [place] [address] [phone] Potassium 4.3 mmol/L N 3.5-5.0 Chloride 108 [...] Egfr 126.5 >60 5 Urinalysis Profile 12/14/2017 [facility] Urine Color Straw [address] [place] [address] [phone] Urine Appearance Clear Urine Specific [place] 1.005 Low 1.010-1.030 Urine pH 6.0 N 5-9 Urine Urobilinogen Negative Negative Urine Ketones Negative Negative Urine Protein Negative Negative Urine Leukocytes Negative Negative Urine Blood Negative Negative Urine Nitrite Negative Negative Urine Bilirubin Negative Negative Urine Glucose Negative Negative Laboratory test 12/14/2017 [facility] HCG < 0.60 [address] mIU/[place] [address] [phone] Comp Metabolic 12/14/2017 [facility] Sodium 136 mmol/L N 135- [address] [place] [address] [phone] Potassium 4.3 mmol/L N 3.5-5.0 Chloride 106 [...] Non- 110.0 >60 Egfr 133.1 >60 7 Laboratory 12/14/2017 [facility] Gardnerella/Yeast: SEE RESULT 8, 9 test finding [address] [place] [address] [phone] GC/Chlamydia 12/14/2017 [facility] Chlamydia Negative Negative Amplified Rna [address] [place] [address] [phone] Neisseria gonorrhoeae (GC) Rna Negative Negative CBC Auto Diff 12/14/2017 [facility] White Blood 9.6 10^3/uL N 3.5-10.[address] [place] [address] [phone] Red Blood Count 4.51 10^6/uL N 4.00-5.40 [...] Blood Cells % 0.1 Laboratory test 12/14/2017 [facility] Trichomonas Negative Negative [address] [place] [address] [phone] Laboratory test 09/13/2017 [facility] Lipase 17 U/L N 11.0- 82.0 [address] [place] [address] [phone] HCG < 0.60 mIU/mL 12 CBC Auto Diff 09/13/2017 [facility] White Blood 8.3 10^3/uL N 3.5-10.[address] [place] [address] [phone] Red Blood Count 4.45 10^6/uL N 4.00-5.40 [...] Cells % 0.1 Comp Metabolic Panel 09/13/2017 [facility] Sodium 138 mmol/L N 135-[address] [place], [place] [id number] [phone] Potassium 4.1 mmol/L N 3.5-5.0 Chloride 106 [...] Egfr Non- 114.0 >60 Egfr 137.9 >60 13 Laboratory 05/02/2017 [facility] Gardnerella/Yeast: SEE [address] [place] [address] BELOW [phone] Rapid 03/25/2017 [facility] Influenza A POSITIVE Abnormal Negative [address] Molecular & [place] [address] Molecular [phone] Influenza B Molecular NEGATIVE Negative Laboratory test finding 03/24/2017 [facility] Lipase 15 U/L N 11.0-82.[address] [place], [place] [id number] [phone] C Reactive Protein 3.36 mg/L N < 5.00 16 HCG < 0.60 mIU/mL 17 Lactic Acid 0.6 mmol/L N 0.5-2.0 18 Comp Metabolic Panel 03/24/2017 [facility] Sodium 137 mmol/L N 133-[address] [place] [address] [phone] Potassium 3.7 mmol/L N 3.5-5.0 Chloride 104 [...] Egfr Non- 102.8 >60 Egfr 132.2 >60 19 Urinalysis Profile 03/24/2017 [facility] Urine Color Yellow [address] [place] [address] [phone] Urine Appearance Cloudy Urine Specific [place] 1.017 N 1.010-1.030 Urine pH 5.0 N 5-9 Urine Urobilinogen Negative Negative Urine Ketones 2+ Abnormal Negative Urine Protein Negative Negative Urine Leukocytes Negative Negative Urine Blood Negative Negative Urine Nitrite Negative Negative Urine Bilirubin Negative Negative Urine Glucose Negative Negative Laboratory test 03/24/2017 [facility] Rapid Influenza SEE RESULT [address] [place] [address] [phone] CBC Auto Diff 03/24/2017 [facility] White Blood 4.4 10^3/uL N 3.5-[address] Count [address]8 [place] [address] [phone] Red Blood Count 4.50 10^6/uL N 4.0-5.4 [...] 0-2 Nucleated Red Blood Cells % 0.1 GC/Chlamydia 11/25/2016 [facility] Chlamydia Negative N Negative Amplified Rna [address] [place] [address] [phone] Neisseria gonorrhoeae (GC) Rna Negative N Negative CBC Auto Diff 11/25/2016 [facility] White Blood 7.7 10^3/uL N 3.5-10.[address] Count [place], [place] [id number] [phone] Red Blood Count 4.32 10^6/uL N 4.0-5.4 [...] % 0 N Comp Metabolic Panel 11/25/2016 [facility] Sodium 137 mmol/L N 133-[address] [place] [address] [phone] Potassium 4.2 mmol/L N 3.5-5.0 Chloride 105 [...] 137.9 N >60 21 Laboratory test 11/25/2016 [facility] C Reactive 1.51 mg/L N < 5.00 [address] [place] [address] [phone] HCG < 0.60 mIU/mL N 23 Lactic Acid 1.0 mmol/L N 0.5-2.0 24 Urinalysis Profile 11/25/2016 [facility] Urine Color Straw N [address] [place] [address] [phone] Urine Appearance Clear N Urine Specific [place] 1.002 Low 1.010-1.030 Urine pH 6.0 N [...] Epithelial Cell Present Abnormal Absent Laboratory test 11/04/2016 [facility] Cytology SEE RESULT [address] [place] [address] [phone] GC/Chlamydia 10/18/2016 [facility] Chlamydia Negative N Negative Amplified Rna [address] [place] [address] [phone] Neisseria gonorrhoeae (GC) Rna Negative N Negative Laboratory test finding 10/18/2016 [facility] Test Urine negative Ua Routine 10/18/2016 [facility] Ua Specific [place] 1.015 Ua PH 5 Ua Color YELLOW Ua Appera CLEAR Ua WBC NEG Ua Protein NEG Ua Glucose NORM Ua Ketones NEG Ua Bilirubin SHAHRAM Ua Urobilinogen NEG Ua Nitrite NEG Ua Occult Blood TRACE Urine Culture And 10/15/2016 [facility] Urine Culture SEE RESULT [address] [place] [address] [phone] Urinalysis Profile 10/15/2016 [facility] Urine Color Katie N [address] [place] [address] [phone] Urine Appearance Clear N Urine Specific [place] 1.025 N 1.010-1.030 Urine pH 5.0 N [...] Present Abnormal Absent CBC Auto Diff 10/15/2016 [facility] White Blood 10.8 10^3/uL N 3.5-10.[address] [place] [address] [phone] Red Blood Count 4.15 10^6/uL N 4.0-5.4 [...] % 0.1 N Comp Metabolic Panel 10/15/2016 [facility] Sodium 134 mmol/L N 133-[address] [place] [address] [phone] Potassium 4.0 mmol/L N 3.5-5.0 Chloride 103 [...] 125.1 N >60 27 Laboratory test 10/15/2016 [facility] Magnesium 2.1 mg/dL N 1.9-2.7 finding [address] [place] [address] [phone] Lipase 35 U/L N 11.0-82.0 C Reactive Protein 1.98 mg/L N < 5.00 28 Lactic Acid 0.5 mmol/L N 0.5-2.0 29 Comp Metabolic Panel 10/08/2016 [facility] Sodium 136 mmol/L N 133-145 [address] [place] [address] [phone] Potassium 4.1 mmol/L N 3.5-5.0 Chloride 103 [...] 125.1 N >60 30 Laboratory test 10/08/2016 [facility] Lipase < 10 U/L Low 11.0 -82.0 finding [address] [place] [address] [phone] C Reactive Protein 4.38 mg/L N < 5.00 31 HCG < 0.60 mIU/mL N 32 Urinalysis Profile 10/08/2016 [facility] Urine Color Yellow N [address] [place] [address] [phone] Urine Appearance Cloudy N Urine Specific [place] 1.023 N 1.010-1.030 Urine pH 5.0 N [...] Epithelial Cell Present Abnormal Absent CBC Auto 10/08/2016 [facility] White Blood 14.8 10^3/uL High 3.5-10.[address] [place] [address] [phone] Red Blood Count 4.41 10^6/uL N 4.0-5.4 [...] Nucleated Red Blood Cells % 0 N Laboratory test 10/08/2016 [facility] Lactic Acid 0.7 mmol/L N 0.5-2.0 [address] [place] [address] [phone] Urine Culture And 10/08/2016 [facility] Urine SEE RESULT [address] [place] [address] [phone] CBC Auto Diff 10/29/2015 [facility] White Blood 9.8 10^3/uL N 3.5-10.[address] [place] [address] [phone] Red Blood Count 4.36 10^6/uL N 4.0-5.4 [...] % 0 N Comp Metabolic Panel 10/29/2015 [facility] Sodium 136 mmol/L N 133-[address] [place] [address] [phone] Potassium 4.0 mmol/L N 3.5-5.0 Chloride 104 [...] N >60 35 Laboratory test finding 10/29/2015 [facility] Lipase 21 U/L N 11.0-82.[address] [place] [address] [phone] C Reactive Protein < 1.00 mg/L N < 5.00 36 Urinalysis Profile 10/29/2015 [facility] Urine Color Yellow N [address] [place] [address] [phone] Urine Appearance Cloudy N Urine Specific [place] 1.026 N 1.010-1.030 Urine pH 6.0 N [...] Present Abnormal Absent Urine Culture And 10/29/2015 [facility] Urine Culture SEE RESULT [address] [place] [address] [phone] Laboratory test 07/10/2015 [facility] Surgical SEE RESULT [address] [place] [address] [phone] Laboratory test 06/23/2015 [facility] Negative N Negative [address] (HCG) [place] [address] [phone] Laboratory test 06/11/2015 [facility] neg finding Test Urine Urine Culture And 06/11/2015 [facility] Urine Culture SEE RESULT [address] [place] [address] [phone] Ua Routine 06/11/2015 [facility] Ua Specific 1.025 [place] Ua PH 5 Ua Color yellow Ua Appera clear Ua WBC neg Ua Protein neg Ua Glucose neg Ua Ketones large Ua Bilirubin neg Ua Urobilinogen normal Ua Nitrite neg Ua Occult Blood neg CBC Auto Diff 04/08/2015 [facility] White Blood 8.8 10^3/uL N 3.5-10.[address] [place] [address] [phone] Red Blood Count 4.32 10^6/uL N 4.0-5.4 [...] % 0 N Comp Metabolic Panel 04/08/2015 [facility] Sodium 137 mmol/L N 133-[address] [place] [address] [phone] Potassium 3.9 mmol/L N 3.5-5.0 Chloride 104 [...] N >60 41 Laboratory test finding 04/08/2015 [facility] Lipase 22 U/L N 11.0-82.[address] [place] [address] [phone] HCG < 0.60 mIU/mL N 42 Laboratory test 03/20/2015 [facility] Negative N Negative [address] (HCG) [place] [address] [phone] CBC Auto Diff 02/16/2015 [facility] White Blood 8.2 10^3/uL N 3.5-10.[address] [place] [address] [phone] Red Blood Count 4.48 10^6/uL N 4.0-5.4 [...] Cells % 0.1 N Urinalysis Profile 02/16/2015 [facility] Urine Color Yellow [place] [address] [place] [address] [phone] Urine Appearance Clear N Urine Specific [place] 1.012 N 1.010-1.030 Urine pH 5.0 N [...] Present Abnormal Absent Comp Metabolic Panel 02/16/2015 [facility] Sodium 136 mmol/L N 133-[address] [place] [address] [phone] Potassium 4.1 mmol/L N 3.5-5.0 Chloride 105 [...] N >60 44 Laboratory test finding 02/16/2015 [facility] Lipase 20 U/L N 11.0-82.[address] [place] [address] [phone] C Reactive Protein 9.66 mg/L High < 5.00 45 HCG Qualitative Negative N Negative Laboratory test 02/11/2015 [facility] Urine Culture And SEE RESULT [address] [place] [address] [phone] Cytology Non-Aircraft Engine Specialist SEE RESULT BELOW 47 Laboratory test finding 02/11/2015 [facility] Test Urine negative Ua Routine 02/11/2015 [facility] Ua Specific [place] 1.020 Ua PH 7 Ua Color katie Ua Appera cloudy/chunks Ua WBC moderate Ua Protein trace Ua Glucose neg Ua Ketones neg Ua Bilirubin neg Ua Urobilinogen neg Ua Nitrite neg Ua Occult Blood Xlarge CBC Auto Diff 02/02/2015 [facility] White Blood 10.0 10^3/uL N 3.5-10.[address] [place] [address] [phone] Red Blood Count 4.78 10^6/uL N 4.0-5.4 [...] % 0 N Comp Metabolic Panel 02/02/2015 [facility] Sodium 135 mmol/L N 133-[address] [place] [address] [phone] Potassium 4.1 mmol/L N 3.5-5.0 Chloride 103 [...] 127.4 N >60 48 Laboratory test 02/02/2015 [facility] Troponin-I 0.00 ng/mL N <0.03 [address] (TnI) [place] [address] [phone] Laboratory test 01/13/2015 [facility] Gardnerella/Yea SEE RESULT [address]: [place] [address] [phone] GC/Chlamydia 01/13/2015 [facility] Chlamydia Negative N Negative Amplified Rna [address] [place] [address] [phone] Neisseria gonorrhoeae (GC) Rna Negative N Negative 51 Laboratory test 01/13/2015 [facility] Trichomonas Negative N Negative [address] [place] [address] [phone] CBC Auto Diff 01/13/2015 [facility] White Blood 8.4 10^3/uL N 4.8-10.[address] [place] [address] [phone] Red Blood Count 4.39 10^6/uL N 4.0-5.4 [...] Cells % 0 N Urinalysis Profile 01/13/2015 [facility] Urine Color Yellow N [address] [place] [address] [phone] Urine Appearance Cloudy N Urine Specific [place] 1.015 N 1.010-1.030 Urine pH 7.0 N 5-9 Urine Urobilinogen Negative N Negative Urine Ketones Negative N Negative Urine Protein Negative N Negative Urine Leukocytes Negative N Negative Urine Blood Negative N Negative Urine Nitrite Negative N Negative Urine Bilirubin Negative N Negative Urine Glucose Negative N Negative Comp Metabolic Panel 01/13/2015 [facility] Sodium 135 mmol/L N 133-145 [address] [place] [address] [phone] Potassium 3.8 mmol/L N 3.5-5.0 Chloride 104 [...] N >60 53 Laboratory test finding 01/13/2015 [facility] Lipase 22 U/L N 11.0-82.[address] [place] [address] [phone] C Reactive Protein 1.81 mg/L N < 5.00 54 HCG Qualitative Negative N Negative 55 CBC Auto Diff 12/26/2014 [facility] White Blood 10.2 10^3/uL N 4.8-10.[address] [place] [address] [phone] Red Blood Count 4.61 10^6/uL N 4.0-5.4 [...] % 0 N Comp Metabolic Panel 12/26/2014 [facility] Sodium 136 mmol/L N 133-[address] [place] [address] [phone] Potassium 4.3 mmol/L N 3.5-5.0 Chloride 101 [...] 123.5 N >60 56 Herpes Simplex 12/16/2014 [facility] Herpes Source VULVAR LESIONS N PCR [address] [place] [address] [phone] HSV 1 PCR Negative N Negative HSV 2 PCR Positive N Negative 57 GC/Chlamydia 12/16/2014 [facility] Chlamydia Negative N Negative Amplified Rna [address] [facility] [place] [address] [phone] Neisseria gonorrhoeae (GC) Rna Negative N Negative 58 Laboratory test 12/10/2014 [facility] HCG Qualitative Negative N Negative finding [address] [place] [address] [phone] Urinalysis 12/10/2014 [facility] Urine Color Yellow N Profile [address] [place] [address] [phone] Urine Appearance Clear N Urine Specific [place] 1.014 N 1.010-1.030 Urine pH 6.0 N 5-9 Urine Urobilinogen Negative N Negative Urine Ketones Negative N Negative Urine Protein Negative N Negative Urine Leukocytes Negative N Negative Urine Blood Negative N Negative Urine Nitrite Negative N Negative Urine Bilirubin Negative N Negative Urine Glucose Negative N Negative CBC Auto 12/10/2014 [facility] White Blood 10.9 10^3/uL High 4.8-10.[address] [place] [address] [phone] Red Blood Count 4.16 10^6/uL N 4.0-5.4 [...] Cells % 0.1 N Laboratory test 12/10/2014 [facility] Lactic Acid 0.5 mmol/L N 0.5-2.2 finding [address] [place] [address] [phone] Comp Metabolic 12/10/2014 [facility] Sodium 135 mmol/L N 133- 145 Panel [address] [place] [address] [phone] Potassium 3.9 mmol/L N 3.5-5.0 Chloride 103 [...] N >60 59 Laboratory test finding 12/10/2014 [facility] Lipase 31 U/L N 11.0-82.[address] [place] [address] [phone] C Reactive Protein 3.26 mg/L N < 5.00 60 Urinalysis Profile 12/10/2014 [facility] Urine Color Yellow N [address] [place] [address] [phone] Urine Appearance Clear N Urine Specific [place] 1.014 N 1.010-1.030 Urine pH 6.0 N 5-9 Urine Urobilinogen Negative N Negative Urine Ketones Negative N Negative Urine Protein Negative N Negative Urine Leukocytes Negative N Negative Urine Blood Negative N Negative Urine Nitrite Negative N Negative Urine Bilirubin Negative N Negative Urine Glucose Negative N Negative CBC Auto 12/10/2014 [facility] White Blood 10.9 10^3/uL High 4.8-10.[address] [place] [address] [phone] Red Blood Count 4.16 10^6/uL N 4.0-5.4 [...] Cells % 0.1 N Laboratory test 12/10/2014 [facility] Lactic Acid 0.5 mmol/L N 0.5-2.2 finding [address] [place] [address] [phone] Comp Metabolic 12/10/2014 [facility] Sodium 135 mmol/L N 133- 145 Panel [address] [place] [address] [phone] Potassium 3.9 mmol/L N 3.5-5.0 Chloride 103 [...] N >60 61 Laboratory test finding 12/10/2014 [facility] Lipase 31 U/L N 11.0-82.0 [address] [place] [address] [phone] C Reactive Protein 3.26 mg/L N < 5.00 62 Urine Culture And Sensitivities SEE RESULT BELOW 63 Laboratory test 10/21/2014 [facility] TSH (Thyroid 1.04 ?IU/mL N 0.34-5.[address] Stim [place]) [place] [address] [phone] Comp Metabolic 10/21/2014 [facility] Sodium 137 mmol/L N 133- [address] [place] [address] [phone] Potassium 3.9 mmol/L N 3.5-5.0 Chloride 104 [...] 131.5 N >60 64 Laboratory test 10/21/2014 [facility] HCG Qualitative Negative N Negative finding [address] [place] [address] [phone] Laboratory test 09/11/2014 [facility] Test neg finding Urine Ua Routine 09/11/2014 [facility] Ua Specific 1.015 [place] Ua PH 5 Ua Color yellow Ua Appera clear Ua WBC neg Ua Protein neg Ua Glucose neg Ua Ketones neg Ua Bilirubin neg Ua Urobilinogen 0.2 Ua Nitrite neg Ua Occult Blood neg Laboratory test 08/13/2014 [facility] CSF Glucose 61 mg/dL N 40-70 65, 66 finding [address] [place] [address] [phone] CSF Protein 36 mg/dL N 15-45 67 CSF Culture & Gram Stain SEE RESULT BELOW 68 CSF Cell Count 08/13/2014 [facility] Body Fluid Appearance Clear N [address] [place] [address] [phone] Body Fluid Color Colorless N CSF Tube # 1 N Body Fluid Volume 1 mL N Body Fluid WBC 1 N Body Fluid RBC 2 N Body Fluid Polys 0 N Body Fluid Lymph 10 N Body Fluid [place] 2 N Body Fluid Total Cells Counted 12 N Body Fluid Comment (SEE NOTE) N 69 Fluid Reviewed By MD (SEE NOTE) N 70 CBC Auto 08/13/2014 [facility] White Blood 14.1 10^3/uL High 4.8-10.[address] [place] [address] [phone] Red Blood Count 4.73 10^6/uL N 4.0-5.4 [...] Cells % 0.1 N Laboratory test 08/13/2014 [facility] Serum Negative N Negative finding [address] [place] [address] [phone] Comp Metabolic 08/13/2014 [facility] Sodium 135 mmol/L N 133- [address] [place] [address] [phone] Chloride 104 mmol/L N 101-111 Co2 Carbon [...] N 13-39 73 Urine Culture And 06/14/2014 [facility] Urine Culture (SEE NOTE ) [address] [place] [address] [phone] Throat-Beta Strept 04/03/2014 [facility] Throat Beta (SEE NOTE) [address] [place] [address] [phone] Throat-Beta Strept 04/22/2013 [facility] Throat Beta (SEE NOTE) [address] [place] [address] [phone] Throat-Beta Strept 10/21/2012 [facility] Throat Beta (SEE NOTE) [address] [address] [phone] 1 [facility] Severe Sepsis and Septic Shock Management Bundle Measure requires all lactic acids initially measuring >2.0 mmol/L be repeated. 2 Employment Law Specialist: [id number] 3 SEE RESULT BELOW Name: ESVIN CHESTER : [address]: Sandra Swan MD Acct: [id number] Unit: [id number] AGE: 22 Location: ED Re01/19/18 SEX: F Status: REG ER SPEC: [id number] ROSARIO: 01/19/[address] [facility] [address]: Sandra Swan MD REQ: [id number] RECD: 01/19/18 STATUS: QASIM LOW DR: Doris Briceño PSYCHOLOGICAL OPERATIONS _ SOURCE: NASAL SPDESC: ORDERED: Flu A B Request Procedure Result Reported Site Rapid Influenza A B Request Final 01/19/181156 ML Specimen received for Influenza A/B Molecular testing * ML - Main Lab . END OF REPORT DEPARTMENT OF PATHOLOGY, [address] [place] [address] Suraj Velasquez M.D. Director [facility] # [id number] 4 Troponin-I testing on Plasma Separator Tubes [...] order Trichomonas Vaginalis RNA testing? Y 9 SEE RESULT BELOW Name: ESVIN CHESTER : [address]: Susan Rob MD Acct: [id number] Unit: [id number] AGE: 22 Location: ED Re12/14/17 SEX: F Status: DEP ER SPEC: [id number] ROSARIO: 12/14/[address]: Peng FRANCO REQ: [id number] RECD: 12/14/17 STATUS: QASIM LOW DR: Doris [...] . END OF REPORT DEPARTMENT OF PATHOLOGY, [address] [place] [address] Suraj Velasquez M.D. Director [facility] # [id number] 10 GC/Chlamydia Source?: Endocervical Trichomonas Source: Endocervical 11 LM for patient to call back to discuss results on 09/18/17. Discussed results with patient 09/19/17. 12 <5.0 Negative 5.0 - 25.0 Indeterminate (Repeat testing recommended after 72 hours) >25.0 Positive Perimenopausal women can display HCG levels of up to 20 mIU/mL 13 Because ethnic data is not always [...] (or dialysis) 14 SEE RESULT BELOW Name: ESVIN CHESTER : [address]: Shyanne Call MD Acct: [id number] Unit: [id number] AGE: 22 Location: [facility] Re05/02/17 SEX: F Status: REG REF SPEC: [id number] ROSARIO: 05/02/17-140 [facility] [address]: Shyanne Call MD REQ: [id number] RECD: 05/02/17 STATUS: COMP _ SOURCE: STEPHANIE SPDESC: ORDERED: ForrestYeast DNA COMMENTS: [id number] Procedure Result Reported Site Gardnerella/Yeast: Vaginal DNA [...] . END OF REPORT DEPARTMENT OF PATHOLOGY, [address] [place] [address] Suraj Velasquez M.D. Director [facility] # [id number] 15 Employment Law Specialist: [id number] 16 Acute inflammation: >10.00 17 <5.0 Negative 5.0 - 25.0 Indeterminate (Repeat testing recommended after 72 hours) >25.0 Positive Perimenopausal women can display HCG levels of up to 20 mIU/mL 18 [facility] Severe Sepsis and Septic Shock Management [...] [address]: Felix Dale MD Acct: [id number] Unit: [id number] AGE: 22 Location: ED Re03/24/17 SEX: F Status: REG ER SPEC: [id number] ROSARIO: 03/24/[address] [facility] [address]: Can Robertson MD REQ: [id number] RECD: 03/25/17 STATUS: QASIM LOW DR: Felix Briceño PSYCHOLOGICAL OPERATIONS _ SOURCE: [facility]: ORDERED: Flu A B Request Procedure Result Reported Site Rapid Influenza A B Request Final 03/25/17 001 ML Specimen received for Influenza A/B Molecular testing * ML - MAIN LAB ([facility]) . END OF REPORT * ML=Testing performed at Main Lab DEPARTMENT OF PATHOLOGY, [address] [place] [address] Suraj Velasquez M.D. Director [facility] # [id number] 21 Because ethnic data is not always [...] levels of up to 20 mIU/mL 24 [facility] Severe Sepsis and Septic Shock Management Bundle Measure requires all lactic acids initially measuring >2.0 mmol/L be repeated. 25 SEE RESULT BELOW Name: ESVIN CHESTER : [address]: Doris Briceño NP Acct: [id number] Unit: [id number] AGE: 21 Location: [facility] Re11/04/16 SEX: F Status: REG REF SPEC: [id number] ROSARIO: 11/04/16-[address]: Doris Briceño NP REQ: [id number] RECD: 11/04/16 STATUS: SOUT _ ORDERED: TP IMAGE ANAL COMMENTS: [id number] FINAL DIAGNOSIS Negative for Intraepithelial lesion or [...] was evaluated with the assistance of the [employer] Test Imaging System. Due to cytologic findings at the beach attendant microscope, comprehensive manual rescreening by a Spool Winder may be required. The Pap Smear is [...] performed at Main Lab DEPARTMENT OF PATHOLOGY, [address] [place] [address] Suraj Velasquez M.D. Director [facility] # [id number] 26 SEE RESULT BELOW Name: ESVIN CHESTER : [address]: Kit Rodriguez MD Acct: [id number] Unit: [id number] AGE: 21 Location: ED Re10/15/16 SEX: F Status: DEP ER SPEC: [id number] ROSARIO: 10/15/16-[address]: Kit Rodriguez MD REQ: [id number] RECD: 10/15/16 STATUS: QASIM LOW DR: Doris Briceño PSYCHOLOGICAL OPERATIONS _ SOURCE: URINE SPDESC: ORDERED: Urine Culture Procedure Result Reported Site Urine Culture Final 10/17/16- 0855 ML No Growth (<1,000 CFU/mL) * ML - MAIN LAB ([facility]) . END OF REPORT * ML=Testing performed at Main Lab DEPARTMENT OF PATHOLOGY, [address] [place] [address] Suraj Velasquez M.D. Director [facility] # [id number] 27 Because ethnic data is not always [...] (or dialysis) 28 Acute inflammation: >10.00 29 [facility] Severe Sepsis and Septic Shock Management [...] levels of up to 20 mIU/mL 33 [facility] Severe Sepsis and Septic Shock Management Bundle Measure requires all lactic acids initially measuring >2.0 mmol/L be repeated. 34 SEE RESULT BELOW Name: ESVIN CHESTER : [address]: Alexei Em MD Acct: [id number] Unit: [id number] AGE: 21 Location: ED Re10/08/16 SEX: F Status: DEP ER SPEC: [id number] ROSARIO: 10/08/[address] [facility] [address]: Alexei Em MD REQ: [id number] RECD: 10/08/16 STATUS: QASIM LOW DR: Doris Briceño PSYCHOLOGICAL OPERATIONS _ SOURCE: URINE SPDESC: ORDERED: Urine Culture Procedure Result Reported Site Urine Culture Final 10/09/16- 1222 ML Mixed abdirashid; possible contamination. Suggest resubmission. * ML - MAIN LAB ([facility]) . END OF REPORT * ML=Testing performed at Main Lab DEPARTMENT OF PATHOLOGY, [address] [place] [address] Suraj Velasquez M.D. Director [facility] # [id number] 35 Because ethnic data is not always [...] [address]: Darwin Steel MD Acct: [id number] Unit: [id number] AGE: 20 Location: ED Re10/29/15 SEX: F Status: DEP ER SPEC: [id number] ROSARIO: 10/29/15-[address] [facility] [address]: Darwin Steel MD REQ: [id number] RECD: 10/29/15 STATUS: QASIM LOW DR: Doris Briceño PSYCHOLOGICAL OPERATIONS _ SOURCE: URINE SPDESC: ORDERED: Urine Culture Procedure Result Reported Site Urine Culture Final 10/30/15- 1214 ML No growth of clinically significant organisms * ML - MAIN LAB ([facility]) . END OF REPORT * ML=Testing performed at Main Lab DEPARTMENT OF PATHOLOGY, [address] [place] [address] Suraj Velasquez M.D. Director [facility] # [id number] 38 SEE RESULT BELOW Name: ESVIN CHESTER : [address]: Doris Briceño NP Acct: [id number] Unit: [id number] AGE: 20 Location: [facility] Re07/10/15 SEX: F Status: REG REF SPEC: [id number] ROSARIO: 07/10/15-[address]: Doris Briceño NP REQ: [id number] RECD: 07/10/15 STATUS: SOUT _ ORDERED: LEVEL III COMMENTS: [id number] FINAL DIAGNOSIS Cyst removal, site unspecified: -- [...] performed at Main Lab DEPARTMENT OF PATHOLOGY, [address] [place] [address] Suraj Velasquez M.D. Director [facility] # [id number] 39 If is still suspected, please repeat test after 48 to 72 hours. This test detects intact HCG only and is indicated for the early detection of . 40 SEE RESULT BELOW Name: ESVIN CHESTER : [address]: George Wallace NP Acct: [id number] Unit: [id number] AGE: 20 Location: [facility] Re06/11/15 SEX: F Status: REG REF SPEC: [id number] ROSARIO: 06/11/15-[address]: George Wallace NP REQ: [id number] RECD: 06/11/15 STATUS: COMP _ SOURCE: URINE SPDESC: ORDERED: Urine Culture Procedure Result Reported Site Urine Culture Final 06/12/15- 1634 ML No Growth (<1,000 CFU/mL) * ML - MAIN LAB ([facility]) . END OF REPORT * ML=Testing performed at Main Lab DEPARTMENT OF PATHOLOGY, [address] [place] [address] Suraj Velasquez M.D. Director [facility] # [id number] 41 Because ethnic data is not always [...] [address]: George Wallace NP Acct: [id number] Unit: [id number] AGE: 19 Location: [facility] Re02/11/15 SEX: F Status: REG REF SPEC: [id number] ROSARIO: 02/11/15-[address]: George Wallace NP REQ: [id number] RECD: 02/11/15 STATUS: COMP _ SOURCE: URINE SPDESC: ORDERED: Urine Culture Procedure Result Reported Site Urine Culture Final 02/16/15- 1456 ML No Growth (<1,000 CFU/mL) * ML - MAIN LAB ([facility]) . END OF REPORT * ML=Testing performed at Main Lab DEPARTMENT OF PATHOLOGY, [address] [place] [address] Suraj Velasquez M.D. Director [facility] # [id number] 47 SEE RESULT BELOW Name: ESIVN CHESTER : [address]: George Wallace NP Acct: [id number] Unit: [id number] AGE: 19 Location: [facility] Re02/11/15 SEX: F Status: REG REF SPEC: [id number] ROSARIO: 02/11/15-[address]: George Wallace NP REQ: [id number] RECD: 02/11/15 STATUS: SOUT _ ORDERED: THIN PREP NON G FINAL DIAGNOSIS Urine, voided: --Negative for malignant cells. --Inflammatory cells present. URINE VOID GROSS DESCRIPTION 20 mls of cloudy red voided urine. Signed (signature on file) Gema Moraes MD 1205 END OF REPORT * ML=Testing performed at Main Lab DEPARTMENT OF PATHOLOGY, [address] [place] [address] Suraj Velasquez M.D. Director [facility] # [id number] 48 Because ethnic data is not always [...] 0.03 ng/mL Not supportive of diagnosis of VA 0.03 - 0.50 ng/mL Indeterminate: suggest serial studies if clinically indicated. Greater than 0.5 ng/mL Consistent with diagnosis of VA 50 SEE RESULT BELOW Name: ESVIN CHESTER : [address]: Wilder Hernandez MD Acct: [id number] Unit: [id number] AGE: 19 Location: ED Re01/13/15 SEX: F Status: DEP ER SPEC: [id number] ROSARIO: 01/13/15-1499 [facility] [address]: Wilder Hernandez MD REQ: [id number] RECD: 01/13/15-160 STATUS: QASIM LOW DR: [place] [...] or failure. * ML - MAIN LAB ([facility]) . END OF REPORT * ML=Testing performed at Main Lab DEPARTMENT OF PATHOLOGY, [address] [place] [address] Suraj Velasquez M.D. Director [facility] # [id number] 51 Female urine specimens have been self-validated by [facility] and have been granted conditional assay approval by [facility]. 52 GC/Chlamydia Source?: Endocervical Trichomonas Source: Endocervical [...] developed and its performance characteristics determined by [facility]. It has not been cleared or approved by the U.S. Food and Drug Administration. Test Performed by: [facility] [address] [address] Copy Holder: Odilon Tejeda II, M.D., Ph.D. 58 Female urine specimens have been self-validated by [facility] and have been granted conditional assay approval by [facility]. 59 Because ethnic data is not always [...] [address]: Bubba Loco DO Acct: [id number] Unit: [id number] AGE: 19 Location: ED Re12/10/14 SEX: F Status: DEP ER SPEC: [id number] ROSARIO: 12/10/14 DR: Kit Goldman MD REQ: [id number] RECD: 12/10/14 STATUS: QASIM LOW DR: Doris Briceño PSYCHOLOGICAL OPERATIONS _ SOURCE: URINE SPDESC: ORDERED: Urine Culture Procedure Result Verified Site Urine Culture Final 12/12/14- 1149 ML No Growth Day 2 (<1,000 CFU/mL) * ML - MAIN LAB ([facility]) . END OF REPORT * ML=Testing performed at Main Lab DEPARTMENT OF PATHOLOGY, [address] [place] [address] Suraj Velasquez M.D. Director [facility] # [id number] 64 Because ethnic data is not always [...] Tube 2 68 SEE RESULT BELOW Name: LAIESVIN C : [address]: Kristian Torres MD Acct: [id number] Unit: [id number] AGE: 19 Location: ED Re08/13/14 SEX: F Status: DEP ER SPEC: [id number] ROSARIO: 08/13/14-[address]: Kristian Trores MD REQ: [id number] RECD: 08/13/14-[address]: [address]: Luigi Bennett MD [...] performed at Main Lab DEPARTMENT OF PATHOLOGY, [address] [place] [address] Suraj Velasquez M.D. Director [facility] # [id number] 69 DIFF DONE ON CONCENTRATED SMEAR 70 [...] due to hemolysis. 74 RUN DATE: 06/17/14 [facility] LAB LIVE PAGE 1 RUN TIME: [address] [place] [address] Specimen Inquiry Name: BRENNENESVIN AN : [address]: Kit Goldman MD Acct: [id number] Unit: [id number] AGE: 19 Location: [facility] Re06/14/14 SEX: F Status: DEP ER SPEC: [id number] ROSARIO: 06/14/14-[address]: Mayra Goldman PSYCHOLOGICAL OPERATIONS REQ: [id number] RECD: 06/15/14-1233 STATUS: QASIM LOW DR: [facility] Luigi Bennett MD _ SOURCE: URINE SPDESC: ORDERED: Urine Culture Procedure Result Verified Site Urine Culture Final 06/17/14- 907 ML Organism 1 NORMAL ABDIRASHID Browder Count 1-10,000 (Few) CFU/ML * ML - MAIN LAB (PSC1) . END OF REPORT * ML=Testing performed at Main Lab DEPARTMENT OF PATHOLOGY, [facility] [employer] [place], [place] [address] Suraj Velasquez M.D. Director [facility] # [id number] 75 RUN DATE: 04/05/14 [facility] LAB LIVE PAGE 1 RUN TIME: [address] [place] [address] Specimen Inquiry Name: ESVIN CHESTER : [address]: Trey Lew MD Acct: [id number] Unit: [id number] AGE: 19 Location: [facility] Re04/03/14 SEX: F Status: DEP ER SPEC: [id number] ROSARIO: 04/03/14-[address]: Trey Lew MD REQ: [id number] RECD: 04/03/14152 STATUS: QASIM LOW DR: Luigi Bennett MD _ SOURCE: THROAT SPDESC: ORDERED: Throat Beta Str Procedure Result Verified Site Throat Beta Strep Culture Final 04/05/14- 821 ML Negative For Group A Beta Streptococcus END OF REPORT * ML=Testing performed at Main Lab DEPARTMENT OF PATHOLOGY, [facility] [employer] [place], [place] [address] Suraj Velasquez M.D. Director [facility] # [id number] 76 RUN DATE: 04/24/13 [facility] LAB LIVE PAGE 1 RUN TIME: 818 [facility] [employer] [place], [place] [address] Specimen Inquiry Name: ESVIN CHESTER : [address]: Kit Pires MD Acct: [id number] Unit: [id number] AGE: 18 Location: [facility] Re04/22/13 SEX: F Status: DEP ER SPEC: [id number] ROSARIO: 04/22/13-[address] [facility] [address]: Kit Pires MD REQ: [id number] RECD: 04/22/13160 STATUS: QASIM LOW DR: Luigi Bennett MD _ SOURCE: THROAT SPDESC: ORDERED: Throat Beta Str QUERIES: Medent Number [id number] Procedure Result Verified Site Throat Beta Strep Culture Final 04/24/13- 818 ML Negative For Group A Beta Streptococcus END OF REPORT * ML=Testing performed at Main Lab DEPARTMENT OF PATHOLOGY, [facility] [employer] [place], [place] [address] Suraj Velasquez M.D. Director [facility] Permit #[id number] 77 RUN DATE: 10/24/12 [facility] LAB LIVE PAGE 1 RUN TIME: 835 [facility] [employer] [place], [place] [address] Specimen Inquiry Name: ESVIN CHESTER : [address]: Kit Goldman MD Acct: [id number] Unit: [id number] AGE: 17 Location: [facility] Re10/21/12 SEX: F Status: DEP ER SPEC: [id number] ROSARIO: 10/21/[address] [facility] [address]: Mayra Goldman NP REQ: [id number] RECD: 10/22/12-1211 STATUS: QASIM LOW DR: Kit Bennett MD _ SOURCE: THROAT SPDESC: ORDERED: Throat Beta Str Procedure Result Verified Site Throat Beta Strep Culture Final 10/24/12- 835 ML Organism 1 Negative Group A Strep END OF REPORT * ML=Testing performed at Main Lab DEPARTMENT OF PATHOLOGY, [address] [place] [address] Suraj Velasquez M.D. Director [facility] Permit #[id number] Procedures Date Code Description Status 03/29/2018 36078 Destruction Of Benign Lesions Any Method 1-14 lesions Completed 07/10/2015 42906 Acne Surgery Completed 07/02/2015 37050 Gauntlet Cast Application Completed 06/23/2015 30245 Repair Collateral Ligament MCP JT W/Local Tissue Completed 06/23/2015 68880 Repair Collateral Ligament MCP JT W/Local Tissue Completed Encounters Type Date Location Provider Dx Diagnosis Office Visit 04/11/2018 Orthopedic Karen S63.641 Sprain of 8:15a Services Of Milly Bennett metacarpophalangeal C.M.A. joint of right thumb, subs Office Visit 04/10/2018 Orthopedic Benson Hernandez, M76.71 Peroneal tendinitis, 2:30p Services Of right leg C.M.A. Office Visit 03/29/2018 [facility] Dermatology Dipesh Hernandez, L70.0 Acne vulgaris 12:50p B35.3 Tinea pedis L23.9 Allergic contact dermatitis, unspecified cause B07.0 Plantar wart Z78.9 Other specified health status R20.8 Other disturbances of skin sensation R23.8 Other skin changes Office 03/14/2018 Orthopedic Karen S63.641D Sprain of Visit 10:15a Services Of Milly Bennett metacarpophalangeal C.M.A. joint of right thumb, subs Office 03/08/2018 [facility] Internal Doris S63.641A Sprain of Visit 10:40a Medicine - Varn, N.P. metacarpophalangeal [place] joint of right thumb, init N77.1 Vaginitis, vulvitis and vulvovaginitis in dis classd elswhr Office 02/26/2018 Orthopedic Karen S63.641A Sprain of Visit 10:15a Services Of Milly Bennett metacarpophalangeal C.M.A. joint of right thumb, init Office 02/21/2018 [facility] Internal Savanna Mccarthy, S69.91xA Unsp injury of right Visit 2:40p Medicine - wrist, hand and [place] finger(s), init encntr Office 01/17/2018 [facility] Dermatology Dipesh Hernandez, L70.0 Acne vulgaris Visit 4:10p MD Office 12/25/2017 [facility] Internal Doris F17.210 Nicotine dependence, Visit 11:40a Medicine - Varn, N.P. cigarettes, [place] uncomplicated J45.21 Mild intermittent asthma with (acute) exacerbation Office Visit 11/30/2017 11:50a [facility] Internal Angeles S60.031A Contusion of Sanjay Stevens M.D. right middle [place] finger w/o damage to nail, init F17.210 Nicotine dependence, cigarettes, uncomplicated Office Visit 09/13/2017 3:30p [facility] Internal Fartun R10.84 Generalized Medicine - Marker, RPA-C abdominal pain [address] R21 Rash and other nonspecific skin eruption Office Visit 08/07/2017 11:00a [facility] Internal Doris Briceño, M54.2 Cervicalgia Medicine - N.P. [place] F17.210 Nicotine dependence, cigarettes, uncomplicated Office Visit 05/02/2017 [facility] Internal Shyanne N77.1 Vaginitis, vulvitis 1:40p Sanjay Call M.D. and vulvovaginitis [place] in dis classd elswhr R21 Rash and other nonspecific skin eruption Office Visit 04/19/2017 [facility] Dermatology Dipesh Hernandez, L70.0 Acne vulgaris 4:00p MD Office Visit 03/31/2017 [facility] Internal Doris Briceño, R10.84 Generalized 11:40a Medicine - N.P. abdominal pain [place] Office Visit 01/18/2017 [facility] Internal [place] J45.901 Unspecified asthma 9:10a Sanjay Stevens M.D. with (acute) [place] exacerbation F17.210 Nicotine dependence, cigarettes, uncomplicated Office Visit 12/06/2016 1:00p [facility] Internal Doris Briceño, M54.5 Low back pain Medicine - N.P. 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 unspecified [place] R35.0 Frequency of micturition R10.2 Pelvic and perineal pain Office Visit 08/12/2016 Surgical SudheerMancera R22.0 Localized 3:30p [facility] swelling, mass and Supervisor Shearing lump, head Office Visit 06/29/2016 Orthopedic Karen M79.645 Pain in left 10:45a Services Of Mlily Bennett finger(s) C.M.A. Office Visit 06/22/2016 [facility] Internal George Wallace NP M79.645 Pain in left 4:20p Medicine - finger(s) [place] Office Visit 02/03/2016 Surgical Sudheer Sexton R22.0 Localized 2:30p [facility] swelling, mass and Supervisor Shearing lump, head Office Visit 01/28/2016 [facility] Internal George Wallace NP R22.9 Localized 9:00a Medicine - swelling, mass and [place] lump, unspecified Office Visit 11/05/2015 [facility] Internal George Wallace NP J45.20 Mild intermittent 10:20a Medicine - asthma, [place] uncomplicated J20.9 Acute bronchitis, unspecified Office Visit 11/02/2015 10:40a Orthopedic Fide S53.32xD Traumatic Services Of [place], RPA-C rupture of left C.M.A. ulnar collateral ligament, subs Office Visit 10/20/2015 2:40p [facility] Internal Doris Briceño M54.5 Low back pain Medicine - N.P. [place] M54.6 Pain in thoracic spine Office Visit 10/02/2015 [facility] Internal George Wallace NP M54.5 Low back pain 10:40a Medicine - [place] Office Visit 09/24/2015 [facility] Internal George Wallace NP M54.5 Low back pain 10:40a Medicine - [place] Office Visit 08/12/2015 [facility] Internal George Wallace NP M79.642 Pain in left 4:20p Medicine - hand [place] Office Visit 07/09/2015 [facility] Internal Doris Varn, M79.642 Pain in left 10:00a Medicine - N.P. hand [place] Office Visit 07/07/2015 [facility] Internal Doris Briceño, M79.642 Pain in left 3:55p Medicine - N.P. hand [place] Office Visit 07/06/2015 [facility] Internal Doris Briceño, L72.3 Sebaceous cyst 1:40p Medicine - N.P. [place] Office Visit 06/22/2015 Orthopedic Karen S53.32xA Traumatic [...] for clos fx Office Visit 06/18/2015 10:00a [facility] Internal Doris Briceño, M79.642 Pain in left Medicine - N.P. hand [place] Office Visit 06/11/2015 4:00p [facility] Internal George Wallace NP R30.0 Dysuria Medicine - [place] N91.1 Secondary amenorrhea N39.0 Urinary tract infection, site not specified Office Visit 05/15/2015 [facility] Internal George Wallace NP K02.7 Dental root caries 2:20p Medicine - [place] Office Visit 04/08/2015 [facility] Internal Doris Briceño, F17.210 Nicotine 11:40a Medicine - N.P. dependence, [place] cigarettes, uncomplicated J06.9 Acute upper respiratory infection, unspecified K02.7 Dental root caries Office Visit 03/30/2015 2:40p [facility] Internal Doris Briceño, G44.201 Tension -type Medicine - N.P. 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 [place] R10.31 Right lower quadrant pain J06.9 Acute upper respiratory infection, unspecified R93.2 Abnormal findings on dx imaging of liver and biliary tract Office Visit 02/11/2015 11:40a [facility] Internal Medicine - George Wallace NP R30.0 Dysuria [place] R10.30 Lower abdominal pain, unspecified N39.0 Urinary tract infection, site not specified Office Visit 01/05/2015 4:00p [facility] Internal George Wallace, J06.9 Acute upper Medicine - PSYCHOLOGICAL OPERATIONS respiratory [place] infection, unspecified K08.8 Other specified disorders of teeth and supporting structures B37.3 Candidiasis of vulva and vagina Office Visit 12/24/2014 8:40a [facility] Internal Doris Briceño, R10.11 Right upper Medicine - N.P. quadrant pain [place] Office Visit 12/16/2014 1:20p [facility] Internal Doris Briceño, R10.31 Right lower Medicine - N.P. quadrant pain [place] N77.1 Vaginitis, vulvitis and vulvovaginitis in dis classd elswhr J06.9 Acute upper respiratory infection, unspecified F17.210 Nicotine dependence, cigarettes, uncomplicated Office Visit 10/21/2014 1:40p [facility] Internal Doris Briceño, 787.91 Diarrhea Medicine - [place] N.P. 787.01 Nausea W/ Vomiting Office Visit 09/11/2014 2:00p [facility] Internal Medicine - George Wallace NP 784.0 Headache [place] 789.03 Pain Abdominal Right Lower Quadrant 706.1 Acne Other 788.41 Urinary Frequency Office Visit 08/15/2014 3:20p [facility] Internal Medicine - George Wallace NP 784.0 Headache [place] 847.0 Sprains & Strains Neck Plan of Treatment Future Appointment(s):05/23/2018 9:45 am - Karen Bennett M.D. at [facility] [address]04/30/2018 - Fide Avila, [facility]-CS63.641D Sprain of metacarpophalangeal joint of right thumb, subsequeFollow up:Follow up: 3 weeks
--- OUTSIDE RECORDS SUMMARY | 2018-05-12 15:34 | XMS REPORT | Continuity of Care Document ---
:1995 External Reference #:[id number] Author Name Nora Kenney Care Team Providers Name Role Phone Shyanne Call MD Primary Care Physician Unavailable Payers Date Identification Numbers Payment Provider Subscriber Effective: 2015 Policy Number: [id number] Zack Chester Group Number: [id number] [address] PayID: [id number] [place] [address] Effective: 2015 Policy Number: [id number] Medicaid Esvin Chester Expires: 2015 Group Name: 1 1 [address] PayID: [id number] [place] [address] Effective: 2014 Policy Number: [id number] Zack Chester Expires: 2015 Group Number: [id number] [address] PayID: [id number] [place] [address] Advance Directives Description No Information Available Problems Date Description Provider Status Onset: 10/21/2014 Asthma Doris Briceño N.P. 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 needed for pain Hydrocodone-Acet 04/18/19 Active Tablets 5-325mg 9tabs 1 tab by Karen aminophen 19 mouth Bennett, every 8 M.D. hours as [...] 1 by George 17 s mouth Madison, REFINED SYRUP OPERATOR twice a day x 5 days Ventolin [...] by J20.9 George 16 - s mouth Madison, MAICOL 01/28/20 three 16 times daily as needed for cough Acetaminophen-Co 10/20/19 Hx Tablets 300-30mg 30tab one by M54.5 Doris allredine #3 16 - s mouth Varn, N.P. [...] 2 hours after the first, Naproxen DR 08/16/[address] 500mg 60tab by [...] Available Vital Signs Date Vital Result Comment 04/25/2018 3:19pm Height 63 inches 5'3" Weight [...] Result H/L Range Note Laboratory test 01/19/2018 [facility] Lactic Acid 1.1 mmol/L N 0.5-2.0 [address] [place] [address] [phone] CBC Auto Diff 01/19/2018 [facility] White Blood 11.3 10^3/uL High 3.5-10.[address] [place] [address] [phone] Red Blood Count 4.69 10^6/uL N 4.00-5.40 [...] Blood Cells % 0.1 Rapid Influenza 01/19/2018 [facility] Influenza A NEGATIVE Negative 2 A & B Molecular [address] [place] [address] [phone] Influenza B Molecular NEGATIVE Negative Laboratory test 01/19/2018 [facility] Rapid Influenza SEE RESULT [address] A [place] [address] [phone] Laboratory test 01/19/2018 [facility] Troponin-I 0.00 ng/mL < 0.[address] (TnI) [place] [address] [phone] Comp Metabolic 01/19/2018 [facility] Sodium 135 mmol/L N 135- [address] 5 [place] [address] [phone] Potassium 4.3 mmol/L N 3.5-5.0 Chloride 108 [...] Egfr 126.5 >60 5 Urinalysis Profile 12/14/2017 [facility] Urine Color Straw [address] [place] [address] [phone] Urine Appearance Clear Urine Specific [place] 1.005 Low 1.010-1.030 Urine pH 6.0 N 5-9 Urine Urobilinogen Negative Negative Urine Ketones Negative Negative Urine Protein Negative Negative Urine Leukocytes Negative Negative Urine Blood Negative Negative Urine Nitrite Negative Negative Urine Bilirubin Negative Negative Urine Glucose Negative Negative Laboratory test 12/14/2017 [facility] HCG < 0.[address] mIU/[place] [address] [phone] Comp Metabolic 12/14/2017 [facility] Sodium 136 mmol/L N 135- [address] [place] [address] [phone] Potassium 4.3 mmol/L N 3.5-5.0 Chloride 106 [...] >60 Egfr 133.1 >60 7 Laboratory 12/14/2017 [facility] Gardnerella/Yeast: SEE RESULT 8, 9 test finding [address] [place] [address] [phone] GC/Chlamydia 12/14/2017 [facility] Chlamydia Negative Negative Amplified Rna [address] [place] [address] [phone] Neisseria gonorrhoeae (GC) Rna Negative Negative CBC Auto Diff 12/14/2017 [facility] White Blood 9.6 10^3/uL N 3.5-10.[address] [place] [address] [phone] Red Blood Count 4.51 10^6/uL N 4.00-5.40 [...] Blood Cells % 0.1 Laboratory test 12/14/2017 [facility] Trichomonas Negative Negative [address] [place] [address] [phone] Laboratory test 09/13/2017 [facility] Lipase 17 U/L N 11.0- 82.0 [address] [place] [address] [phone] HCG < 0.60 mIU/mL 12 CBC Auto Diff 09/13/2017 [facility] White Blood 8.3 10^3/uL N 3.5-10.[address] [place] [address] [phone] Red Blood Count 4.45 10^6/uL N 4.00-5.40 [...] Cells % 0.1 Comp Metabolic Panel 09/13/2017 [facility] Sodium 138 mmol/L N 135-145 [address] [place] [address] [phone] Potassium 4.1 mmol/L N 3.5-5.0 Chloride 106 [...] >60 Egfr 137.9 >60 13 Laboratory 05/02/2017 [facility] Gardnerella/Yeast: SEE 14 test 101 [facility] Vaginal [place] [address] BELOW [phone] Rapid 03/25/2017 [facility] Influenza A POSITIVE Abnormal Negative 15 Influenza A [address] [facility] Molecular & [place] [address] Molecular [phone] Influenza B Molecular NEGATIVE Negative Laboratory test finding 03/24/2017 [facility] Lipase 15 U/L N 11.0-82.[address] [place] [address] [phone] C Reactive Protein 3.36 mg/L N < 5.00 16 HCG < 0.60 mIU/mL 17 Lactic Acid 0.6 mmol/L N 0.5-2.0 18 Comp Metabolic Panel 03/24/2017 [facility] Sodium 137 mmol/L N 133-145 [address] [place], [place] [id number] [phone] Potassium 3.7 mmol/L N 3.5-5.0 Chloride 104 [...] Egfr 132.2 >60 19 Urinalysis Profile 03/24/2017 [facility] Urine Color Yellow [address] [place] [address] [phone] Urine Appearance Cloudy Urine Specific [place] 1.017 N 1.010-1.030 Urine pH 5.0 N 5-9 Urine Urobilinogen Negative Negative Urine Ketones 2+ Abnormal Negative Urine Protein Negative Negative Urine Leukocytes Negative Negative Urine Blood Negative Negative Urine Nitrite Negative Negative Urine Bilirubin Negative Negative Urine Glucose Negative Negative Laboratory test 03/24/2017 [facility] Rapid Influenza SEE RESULT [address] A [place] [address] [phone] CBC Auto Diff 03/24/2017 [facility] White Blood 4.4 10^3/uL N 3.5-[address] Count .8 [place] [address] [phone] Red Blood Count 4.50 10^6/uL N 4.0-5.4 [...] Red Blood Cells % 0.1 GC/Chlamydia 11/25/2016 [facility] Chlamydia Negative N Negative Amplified Rna [address] [place] [address] [phone] Neisseria gonorrhoeae (GC) Rna Negative N Negative CBC Auto Diff 11/25/2016 [facility] White Blood 7.7 10^3/uL N 3.5-10.[address] [place] [address] [phone] Red Blood Count 4.32 10^6/uL N 4.0-5.4 [...] % 0 N Comp Metabolic Panel 11/25/2016 [facility] Sodium 137 mmol/L N 133-[address] [place] [address] [phone] Potassium 4.2 mmol/L N 3.5-5.0 Chloride 105 [...] 137.9 N >60 21 Laboratory test 11/25/2016 [facility] C Reactive 1.51 mg/L N < 5.00 [address] [place] [address] [phone] HCG < 0.60 mIU/mL N 23 Lactic Acid 1.0 mmol/L N 0.5-2.0 24 Urinalysis Profile 11/25/2016 [facility] Urine Color Straw N [address] [place] [address] [phone] Urine Appearance Clear N Urine Specific [place] 1.002 Low 1.010-1.030 Urine pH 6.0 N [...] Cell Present Abnormal Absent Laboratory test 11/04/2016 [facility] Cytology SEE RESULT [address] [place] [address] [phone] GC/Chlamydia 10/18/2016 [facility] Chlamydia Negative N Negative Amplified Rna [address] [place] [address] [phone] Neisseria gonorrhoeae (GC) Rna Negative N Negative Laboratory test finding 10/18/2016 [facility] Test Urine negative Ua Routine 10/18/2016 [facility] Ua Specific [place] 1.015 Ua PH 5 Ua Color YELLOW Ua Appera CLEAR Ua WBC NEG Ua Protein NEG Ua Glucose NORM Ua Ketones NEG Ua Bilirubin SHAHRAM Ua Urobilinogen NEG Ua Nitrite NEG Ua Occult Blood TRACE Urine Culture And 10/15/2016 [facility] Urine Culture SEE RESULT [address] [place] [address] [phone] Urinalysis Profile 10/15/2016 [facility] Urine Color Katie N [address] [place] [address] [phone] Urine Appearance Clear N Urine Specific [place] 1.025 N 1.010-1.030 Urine pH 5.0 N [...] Present Abnormal Absent CBC Auto Diff 10/15/2016 [facility] White Blood 10.8 10^3/uL N 3.5-10.[address] [place] [address] [phone] Red Blood Count 4.15 10^6/uL N 4.0-5.4 [...] % 0.1 N Comp Metabolic Panel 10/15/2016 [facility] Sodium 134 mmol/L N 133-145 [address] [place] [address] [phone] Potassium 4.0 mmol/L N 3.5-5.0 Chloride 103 [...] 125.1 N >60 27 Laboratory test 10/15/2016 [facility] Magnesium 2.1 mg/dL N 1.9-2.7 finding [address] [place] [address] [phone] Lipase 35 U/L N 11.0-82.0 C Reactive Protein 1.98 mg/L N < 5.00 28 Lactic Acid 0.5 mmol/L N 0.5-2.0 29 Comp Metabolic Panel 10/08/2016 [facility] Sodium 136 mmol/L N 133-145 [address] [place] [address] [phone] Potassium 4.1 mmol/L N 3.5-5.0 Chloride 103 [...] 125.1 N >60 30 Laboratory test 10/08/2016 [facility] Lipase < 10 U/L Low 11.0 -82.0 finding [address] [place] [address] [phone] C Reactive Protein 4.38 mg/L N < 5.00 31 HCG < 0.60 mIU/mL N 32 Urinalysis Profile 10/08/2016 [facility] Urine Color Yellow N [address] [place] [address] [phone] Urine Appearance Cloudy N Urine Specific [place] 1.023 N 1.010-1.030 Urine pH 5.0 N [...] Cell Present Abnormal Absent CBC Auto 10/08/2016 [facility] White Blood 14.8 10^3/uL High 3.5-10.[address] [place] [address] [phone] Red Blood Count 4.41 10^6/uL N 4.0-5.4 [...] Cells % 0 N Laboratory test 10/08/2016 [facility] Lactic Acid 0.7 mmol/L N 0.5-2.0 [address] [place] [address] [phone] Urine Culture And 10/08/2016 [facility] Urine SEE RESULT [address] [place] [address] [phone] CBC Auto Diff 10/29/2015 [facility] White Blood 9.8 10^3/uL N 3.5-10.[address] [place] [address] [phone] Red Blood Count 4.36 10^6/uL N 4.0-5.4 [...] % 0 N Comp Metabolic Panel 10/29/2015 [facility] Sodium 136 mmol/L N 133-[address] [place] [address] [phone] Potassium 4.0 mmol/L N 3.5-5.0 Chloride 104 [...] N >60 35 Laboratory test finding 10/29/2015 [facility] Lipase 21 U/L N 11.0-82.[address] [place] [address] [phone] C Reactive Protein < 1.00 mg/L N < 5.00 36 Urinalysis Profile 10/29/2015 [facility] Urine Color Yellow N [address] [place] [address] [phone] Urine Appearance Cloudy N Urine Specific [place] 1.026 N 1.010-1.030 Urine pH 6.0 N [...] Present Abnormal Absent Urine Culture And 10/29/2015 [facility] Urine Culture SEE RESULT [address] [place] [address] [phone] Laboratory test 07/10/2015 [facility] Surgical SEE RESULT [address] [place] [address] [phone] Laboratory test 06/23/2015 [facility] Negative N Negative [address] (HCG) [place] [address] [phone] Laboratory test 06/11/2015 [facility] neg finding Test Urine Urine Culture And 06/11/2015 [facility] Urine Culture SEE RESULT [address] [place] [address] [phone] Ua Routine 06/11/2015 [facility] Ua Specific 1.025 [place] Ua PH 5 Ua Color yellow Ua Appera clear Ua WBC neg Ua Protein neg Ua Glucose neg Ua Ketones large Ua Bilirubin neg Ua Urobilinogen normal Ua Nitrite neg Ua Occult Blood neg CBC Auto Diff 04/08/2015 [facility] White Blood 8.8 10^3/uL N 3.5-10.[address] [place] [address] [phone] Red Blood Count 4.32 10^6/uL N 4.0-5.4 [...] % 0 N Comp Metabolic Panel 04/08/2015 [facility] Sodium 137 mmol/L N 133-[address] [place] [address] [phone] Potassium 3.9 mmol/L N 3.5-5.0 Chloride 104 [...] N >60 41 Laboratory test finding 04/08/2015 [facility] Lipase 22 U/L N 11.0-82.[address] [place] [address] [phone] HCG < 0.60 mIU/mL N 42 Laboratory test 03/20/2015 [facility] Negative N Negative [address] (HCG) [place] [address] [phone] CBC Auto Diff 02/16/2015 [facility] White Blood 8.2 10^3/uL N 3.5-10.[address] [place] [address] [phone] Red Blood Count 4.48 10^6/uL N 4.0-5.4 [...] Cells % 0.1 N Urinalysis Profile 02/16/2015 [facility] Urine Color Yellow N [address] [place] [address] [phone] Urine Appearance Clear N Urine Specific [place] 1.012 N 1.010-1.030 Urine pH 5.0 N [...] Present Abnormal Absent Comp Metabolic Panel 02/16/2015 [facility] Sodium 136 mmol/L N 133-[address] [place] [address] [phone] Potassium 4.1 mmol/L N 3.5-5.0 Chloride 105 [...] N >60 44 Laboratory test finding 02/16/2015 [facility] Lipase 20 U/L N 11.0-82.[address] [place] [address] [phone] C Reactive Protein 9.66 mg/L High < 5.00 45 HCG Qualitative Negative N Negative Laboratory test 02/11/2015 [facility] Urine Culture And SEE RESULT [address] [place] [address] [phone] Cytology Non-Rf Test Technician SEE RESULT BELOW 47 Laboratory test finding 02/11/2015 [facility] Test Urine negative Ua Routine 02/11/2015 [facility] Ua Specific [place] 1.020 Ua PH 7 Ua Color katie Ua Appera cloudy/chunks Ua WBC moderate Ua Protein trace Ua Glucose neg Ua Ketones neg Ua Bilirubin neg Ua Urobilinogen neg Ua Nitrite neg Ua Occult Blood Xlarge CBC Auto Diff 02/02/2015 [facility] White Blood 10.0 10^3/uL N 3.5-10.[address] [place] [address] [phone] Red Blood Count 4.78 10^6/uL N 4.0-5.4 [...] % 0 N Comp Metabolic Panel 02/02/2015 [facility] Sodium 135 mmol/L N 133-[address] [place] [address] [phone] Potassium 4.1 mmol/L N 3.5-5.0 Chloride 103 [...] 127.4 N >60 48 Laboratory test 02/02/2015 [facility] Troponin-I 0.00 ng/mL N <0.03 [address] (TnI) [place] [address] [phone] Laboratory test 01/13/2015 [facility] Gardnerella/Yea SEE RESULT [address]: [place] [address] [phone] GC/Chlamydia 01/13/2015 [facility] Chlamydia Negative N Negative Amplified Rna [address] [place] [address] [phone] Neisseria gonorrhoeae (GC) Rna Negative N Negative 51 Laboratory test 01/13/2015 [facility] Trichomonas Negative N Negative [address] [place] [address] [phone] CBC Auto Diff 01/13/2015 [facility] White Blood 8.4 10^3/uL N 4.8-10.[address] [place] [address] [phone] Red Blood Count 4.39 10^6/uL N 4.0-5.4 [...] Cells % 0 N Urinalysis Profile 01/13/2015 [facility] Urine Color Yellow N [address] [place] [address] [phone] Urine Appearance Cloudy N Urine Specific [place] 1.015 N 1.010-1.030 Urine pH 7.0 N 5-9 Urine Urobilinogen Negative N Negative Urine Ketones Negative N Negative Urine Protein Negative N Negative Urine Leukocytes Negative N Negative Urine Blood Negative N Negative Urine Nitrite Negative N Negative Urine Bilirubin Negative N Negative Urine Glucose Negative N Negative Comp Metabolic Panel 01/13/2015 [facility] Sodium 135 mmol/L N 133-145 [address] [place] [address] [phone] Potassium 3.8 mmol/L N 3.5-5.0 Chloride 104 [...] N >60 53 Laboratory test finding 01/13/2015 [facility] Lipase 22 U/L N 11.0-82.[address] [place] [address] [phone] C Reactive Protein 1.81 mg/L N < 5.00 54 HCG Qualitative Negative N Negative 55 CBC Auto Diff 12/26/2014 [facility] White Blood 10.2 10^3/uL N 4.8-10.[address] [place] [address] [phone] Red Blood Count 4.61 10^6/uL N 4.0-5.4 [...] % 0 N Comp Metabolic Panel 12/26/2014 [facility] Sodium 136 mmol/L N 133-[address] [place] [address] [phone] Potassium 4.3 mmol/L N 3.5-5.0 Chloride 101 [...] 123.5 N >60 56 Herpes Simplex 12/16/2014 [facility] Herpes Source VULVAR LESIONS N PCR [address] [place] [address] [phone] HSV 1 PCR Negative N Negative HSV 2 PCR Positive N Negative 57 GC/Chlamydia 12/16/2014 [facility] Chlamydia Negative N Negative Amplified Rna [address] [facility] [place] [address] [phone] Neisseria gonorrhoeae (GC) Rna Negative N Negative 58 Laboratory test 12/10/2014 [facility] HCG Qualitative Negative N Negative finding [address] [place] [address] [phone] Urinalysis 12/10/2014 [facility] Urine Color Yellow N Profile [address] [place] [address] [phone] Urine Appearance Clear N Urine Specific [place] 1.014 N 1.010-1.030 Urine pH 6.0 N 5-9 Urine Urobilinogen Negative N Negative Urine Ketones Negative N Negative Urine Protein Negative N Negative Urine Leukocytes Negative N Negative Urine Blood Negative N Negative Urine Nitrite Negative N Negative Urine Bilirubin Negative N Negative Urine Glucose Negative N Negative CBC Auto 12/10/2014 [facility] White Blood 10.9 10^3/uL High 4.8-10.8 Diff [address] [facility] [place] [address] [phone] Red Blood Count 4.16 10^6/uL N 4.0-5.4 [...] Cells % 0.1 N Laboratory test 12/10/2014 [facility] Lactic Acid 0.5 mmol/L N 0.5-2.2 finding [address] [place] [address] [phone] Comp Metabolic 12/10/2014 [facility] Sodium 135 mmol/L N 133- 145 Panel [address] [place] [address] [phone] Potassium 3.9 mmol/L N 3.5-5.0 Chloride 103 [...] N >60 59 Laboratory test finding 12/10/2014 [facility] Lipase 31 U/L N 11.0-82.[address] [place] [address] [phone] C Reactive Protein 3.26 mg/L N < 5.00 60 Urinalysis Profile 12/10/2014 [facility] Urine Color Yellow N [address] [place] [address] [phone] Urine Appearance Clear N Urine Specific [place] 1.014 N 1.010-1.030 Urine pH 6.0 N 5-9 Urine Urobilinogen Negative N Negative Urine Ketones Negative N Negative Urine Protein Negative N Negative Urine Leukocytes Negative N Negative Urine Blood Negative N Negative Urine Nitrite Negative N Negative Urine Bilirubin Negative N Negative Urine Glucose Negative N Negative CBC Auto 12/10/2014 [facility] White Blood 10.9 10^3/uL High 4.8-10.[address] [place] [address] [phone] Red Blood Count 4.16 10^6/uL N 4.0-5.4 [...] Cells % 0.1 N Laboratory test 12/10/2014 [facility] Lactic Acid 0.5 mmol/L N 0.5-2.2 finding [address] [place] [address] [phone] Comp Metabolic 12/10/2014 [facility] Sodium 135 mmol/L N 133- 145 Panel [address] [place] [address] [phone] Potassium 3.9 mmol/L N 3.5-5.0 Chloride 103 [...] N >60 61 Laboratory test finding 12/10/2014 [facility] Lipase 31 U/L N 11.0-82.0 [address] [place] [address] [phone] C Reactive Protein 3.26 mg/L N < 5.00 62 Urine Culture And Sensitivities SEE RESULT BELOW 63 Laboratory test 10/21/2014 [facility] TSH (Thyroid 1.04 ?IU/mL N 0.34-5.60 finding 101 [facility] Stim Horm) [place] [address] [phone] Comp Metabolic 10/21/2014 [facility] Sodium 137 mmol/L N 133- 145 Panel [address] [place] [address] [phone] Potassium 3.9 mmol/L N 3.5-5.0 Chloride 104 [...] 131.5 N >60 64 Laboratory test 10/21/2014 [facility] HCG Qualitative Negative N Negative finding [address] [place] [address] [phone] Laboratory test 09/11/2014 [facility] Test neg finding Urine Ua Routine 09/11/2014 [facility] Ua Specific 1.015 [place] Ua PH 5 Ua Color yellow Ua Appera clear Ua WBC neg Ua Protein neg Ua Glucose neg Ua Ketones neg Ua Bilirubin neg Ua Urobilinogen 0.2 Ua Nitrite neg Ua Occult Blood neg Laboratory test 08/13/2014 [facility] CSF Glucose 61 mg/dL N 40-70 65, 66 finding [address] [place] [address] [phone] CSF Protein 36 mg/dL N 15-45 67 CSF Culture & Gram Stain SEE RESULT BELOW 68 CSF Cell Count 08/13/2014 [facility] Body Fluid Appearance Clear N [address] [place] [address] [phone] Body Fluid Color Colorless N CSF Tube # 1 N Body Fluid Volume 1 mL N Body Fluid WBC 1 N Body Fluid RBC 2 N Body Fluid Polys 0 N Body Fluid Lymph 10 N Body Fluid Duc[place]ne 2 N Body Fluid Total Cells Counted 12 N Body Fluid Comment (SEE NOTE) N 69 Fluid Reviewed By MD (SEE NOTE) N 70 CBC Auto 08/13/2014 [facility] White Blood 14.1 10^3/uL High 4.8-10.[address] [place] [address] [phone] Red Blood Count 4.73 10^6/uL N 4.0-5.4 [...] Cells % 0.1 N Laboratory test 08/13/2014 [facility] Serum Negative N Negative finding [address] [place] [address] [phone] Comp Metabolic 08/13/2014 [facility] Sodium 135 mmol/L N 133- [address] [place] [address] [phone] Chloride 104 mmol/L N 101-111 Co2 Carbon [...] N 13-39 73 Urine Culture And 06/14/2014 [facility] Urine Culture (SEE NOTE ) [address] [place] [address] [phone] Throat-Beta Strept 04/03/2014 [facility] Throat Beta (SEE NOTE) [address] [place] [address] [phone] Throat-Beta Strept 04/22/2013 [facility] Throat Beta (SEE NOTE) [address] [address] [phone] Throat-Beta Strept 10/21/2012 [facility] Throat Beta (SEE NOTE) [address] [place] [address] [phone] 1 [facility] Severe Sepsis and Septic Shock Management Bundle Measure requires all lactic acids initially measuring >2.0 mmol/L be repeated. 2 Forensic Specialist: [id number] 3 SEE RESULT BELOW Name: ESVIN CHESTER : [address]: Sandra Swan MD Acct: [id number] Unit: [id number] AGE: 22 Location: ED Re01/19/18 SEX: F Status: REG ER SPEC: [id number] ROSARIO: 01/19/181142 [facility] DR: Sandra Swan MD REQ: [id number] RECD: 01/19/18 STATUS: QASIM LOW DR: Doris Briceño REFINED SYRUP OPERATOR _ SOURCE: NASAL SPDESC: ORDERED: Flu A B Request Procedure Result Reported Site Rapid Influenza A B Request Final 01/19/181156 ML Specimen received for Influenza A/B Molecular testing * ML - Main Lab . END OF REPORT DEPARTMENT OF PATHOLOGY, [address] [place] [address] Suraj Velasquez M.D. Director [facility] # [id number] Troponin-I testing on Plasma Separator Tubes [...] [address]: Susan Rob MD Acct: [id number] Unit: [id number] AGE: 22 Location: ED Re12/14/17 SEX: F Status: DEP ER SPEC: [id number] ROSARIO: 12/14/[address]: Peng FRANCO REQ: [id number] RECD: 12/14/17 STATUS: QASIM LOW DR: Doris [...] . END OF REPORT DEPARTMENT OF PATHOLOGY, [address] [place] [address] Suraj Velasquez M.D. Director [facility] # [id number] GC/Chlamydia Source?: Endocervical Trichomonas Source: Endocervical [...] [address]: Shyanne Call MD Acct: [id number] Unit: [id number] AGE: 22 Location: [facility] Re05/02/17 SEX: F Status: REG REF SPEC: [id number] ROSARIO: 05/02/17-1406 [facility] [address]: Shyanne Call MD REQ: [id number] RECD: 05/02/17 STATUS: COMP _ SOURCE: STEPHANIE SPDESC: ORDERED: Preston Clayton DNA COMMENTS: [id number] Procedure Result Reported Site Gardnerella/Yeast: Vaginal DNA [...] . END OF REPORT DEPARTMENT OF PATHOLOGY, [address] [place] [address] Suraj Velasquez M.D. Director [facility] # [id number] 15 Forensic Specialist: [id number] Acute inflammation: >10.00 17 <5.0 Negative 5.0 - 25.0 Indeterminate (Repeat testing recommended after 72 hours) >25.0 Positive Perimenopausal women can display HCG levels of up to 20 mIU/mL 18 [facility] Severe Sepsis and Septic Shock Management Bundle [...] [address]: Felix Dale MD Acct: [id number] Unit: [id number] AGE: 22 Location: ED Re03/24/17 SEX: F Status: REG ER SPEC: [id number] ROSARIO: 03/24/17-[address] [facility] [address]: Can Robertson MD REQ: [id number] RECD: 03/25/170006 STATUS: COMP [facility]: Felix Briceño REFINED SYRUP OPERATOR _ SOURCE: YANIV SPDESC: ORDERED: Flu A B Request Procedure Result Reported Site Rapid Influenza A B Request Final 03/25/17- 0010 ML Specimen received for Influenza A/B Molecular testing * ML - MAIN LAB ([facility]) . END OF REPORT * ML=Testing performed at Main Lab DEPARTMENT OF PATHOLOGY, [address] [place] [address] Suraj Velasquez M.D. Director [facility] # [id number] 21 Because ethnic data is not always [...] levels of up to 20 mIU/mL 24 [facility] Severe Sepsis and Septic Shock Management Bundle Measure requires all lactic acids initially measuring >2.0 mmol/L be repeated. 25 SEE RESULT BELOW Name: ESVIN CHESTER : [address]: Doris Briceño NP Acct: [id number] Unit: [id number] AGE: 21 Location: [facility] Re11/04/16 SEX: F Status: REG REF SPEC: [id number] ROSARIO: 11/04/16-[address]: Doris Briceño NP REQ: [id number] RECD: 11/04/16 STATUS: SOUT _ ORDERED: TP IMAGE ANAL COMMENTS: [id number] FINAL DIAGNOSIS Negative for Intraepithelial lesion or Malignancy A. Ectocervical/Endocervical Specimen Adequacy: Satisfactory of evaluation Transformation zone component identified Patient Information: HPV: Thin Layer Pap Test w/reflex to high risk HPV RNA testing when ASCUS Actual Specimen Date: 11/04/16 Last Menstrual Date: 10/03/16 ?: N Post Menopausal?: N Hysterectomy?: N Previous Abnormal Pap Smears?:N Signed (signature on file) Tae Antunez BARRY (ASCP) 11/07 1317 This Pap test was evaluated with the assistance of the ThinPrep Test Imaging System. Due to cytologic findings at the workforce development program director microscope, comprehensive manual rescreening by a Groutman may be required. The Pap Smear is [...] performed at Main Lab DEPARTMENT OF PATHOLOGY, [address] [place] [address] Suraj Velasquez M.D. Director [facility] # [id number] 26 SEE RESULT BELOW Name: ESVIN CHESTER : [address]: Kit Rodriguez MD Acct: [id number] Unit: [id number] AGE: 21 Location: ED Re10/15/16 SEX: F Status: DEP ER SPEC: [id number] ROSARIO: 10/15/16-2044 [facility] [address]: Kit Rodriguez MD REQ: [id number] RECD: 10/15/16 STATUS: COMP [facility] DR: Doris Briceño REFINED SYRUP OPERATOR _ SOURCE: URINE SPDESC: ORDERED: Urine Culture Procedure Result Reported Site Urine Culture Final 10/17/16- 0855 ML No Growth (<1,000 CFU/mL) * ML - MAIN LAB ([facility]) . END OF REPORT * ML=Testing performed at Main Lab DEPARTMENT OF PATHOLOGY, [address] [place] [address] Suraj Velasquez M.D. Director [facility] # [id number] 27 Because ethnic data is not always [...] (or dialysis) 28 Acute inflammation: >10.00 29 [facility] Severe Sepsis and Septic Shock Management Bundle [...] levels of up to 20 mIU/mL 33 [facility] Severe Sepsis and Septic Shock Management Bundle Measure requires all lactic acids initially measuring >2.0 mmol/L be repeated. 34 SEE RESULT BELOW Name: ESVIN CHESTER : [address]: Alexei Em MD Acct: [id number] Unit: [id number] AGE: 21 Location: ED Re10/08/16 SEX: F Status: DEP ER SPEC: [id number] ROSARIO: 10/08/16 [facility] [address]: Alexei Em MD REQ: [id number] RECD: 10/08/16 STATUS: QASIM LOW DR: Doris Briceño REFINED SYRUP OPERATOR _ SOURCE: URINE SPDESC: ORDERED: Urine Culture Procedure Result Reported Site Urine Culture Final 10/09/16- 1222 ML Mixed abdirashid; possible contamination. Suggest resubmission. * ML - MAIN LAB ([facility]) . END OF REPORT * ML=Testing performed at Main Lab DEPARTMENT OF PATHOLOGY, [address] [place] [address] Suraj Velasquez M.D. Director [facility] # [id number] 35 Because ethnic data is not always [...] [address]: Darwin Steel MD Acct: [id number] Unit: [id number] AGE: 20 Location: ED Re10/29/15 SEX: F Status: DEP ER SPEC: [id number] ROSARIO: 10/29/15-1252 [facility] [address]: Darwin Steel MD REQ: [id number] RECD: 10/29/15 STATUS: QASIM LOW DR: Doris Briceño REFINED SYRUP OPERATOR _ SOURCE: URINE SPDESC: ORDERED: Urine Culture Procedure Result Reported Site Urine Culture Final 10/30/15- 1214 ML No growth of clinically significant organisms * ML - MAIN LAB ([facility]) . END OF REPORT * ML=Testing performed at Main Lab DEPARTMENT OF PATHOLOGY, [address] [place] [address] Suraj Velasquez M.D. Director [facility] # [id number] 38 SEE RESULT BELOW Name: ESVIN CHESTER : [address]: Doris Briceño NP Acct: [id number] Unit: [id number] AGE: 20 Location: [facility] Re07/10/15 SEX: F Status: REG REF SPEC: [id number] ROSARIO: 07/10/15-12[address] [facility] [address]: Doris Briceño NP REQ: [id number] RECD: 07/10/156056 STATUS: SOUT _ ORDERED: LEVEL III COMMENTS: [id number] FINAL DIAGNOSIS Cyst removal, site unspecified: -- [...] performed at Main Lab DEPARTMENT OF PATHOLOGY, [address] [place] [address] Suraj Velasquez M.D. Director [facility] # [id number] 39 If is still suspected, please repeat test after 48 to 72 hours. This test detects intact HCG only and is indicated for the early detection of . 40 SEE RESULT BELOW Name: SIMA CHESTERES : [address]: George Wallace NP Acct: [id number] Unit: [id number] AGE: 20 Location: [facility] Re06/11/15 SEX: F Status: REG REF SPEC: [id number] ROSARIO: 06/11/15-[address]: George Wallace NP REQ: [id number] RECD: 06/11/15 STATUS: COMP _ SOURCE: URINE SPDESC: ORDERED: Urine Culture Procedure Result Reported Site Urine Culture Final 06/12/15- 1634 ML No Growth (<1,000 CFU/mL) * ML - MAIN LAB ([facility]) . END OF REPORT * ML=Testing performed at Main Lab DEPARTMENT OF PATHOLOGY, [address] [place] [address] Suraj Velasquez M.D. Director [facility] # [id number] 41 Because ethnic data is not always [...] [address]: George Wallace NP Acct: [id number] Unit: [id number] AGE: 19 Location: [facility] Re02/11/15 SEX: F Status: REG REF SPEC: [id number] ROSARIO: 02/11/15-[address]: George Wallace NP REQ: [id number] RECD: 02/11/15 STATUS: COMP _ SOURCE: URINE SPDESC: ORDERED: Urine Culture Procedure Result Reported Site Urine Culture Final 02/16/15- 1456 ML No Growth (<1,000 CFU/mL) * ML - MAIN LAB ([facility]) . END OF REPORT * ML=Testing performed at Main Lab DEPARTMENT OF PATHOLOGY, [address] [place] [address] Suraj Velasquez M.D. Director [facility] # [id number] 47 SEE RESULT BELOW Name: ESVIN CHESTER : [address]: George Wallace NP Acct: [id number] Unit: [id number] AGE: 19 Location: [facility] Re02/11/15 SEX: F Status: REG REF SPEC: [id number] ROSARIO: 02/11/15-[address]: George Wallace NP REQ: [id number] RECD: 02/11/15161 STATUS: SOUT _ ORDERED: THIN PREP NON G FINAL DIAGNOSIS Urine, voided: --Negative for malignant cells. --Inflammatory cells present. URINE VOID GROSS DESCRIPTION 20 mls of cloudy red voided urine. Signed (signature on file) Gema Moraes MD 1205 END OF REPORT * ML=Testing performed at Main Lab DEPARTMENT OF PATHOLOGY, [address] [place] [address] Suraj Velasquez M.D. Director [facility] # [id number] 48 Because ethnic data is not always [...] 0.03 ng/mL Not supportive of diagnosis of MO 0.03 - 0.50 ng/mL Indeterminate: suggest serial studies if clinically indicated. Greater than 0.5 ng/mL Consistent with diagnosis of MO 50 SEE RESULT BELOW Name: ESVIN CHESTER : [address]: Wilder Hernandez MD Acct: [id number] Unit: [id number] AGE: 19 Location: ED Re01/13/15 SEX: F Status: DEP ER SPEC: [id number] ROSARIO: 01/13/15-[address]: Wilder Hernandez MD REQ: [id number] RECD: 01/13/15-160 STATUS: COMP [facility]: Angeles Stevens MD _ SOURCE: VAGINAL [...] or failure. * ML - MAIN LAB ([facility]) . END OF REPORT * ML=Testing performed at Main Lab DEPARTMENT OF PATHOLOGY, [address] [place] [address] Suraj Velasquez M.D. Director [facility] # [id number] 51 Female urine specimens have been self-validated by [facility] and have been granted conditional assay approval by [facility]. 52 GC/Chlamydia Source?: Endocervical [...] developed and its performance characteristics determined by [facility]. It has not been cleared or approved by the U.S. Food and Drug Administration. Test Performed by: [facility] [place] [address] Database Coordinator: Odilon Tejeda II, M.D., Ph.D. 58 Female urine specimens have been self-validated by [facility] and have been granted conditional assay approval by [facility]. 59 Because ethnic data [...] [address]: Bubba Loco DO Acct: [id number] Unit: [id number] AGE: 19 Location: ED Re12/10/14 SEX: F Status: DEP ER SPEC: [id number] ROSARIO: 12/10/14-2019 [facility] [address]: Kit Goldman MD REQ: [id number] RECD: 12/10/14 STATUS: QASIM LOW DR: Doris Briceño REFINED SYRUP OPERATOR _ SOURCE: URINE [facility]: ORDERED: Urine Culture Procedure Result Verified Site Urine Culture Final 12/12/14- 1149 ML No Growth Day 2 (<1,000 CFU/mL) * ML - MAIN LAB ([facility]) . END OF REPORT * ML=Testing performed at Main Lab DEPARTMENT OF PATHOLOGY, [address] [place] [address] Suraj Velasquez M.D. Director [facility] # [id number] 64 Because ethnic data is not always [...] [address]: Kristian Torres MD Acct: [id number] Unit: [id number] AGE: 19 Location: ED Re08/13/14 SEX: F Status: DEP ER SPEC: [id number] ROSARIO: 08/13/14-1430 [facility] [address]: Kristian Torres MD REQ: [id number] RECD: 08/13/14 STATUS: COMP ANGIE DR: Luigi Bennett MD _ SOURCE: CSF [...] performed at Main Lab DEPARTMENT OF PATHOLOGY, [address] [place] [address] Suraj Velasquez M.D. Director [facility] # [id number] 69 DIFF DONE ON CONCENTRATED SMEAR 70 [...] due to hemolysis. 74 RUN DATE: 06/17/14 [facility] LIVE PAGE 1 RUN TIME: [address] [place] [address] Specimen Inquiry Name: ESVIN CHESTER : [address]: Kit Goldman MD Acct: [id number] Unit: [id number] AGE: 19 Location: [facility] Re06/14/14 SEX: F Status: DEP ER SPEC: [id number] ROSARIO: 06/14/14-1757 [facility] [address]: Mayra Goldman REFINED SYRUP OPERATOR REQ: [id number] RECD: 06/15/14-1233 STATUS: QASIM LOW DR: [facility] Luigi Bennett MD _ SOURCE: URINE SPDESC: ORDERED: Urine Culture Procedure Result Verified Site Urine Culture Final 06/17/14- 09 ML Organism 1 NORMAL ABDIRASHID Startex Count 1-10,000 (Few) CFU/ML * ML - MAIN LAB ([facility]) . END OF REPORT * ML=Testing performed at Main Lab DEPARTMENT OF PATHOLOGY, [facility] [employer] [place] [address] Suraj Velasquez M.D. Director CLIA # [id number] 75 RUN DATE: 04/05/14 [facility] LAB LIVE PAGE 1 RUN TIME: 822 [facility] [employer] [place], [place] [address] Specimen Inquiry Name: ESVIN CHESTER : [address]: Trey Lew MD Acct: [id number] Unit: [id number] AGE: 19 Location: [facility] Re04/03/14 SEX: F Status: DEP ER SPEC: [id number] ROSARIO: 04/03/14-1245 [facility] [address]: Trey Lew MD REQ: [id number] RECD: 04/03/14-152 STATUS: QASIM LOW DR: Luigi Bennett MD _ SOURCE: THROAT SPDESC: ORDERED: Throat Beta Str Procedure Result Verified Site Throat Beta Strep Culture Final 04/05/14- 08 ML Negative For Group A Beta Streptococcus END OF REPORT * ML=Testing performed at Main Lab DEPARTMENT OF PATHOLOGY, [address] [place] [address] Suraj Velasquez M.D. Director [facility] # [id number] 76 RUN DATE: 04/24/13 [facility] LAB LIVE PAGE 1 RUN TIME: [address] [place] [address] Specimen Inquiry Name: ESVIN CHESTER : [address]: Kit Pires MD Acct: [id number] Unit: [id number] AGE: 18 Location: [facility] Re04/22/13 SEX: F Status: DEP ER SPEC: [id number] ROSARIO: 04/22/13-1200 [facility] [address]: Kit Pires MD REQ: [id number] RECD: 04/22/13-1602 STATUS: QASIM LOW DR: Luigi Bennett MD _ SOURCE: THROAT SPDESC: ORDERED: Throat Beta Str QUERIES: Medent Number [id number] Procedure Result Verified Site Throat Beta Strep Culture Final 04/24/13- 818 ML Negative For Group A Beta Streptococcus END OF REPORT * ML=Testing performed at Main Lab DEPARTMENT OF PATHOLOGY, [facility] [employer] [place], [place] [address] Suraj Velasquez M.D. Director [facility] Permit #[id number] 77 RUN DATE: 10/24/12 [facility] LAB LIVE PAGE 1 RUN TIME: 835 [facility] [employer] [place], [place] [address] Specimen Inquiry Name: ESVIN CHESTER : [address]: Kit Goldman MD Acct: [id number] Unit: [id number] AGE: 17 Location: [facility] Re10/21/12 SEX: F Status: DEP ER SPEC: [id number] ROSARIO: 10/21/[address]: Mayra Goldman NP REQ: [id number] RECD: 10/22/12 STATUS: QASIM LOW DR: Kit Bennett MD _ SOURCE: THROAT SPDESC: ORDERED: Throat Beta Str Procedure Result Verified Site Throat Beta Strep Culture Final 10/24/12835 ML Organism 1 Negative Group A Strep END OF REPORT * ML=Testing performed at Main Lab DEPARTMENT OF PATHOLOGY, [address] [place] [address] Suraj Velasquez M.D. Director [facility] Permit #[id number] Procedures Date Code Description Status 03/29/2018 41496 Destruction Of Benign Lesions Any Method 1-14 lesions Completed 07/10/2015 45353 Acne Surgery Completed 07/02/2015 17684 Gauntlet Cast Application Completed 06/23/2015 13304 Repair Collateral Ligament MCP JT W/Local Tissue Completed 06/23/2015 97289 Repair Collateral Ligament MCP JT W/Local Tissue Completed Encounters Type Date Location Provider Dx Diagnosis Office Visit 04/11/2018 Orthopedic Karen S63.641 Sprain of 8:15a [facility] Milly Bennett metacarpophalangeal C.M.A. joint of right thumb, subs Office Visit 04/10/2018 Orthopedic Benson Hernandez M76.71 Peroneal tendinitis, 2:30p Services Of right leg C.M.A. Office Visit 03/29/2018 [facility] Dermatology Ameya Oconnell70.0 Acne vulgaris 12:50p B35.3 Tinea pedis L23.9 Allergic contact dermatitis, unspecified cause B07.0 Plantar wart Z78.9 Other specified health status R20.8 Other disturbances of skin sensation R23.8 Other skin changes Office 03/14/2018 Angelica Jones S63.641D Sprain of Visit 10:15a [facility] Bennett metacarpophalangeal C.M.A. joint of right thumb, subs Office 03/08/2018 [facility] Internal Doris S63.641A Sprain of Visit 10:40a Medicine - [place], N.PGeneva metacarpophalangeal [place] joint of right thumb, init N77.1 Vaginitis, vulvitis and vulvovaginitis in dis classd elswhr Office 02/26/2018 Orthopedic Karen S63.641A Sprain of Visit 10:15a [facility] Bennett metacarpophalangeal C.M.A. joint of right thumb, init Office 02/21/2018 [facility] Internal Savanna Mccarthy, S69.91xA Unsp injury of right Visit 2:40p Medicine - wrist, hand and [place] finger(s), init encntr Office 01/17/2018 [facility] Dermatology Dipesh Hernandez L70.0 Acne vulgaris Visit 4:10p MD Office 12/25/2017 [facility] Internal Doris F17.210 Nicotine dependence, Visit 11:40a Medicine - Varn, N.P. cigarettes, [place] uncomplicated J45.21 Mild intermittent asthma with (acute) exacerbation Office Visit 11/30/2017 11:50a [facility] Internal Angeles S60.031A Contusion of Sanjay Stevens M.D. right middle [place] finger w/o damage to nail, init F17.210 Nicotine dependence, cigarettes, uncomplicated Office Visit 09/13/2017 3:30p [facility] Internal Fartun R10.84 Generalized Medicine - Marker, RPA-C abdominal pain [address] R21 Rash and other nonspecific skin eruption Office Visit 08/07/2017 11:00a [facility] Internal Doris Briceño M54.2 Cervicalgia Medicine - N.P. [place] F17.210 Nicotine dependence, cigarettes, uncomplicated Office Visit 05/02/2017 [facility] Internal Shyanne N77.1 Vaginitis, vulvitis 1:40p Sanjay Call M.D. and vulvovaginitis [place] in dis classd elswhr R21 Rash and other nonspecific skin eruption Office Visit 04/19/2017 [facility] Dermatology Dipesh Hernandez, L70.0 Acne vulgaris 4:00p MD Office Visit 03/31/2017 [facility] Internal Doris Briceño, R10.84 Generalized 11:40a Medicine - N.P. abdominal pain [place] Office Visit 01/18/2017 [facility] Internal Angeles J45.901 Unspecified asthma 9:10a Sanjay Stevens M.D. with (acute) [place] exacerbation F17.210 Nicotine dependence, cigarettes, uncomplicated Office Visit 12/06/2016 1:00p [facility] Internal Doris Briceño, M54.5 Low back pain Medicine - N.P. [place] Office Visit 11/04/2016 3:00p [facility] Internal Doris Briceño, Z01.419 Encntr for hospital admissions officer Medicine - N.P. exam (general) [place] (routine) w/o abn findings M46.1 Sacroiliitis, not elsewhere classified Office Visit 10/18/2016 11:00a [facility] Internal Shyanne M54.9 Dorsalgia, Sanjay Call M.D. unspecified [place] R35.0 Frequency of micturition R10.2 Pelvic and perineal pain Office Visit 08/12/2016 Surgical Sudheer SGeneva R22.0 Localized 3:30p [facility] swelling, mass and Posting Clerk lump, head Office Visit 06/29/2016 Orthopedic Karen M79.645 Pain in left 10:45a Services [facility] Milly Bennett finger(s) C.M.A. Office Visit 06/22/2016 [facility] Internal George Wallace NP M79.645 Pain in left 4:20p Medicine - finger(s) [place] Office Visit 02/03/2016 Surgical Sudheer SGeneva R22.0 Localized 2:30p [facility] swelling, mass and Posting Clerk lump, head Office Visit 01/28/2016 [facility] Internal George Wallace NP R22.9 Localized 9:00a Medicine - swelling, mass and [place] lump, unspecified Office Visit 11/05/2015 [facility] Internal George Wallace NP J45.20 Mild intermittent 10:20a Medicine - asthma, [place] uncomplicated J20.9 Acute bronchitis, unspecified Office Visit 11/02/2015 10:40a Orthopedic Fide S53.32xD [facility] [place] rupture of left C.M.A. ulnar collateral ligament, subs Office Visit 10/20/2015 2:40p [facility] Internal Doris Briceño M54.5 Low back pain Medicine - N.P. [place] M54.6 Pain in thoracic spine Office Visit 10/02/2015 [facility] George Wallace NP M54.5 Low back pain 10:40a Medicine - [place] Office Visit 09/24/2015 [facility] George Wallace NP M54.5 Low back pain 10:40a Medicine - [place] Office Visit 08/12/2015 [facility] Internal George Wallace NP M79.642 Pain in left 4:20p Medicine - hand [place] Office Visit 07/09/2015 [facility] Vishal Roach79.642 Pain in left 10:00a Medicine - N.P. hand [place] Office Visit 07/07/2015 [facility] Brian Roach.642 Pain in left 3:55p Medicine - N.P. hand [place] Office Visit 07/06/2015 [facility] Internal Doris Briceño, L72.3 Sebaceous cyst 1:40p Medicine - N.P. [place] Office Visit 06/22/2015 Orthopedic Karen S53.32xA Traumatic [...] for clos fx Office Visit 06/18/2015 10:00a [facility] Internal Doris Briceño M79.642 Pain in left Medicine - N.P. hand [place] Office Visit 06/11/2015 4:00p [facility] Internal George Wallace NP R30.0 Dysuria Medicine - [place] N91.1 Secondary amenorrhea N39.0 Urinary tract infection, site not specified Office Visit 05/15/2015 [facility] Internal George Wallace NP K02.7 Dental root caries 2:20p Medicine - [place] Office Visit 04/08/2015 [facility] Internal Doris Briceño, F17.210 Nicotine 11:40a Medicine - N.P. dependence, [place] cigarettes, uncomplicated J06.9 Acute upper respiratory infection, unspecified K02.7 Dental root caries Office Visit 03/30/2015 2:40p [facility] Internal Doris Briceño, G44.201 Tension -type Medicine - N.P. 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 [place] R10.31 Right lower quadrant pain J06.9 Acute upper respiratory infection, unspecified R93.2 Abnormal findings on dx imaging of liver and biliary tract Office Visit 02/11/2015 11:40a [facility] Internal Medicine Neeta Walalce NP R30.0 Dysuria [place] R10.30 Lower abdominal pain, unspecified N39.0 Urinary tract infection, site not specified Office Visit 01/05/2015 4:00p [facility] Internal George Wallace, J06.9 Acute upper Medicine - REFINED SYRUP OPERATOR respiratory [place] infection, unspecified K08.8 Other specified disorders of teeth and supporting structures B37.3 Candidiasis of vulva and vagina Office Visit 12/24/2014 8:40a [facility] Internal Doris Briceño, R10.11 Right upper Medicine - N.P. quadrant pain [place] Office Visit 12/16/2014 1:20p [facility] Internal Doris Briceño, R10.31 Right lower Medicine - N.P. quadrant pain [place] N77.1 Vaginitis, vulvitis and vulvovaginitis in dis classd elswhr J06.9 Acute upper respiratory infection, unspecified F17.210 Nicotine dependence, cigarettes, uncomplicated Office Visit 10/21/2014 1:40p [facility] Internal Doris Briceño, [phone] Diarrhea Medicine - [place] [facility] 787.01 Nausea W/ Vomiting Office Visit 09/11/2014 2:00p [facility] Internal Medicine - George Wallace NP 784.0 Headache [place] 789.03 Pain Abdominal Right Lower Quadrant 706.1 Acne Other 788.41 Urinary Frequency Office Visit 08/15/2014 3:20p [facility] Internal Medicine - George Wallace NP 784.0 Headache [place] 847.0 Sprains & Strains Neck Plan of Treatment Future Appointment(s):04/30/2018 11:30 am - Karen Bennett M.D. at [facility]05/23/2018 3:30 pm - Benson Hernandez MD at [facility]04/30/2018 3:00 pm - Dipesh Hernandez MD at [facility] Hnbeputhnea99/06 /2019 - Fide Avila, [facility]-[id number] Sprain of metacarpophalangeal joint of right thumb, subsequeFollow up:Follow up: on Monday as scheduled
[2018-05-12] MEDS ORDERED: Tetan/Diph/Pertus SYR(Tdap)* 0.5 ML SYR(BOOSTRIX) use SYR IM ONE (15:35)
[2018-05-12 15:41] VITALS: BP 118/64
== END 2018-05-12 15:55 | disposition home or self-care (01) ==
LOC: UCEAST 15:26
DX: S61.451A Open bite of right hand, initial encounter (principal); J45.909 Unspecified asthma, uncomplicated; F17.210 Nicotine dependence, cigarettes, uncomplicated; Z98.890 Other specified postprocedural states; W55.01XA Bitten by cat, initial encounter; Y92.9 Unspecified place or not applicable
CPT/HCPCS: 90471; 90715; 99212; G0463

== ENCOUNTER 2018-06-26 13:23 | Emergency (ER) | payer OTHER ==
[2018-06-26 13:45] VITALS: BP 112/47
--- NOTE | 2018-06-26 13:48 | UC ---
Skin Complaint HPI - HPI Summary HPI Summary: 23 yo female presents with lump behind left ear for the last 2 days. Tender to touch and feels that it is enlarging. She is feeling well otherwise and denies fever, chills, sinus symptoms, sore throat, cough. - History of Current Complaint Chief Complaint: UCSkin Time Seen by Provider: 06/26/18 13:48 Stated Complaint: SKIN COMPLAINT Hx Obtained From: Patient Hx Last Menstrual Period: 05/06/18 Onset/Duration: Gradual Onset Onset Severity: Mild Current Severity: Moderate Pain Intensity: 7 Pain Scale Used: 0-10 Numeric - Allergy/Home Medications Allergies/Adverse Reactions: Allergies Allergy/AdvReac Type Severity Reaction Status Date / Time No Known Allergies Allergy Verified 06/26/18 13:45 PMH/Surg Hx/FS Hx/Imm Hx Respiratory History: Asthma - Surgical History Surgical History: Yes Surgery Procedure, Year, and Place: wisdom teeth extraction, tonsillectomy, LT THUMB LIGAMENT REPAIR 06/23/15 - Family History Known Family History: Positive: Cardiac Disease - [place] in grandmother , Hypertension - Social History Lives: With Family Alcohol Use: None Alcohol Amount: 1 DRINK 2 WEEKS Substance Use Type: None Smoking Status (MU): Heavy Every Day Tobacco Smoker Type: Cigarettes Amount Used/How Often: 10 PER DAY Length of Time of Smoking/Using Tobacco: 8 YRS Have You Smoked in the Last Year: Yes Household Exposure Type: Cigarettes - Immunization History Most Recent Tetanus Shot: unsure Review of Systems All Other Systems Reviewed And Are Negative: Yes Constitutional: Positive: Negative Skin: Positive: Other - lump behind left ear Eyes: Positive: Negative ENT: Positive: Negative Respiratory: Positive: Negative Cardiovascular: Positive: Negative Neurovascular: Positive: Negative Neurological: Positive: Negative Psychological: Positive: Negative Physical Exam - Summary Physical Exam Summary: GENERAL: NAD. WDWN. No pain distress. SKIN: Posterior left ear: 5mm mobile fluctuant nodule. Mildly TTP. No induration , erythema, or ecchymosis. HEENT: Head: AT/NC Eyes: EOM intact. Conjunctiva clear without inflammation or discharge. Ears: Hearing grossly normal. TMs intact, no bulging, erythema, or edema. Nose: Nasal mucosa pink and moist. NTTP maxillary and frontal sinus. Throat: Posterior oropharynx without exudates, erythema, or tonsillar enlargement. Uvula midline. NECK: Supple. Nontender. No lymphadenopathy. CHEST: CTAB. No r/r/w. No accessory muscle use. Breathing comfortably and in no distress. CV: RRR. Without m/r/g. Pulses intact. Cap refill <2seconds NEURO: Alert. PSYCH: Age appropriate behavior. Triage Information Reviewed: Yes Vital Signs: Initial Vital Signs Temp 98.8 F 06/26/18 13:41 Pulse 85 06/26/18 13:41 Resp 18 06/26/18 13:41 BP 112/47 06/26/18 13:41 Pulse Ox 100 06/26/18 13:41 Vital Signs Reviewed: Yes Course/Dx - Course Course Of Treatment: Suspect cyst vs enlarged lymph node. Encouraged pt to monitor the area and will place her on keflex for potential underlying skin infectious process/abscess. If does not resolve in 5-7 days - advised to be rechecked. - Diagnoses Provider Diagnosis: Cyst of skin Discharge - Sign-Out/Discharge Documenting (check all that apply): Patient Departure All imaging exams completed and their final reports reviewed: No Studies - Discharge Plan Condition: Stable Disposition: HOME Prescriptions: Cephalexin CAP* [Keflex CAP*] 500 mg PO BID #10 cap Patient Education Materials: Abscess (ED), Cyst (ED) Forms: *Work Release Referrals: Doris Briceño NP [Primary Care Provider] - Additional Instructions: If you develop a fever, shortness of breath, chest pain, new or worsening symptoms - please call your PCP or go to the ED immediately. Apply ice to the area to decrease pain and swelling - Billing Disposition and Condition Condition: STABLE Disposition: Home
== END 2018-06-26 14:28 | disposition home or self-care (01) ==
LOC: UCEAST 13:23
DX: L72.9 Follicular cyst of the skin and subcutaneous tissue, unspecified (principal); J45.909 Unspecified asthma, uncomplicated; F17.210 Nicotine dependence, cigarettes, uncomplicated
CPT/HCPCS: 99212; G0463

== ENCOUNTER 2018-08-18 14:26 | Emergency (ER) | payer OTHER ==
[2018-08-18] MEDS ORDERED: NS 0.9% 1000 ML** 1,000 ML IV ONE (17:36)
[2018-08-18] MEDS ORDERED: Metoclopramide IV* 5 MG/ML 2 ML VIAL IV ONE (17:36)
[2018-08-18 17:55] LABS: ABS Lymphocytes 0.8 10^3/ul (1.0-4.8); ABS Monocytes 0.3 10^3/ul (0-0.8); ABS Neutrophils 18.3 10^3/ul (1.5-7.7); Eosinophil % 0.2 %; Hematocrit 40 % (35-47); Hemoglobin 13.7 g/dL (12.0-16.0); Lymphocyte % 4.3 %; Mean Corpuscular HGB Conc 34 g/dL (31-36); Mean Corpuscular Hemoglobin 32 pg (27-31); Mean Corpuscular Volume 94 fL (80-97); Platelet Count 267 10^3/uL (150-450); Red Blood Count 4.28 10^6 /uL (3.70-4.87); Red Cell Distribution Width 14 % (10-15); White Blood Count 19.5 10^3/uL (3.5-10.8)
[2018-08-18 18:11] LABS: Albumin 3.9 g/dL (3.2-5.2); Albumin/Globulin Ratio 1.6 (1-3); BUN/Creatinine Ratio 15.6 (8-20); C Reactive Protein 14.49 mg/L (<8.01); Calcium 9.2 mg/dL (8.6-10.3); EGFR African American 205.4 (>60); EGFR Non-African American 169.8 (>60); Globulin 2.5 g/dL (2-4); Potassium 4.4 mmol/L (3.5-5.0); Total Bilirubin 0.5 mg/dL (0.2-1.0); Total Protein 6.4 g/dL (6.4-8.9)
[2018-08-18 18:19] LABS: Urine Appearance Cloudy; Urine Bilirubin Negative (Negative); Urine Blood Negative (Negative); Urine Color Yellow; Urine Glucose Negative (Negative); Urine Ketones 2+ (Negative); Urine Nitrite Negative (Negative); Urine Protein Negative (Negative); Urine Specific Gravity 1.023 (1.010-1.030); Urine Urobilinogen Negative (Negative)
[2018-08-18] MEDS ORDERED: Metoclopramide TAB* 10 MG PO ONE (20:15)
--- NOTE | 2018-08-18 20:17 | ED ---
Nausea/Vomiting/Diarrhea HPI - HPI Summary HPI Summary: Patient with history of 14 weeks and morning sickness complains of new onset nausea and vomiting 15 starting today with associated bilateral lower quadrant pain. Patient has Rx for Zofran was provided no relief contrary to morning sickness. Abdominal pain is intermittent, 4/10. Associated with chills and sweats. Brother has stomach bug. Denies fever, cough, sore throat, CP, SOB, diarrhea, change in urine, vaginal discharge. Medical history is asthma. Abdominal surgical history is none. Patient has been evaluated by OB/ THORACIC SURGEON with ultrasound 3 confirming IUP. - History of Current Complaint Chief Complaint: EDNauseaVomitDiarrh Stated Complaint: 14 WEEKS PREG/CANT KEEP FLUID DOWN PER PT Time Seen by Provider: 08/18/18 17:19 Hx Obtained From: Patient Hx Last Menstrual Period: 05/06/18 Onset/Duration: Sudden Onset Timing: Intermittent Episodes Lasting: Severity Initially: Moderate Severity Currently: Moderate Pain Intensity: 5 Pain Scale Used: 0-10 Numeric Location: Discrete At: RLQ, Discrete At: LLQ Character: Cramping Aggravating Factor(s): Nothing Alleviating Factor(s): Nothing - Allergies/Home Medications Allergies/Adverse Reactions: Allergies Allergy/AdvReac Type Severity Reaction Status Date / Time No Known Allergies Allergy Verified 06/26/18 13:45 Home Medications: Home Medications Pnv No.95/Ferrous Fum/Folic AC [ Caplet] 1 each PO DAILY 08/18/18 [ History Confirmed 08/18/18] raNITIdine HCl [Ranitidine HCl] 150 mg PO BID 08/18/18 [History Confirmed ] PMH/Surg Hx/FS Hx/Imm Hx Endocrine/Hematology History: Denies: Hx Diabetes, Hx Thyroid Disease Cardiovascular History: Denies: Hx Congestive Heart Failure, Hx Hypertension, Hx Pacemaker/ICD Respiratory History: Reports: Hx Asthma - ACUTE ASTHMA SINCE AGE 12 Denies: Hx Chronic Obstructive Pulmonary Disease (COPD), Other Respiratory Problems/Disorders GI History: Reports: Hx Gastroesophageal Reflux Disease Denies: Hx Ulcer History: Reports: Other Problems/Disorders - ovarian cysts Denies: Hx Dialysis, Hx Renal Disease Musculoskeletal History: Reports: Hx Back Problems - Chronic low back pain with luis hip pain, Hx Tendonitis - RIGHT FOOT, Other Musculoskeletal History - RIGHT THUMB LIGAMENT Sensory History: Denies: Hx Contacts or Glasses, Hx Hearing Aid Opthamlomology History: Denies: Hx Contacts or Glasses Neurological History: Reports: Hx Headaches - GET A HEADACHE EVERY DAY POSSIBLE RELATED TO STRESS, Hx Migraine - HX OF 2 MONTHS AGO, Other Neuro Impairments/ Disorders - dizziness Psychiatric History: Reports: Hx Anxiety, Hx Depression Denies: Hx Panic Disorder - Surgical History Surgery Procedure, Year, and Place: wisdom teeth extraction, tonsillectomy, LT THUMB LIGAMENT REPAIR 06/23/15 Hx Anesthesia Reactions: No - Immunization History Date of Tetanus Vaccine: unk Date of Influenza Vaccine: none Infectious Disease History: No Infectious Disease History: Denies: Hx Clostridium Difficile, Hx Hepatitis, Hx Human Immunodeficiency Virus (HIV), Hx of Known/Suspected MRSA, Hx Shingles, Hx Tuberculosis, History Other Infectious Disease, Traveled Outside the [place] in Last 30 Days - Family History Known Family History: Positive: Cardiac Disease - [place] in grandmother , Hypertension - Social History Alcohol Use: None Alcohol Amount: 1 DRINK 2 WEEKS Substance Use Type: Reports: None Smoking Status (MU): Heavy Every Day Tobacco Smoker Type: Cigarettes Amount Used/How Often: 10 PER DAY Length of Time of Smoking/Using Tobacco: 8 YRS Have You Smoked in the Last Year: Yes Review of Systems Constitutional: Negative Eyes: Negative ENT: Negative Cardiovascular: Negative Respiratory: Negative Positive: Abdominal Pain, Vomiting, Nausea Genitourinary: Negative Musculoskeletal: Negative Skin: Negative Neurological: Negative Psychological: Normal All Other Systems Reviewed And Are Negative: Yes Physical Exam - Summary Physical Exam Summary: Abdomen soft nontender. No peripheral edema. Lung sounds clear to auscultation bilaterally. No CVA tenderness bilaterally. Triage Information Reviewed: Yes Vital Signs On Initial Exam: Initial Vitals Temp Pulse Resp BP Pulse Ox 97.9 F 102 18 144/83 98 08/18/18 14:27 08/18/18 14:27 08/18/18 14:27 08/18/18 14:27 08/18/18 14:27 Vital Signs Reviewed: Yes Appearance: Positive: Well-Appearing Skin: Positive: Warm Head/Face: Positive: Normal Head/Face Inspection Eyes: Positive: Normal ENT: Positive: Normal ENT inspection Dental: Negative: Dental Fracture @, Bleeding Neck: Positive: Supple Respiratory/Lung Sounds: Positive: Clear to Auscultation Cardiovascular: Positive: Normal Abdomen Description: Positive: Nontender Musculoskeletal: Positive: Normal Neurological: Positive: Normal Psychiatric: Positive: Normal AVPU Assessment: Alert - Juan Coma Scale Best Eye Response: 4 - Spontaneous Best Motor Response: 6 - Obeys Commands Best Verbal Response: 5 - Oriented Coma Scale Total: 15 Diagnostics - Vital Signs Vital Signs Temp Pulse Resp BP Pulse Ox 08/18/18 19:00 85 98 08/18/18 18:58 81 97 08/18/18 16:18 98.6 F 76 18 144/93 100 08/18/18 14:27 97.9 F 102 18 144/83 98 - Laboratory Lab Results: Lab Results 08/18/18 08/18/18 08/18/18 Range/Units 17:43 17:43 18:09 WBC 19.5 H (3.5-10.8) 10^3/uL RBC 4.28 (3.70-4.87) 10^6 /uL Hgb 13.7 (12.0-16.0) g/dL Hct 40 (35-47) % MCV 94 (80-97) fL MCH 32 H (27-31) pg MCHC 34 (31-36) g/dL RDW 14 (10-15) % Plt Count 267 (150-450) 10^3/uL MPV 8.0 (7.4-10.4) fL Neut % (Auto) 93.8 % Lymph % (Auto) 4.3 % [place] % (Auto) 1.6 % Eos % (Auto) 0.2 % Baso % (Auto) 0.1 % Absolute Neuts (auto) 18.3 H (1.5-7.7) 10^3/ul Absolute Lymphs (auto) 0.8 L (1.0-4.8) 10^3/ul Absolute Monos (auto) 0.3 (0-0.8) 10^3/ul Absolute Eos (auto) 0.0 (0-0.6) 10^3/ul Absolute Basos (auto) 0.0 (0-0.2) 10^3/ul Absolute Nucleated RBC 0.0 10^3/ul Nucleated RBC % 0.0 Sodium 136 (135-145) mmol/L Potassium 4.4 (3.5-5.0) mmol/L Chloride 104 (101-111) mmol/L Carbon Dioxide 25 (22-32) mmol/L Anion Gap 7 (2-11) mmol/L BUN 7 (6-24) mg/dL Creatinine 0.45 L (0.51-0.95) mg/dL Est GFR ( Amer) 205.4 (>60) Est GFR (Non-Af Amer) 169.8 (>60) BUN/Creatinine Ratio 15.6 (8-20) Glucose 95 (70-100) mg/dL Calcium 9.2 (8.6-10.3) mg/dL Total Bilirubin 0.50 (0.2-1.0) mg/dL AST 20 (13-39) U/L ALT 19 (7-52) U/L Alkaline Phosphatase 46 (34-104) U/L C-Reactive Protein 14.49 H (<8.01) mg/L Total Protein 6.4 (6.4-8.9) g/dL Albumin 3.9 (3.2-5.2) g/dL Globulin 2.5 (2-4) g/dL Albumin/Globulin Ratio 1.6 (1-3) Lipase 19 (11.0-82.0) U/L Urine Color Yellow Urine Appearance Cloudy Urine pH 5.0 (5-9) Ur Specific [place] 1.023 (1.010-1.030) Urine Protein Negative (Negative) Urine Ketones 2+ A (Negative) Urine Blood Negative (Negative) Urine Nitrate Negative (Negative) Urine Bilirubin Negative (Negative) Urine Urobilinogen Negative (Negative) Ur Leukocyte Esterase Negative (Negative) Urine Glucose Negative (Negative) Result Diagrams: 08/18/18 17:43 08/18/18 17:43 Lab Statement: Any lab studies that have been ordered have been reviewed, and results considered in the medical decision making process. Naus/Vom/Diarrhea Course/Dx - Course Course Of Treatment: Patient with history of 14 weeks and morning sickness complains of new onset nausea and vomiting 15 starting today with associated bilateral lower quadrant pain. Patient has Rx for Zofran was provided no relief contrary to morning sickness. Abdominal pain is intermittent , 4/10. Associated with chills and sweats. Brother has stomach bug. Denies fever, cough, sore throat, CP, SOB, diarrhea, change in urine, vaginal discharge. Medical history is asthma. Abdominal surgical history is none. Patient has been evaluated by STRAIGHT KNIFE CUTTER MACHINE with ultrasound 3 confirming IUP. . Vital signs within normal limits. Nausea and vomiting controlled by Reglan 10 mg IV. ultrasound positive for IUP. WBC 19.5. Labs otherwise unremarkable. Rx for Reglan. - Differential Dx/Diagnosis Provider Diagnosis: , Nausea and vomiting Condition At Discharge: Stable Discharge - Sign-Out/Discharge Documenting (check all that apply): Patient Departure Patient Received Moderate/Deep Sedation with Procedure: No - Discharge Plan Condition: Stable Disposition: HOME Prescriptions: Metoclopramide TAB* [Reglan TAB*] 10 mg PO Q6H PRN 2 Days #8 tab PRN Reason: Nausea Patient Education Materials: (ED), Acute Nausea and Vomiting (ED) Referrals: Doris Briceño NP [Primary Care Provider] - Additional Instructions: Take Reglan as directed for nausea and vomiting. Drink plenty of fluids to maintain hydration. Return to the ED for any new or worsening symptoms. - Billing Disposition and Condition Condition: STABLE Disposition: Home
[2018-08-18 21:02] VITALS: BP 0/0
== END 2018-08-18 21:01 | disposition home or self-care (01) ==
LOC: ED 14:26
DX: O21.0 Mild hyperemesis gravidarum (principal); O99.341 Other mental disorders complicating pregnancy, first trimester; O99.331 Smoking (tobacco) complicating pregnancy, first trimester; K21.9 Gastro-esophageal reflux disease without esophagitis; J45.909 Unspecified asthma, uncomplicated; F41.8 Other specified anxiety disorders; F17.210 Nicotine dependence, cigarettes, uncomplicated; Z3A.13 13 weeks gestation of pregnancy
CPT/HCPCS: 36415; 76801; 80053; 81003; 83690; 85025; 86140; 96361; 96374; 99283; A9270-GY; J2765

== ENCOUNTER 2019-01-31 18:37 | Inpatient (IN) | payer OTHER ==
[2019-01-31] MEDS ORDERED: Buffered Lidocaine 1% SYRIN* 1 ML/SYRINGE INTRADERM ONE (19:07)
[2019-01-31] MEDS ORDERED: Lactated Ringers 1000 ML Bag* 1,000 ML IV ONE (19:07)
[2019-01-31] MEDS ORDERED: Dinoprostone* 10 MG VAG.SUPP VAGINAL ONE (19:07)
[2019-01-31 20:27] LABS: Urine Benzodiazepine Screen None Detected (None Detect); Urine Opiates Screen None Detected (None Detect)
[2019-01-31] MEDS ORDERED: hydrOXYzine HCL TAB* 50 MG PO ONE (22:00)
[2019-02-01 12:32] LABS: ABS Eosinophils 0.1 10^3/ul (0-0.6); ABS Lymphocytes 0.9 10^3/ul (1.0-4.8); ABS Monocytes 0.5 10^3/ul (0-0.8); ABS Neutrophils 9.2 10^3/ul (1.5-7.7); Eosinophil % 0.6 %; Hematocrit 38 % (35-47); Hemoglobin 12.9 g/dL (12.0-16.0); Lymphocyte % 8.5 %; Mean Corpuscular HGB Conc 34 g/dL (31-36); Mean Corpuscular Hemoglobin 32 pg (27-31); Mean Corpuscular Volume 94 fL (80-97); Mean Platelet Volume 9.5 fL (7.4-10.4); Platelet Count 221 10^3/uL (150-450); Red Blood Count 4.03 10^6 /uL (3.70-4.87); Red Cell Distribution Width 15 % (10-15); White Blood Count 10.7 10^3/uL (3.5-10.8)
[2019-02-01] MEDS: Lactated Ringers 1000 ML Bag* 1,000 ML IV SCH ×2 (14:23→15:36)
[2019-02-01] MEDS ORDERED: OBEPIDURAL* 250 ML EPIDURAL ONE (14:51)
[2019-02-01] MEDS ORDERED: Phenylephrine 40 MCG/ML SYRINGE IV PUSH PRN ×2 (15:20)
[2019-02-01] MEDS ORDERED: Sodium Citrate/Citric Acid* 15 ML UDC PO PRN (15:20)
[2019-02-01] MEDS ORDERED: Lactated Ringers 1000 ML Bag* 1,000 ML IV ONE (15:20)
[2019-02-01] MEDS ORDERED: Famotidine TAB* 20 MG PO PRN (15:20)
[2019-02-01] MEDS ORDERED: OBEPIDURAL* 250 ML EPIDURAL SCH (16:00)
[2019-02-01] MEDS ORDERED: Lactated Ringers 1000 ML Bag* 1,000 ML IV SCH (16:00)
[2019-02-01] MEDS ORDERED: Oxytocin in LR* 20 UNITS/1,000 ML BAG IVPB SCH (17:00)
--- NOTE | 2019-02-01 23:49 | HP ---
General Information - Reason for Visit Induction for GHTN - General Information Maternal Age: 23 Grav: 2 Para: 0 SAB: 1 IEA: 0 Estimated Due Date: 02/21/19 Maternal Blood Type and Rh: O Positive - Results this Serology/RPR Result: Non-Reactive Rubella Result: Immune HBsAg Result: Negative HIV Result: Negative GBS Culture Result: Negative Past Medical History Pertinent Past Medical History: See Records Pertinent Past Surgical History: See Records Pertinent Family History: See Records - Antepartal Records Antepartal Records: Reviewed, Complicated by: - GHTN, Hx HSV, Review of Systems Constitutional: Comfortable CV Complaint: No Respiratory: Shortness of Breath: No Gastrointestinal: No Nausea/Vomiting Genitourinary: No Dysuria, No Bleeding, No Leaking Fluid Musculoskeletal: No Complaint Neurological: No Headache Movement: Normal Exam Allergies/Adverse Reactions: Allergies No Known Allergies Allergy (Verified 01/31/19 20:14) Lab Values - Entire Visit: Laboratory Tests 01/31/19 02/01/19 02/01/19 19:50 10:07 10:07 WBC 10.7 RBC 4.03 Hgb 12.9 Hct 38 MCV 94 MCH 32 H MCHC 34 RDW 15 Plt Count 221 MPV 9.5 Neut % (Auto) 86.2 Lymph % (Auto) 8.5 [place] % (Auto) 4.4 Eos % (Auto) 0.6 Baso % (Auto) 0.3 Absolute Neuts (auto) 9.2 H Absolute Lymphs (auto) 0.9 L Absolute Monos (auto) 0.5 Absolute Eos (auto) 0.1 Absolute Basos (auto) 0.0 Absolute Nucleated RBC 0.0 Nucleated RBC % 0.0 Urine Opiates Screen None detected Ur Barbiturates Screen None detected Ur Phencyclidine Scrn None detected Ur Amphetamines Screen None detected U Benzodiazepines Scrn None detected Urine Cocaine Screen None detected U Cannabinoids Screen None detected Blood Type O Positive Antibody Screen Negative - Measurements Height: 5 ft 5 in Weight: 202 lb Weight in lbs: 202.711354 Body Mass Index (BMI): 33.6 Pre- Weight: 147 lb Weight Gained This : 55 lbs and 0 ozs - Exam Breast: Breast Exam Deferred Extremities: No Edema Heart: Normal Rhythm/Heart Sounds HEENT: No Significant Findings - Abdominal Exam Abdomen Exam: Non-Tender - Ultrasound/Biophysical Profile Ultrasound Status: Not Done Targeted Exam Findings Cervical Exam: Closed Membrane Status: Intact Bleeding/Discharge: None EFM Findings - External Monitor Findings Baseline Heart Rate: 150 External Monitor Findings: Accelerations Present, No Pattern of Variable or Late Decelerations, Variability Moderate, Baseline Stable Contractions: None Assessment/Plan - Assessment @37.1wks for IND for GHTN, no e/o PEC - Obstetrical Risk Factors Obstetrical Risk Factors: Gestational Hypertension - Plan Plan: Cervical Ripening
[2019-02-02] MEDS ORDERED: Dibucaine 1% 28.35 GM TUBE PR PRN (01:54)
[2019-02-02] MEDS ORDERED: Witch Hazel PAD* JAR TOPICAL PRN (01:54)
[2019-02-02] MEDS ORDERED: Glycerin ADULT SUPP PR PRN (01:54)
[2019-02-02] MEDS ORDERED: Lactated Ringers 1000 ML Bag* 1,000 ML IV SCH (02:00)
[2019-02-02] MEDS ORDERED: Oxytocin in LR* 20 UNITS/1,000 ML BAG IVPB SCH (02:00)
--- NOTE | 2019-02-02 02:03 | PROCNOTE ---
[facility] OB: Delivery Note - Delivery A Date of : 02/02/19 Time of : 01:26 Sex: Male Gestational Age in Weeks and Days at Delivery: 37 Weeks and 2 Days Delivery Method: Spontaneous Vaginal Labor: Induced Did Patient attempt ?: N/A, No Previous Amniotic Fluid: Clear Estimated Blood Loss: 150 Anesthesia/Analgesia: CEI for Labor - Perineum Perineal Injury: None/Intact - Events Delivery Events of Note: Pitocin During Labor, IUPC Use - Additional Delivery Notes Additional Delivery Notes: Pt presented for IND due to GHTN. She received a cervidil and then progressed into early labor. She received an epidural and then pitocin was started. She progressed to fully dilated and pushed 1.5hrs to deliver the 's head in JUNE position with a right compound arm followed quickly by the shoulders and the rest of the body. The baby was placed on mom's abdomen. The cord was quickly clamped and cut due to baby being floppy and he was taken to the warmer for initial resuscitation. The perineum was intact with no abrasions. The placenta delivered with gentle cord traction and fundal massage and appeared intact. Fundus was firm with good hemostasis.
[2019-02-02] MEDS ORDERED: Ammonia Inhalant* 1 EA AMP ONE (03:11)
[2019-02-02] MEDS: Ibuprofen TAB* 600 MG PO PRN ×4 (03:13→21:31)
[2019-02-02] MEDS: Acetaminophen TAB* 325 MG PO PRN ×3 (03:13→13:36)
[2019-02-02] MEDS: Docusate CAP* 100 MG PO SCH ×3 (08:20→21:31)
[2019-02-02] MEDS ORDERED: Simethicone TAB* 80 MG TAB.CHEW PO SCH (08:30)
[2019-02-02] MEDS ORDERED: oxyCODONE/Acetamin 5/325 MG* TAB PO PRN (15:39)
[2019-02-02] MEDS: oxyCODONE/Acetamin 5/325 MG* TAB PO PRN ×2 (15:58→16:52)
[2019-02-03] MEDS: oxyCODONE/Acetamin 5/325 MG* TAB PO PRN ×6 (01:13→21:43)
[2019-02-03] MEDS: Ibuprofen TAB* 600 MG PO PRN ×3 (05:16→17:33)
[2019-02-03 06:22] LABS: ABS Basophils 0.1 10^3/ul (0-0.2); ABS Eosinophils 0.2 10^3/ul (0-0.6); ABS Lymphocytes 2.7 10^3/ul (1.0-4.8); ABS Monocytes 0.9 10^3/ul (0-0.8); ABS Neutrophils 7.7 10^3/ul (1.5-7.7); Eosinophil % 1.7 %; Hematocrit 38 % (35-47); Lymphocyte % 23.5 %; Mean Corpuscular HGB Conc 35 g/dL (31-36); Mean Corpuscular Hemoglobin 33 pg (27-31); Mean Corpuscular Volume 95 fL (80-97); Mean Platelet Volume 8.8 fL (7.4-10.4); Nucleated Red Blood Cells % 0.1; Platelet Count 217 10^3/uL (150-450); Red Blood Count 3.97 10^6 /uL (3.70-4.87); Red Cell Distribution Width 15 % (10-15); White Blood Count 11.6 10^3/uL (3.5-10.8)
[2019-02-03] MEDS ORDERED: Ferrous Gluconate TAB* 324 MG TAB PO SCH (09:00)
[2019-02-03] MEDS: Docusate CAP* 100 MG PO SCH ×3 (09:28→21:52)
[2019-02-04] MEDS: Ibuprofen TAB* 600 MG PO PRN ×2 (00:06→08:15)
[2019-02-04] MEDS: oxyCODONE/Acetamin 5/325 MG* TAB PO PRN ×2 (04:21→09:22)
[2019-02-04 08:28] VITALS: BP 141/60
--- NOTE | 2019-02-04 10:06 | PTEDU ---
Patient Name: ESVIN HOYT ESVIN HOYT selected video: Never Ever Shake a Baby to view on 02/04/2019 at 10:05:33 AM from [facility] [id number]
== END 2019-02-04 14:15 | disposition home or self-care (01) | DRG 560 ==
LOC: MCHOBOUT 18:37 → MCHOB 19:26
PROVIDERS: ADMIT Obstetrics & Gynecology; ATTEND Obstetrics & Gynecology
PROC: 10E0XZZ Delivery of Products of Conception, External Approach (ICD-10-PCS; principal; 2019-02-02)
PROC: 3E033VJ Introduction of Other Hormone into Peripheral Vein, Percutaneous Approach (ICD-10-PCS; 2019-02-02)
DX: O13.4 Gestational [pregnancy-induced] hypertension without significant proteinuria, complicating childbirth (principal); Z37.0 Single live birth; O99.52 Diseases of the respiratory system complicating childbirth; O99.344 Other mental disorders complicating childbirth; F31.9 Bipolar disorder, unspecified; O32.6XX0 Maternal care for compound presentation, not applicable or unspecified; Z3A.37 37 weeks gestation of pregnancy
CPT/HCPCS: 36415; 59200; 80307; 85025; 86850; 86900; 86901; 88307; A9270-GY

== ENCOUNTER 2023-05-02 18:02 | Observation (INO) ==
[2023-05-02] MEDS: Ondansetron 4 mg VIAL 2 MG/ML 2 ml VIAL IV ONE (19:31)
[2023-05-02] MEDS: Lactated Ringers 1000 ml BAG 1,000 ML IV ONE (19:33)
[2023-05-02 19:39] LABS: ABS Basophils 0.1 10^3/uL (0.0-0.1); ABS Eosinophils 0.2 10^3/uL (0.0-0.5); ABS Lymphocytes 3.4 10^3/uL (1.0-4.8); ABS Monocytes 0.7 10^3/uL (0.0-0.9); ABS Neutrophils 7.6 10^3/uL (1.5-7.6); ABS Nucleated RBC 0.01 10^3/ul; Eosinophil % 1.8 %; Hematocrit 38.7 % (35-45); Hemoglobin 13.3 g/dL (11.5-14.3); Lymphocyte % 27.8 %; Mean Corpuscular Hemoglobin 31.2 pg (27-33); Mean Corpuscular Hgb Conc 34.3 g/dL (31-36); Mean Corpuscular Volume 90.8 fL (80-97); Mean Platelet Volume 8.3 fL (7.5-11.2); Nucleated Red Blood Cells % 0.1 %/100WBC (0.0-0.8); Platelet Count 291 10^3/uL (150-450); Red Blood Count 4.26 10^6/uL (3.63-4.92); Red Cell Distribution Width 13.9 % (12-17); White Blood Count 12.1 10^3/uL (3.8-11.8)
[2023-05-02 20:24] LABS: HCG Pregnancy < 0.60 mIU/mL
[2023-05-02 20:30] LABS: Urine Appearance Turbid; Urine Bilirubin Negative (Negative); Urine Blood Negative (Negative); Urine Color Light-Yellow; Urine Glucose Negative (Negative); Urine Ketones Negative (Negative); Urine Nitrite Negative (Negative); Urine Protein Negative (Negative); Urine Specific Gravity 1.014 (1.002-1.030); Urine Urobilinogen Negative (Negative); Urine pH 5.5 (5.0-8.0)
[2023-05-02 20:48] LABS: ALT 23 U/L (7-52); AST 16 U/L (13-39); Albumin 3.9 g/dL (3.2-5.2); Albumin/Globulin Ratio 1.8 (1-3); Alkaline Phosphatase 75 U/L (35-149); Blood Urea Nitrogen 20 mg/dL (6-24); C Reactive Protein 4.92 mg/L (<8.01); CO2 Carbon Dioxide 23 mmol/L (22-32); Calcium 8.9 mg/dL (8.6-10.3); Chloride 104 mmol/L (101-111); Creatinine, Serum 1.01 mg/dL (0.51-0.95); Globulin 2.2 g/dL (2-4); Glucose 82 mg/dL (70-100); Lipase 37 U/L (11.0-82.0); Sodium 136 mmol/L (135-145); Total Bilirubin 0.2 mg/dL (0.2-1.0); Total Protein 6.1 g/dL (6.4-8.9); eGFR CKD-EPI 76.8 (>60)
[2023-05-02 20:49] LABS: Urine Bacteria Absent /HPF (Absent); Urine Red Blood Cell Trace(0-2/hpf) /HPF (0-Trace); Urine Squamous Epithelial Cell Present /HPF (Absent); Urine White Blood Cell 2+(11-20/hpf) /HPF (0-Trace)
[2023-05-02] MEDS: Piperacillin/Tazobac 3.375 BAG 3.375 GM/100 ML BAG IV ONE (21:10)
[2023-05-02 21:42] LABS: Anion Gap 9 mmol/L (2-16); Potassium 4.2 mmol/L (3.5-5.0)
[2023-05-02] MEDS: D5W 1/2 NS 40 Meq KCL 1000 ml 1,000 ML IV SCH (22:07)
[2023-05-02] MEDS: Ondansetron 4 mg VIAL 2 MG/ML 2 ml VIAL IV PRN (23:10)
[2023-05-02] MEDS: HYDROmorphone 0.5 MG/0.5 ML SYRINGE IV SLOW PU PRN (23:10)
[2023-05-03] MEDS: Piperacillin/Tazobac 3.375 BAG 3.375 GM/100 ML BAG IV SCH (01:56)
[2023-05-03 06:26] LABS: ABS Basophils 0.1 10^3/uL (0.0-0.1); ABS Eosinophils 0.2 10^3/uL (0.0-0.5); ABS Lymphocytes 4.2 10^3/uL (1.0-4.8); ABS Monocytes 0.6 10^3/uL (0.0-0.9); ABS Neutrophils 4.9 10^3/uL (1.5-7.6); Eosinophil % 2.4 %; Hemoglobin 13.3 g/dL (11.5-14.3); Lymphocyte % 41.8 %; Mean Corpuscular Hemoglobin 31.3 pg (27-33); Mean Corpuscular Hgb Conc 34.2 g/dL (31-36); Mean Corpuscular Volume 91.6 fL (80-97); Mean Platelet Volume 8.4 fL (7.5-11.2); Platelet Count 257 10^3/uL (150-450); Red Blood Count 4.25 10^6/uL (3.63-4.92); Red Cell Distribution Width 13.7 % (12-17); White Blood Count 10.1 10^3/uL (3.8-11.8)
[2023-05-03 06:58] LABS: Albumin 3.7 g/dL (3.2-5.2); Albumin/Globulin Ratio 1.7 (1-3); Calcium 8.4 mg/dL (8.6-10.3); Creatinine, Serum 0.71 mg/dL (0.51-0.95); Globulin 2.2 g/dL (2-4); Potassium 4.8 mmol/L (3.5-5.0); Total Bilirubin 0.3 mg/dL (0.2-1.0); Total Protein 5.9 g/dL (6.4-8.9); eGFR CKD-EPI 117.2 (>60)
[2023-05-03] MEDS ORDERED: Levalbuterol 1.25MG/0.5ML NEB.SOL ONE (09:07)
[2023-05-03] MEDS: Levalbuterol 1.25MG/0.5ML NEB.SOL INH ONE (09:13)
[2023-05-03] MEDS ORDERED: Buffered Lidocaine 1% SYRIN 1 ml INTRADERM ONE (10:38)
[2023-05-03] MEDS ORDERED: Naloxone 0.4 mg VIAL 0.4 mg/ml 1 ml VIAL IV PRN ×4 (10:38→13:37)
[2023-05-03] MEDS ORDERED: Ondansetron 4 mg VIAL 2 MG/ML 2 ml VIAL ONE ×2 (10:43→13:33)
[2023-05-03] MEDS ORDERED: Lactated Ringers 1000 ml BAG 1,000 ML IV SCH (11:00)
[2023-05-03] MEDS ORDERED: Rocuronium 50 mg VIAL 10 mg/ml 5 ml VIAL (50 mg) ONE ×2 (11:27→12:33)
[2023-05-03] MEDS ORDERED: Propofol 10 MG/ML 20 ML BTL ONE ×2 (11:27→11:56)
[2023-05-03] MEDS ORDERED: fentaNYL 100 mcg/2 ml 50 MCG/ML VIAL ONE ×4 (11:29→14:40)
[2023-05-03] MEDS ORDERED: Midazolam 2 mg/2 ml VIAL 1 mg/ml 2 ml VIAL (2 mg) ONE (11:29)
[2023-05-03] MEDS ORDERED: Bupivacaine 0.25% w/EPI 10 ML SDV ONE (11:34)
[2023-05-03] MEDS ORDERED: Piperacillin/Tazobac 3.375 BAG 3.375 GM/100 ML BAG IV ONE (11:45)
[2023-05-03] MEDS ORDERED: HYDROmorphone 0.5 MG/0.5 ML SYRINGE ONE ×2 (12:21→12:35)
[2023-05-03] MEDS ORDERED: Dexamethasone IV 4 MG/ML VIAL 1 ml VIAL ONE (12:26)
[2023-05-03] MEDS ORDERED: hydrALAZINE 20 mg/ml 1 ML Vial IV ONE (12:38)
[2023-05-03] MEDS: fentaNYL 100 mcg/2 ml 50 MCG/ML VIAL IV PRN (13:31)
[2023-05-03] MEDS ORDERED: Scopolamine 1 mg/72hr PATCH ONE (13:34)
[2023-05-03] MEDS ORDERED: Scopolamine 1 mg/72hr PATCH TRANSDERM PRN (13:37)
[2023-05-03 15:31] VITALS: BP 104/63
== END 2023-05-03 15:25 | disposition home or self-care (01) ==
LOC: ED 18:02 → EDHOLD 18:02 → AA 05-03 09:14
PROVIDERS: ADMIT Surgery; ATTEND Surgery